=== PATIENT | male | born 1960 | race African-American/Black ===

== ENCOUNTER → 2016-05-02 | Outpatient (CLI) | payer MEDICAID ==
[~2016-05-02] MED LIST: /ADVA50050; /ADVA50050 IN; /AUGM875TA; /AUGM875TA OR; ACET65TA; ADV250INH INH; ALBU17IN INH; ALBU17IN2; ASPI325T PO; AUGM875T27 PO; AUGMENTIN; AVANDIA; BABY81CH OR; CEROTAB PO; CEROVITE OR; CIPR250T3; CIPR500T19; DARV100T; DARV100T OR; DOXY-278 PO; DRIS50002 PO; DYAZ37.5; DYAZ37.5 OR; FURO40TA2; FURO40TA2 PO; FURO80TA2; GLIM4TAB PO; GLIP5TAB2; GLIPPOW; GLUC1000; GLUC1000 OR; GLUC5TAB3; HUMA100I5 SC; INSUHUMDS SC; INSULANT SC; LASI40TA; LISIPOW; LOSA50TA20 PO; LYRI75CA PO; METFORMIN; MICA40TA; MICA40TA OR; MOTRIN; OMEP20CA3 PO; POTA20TA; PREG50CA OR; PREG50CA PO; PRIL40CA OR; QUINAPRIL; RANI150T PO; ROSI4TA; SANTYL; SIMV40TA2 OR; TRIA37.5 PO; TRIAMTERENE-HCTZ; VIBR100C OR; VITA500T OR; VITA500T88 PO; albuterol inhaler INH; albuterol inhaler OR; furosemide OR; glimepiride OR; januvia OR; lantus SC
[2016-05-02 08:31] LABS: ALBUMIN 3.1 GM/DL (3.2-5.2); ALBUMIN/GLOBULIN RATIO 0.82 (1.00-1.93); ALKALINE PHOSPHATASE 100 U/L (45-117); ALT/SGPT 107 U/L (12-78); ANION GAP 8 MEQ/L (8-16); AST/SGOT 60 U/L (15-37); BILIRUBIN,TOTAL 0.4 MG/DL (0.2-1.0); BLOOD UREA NITROGEN 20 MG/DL (7-18); CALCIUM LEVEL 8.6 MG/DL (8.5-10.1); CARBON DIOXIDE LEVEL 29 MEQ/L (21-32); CHLORIDE LEVEL 108 MEQ/L (98-107); CHOLESTEROL LEVEL 110 MG/DL (<200); CREATININE FOR GFR 0.83 MG/DL (0.70-1.30); GLOMERULAR FILTRATION RATE > 60.0 (>56); GLUCOSE, FASTING 137 MG/DL (70-105); POTASSIUM SERUM 3.9 MEQ/L (3.5-5.1); SODIUM LEVEL 145 MEQ/L (136-145); TOTAL PROTEIN 6.9 GM/DL (6.4-8.2); TRIGLYCERIDES LEVEL 59 MG/DL (<150)
[2016-05-02 08:46] LABS: BASO % 0.4 % (0.0-1.0); EOS # 0.1 K/mm3 (0.0-0.50); EOS % 2.2 % (0.0-3.0); LYMPH # 1.9 K/mm3 (1.5-4.5); LYMPH % 28.6 % (24.0-44.0); MEAN CORPUSCULAR HEMOGLOBIN 29.2 pg (27.0-33.0); MEAN CORPUSCULAR HGB CONC 32.7 g/dl (32.0-36.5); MEAN CORPUSCULAR VOLUME 89.2 fl (80.0-96.0); MONO # 0.6 K/mm3 (0.0-0.8); MONO % 9.1 % (0.0-5.0); NEUTROPHILS # 3.8 K/mm3 (1.8-7.7); NEUTROPHILS % 57.9 % (36.0-66.0); RED CELL DISTRIBUTION WIDTH 13.7 % (11.5-14.5); WHITE BLOOD COUNT 6.5 K/mm3 (4.0-10.0)
== END ==
LOC: M LAB 07:16
PROVIDERS: ATTEND Physician Assistant Medical
DX: E11.9 Type 2 diabetes mellitus without complications (principal); E08.40 Diabetes mellitus due to underlying condition with diabetic neuropathy, unspecified

== ENCOUNTER → 2016-06-27 | Outpatient (CLI) | payer MEDICAID ==
[2016-06-27 08:23] LABS: BASO % 0.4 % (0.0-1.0); EOS # 0.2 K/mm3 (0.0-0.50); EOS % 2.2 % (0.0-3.0); LYMPH # 2.2 K/mm3 (1.5-4.5); LYMPH % 25.3 % (24.0-44.0); MEAN CORPUSCULAR HEMOGLOBIN 29.6 pg (27.0-33.0); MEAN CORPUSCULAR HGB CONC 32.9 g/dl (32.0-36.5); MONO # 0.6 K/mm3 (0.0-0.8); MONO % 7.7 % (0.0-5.0); NEUTROPHILS # 5.2 K/mm3 (1.8-7.7); NEUTROPHILS % 62.6 % (36.0-66.0); WHITE BLOOD COUNT 8.2 K/mm3 (4.0-10.0)
[2016-06-27 08:56] LABS: ALBUMIN 3.1 GM/DL (3.2-5.2); ALBUMIN/GLOBULIN RATIO 0.79 (1.00-1.93); ALKALINE PHOSPHATASE 93 U/L (45-117); ALT/SGPT 45 U/L (12-78); ANION GAP 8 MEQ/L (8-16); AST/SGOT 28 U/L (15-37); BILIRUBIN,TOTAL 0.4 MG/DL (0.2-1.0); BLOOD UREA NITROGEN 22 MG/DL (7-18); CALCIUM LEVEL 8.3 MG/DL (8.5-10.1); CARBON DIOXIDE LEVEL 29 MEQ/L (21-32); CHLORIDE LEVEL 105 MEQ/L (98-107); CHOLESTEROL LEVEL 124 MG/DL (<200); GLOMERULAR FILTRATION RATE > 60.0 (>56); GLUCOSE, FASTING 127 MG/DL (70-105); POTASSIUM SERUM 3.9 MEQ/L (3.5-5.1); SODIUM LEVEL 142 MEQ/L (136-145); TRIGLYCERIDES LEVEL 78 MG/DL (<150)
== END ==
LOC: M LAB 07:18
PROVIDERS: ATTEND Physician Assistant Medical
DX: E11.9 Type 2 diabetes mellitus without complications (principal)

== ENCOUNTER → 2016-08-23 | Outpatient (CLI) | payer MEDICAID ==
--- NOTE | 2016-08-23 07:49 | REP ---
Clinical: Shortness of breath. Technique: PA and lateral. Comparison: 01/09/2009. Findings: Mediastinum and cardiac silhouette are normal. Subtle left lower lobe/ retrocardiac atelectasis and/or infiltrate cannot be excluded and should be correlated clinically. No further consolidation, effusion, or pneumothorax. Skeletal structures intact. Impression: Cannot exclude left lower lobe atelectasis/infiltrate. Signed by Yefri Zhao MD 08/23/2016 07:41 A
[2016-08-23 08:00] LABS: BASO % 0.5 % (0.0-1.0); EOS # 0.1 K/mm3 (0.0-0.50); LYMPH # 1.9 K/mm3 (1.5-4.5); LYMPH % 31.1 % (24.0-44.0); MEAN CORPUSCULAR HEMOGLOBIN 29.9 pg (27.0-33.0); MEAN CORPUSCULAR HGB CONC 32.8 g/dl (32.0-36.5); MEAN CORPUSCULAR VOLUME 90.9 fl (80.0-96.0); MONO # 0.6 K/mm3 (0.0-0.8); MONO % 10.4 % (0.0-5.0); NEUTROPHILS # 3.3 K/mm3 (1.8-7.7); NEUTROPHILS % 53.1 % (36.0-66.0); RED CELL DISTRIBUTION WIDTH 13.7 % (11.5-14.5); WHITE BLOOD COUNT 6.1 K/mm3 (4.0-10.0)
[2016-08-23 08:35] LABS: ALBUMIN/GLOBULIN RATIO 0.81 (1.00-1.93); ALKALINE PHOSPHATASE 90 U/L (45-117); ALT/SGPT 93 U/L (12-78); ANION GAP 6 MEQ/L (8-16); AST/SGOT 50 U/L (15-37); BILIRUBIN,TOTAL 0.4 MG/DL (0.2-1.0); BLOOD UREA NITROGEN 22 MG/DL (7-18); CALCIUM LEVEL 8.1 MG/DL (8.5-10.1); CARBON DIOXIDE LEVEL 29 MEQ/L (21-32); CHLORIDE LEVEL 108 MEQ/L (98-107); CHOLESTEROL LEVEL 115 MG/DL (<200); CREATININE FOR GFR 0.92 MG/DL (0.70-1.30); GLOMERULAR FILTRATION RATE > 60.0 (>56); GLUCOSE, FASTING 117 MG/DL (70-105); POTASSIUM SERUM 3.9 MEQ/L (3.5-5.1); SODIUM LEVEL 143 MEQ/L (136-145); TOTAL PROTEIN 6.7 GM/DL (6.4-8.2); TRIGLYCERIDES LEVEL 59 MG/DL (<150)
== END ==
LOC: M LAB 06:53
PROVIDERS: ATTEND Physician Assistant Medical
DX: E11.9 Type 2 diabetes mellitus without complications (principal); J44.9 Chronic obstructive pulmonary disease, unspecified

== ENCOUNTER → 2016-10-19 | Outpatient (CLI) | payer MEDICAID ==
[~2016-10-19] MED LIST changes: -AUGM875T27 PO; +AUGM875T28 PO
--- NOTE | 2016-10-19 10:59 | REP ---
RIGHT WRIST, FOUR VIEWS: HISTORY: Carpal tunnel syndrome. There is no acute fracture or dislocation. The joint spaces are normal in appearance. IMPRESSION: There is no acute fracture or dislocation. LEFT WRIST, FOUR VIEWS: There is no acute fracture or dislocation. There is deformity of the navicular and lunate bones likely secondary to previous trauma. Calcifications are present medial to the lunate. This represents ligamentous or tendon calcification. IMPRESSION: Degenerative change as described above. Signed by Aldair Ann MD 10/19/2016 11:05 A
== END ==
LOC: M RAD 07:47
PROVIDERS: ATTEND Physician Assistant Medical
DX: G56.03 Carpal tunnel syndrome, bilateral upper limbs (principal)

== ENCOUNTER → 2016-11-19 | Outpatient (CLI) | payer MEDICAID ==
--- NOTE | 2016-11-19 08:33 | REP ---
PA and lateral chest: Comparison is 08/23/2016. The lung rios are clear. The cardiac size is normal The magnolia, mediastinum, and bony thorax are unremarkable. Impression: Negative PA and lateral chest. Signed by Hans Caballero MD 11/19/2016 08:25 A
[2016-11-19 09:20] LABS: BASO % 0.5 % (0.0-1.0); EOS # 0.1 K/mm3 (0.0-0.50); EOS % 1.7 % (0.0-3.0); LYMPH # 1.5 K/mm3 (1.5-4.5); LYMPH % 27.5 % (24.0-44.0); MEAN CORPUSCULAR HEMOGLOBIN 29.1 pg (27.0-33.0); MEAN CORPUSCULAR HGB CONC 32.9 g/dl (32.0-36.5); MEAN CORPUSCULAR VOLUME 88.6 fl (80.0-96.0); MONO # 0.5 K/mm3 (0.0-0.8); MONO % 9.3 % (0.0-5.0); NEUTROPHILS # 3.1 K/mm3 (1.8-7.7); NEUTROPHILS % 58.5 % (36.0-66.0); RED CELL DISTRIBUTION WIDTH 13.5 % (11.5-14.5); WHITE BLOOD COUNT 5.3 K/mm3 (4.0-10.0)
[2016-11-19 09:45] LABS: ALBUMIN 2.9 GM/DL (3.2-5.2); ALBUMIN/GLOBULIN RATIO 0.74 (1.00-1.93); ALKALINE PHOSPHATASE 119 U/L (45-117); ALT/SGPT 44 U/L (12-78); ANION GAP 7 MEQ/L (8-16); AST/SGOT 23 U/L (15-37); BILIRUBIN,TOTAL 0.4 MG/DL (0.2-1.0); BLOOD UREA NITROGEN 14 MG/DL (7-18); CALCIUM LEVEL 8.2 MG/DL (8.5-10.1); CARBON DIOXIDE LEVEL 31 MEQ/L (21-32); CHLORIDE LEVEL 104 MEQ/L (98-107); CHOLESTEROL LEVEL 112 MG/DL (<200); CREATININE FOR GFR 0.88 MG/DL (0.70-1.30); GLOMERULAR FILTRATION RATE > 60.0 (>56); GLUCOSE, FASTING 338 MG/DL (70-105); GLUCOSE,RANDOM 338 MG/DL (LESS THAN 200); SODIUM LEVEL 142 MEQ/L (136-145); TOTAL PROTEIN 6.8 GM/DL (6.4-8.2); TRIGLYCERIDES LEVEL 78 MG/DL (<150)
== END ==
LOC: M LAB 07:26
PROVIDERS: ATTEND Physician Assistant Medical
DX: Z72.0 Tobacco use (principal); E08.40 Diabetes mellitus due to underlying condition with diabetic neuropathy, unspecified

== ENCOUNTER → 2017-02-26 | Outpatient (CLI) | payer MEDICAID ==
[2017-02-26 07:55] LABS: BASO % 0.3 % (0.0-1.0); EOS # 0.1 10^3/uL (0.0-0.50); EOS % 1.5 % (0.0-3.0); IMMATURE GRANULOCYTE % 0.3 % (0-0); LYMPH # 1.8 10^3/uL (1.5-4.5); LYMPH % 23.1 % (24.0-44.0); MEAN CORPUSCULAR HEMOGLOBIN 27.7 pg (27.0-33.0); MEAN CORPUSCULAR HGB CONC 31.6 g/dl (32.0-36.5); MEAN CORPUSCULAR VOLUME 87.7 fl (80.0-96.0); MONO # 0.8 10^3/uL (0.0-0.8); MONO % 10.7 % (0.0-5.0); NEUTROPHILS # 4.9 10^3/uL (1.8-7.7); NEUTROPHILS % 64.1 % (36.0-66.0); PLATELET COUNT, AUTOMATED 199 10^3/uL (150-450); RED CELL DISTRIBUTION WIDTH 14.4 % (11.5-14.5); WHITE BLOOD COUNT 7.6 10^3/uL (4.0-10.0)
[2017-02-26 08:29] LABS: ALBUMIN 2.8 GM/DL (3.2-5.2); ALBUMIN/GLOBULIN RATIO 0.68 (1.00-1.93); ALKALINE PHOSPHATASE 128 U/L (45-117); ALT/SGPT 90 U/L (12-78); ANION GAP 5 MEQ/L (8-16); AST/SGOT 50 U/L (7-37); BILIRUBIN,TOTAL 0.3 MG/DL (0.2-1.0); BLOOD UREA NITROGEN 21 MG/DL (7-18); CALCIUM LEVEL 8.7 MG/DL (8.5-10.1); CARBON DIOXIDE LEVEL 33 MEQ/L (21-32); CHLORIDE LEVEL 105 MEQ/L (98-107); CHOLESTEROL LEVEL 171 MG/DL (<200); CREATININE FOR GFR 0.98 MG/DL (0.70-1.30); GLOMERULAR FILTRATION RATE > 60.0 (>56); GLUCOSE, FASTING 261 MG/DL (70-105); POTASSIUM SERUM 4.3 MEQ/L (3.5-5.1); SODIUM LEVEL 143 MEQ/L (136-145); TOTAL PROTEIN 6.9 GM/DL (6.4-8.2); TRIGLYCERIDES LEVEL 80 MG/DL (<150)
== END ==
LOC: M LAB 07:21
PROVIDERS: ATTEND Physician Assistant Medical
DX: E11.9 Type 2 diabetes mellitus without complications (principal)

== ENCOUNTER → 2017-06-04 | Outpatient (REF) | payer MEDICAID ==
[2017-06-04 13:22] LABS: TOTAL 25(OH) VITAMIN D 47.1 NG/ML (30.0-100.0)
[2017-06-04 13:24] LABS: ALBUMIN 2.7 GM/DL (3.2-5.2); ALBUMIN/GLOBULIN RATIO 0.64 (1.00-1.93); ALKALINE PHOSPHATASE 98 U/L (45-117); ALT/SGPT 28 U/L (12-78); ANION GAP 5 MEQ/L (8-16); AST/SGOT 20 U/L (7-37); BILIRUBIN,TOTAL 0.4 MG/DL (0.2-1.0); BLOOD UREA NITROGEN 14 MG/DL (7-18); CALCIUM LEVEL 8.9 MG/DL (8.5-10.1); CARBON DIOXIDE LEVEL 34 MEQ/L (21-32); CHLORIDE LEVEL 102 MEQ/L (98-107); CHOLESTEROL LEVEL 140 MG/DL (<200); CREATININE FOR GFR 0.77 MG/DL (0.70-1.30); GLOMERULAR FILTRATION RATE > 60.0 (>56); GLUCOSE, FASTING 226 MG/DL (70-100); HDL CHOLESTEROL 56 MG/DL (>40); LDL CHOLESTEROL 70.2 MG/DL (<100); NON-HDL-C 84 MG/DL; POTASSIUM SERUM 4.3 MEQ/L (3.5-5.1); SODIUM LEVEL 141 MEQ/L (136-145); TOTAL PROTEIN 6.9 GM/DL (6.4-8.2); TRIGLYCERIDES LEVEL 69 MG/DL (<150)
[2017-06-04 13:49] LABS: ESTIMATED AVERAGE GLUCOSE 212 MG/DL (60-110)
== END ==
LOC: M LAB REF 12:26
DX: E11.9 Type 2 diabetes mellitus without complications (principal)

== ENCOUNTER → 2017-07-26 | Outpatient (REF) | payer MEDICAID ==
[2017-07-26 13:11] LABS: AMPHETAMINES LEVEL URINE NEGATIVE (NEGATIVE); BARBITURATES URINE NEGATIVE (NEGATIVE); BENZODIAZEPINES URINE NEGATIVE (NEGATIVE); CANNABINOIDS URINE POSITIVE (NEGATIVE); COCAINE METABOLITE URINE NEGATIVE (NEGATIVE); METHADONE URINE NEGATIVE (NEGATIVE); OPIATES URINE NEGATIVE (NEGATIVE); PHENCYCLIDINE URINE NEGATIVE (NEGATIVE)
== END ==
LOC: M LAB REF 12:16
DX: G89.4 Chronic pain syndrome (principal)

== ENCOUNTER → 2017-10-11 | Outpatient (CLI) | payer MEDICAID | LOC: M PAIN 09:00 | DX: M54.5 Low back pain (principal); G89.29 Other chronic pain; M25.561 Pain in right knee; M25.562 Pain in left knee; E11.9 Type 2 diabetes mellitus without complications; I12.9 Hypertensive chronic kidney disease with stage 1 through stage 4 chronic kidney disease, or unspecified chronic kidney disease; N18.2 Chronic kidney disease, stage 2 (mild); K21.9 Gastro-esophageal reflux disease without esophagitis; M17.0 Bilateral primary osteoarthritis of knee; J45.909 Unspecified asthma, uncomplicated; G47.30 Sleep apnea, unspecified; F17.210 Nicotine dependence, cigarettes, uncomplicated; E66.01 Morbid (severe) obesity due to excess calories; Z68.44 Body mass index [BMI] 60.0-69.9, adult; Z79.82 Long term (current) use of aspirin; Z79.4 Long term (current) use of insulin; Z79.899 Other long term (current) drug therapy; Z88.2 Allergy status to sulfonamides; Z88.6 Allergy status to analgesic agent; Z87.820 Personal history of traumatic brain injury; Z86.59 Personal history of other mental and behavioral disorders | CPT/HCPCS: G0463 ==

== ENCOUNTER → 2017-11-25 | Outpatient (REF) | payer MEDICAID ==
[2017-11-25 19:44] LABS: ALBUMIN 2.5 GM/DL (3.2-5.2); ALBUMIN/GLOBULIN RATIO 0.54 (1.00-1.93); ALKALINE PHOSPHATASE 100 U/L (45-117); ALT/SGPT 80 U/L (12-78); ANION GAP 5 MEQ/L (8-16); AST/SGOT 68 U/L (7-37); BILIRUBIN,TOTAL 0.4 MG/DL (0.2-1.0); BLOOD UREA NITROGEN 18 MG/DL (7-18); CALCIUM LEVEL 8.2 MG/DL (8.5-10.1); CARBON DIOXIDE LEVEL 34 MEQ/L (21-32); CHLORIDE LEVEL 104 MEQ/L (98-107); CHOLESTEROL LEVEL 191 MG/DL (<200); CHOLESTEROL RISK RATIO 3.237 (<5); CREATININE FOR GFR 0.73 MG/DL (0.70-1.30); ESTIMATED AVERAGE GLUCOSE 192 MG/DL (60-110); GLOMERULAR FILTRATION RATE > 60.0 (>56); GLUCOSE, FASTING 74 MG/DL (70-100); HDL CHOLESTEROL 59 MG/DL (>40); HEMOGLOBIN A1c 8.3 %; LDL CHOLESTEROL 118.2 MG/DL (<100); NON-HDL-C 132 MG/DL; POTASSIUM SERUM 4.1 MEQ/L (3.5-5.1); SODIUM LEVEL 143 MEQ/L (136-145); TOTAL PROTEIN 7.1 GM/DL (6.4-8.2); TRIGLYCERIDES LEVEL 69 MG/DL (<150)
== END ==
LOC: M LAB REF 18:23
DX: I10 Essential (primary) hypertension (principal); E11.9 Type 2 diabetes mellitus without complications; E78.00 Pure hypercholesterolemia, unspecified
CPT/HCPCS: 80053

== ENCOUNTER → 2017-12-10 | Outpatient (CLI) | payer MEDICAID ==
[2017-12-10 10:58] LABS: HEPATITIS B SURFACE ANTIGEN NEGATIVE (NEGATIVE)
[2017-12-10 11:25] LABS: HIV 1&2 SCREEN CENTAUR NEGATIVE (NEGATIVE)
== END ==
LOC: M RAD 06:45
DX: R94.5 Abnormal results of liver function studies (principal)
CPT/HCPCS: 76705

== ENCOUNTER 2018-03-03 10:36 | Emergency (ER) | payer OTHER, MEDICAID ==
[2018-03-03 11:17] LABS: BASO % 0.4 % (0.0-1.0); EOS # 0.1 10^3/uL (0.0-0.50); EOS % 2.2 % (0.0-3.0); HEMATOCRIT 47.9 % (42.0-52.0); HEMOGLOBIN 15.6 g/dl (13.5-17.5); LYMPH # 1.6 10^3/uL (1.5-4.5); LYMPH % 29.9 % (24.0-44.0); MEAN CORPUSCULAR HEMOGLOBIN 28.3 pg (27.0-33.0); MEAN CORPUSCULAR HGB CONC 32.6 g/dl (32.0-36.5); MEAN CORPUSCULAR VOLUME 86.8 fl (80.0-96.0); MONO # 0.7 10^3/uL (0.0-0.8); MONO % 13.4 % (0.0-5.0); NEUTROPHILS % 54.1 % (36.0-66.0); PLATELET COUNT, AUTOMATED 203 10^3/uL (150-450); RED BLOOD COUNT 5.52 10^6/uL (4.30-6.10); RED CELL DISTRIBUTION WIDTH 13.7 % (11.5-14.5); WHITE BLOOD COUNT 5.5 10^3/uL (4.0-10.0)
[2018-03-03 11:27] LABS: INR 0.95; PROTHROMBIN TIME 12.8 SECONDS (12.1-14.4)
[2018-03-03 11:28] LABS: PARTIAL THROMBOPLASTIN TIME 29.7 SECONDS (25.4-37.6)
[2018-03-03 11:38] LABS: ERYTHROCYTE SEDIMENTATION RATE 44 mm/hr (0-20)
[2018-03-03 12:02] LABS: LACTIC ACID SEPSIS PROTOCOL 1.9 MMOL/L (0.4-2.0)
[2018-03-03 12:26] LABS: ALBUMIN 2.6 GM/DL (3.2-5.2); ALBUMIN/GLOBULIN RATIO 0.63 (1.00-1.93); ALKALINE PHOSPHATASE 85 U/L (45-117); ALT/SGPT 66 U/L (12-78); ANION GAP 6 MEQ/L (8-16); AST/SGOT 47 U/L (7-37); BILIRUBIN,DIRECT 0.2 MG/DL (0.0-0.2); BILIRUBIN,TOTAL 0.5 MG/DL (0.2-1.0); BLOOD UREA NITROGEN 17 MG/DL (7-18); C REACTIVE PROTEIN QUANTITATIV 3.04 MG/DL (0.00-0.30); CALCIUM LEVEL 8.5 MG/DL (8.5-10.1); CARBON DIOXIDE LEVEL 31 MEQ/L (21-32); CHLORIDE LEVEL 103 MEQ/L (98-107); CREATININE FOR GFR 0.75 MG/DL (0.70-1.30); GLOMERULAR FILTRATION RATE > 60.0 (>56); GLUCOSE, FASTING 161 MG/DL (70-100); POTASSIUM SERUM 3.9 MEQ/L (3.5-5.1); SODIUM LEVEL 140 MEQ/L (136-145); TOTAL PROTEIN 6.7 GM/DL (6.4-8.2)
== END 2018-03-03 13:49 | disposition home or self-care (01) ==
LOC: M ED 10:36
DX: L03.115 Cellulitis of right lower limb (principal); L03.116 Cellulitis of left lower limb; E11.9 Type 2 diabetes mellitus without complications; I10 Essential (primary) hypertension; Z79.899 Other long term (current) drug therapy; Z79.82 Long term (current) use of aspirin; Z79.4 Long term (current) use of insulin; Z88.2 Allergy status to sulfonamides; Z88.8 Allergy status to other drugs, medicaments and biological substances; F17.210 Nicotine dependence, cigarettes, uncomplicated
CPT/HCPCS: 80076

== ENCOUNTER 2018-03-17 08:23 | Outpatient (RCR) | payer OTHER ==
[~2018-03-17 08:23] MED LIST changes: +CLEO300C2 PO; -DOXY-278 PO; +DOXY-350 PO; -DRIS50002 PO; +DRIS50003 PO; +LOSA50TA88 PO; +NEUR300C PO
== END 2018-04-07 ==
LOC: M PT 08:23
PROVIDERS: ATTEND Surgery
DX: I89.0 Lymphedema, not elsewhere classified (principal)

== ENCOUNTER → 2018-04-24 | Outpatient (REF) | payer OTHER ==
[2018-04-24 12:43] LABS: BASO % 0.3 % (0.0-1.0); EOS # 0.1 10^3/uL (0.0-0.50); EOS % 1.4 % (0.0-3.0); HEMATOCRIT 50.9 % (42.0-52.0); HEMOGLOBIN 16.5 g/dl (13.5-17.5); LYMPH % 26.5 % (24.0-44.0); MEAN CORPUSCULAR HEMOGLOBIN 27.9 pg (27.0-33.0); MEAN CORPUSCULAR HGB CONC 32.4 g/dl (32.0-36.5); MONO # 0.9 10^3/uL (0.0-0.8); MONO % 11.8 % (0.0-5.0); NEUTROPHILS # 4.4 10^3/uL (1.8-7.7); NEUTROPHILS % 59.9 % (36.0-66.0); PLATELET COUNT, AUTOMATED 293 10^3/uL (150-450); RED BLOOD COUNT 5.92 10^6/uL (4.30-6.10); WHITE BLOOD COUNT 7.4 10^3/uL (4.0-10.0)
[2018-04-24 12:51] LABS: ALBUMIN 2.5 GM/DL (3.2-5.2); ALT/SGPT 55 U/L (12-78); BILIRUBIN,TOTAL 0.5 MG/DL (0.2-1.0); BLOOD UREA NITROGEN 15 MG/DL (7-18); CALCIUM LEVEL 8.6 MG/DL (8.5-10.1); CARBON DIOXIDE LEVEL 30 MEQ/L (21-32); CHLORIDE LEVEL 101 MEQ/L (98-107); CHOLESTEROL LEVEL 211 MG/DL (<200); CHOLESTEROL RISK RATIO 4.137 (<5); CREATININE FOR GFR 0.77 MG/DL (0.70-1.30); GLOMERULAR FILTRATION RATE > 60.0 (>56); GLUCOSE, FASTING 93 MG/DL (70-100); HDL CHOLESTEROL 51 MG/DL (>40); LDL CHOLESTEROL 140 MG/DL (<100); NON-HDL-C 160 MG/DL; POTASSIUM SERUM 3.8 MEQ/L (3.5-5.1); SODIUM LEVEL 141 MEQ/L (136-145); THYROID STIMULATING HORMONE 0.948 uIU/ML (0.358-3.740); TOTAL 25(OH) VITAMIN D 60.6 NG/ML (30.0-100.0); TOTAL PROTEIN 7.1 GM/DL (6.4-8.2); TRIGLYCERIDES LEVEL 98 MG/DL (<150)
[2018-04-24 13:29] LABS: HEMOGLOBIN A1c 6.6 %
== END ==
LOC: M LAB REF 11:42
PROVIDERS: ATTEND Nurse Practitioner Family
DX: Z13.9 Encounter for screening, unspecified (principal); I10 Essential (primary) hypertension

== ENCOUNTER 2018-07-08 06:53 | Day surgery (SDC) | payer OTHER ==
[~2018-07-08] VITALS: Ht 165.1 cm; Wt 151.2 kg
[~2018-07-08 06:53] MED LIST changes: -/ADVA50050; -/ADVA50050 IN; +ADME100I2 SC; +ADVA1AER2; +ADVA1AER2 IN; +AMLO10TA5 PO; +ASPI-1 PO; -ASPI325T PO; +CYCL5TAB PO; +DULO1CAP2 PO; +GABA-845 PO; +METF500T13 PO; +TOUJ1.2I SC; +VENTAER INH
[2018-07-08] MEDS ORDERED: NS 1,000 ML IV ONE (08:00)
[2018-07-08] MEDS ORDERED: D5W/0.45% SODIUM CHLORIDE 1,000 ML IV SCH (08:45)
[2018-07-08] MEDS ORDERED: PROPOFOL 200 MG/20 ML VIAL As Ordered ONE ×4 (09:01→09:41)
[2018-07-08] MEDS ORDERED: LIDOCAINE 2% INJ 100 MG/5 ML SDV (FOR ANES.) As Ordered ONE (09:01)
--- NOTE | 2018-07-08 09:49 | ROOR ---
Patient Name: Clinton Jackson Procedure Date: 07/08/2018 8:53 AM Date of : 1960 Age: 58 Room: [facility] Gender: Male Note Status: Finalized Procedure: Colonoscopy Indications: Screening for colorectal malignant neoplasm Providers: Haider CARPENTER MD Referring MD: Sandie JULES NP Requesting Provider: Medicines: Monitored Anesthesia Care Complications: No immediate complications. Procedure: Pre-Anesthesia Assessment: - The heart rate, respiratory rate, oxygen saturations, blood pressure, adequacy of pulmonary ventilation, and response to care were monitored throughout the procedure. The Colonoscope was introduced through the anus and advanced to the cecum, identified by appendiceal orifice and ileocecal valve. The colonoscopy was performed with difficulty due to inadequate bowel prep. Successful completion of the procedure was aided by lavage. The patient tolerated the procedure well. The quality of the bowel preparation was inadequate. Findings: The perianal and digital rectal examinations were normal. Five semi-sessile polyps were found in the sigmoid colon, hepatic flexure and ascending colon. The polyps were 5 to 10 mm in size. These polyps were removed with a cold snare. Resection and retrieval were complete. To prevent bleeding after the polypectomy, four hemostatic clips were successfully placed. There was no bleeding at the end of the procedure. Multiple medium-mouthed diverticula were found in the sigmoid colon. Impression: - Preparation of the colon was inadequate. - Five 5 to 10 mm polyps in the sigmoid colon, at the hepatic flexure and in the ascending colon, removed with a cold snare. Resected and retrieved. Clips were placed. - Mild diverticulosis in the sigmoid colon. Recommendation: - Repeat colonoscopy in 1 year because the bowel preparation was poor. - My office will put you on a recall schedule. You will be notified at the appropriate time for follow up. - Your MOM/Trilyte prep was not completely effective. You will need additional colon prep for your next colonoscopy. Haider Carpenter MD Haider CARPENTER MD 07/08/2018 9:48:31 AM Electronically signed by Haider CARPENTER MD Number of Addenda: 0 Note Initiated On: 07/08/2018 8:53 AM Estimated Blood Loss: Estimated blood loss: none.
[2018-07-08 10:13] VITALS: BP 188/106
== END 2018-07-08 10:16 | disposition home or self-care (01) ==
LOC: M OPP 06:53
PROVIDERS: ATTEND Internal Medicine Gastroenterology
DX: D12.5 Benign neoplasm of sigmoid colon (principal); D12.3 Benign neoplasm of transverse colon; D12.2 Benign neoplasm of ascending colon; K57.30 Diverticulosis of large intestine without perforation or abscess without bleeding; Z12.11 Encounter for screening for malignant neoplasm of colon

== ENCOUNTER → 2018-08-04 | Outpatient (CLI) | payer OTHER, MEDICAID | LOC: M PAIN 12:30 | PROVIDERS: ATTEND Anesthesiology | DX: M54.5 Low back pain (principal); Z53.29 Procedure and treatment not carried out because of patient's decision for other reasons ==

== ENCOUNTER → 2018-08-18 | Outpatient (REF) | payer OTHER, MEDICAID ==
[2018-08-18 13:50] LABS: BASO % 0.3 % (0.0-1.0); EOS # 0.1 10^3/uL (0.0-0.50); EOS % 1.4 % (0.0-3.0); HEMATOCRIT 53.3 % (42.0-52.0); HEMOGLOBIN 16.8 g/dl (13.5-17.5); LYMPH # 2.7 10^3/uL (1.5-4.5); LYMPH % 28.8 % (24.0-44.0); MEAN CORPUSCULAR HEMOGLOBIN 28.1 pg (27.0-33.0); MEAN CORPUSCULAR HGB CONC 31.5 g/dl (32.0-36.5); MEAN CORPUSCULAR VOLUME 89.3 fl (80.0-96.0); MONO % 10.5 % (0.0-5.0); NEUTROPHILS # 5.4 10^3/uL (1.8-7.7); NEUTROPHILS % 58.8 % (36.0-66.0); PLATELET COUNT, AUTOMATED 251 10^3/uL (150-450); RED BLOOD COUNT 5.97 10^6/uL (4.30-6.10); WHITE BLOOD COUNT 9.3 10^3/uL (4.0-10.0)
[2018-08-18 14:09] LABS: HEMOGLOBIN A1c 6.5 %
[2018-08-18 14:23] LABS: ALBUMIN 2.6 GM/DL (3.2-5.2); ALT/SGPT 35 U/L (12-78); BILIRUBIN,TOTAL 0.3 MG/DL (0.2-1.0); BLOOD UREA NITROGEN 16 MG/DL (7-18); CALCIUM LEVEL 8.9 MG/DL (8.5-10.1); CARBON DIOXIDE LEVEL 35 MEQ/L (21-32); CHLORIDE LEVEL 101 MEQ/L (98-107); CHOLESTEROL LEVEL 241 MG/DL (<200); CHOLESTEROL RISK RATIO 3.887 (<5); CREATININE FOR GFR 0.84 MG/DL (0.70-1.30); GLOMERULAR FILTRATION RATE > 60.0 (>56); GLUCOSE, FASTING 105 MG/DL (70-100); HDL CHOLESTEROL 62 MG/DL (>40); LDL CHOLESTEROL 156 MG/DL (<100); NON-HDL-C 179 MG/DL; POTASSIUM SERUM 3.7 MEQ/L (3.5-5.1); SODIUM LEVEL 141 MEQ/L (136-145); TOTAL PROTEIN 7.5 GM/DL (6.4-8.2); TRIGLYCERIDES LEVEL 116 MG/DL (<150)
== END ==
LOC: M LAB REF 13:18
PROVIDERS: ATTEND Nurse Practitioner Family
DX: E78.00 Pure hypercholesterolemia, unspecified (principal); E11.9 Type 2 diabetes mellitus without complications; I10 Essential (primary) hypertension

== ENCOUNTER → 2018-11-28 | Outpatient (CLI) | payer OTHER, MEDICAID ==
[~2018-11-28] MED LIST changes: +ARNU1INH PO; +ATOR1TAB21 PO; +ATOR40TA75 PO; +COZA50TA PO; +CYMB1CAP5 PO; -DULO1CAP2 PO; +DULO1CAP5 PO; +FLUT22IN INH; -GLIM4TAB PO; +GLIM4TAB5 PO; +GLUC500T PO; +METO1TAB33 PO; +METO1TAB7 PO; +OMEP1CAP73 PO; -OMEP20CA3 PO; +OXYCO5TA PO; +PANT40TA3 PO; +PEG1POW PO; +PERCOCET PO; +SENN-52 PO; +TRIA37.53 PO; +TRUL10IN SC
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
== END ==
LOC: M PAIN 14:15
PROVIDERS: ATTEND Anesthesiology
DX: M54.5 Low back pain (principal); G89.29 Other chronic pain; M79.18 Myalgia, other site; M25.561 Pain in right knee; M25.562 Pain in left knee; E11.9 Type 2 diabetes mellitus without complications; I10 Essential (primary) hypertension; K21.9 Gastro-esophageal reflux disease without esophagitis; J44.9 Chronic obstructive pulmonary disease, unspecified; E78.5 Hyperlipidemia, unspecified; G47.30 Sleep apnea, unspecified; Z86.19 Personal history of other infectious and parasitic diseases; F17.210 Nicotine dependence, cigarettes, uncomplicated; Z88.2 Allergy status to sulfonamides; Z88.6 Allergy status to analgesic agent; E66.01 Morbid (severe) obesity due to excess calories; Z68.44 Body mass index [BMI] 60.0-69.9, adult; Z79.82 Long term (current) use of aspirin; Z79.4 Long term (current) use of insulin; Z79.899 Other long term (current) drug therapy

== ENCOUNTER → 2018-12-11 | Outpatient (CLI) | payer OTHER ==
[~2018-12-11] MED LIST changes: -ARNU1INH PO; -ATOR1TAB21 PO; -ATOR40TA75 PO; -COZA50TA PO; -CYMB1CAP5 PO; -FLUT22IN INH; +GLIM4TAB PO; -GLIM4TAB5 PO; -GLUC500T PO; -METO1TAB33 PO; -METO1TAB7 PO; -OMEP1CAP73 PO; +OMEP20CA4 PO; -OXYCO5TA PO; -PANT40TA3 PO; -PEG1POW PO; -PERCOCET PO; -SENN-52 PO; -TRIA37.53 PO; -TRUL10IN SC
--- NOTE | 2018-12-11 09:03 | REP ---
Clinical: Bilateral knee pain. Technique: AP and lateral views of the right and left knee. Findings: Symmetric osteopenia and moderate bilateral tricompartmental osteoarthritic degenerative changes are appreciated including subchondral sclerosis, joint space narrowing, and osteophytosis. No acute fracture dislocation. No effusion. Impression: Bilateral knees demonstrate symmetric osteopenia and moderate tricompartmental osteoarthritic degenerative changes. Electronically Signed by Yefri Zhao MD 12/11/2018 08:54 A
--- NOTE | 2018-12-11 09:11 | REP ---
Partial lumbar spine series: Three views. History: Severe back pain. Comparison study: March 31, 2010. Findings: There are six lumbar-type vertebral bodies with sacralization of L6 and a L6 S1 disc space. At L4-5 (previous report designated this level as L3-4), there is advanced degenerative disc disease with progressive sclerosis and a large anterior osteophyte formation. There is a L for bilateral spondylolysis and a grade 1 6 mm L4-5 spondylolisthesis. The degree of spondylolisthesis is unchanged but the degenerative disc disease has progressed. A vacuum phenomenon is seen in the L4-5 disc. Other disc spaces are preserved. Alignment is otherwise normal. Impression: Progressive degenerative disc disease at what is felt to be best described as the L4-5 disc level. There is bilateral L4 spondylolysis. There is a 6 mm grade 1 L4-5 spondylolisthesis. Vacuum phenomenon. Large anterior osteophytes an extensive endplate sclerosis are seen. There is mild loss of anterior vertebral body height at L5. There are six lumbar-type vertebrae. Electronically Signed by Robert Pena MD 12/11/2018 09:03 A
== END ==
LOC: M RAD 07:57
PROVIDERS: ATTEND Anesthesiology
DX: M54.5 Low back pain (principal); M25.561 Pain in right knee; M25.562 Pain in left knee

== ENCOUNTER → 2018-12-16 | Outpatient (REF) | payer OTHER ==
[2018-12-16 14:10] LABS: BASO % 0.4 % (0.0-1.0); EOS # 0.1 10^3/uL (0.0-0.5); EOS % 1.2 % (0.0-3.0); HEMATOCRIT 54.9 % (42.0-52.0); HEMOGLOBIN 17.2 g/dl (13.5-17.5); LYMPH # 1.8 10^3/uL (1.5-5.0); LYMPH % 24.5 % (24.0-44.0); MEAN CORPUSCULAR HEMOGLOBIN 28.1 pg (27.0-33.0); MEAN CORPUSCULAR HGB CONC 31.3 g/dl (32.0-36.5); MEAN CORPUSCULAR VOLUME 89.7 fl (80.0-96.0); MONO # 0.9 10^3/uL (0.0-0.8); MONO % 12.3 % (0.0-5.0); NEUTROPHILS # 4.5 10^3/uL (1.5-8.5); NEUTROPHILS % 61.3 % (36.0-66.0); PLATELET COUNT, AUTOMATED 235 10^3/uL (150-450); RED BLOOD COUNT 6.12 10^6/uL (4.30-6.10); WHITE BLOOD COUNT 7.3 10^3/uL (4.0-10.0)
[2018-12-16 14:17] LABS: ALBUMIN 2.4 GM/DL (3.2-5.2); ALT/SGPT 30 U/L (12-78); BILIRUBIN,TOTAL 0.3 MG/DL (0.2-1.0); BLOOD UREA NITROGEN 18 MG/DL (7-18); CALCIUM LEVEL 8.5 MG/DL (8.5-10.1); CARBON DIOXIDE LEVEL 34 MEQ/L (21-32); CHLORIDE LEVEL 105 MEQ/L (98-107); CHOLESTEROL LEVEL 251 MG/DL (<200); CHOLESTEROL RISK RATIO 4.482 (<5); CREATININE FOR GFR 0.95 MG/DL (0.70-1.30); GLOMERULAR FILTRATION RATE > 60.0 (>56); GLUCOSE, FASTING 281 MG/DL (70-100); HDL CHOLESTEROL 56 MG/DL (>40); LDL CHOLESTEROL 172 MG/DL (<100); NON-HDL-C 195 MG/DL; POTASSIUM SERUM 4.3 MEQ/L (3.5-5.1); SODIUM LEVEL 144 MEQ/L (136-145); TOTAL PROTEIN 6.4 GM/DL (6.4-8.2); TRIGLYCERIDES LEVEL 115 MG/DL (<150)
[2018-12-16 14:35] LABS: HEMOGLOBIN A1c 8.3 %
== END ==
LOC: M LAB REF 13:58
PROVIDERS: ATTEND Nurse Practitioner Family
DX: E78.00 Pure hypercholesterolemia, unspecified (principal); E11.9 Type 2 diabetes mellitus without complications; I10 Essential (primary) hypertension

== ENCOUNTER 2019-01-25 09:01 | Inpatient (IN) | payer OTHER ==
[~2019-01-25] VITALS: Ht 165.1 cm; Wt 159.1 kg
[~2019-01-25 09:01] MED LIST changes: -GLIM4TAB PO; +GLIM4TAB3 PO
[2019-01-25] MEDS ORDERED: MORPHINE 4 MG/ML 1ML VIAL/SYRINGE (J2270) IV ONE (09:45)
[2019-01-25 10:24] LABS: BASO % 0.3 % (0.0-1.0); EOS # 0.1 10^3/uL (0.0-0.5); EOS % 0.8 % (0.0-3.0); HEMATOCRIT 51.5 % (42.0-52.0); HEMOGLOBIN 16.6 g/dl (13.5-17.5); LYMPH # 1.5 10^3/uL (1.5-5.0); LYMPH % 13.6 % (24.0-44.0); MEAN CORPUSCULAR HEMOGLOBIN 28.1 pg (27.0-33.0); MEAN CORPUSCULAR HGB CONC 32.2 g/dl (32.0-36.5); MEAN CORPUSCULAR VOLUME 87.1 fl (80.0-96.0); MONO % 9.4 % (0.0-5.0); NEUTROPHILS # 8.3 10^3/uL (1.5-8.5); NEUTROPHILS % 75.6 % (36.0-66.0); PLATELET COUNT, AUTOMATED 193 10^3/uL (150-450); RED BLOOD COUNT 5.91 10^6/uL (4.30-6.10)
[2019-01-25 10:54] LABS: BLOOD UREA NITROGEN 23 MG/DL (7-18); CALCIUM LEVEL 8.5 MG/DL (8.5-10.1); CARBON DIOXIDE LEVEL 34 MEQ/L (21-32); CHLORIDE LEVEL 100 MEQ/L (98-107); CREATININE FOR GFR 0.96 MG/DL (0.70-1.30); GLOMERULAR FILTRATION RATE > 60.0 (>56); GLUCOSE, FASTING 35 MG/DL (70-100); POTASSIUM SERUM 3.3 MEQ/L (3.5-5.1); SODIUM LEVEL 140 MEQ/L (136-145)
[2019-01-25] MEDS ORDERED: DEXTROSE 50% 50 ML SYRINGE IV STA (10:56)
[2019-01-25] MEDS ORDERED: DEXTROSE 50% 50 ML SYRINGE As Ordered ONE (10:57)
[2019-01-25] MEDS ORDERED: POTASSIUM CHLORIDE 10 MEQ SR TABLET PO ONE (11:00)
[2019-01-25] MEDS ORDERED: amLODIPine 10 MG TAB PO ONE (11:15)
[2019-01-25] MEDS ORDERED: DYAZIDE 37.5/25 CAP (TRIAM/HCTZ) PO ONE (11:15)
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
[2019-01-25] MEDS ORDERED: GLUCOSE 4 GM CHEW TABLET PO PRN (13:30)
[2019-01-25] MEDS ORDERED: DEXTROSE 50% 50 ML SYRINGE IV PRN (13:30)
[2019-01-25] MEDS ORDERED: GLUCAGON FOR INJ 1 MG VIAL (J1610) SC PRN (13:30)
[2019-01-25] MEDS ORDERED: ARNU1INH PO (13:35)
[2019-01-25] MEDS ORDERED: TRUL10IN SC (13:35)
[2019-01-25] MEDS ORDERED: ATOR40TA75 PO (13:35)
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
[2019-01-25] MEDS ORDERED: NICOTINE 21MG/24HR 1 EA TRANSDERMAL TD ONE (15:00)
[2019-01-25 15:55] VITALS: BP 139/101
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
[2019-01-25] MEDS: MORPHINE 4 MG/ML 1ML VIAL/SYRINGE (J2270) IV PRN ×2 (17:22→21:36)
[2019-01-25] MEDS: FUROSEMIDE 40 MG TAB PO SCH (17:23)
[2019-01-25] MEDS: metFORMIN (GLUCOPHAGE) 500 MG TAB PO SCH (17:23)
[2019-01-25] MEDS: GABAPENTIN 400 MG CAP PO SCH ×2 (17:23→21:37)
[2019-01-25] MEDS: HumaLOG INSULIN (NovoLOG) PER UNIT SC SCH ×2 (17:26→21:00)
[2019-01-25] MEDS: LOSARTAN 50 MG TAB PO SCH (17:26)
[2019-01-25] MEDS: METOPROLOL SUCC (TopROL XL) 50MG **XL** TAB PO SCH (17:26)
--- NOTE | 2019-01-25 19:06 | ECGEPIP ---
[facility] - ED Test Date: 2019-01-25 Pat Name: ARLYN RAGLAND Department: Room: - Gender: Male Education Professor: MACHELLE : 1960 Requested By: TRINIDAD Streeter Order Number: [id number] Reading MD: Oli Servin Measurements Intervals Dobson Rate: 92 P: 60 MO: 160 QRS: -14 QRSD: 97 T: 44 QT: 355 QTc: 440 Interpretive Statements SINUS RHYTHM INDETERMINATE AXIS PATTERN CONSISTENT WITH PULMONARY DISEASE INFERIOR MYOCARDIAL INFARCTION, PROBABLY OLD NO PRIORS FOR COMPARISON Electronically Signed on 01-25-2019 19:06:10 EDT by Oli Servin
[2019-01-25] MEDS: CYCLOBENZAPRINE 5MG TABLET PO SCH (21:36)
[2019-01-25] MEDS: ENOXAPARIN 40 MG/0.4 ML SYRINGE (J1650) SC SCH (21:37)
[2019-01-25] MEDS: DOCUSATE SODIUM 100 MG CAP PO SCH (21:37)
[2019-01-25 22:00] VITALS: BP 151/76
[2019-01-26] MEDS: MORPHINE 4 MG/ML 1ML VIAL/SYRINGE (J2270) IV PRN ×2 (04:06→10:51)
[2019-01-26 06:00] VITALS: BP 126/85
[2019-01-26 06:29] LABS: HEMATOCRIT 51.7 % (42.0-52.0); HEMOGLOBIN 16.2 g/dl (13.5-17.5); MEAN CORPUSCULAR HEMOGLOBIN 27.7 pg (27.0-33.0); MEAN CORPUSCULAR HGB CONC 31.3 g/dl (32.0-36.5); MEAN CORPUSCULAR VOLUME 88.5 fl (80.0-96.0); PLATELET COUNT, AUTOMATED 174 10^3/uL (150-450); RED BLOOD COUNT 5.84 10^6/uL (4.30-6.10); WHITE BLOOD COUNT 10.8 10^3/uL (4.0-10.0)
[2019-01-26 06:49] LABS: BLOOD UREA NITROGEN 21 MG/DL (7-18); CALCIUM LEVEL 9.1 MG/DL (8.5-10.1); CARBON DIOXIDE LEVEL 35 MEQ/L (21-32); CHLORIDE LEVEL 97 MEQ/L (98-107); CREATININE FOR GFR 1.02 MG/DL (0.70-1.30); GLOMERULAR FILTRATION RATE > 60.0 (>56); GLUCOSE, FASTING 81 MG/DL (70-100); MAGNESIUM LEVEL 1.8 MG/DL (1.8-2.4); POTASSIUM SERUM 3.4 MEQ/L (3.5-5.1); SODIUM LEVEL 138 MEQ/L (136-145)
[2019-01-26] MEDS: HumaLOG INSULIN (NovoLOG) PER UNIT SC SCH ×4 (07:30→20:17)
[2019-01-26] MEDS ORDERED: POTASSIUM CHLORIDE 10 MEQ SR TABLET PO ONE (07:30)
[2019-01-26] MEDS: FLUTICASONE HFA 110 MCG 12 GM INHALER (FLOVENT) INH SCH (07:34)
[2019-01-26 07:38] LABS: HEMOGLOBIN A1c 7.9 %
[2019-01-26] MEDS: ASPIRIN 325 MG TAB PO SCH (08:27)
[2019-01-26] MEDS: ATORVASTATIN 20 MG TAB PO SCH (08:27)
[2019-01-26] MEDS: metFORMIN (GLUCOPHAGE) 500 MG TAB PO SCH ×2 (08:28→17:59)
[2019-01-26] MEDS: GABAPENTIN 400 MG CAP PO SCH ×3 (08:28→20:17)
[2019-01-26] MEDS: DULoxetine 30 MG CAP (CYMBALTA) PO SCH (08:28)
[2019-01-26] MEDS: DOCUSATE SODIUM 100 MG CAP PO SCH ×2 (08:29→20:16)
[2019-01-26] MEDS: CYCLOBENZAPRINE 5MG TABLET PO SCH ×2 (08:29→20:17)
[2019-01-26] MEDS: METOPROLOL SUCC (TopROL XL) 50MG **XL** TAB PO SCH (08:29)
[2019-01-26] MEDS: FUROSEMIDE 40 MG TAB PO SCH (08:29)
[2019-01-26] MEDS: amLODIPine 10 MG TAB PO SCH (08:29)
[2019-01-26] MEDS: LOSARTAN 50 MG TAB PO SCH (08:30)
[2019-01-26] MEDS: DYAZIDE 37.5/25 CAP (TRIAM/HCTZ) PO SCH (09:00)
[2019-01-26] MEDS: ACETAMINOPHEN TAB 650MG DOSE (2X325MG) PO PRN ×2 (10:50)
--- NOTE | 2019-01-26 13:29 | IPNPDOC ---
Text Note Date of Service The patient was seen on 01/26/19. NOTE Subjective: Patient was seen and examined at the bedside. Patient reports that he still experiencing excruciating pain of his right knee on ambulation. He denies chest pain, shortness of breath or palpitations. Denies nausea, vomiting, abdominal pain or diarrhea. Objective: Vitals (See below) General: Lying in bed, no acute distress, comfortable, AAOx3 HEENT: NC, AT CVS: RRR, +S1S2 Lungs: Fair air entry b/l, -w/r/r Abdomen: Soft, ND, NT Extremities: - Edema, - Calf tenderness, R knee with immobilizer device present Assessment and plan: R knee tibial plateau fracture - likely 2/2 mechanical fall - Orthopedic service was contacted and recommended knee immobilizer; currently in place - Patient has been working with physical therapy, occupational therapy; anticipate placement to subacute rehabilitation center - At baseline patient uses wheelchair and minimally uses walker - c/w pain control with Tylenol; will DC Morphine; Will start Percocet HTN - BP appears well controlled - c/w Losartan, Metoprolol, Amlodipine, Triamterene / HCTZ, and Furosemide NIDDM2 - c/w ISS and Metformin MICHELLE - not compliant with CPAP Morbid obesity - BMI of 58.4 - Complicating medical care Tobacco dependency - Advised smoking cessation - c/w CKD2 - Cr appears to be at baseline Neuropathy - c/w Gabapentin Mood disorder - c/w Duloxetine DVT prophylaxis - c/w Lovenox VS,Fishbone, I+O VS, Fishbone, I+O Laboratory Tests 01/26/19 06:13 Vital Signs Date Time Temp Pulse Resp B/P (MAP) Pulse Ox O2 Delivery O2 Flow Rate FiO2 01/26/19 11:01 18 93 01/26/19 10:51 89 Room Air 01/26/19 06:00 98.3 126/85 (99) 2.0 I&O- Last 24 Hours up to 6 AM 01/26/19 06:00 Intake Total 960 ml Balance 960 ml MILTON CALLEJAS MD Jan 26, 2019 13:29
[2019-01-26 14:00] VITALS: BP 119/84
[2019-01-26] MEDS ORDERED: PERCOCET 5MG/325MG TAB PO PRN (14:00)
[2019-01-26] MEDS: PERCOCET 5MG/325MG TAB PO PRN (16:40)
[2019-01-26 20:15] VITALS: BP 111/43
[2019-01-26] MEDS: ENOXAPARIN 40 MG/0.4 ML SYRINGE (J1650) SC SCH (20:16)
[2019-01-27 05:54] VITALS: BP 117/81
[2019-01-27] MEDS: HumaLOG INSULIN (NovoLOG) PER UNIT SC SCH ×3 (07:30→17:22)
[2019-01-27] MEDS: CYCLOBENZAPRINE 5MG TABLET PO SCH ×2 (08:02→22:17)
[2019-01-27] MEDS: DOCUSATE SODIUM 100 MG CAP PO SCH (08:03)
[2019-01-27] MEDS: ATORVASTATIN 20 MG TAB PO SCH (08:03)
[2019-01-27] MEDS: DYAZIDE 37.5/25 CAP (TRIAM/HCTZ) PO SCH (08:03)
[2019-01-27] MEDS: ASPIRIN 325 MG TAB PO SCH (08:03)
[2019-01-27] MEDS: DULoxetine 30 MG CAP (CYMBALTA) PO SCH (08:03)
[2019-01-27] MEDS: metFORMIN (GLUCOPHAGE) 500 MG TAB PO SCH ×2 (08:03→17:23)
[2019-01-27] MEDS: FUROSEMIDE 40 MG TAB PO SCH (08:09)
[2019-01-27] MEDS: GABAPENTIN 400 MG CAP PO SCH ×3 (08:09→22:17)
[2019-01-27] MEDS: LOSARTAN 50 MG TAB PO SCH (08:12)
[2019-01-27] MEDS: METOPROLOL SUCC (TopROL XL) 50MG **XL** TAB PO SCH (08:13)
[2019-01-27] MEDS: amLODIPine 10 MG TAB PO SCH (08:13)
[2019-01-27] MEDS: FLUTICASONE HFA 110 MCG 12 GM INHALER (FLOVENT) INH SCH (08:45)
[2019-01-27 09:00] VITALS: BP 115/80
[2019-01-27] MEDS ORDERED: FLUBLOK(EGG FREE)(QUAD)INFLUENZA VACC 0.5ML SYRINGE (90682)18YRS&OLDER IM ONE (09:00)
[2019-01-27] MEDS: PERCOCET 5MG/325MG TAB PO PRN (11:21)
[2019-01-27] MEDS: MIRALAX *UNIT DOSE* 17GM PACKET PO SCH ×2 (12:15→22:17)
--- NOTE | 2019-01-27 13:11 | IPNPDOC ---
Text Note Date of Service The patient was seen on 01/27/19. NOTE Subjective: Patient was seen and examined at the bedside. Patient reports that he still experiencing excruciating pain of his right knee on ambulation. He denies chest pain, shortness of breath or palpitations. Denies nausea, vomiting, abdominal pain or diarrhea. He complains of constipation. Objective: Vitals (See below) General: Lying in bed, no acute distress, comfortable, AAOx3, morbidly obese HEENT: NC, AT, moist mucus membranes anicteric eyes CVS: RRR, +S1S2, no rub, murmur or gallop. Lungs: Fair air entry b/l, -w/r/r Abdomen: Soft, ND, NT, obese. Extremities: - Edema, - Calf tenderness, R knee with immobilizer device present Assessment and plan: R knee tibial plateau fracture - likely 2/2 mechanical fall - Orthopedic service was contacted and recommended knee immobilizer; currently in place - Patient has been working with physical therapy, occupational therapy; anticipate placement to subacute rehabilitation center - At baseline patient uses wheelchair and minimally uses walker - c/w pain control with Tylenol;and Percocet HTN - BP appears well controlled - c/w Losartan, Metoprolol, Amlodipine, Triamterene / HCTZ, and Furosemide NIDDM2 with hypoglycemia on presentation. - FS well controlled. - c/w ISS and Metformin MICHELLE - not compliant with CPAP -oxygen supplementation at night Morbid obesity - BMI of 58.4 - Complicating medical care Tobacco dependency - Advised smoking cessation - c/w CKD2 - Cr appears to be at baseline Neuropathy - c/w Gabapentin Mood disorder - c/w Duloxetine DVT prophylaxis - c/w Lovenox VS,Fishbone, I+O VS, Fishbone, I+O Vital Signs Date Time Temp Pulse Resp B/P (MAP) Pulse Ox O2 Delivery O2 Flow Rate FiO2 01/27/19 11:51 19 91 Room Air 01/27/19 09:00 90 115/80 (92) 01/27/19 07:01 2.0 01/27/19 05:54 97.8 I&O- Last 24 Hours up to 6 AM 01/27/19 06:00 Intake Total 1920 ml Balance 1920 ml TYSON MILNER MD Jan 27, 2019 13:11
[2019-01-27 14:34] VITALS: BP 113/85
[2019-01-27 22:00] VITALS: BP 127/80
[2019-01-27] MEDS: ENOXAPARIN 40 MG/0.4 ML SYRINGE (J1650) SC SCH (22:17)
[2019-01-27] MEDS: SENOKOT S TAB PO SCH (22:17)
[2019-01-28 06:00] VITALS: BP 161/84
[2019-01-28 06:28] LABS: BASO % 0.4 % (0.0-1.0); EOS # 0.2 10^3/uL (0.0-0.5); EOS % 2.7 % (0.0-3.0); HEMATOCRIT 49.2 % (42.0-52.0); HEMOGLOBIN 15.5 g/dl (13.5-17.5); LYMPH # 1.6 10^3/uL (1.5-5.0); LYMPH % 19.4 % (24.0-44.0); MEAN CORPUSCULAR HEMOGLOBIN 27.7 pg (27.0-33.0); MEAN CORPUSCULAR HGB CONC 31.5 g/dl (32.0-36.5); MONO # 1.2 10^3/uL (0.0-0.8); MONO % 15.2 % (0.0-5.0); NEUTROPHILS # 5.1 10^3/uL (1.5-8.5); NEUTROPHILS % 61.9 % (36.0-66.0); PLATELET COUNT, AUTOMATED 214 10^3/uL (150-450); RED BLOOD COUNT 5.59 10^6/uL (4.30-6.10); WHITE BLOOD COUNT 8.2 10^3/uL (4.0-10.0)
[2019-01-28 06:43] LABS: BLOOD UREA NITROGEN 26 MG/DL (7-18); CALCIUM LEVEL 8.5 MG/DL (8.5-10.1); CARBON DIOXIDE LEVEL 29 MEQ/L (21-32); CHLORIDE LEVEL 105 MEQ/L (98-107); GLOMERULAR FILTRATION RATE > 60.0 (>56); GLUCOSE, FASTING 98 MG/DL (70-100); SODIUM LEVEL 139 MEQ/L (136-145)
[2019-01-28] MEDS: HumaLOG INSULIN (NovoLOG) PER UNIT SC SCH ×2 (07:30→11:38)
--- NOTE | 2019-01-28 07:43 | IPNPDOC ---
Text Note Date of Service The patient was seen on 01/28/19. NOTE Subjective: Patient was seen and examined at the bedside. Patient reports that he still experiencing excruciating pain of his right knee on ambulation. He denies chest pain, shortness of breath or palpitations. Denies nausea, vomiting, abdominal pain or diarrhea. He complains of constipation. Objective: Vitals (See below) General: Lying in bed, no acute distress, comfortable, AAOx3, morbidly obese HEENT: NC, AT, moist mucus membranes anicteric eyes CVS: RRR, +S1S2, no rub, murmur or gallop. Lungs: Fair air entry b/l, -w/r/r Abdomen: Soft, ND, NT, obese. Extremities: - Edema, - Calf tenderness, R knee with immobilizer device present Assessment and plan: R knee Lateral tibial plateau fracture -2/2 mechanical fall due to hypoglycemia. - Orthopedic service was contacted and recommended knee immobilizer; currently in place however it has been sliding down. tried different sizes but not getting proper fit. - will consult orthopedics Dr Aviles for further recommendations. As per PT may benefit from custom brace. - Patient has been working with physical therapy, occupational therapy; anticipate placement to subacute rehabilitation center - At baseline patient uses wheelchair and minimally uses walker - c/w pain control with Tylenol;and Percocet HTN - BP appears well controlled - c/w Losartan, Metoprolol, Amlodipine, Triamterene / HCTZ, and Furosemide NIDDM2 with hypoglycemia on presentation. - FS well controlled. - c/w ISS and Metformin MICHELLE - not compliant with CPAP -oxygen supplementation at night Morbid obesity - BMI of 58.4 - Complicating medical care Tobacco dependency - Advised smoking cessation - c/w CKD2 - Cr appears to be at baseline Neuropathy - c/w Gabapentin Mood disorder - c/w Duloxetine DVT prophylaxis - c/w Lovenox Disposition: Acute vs subacute rehab VS,Hazel, I+O VS, Hazel, I+O Laboratory Tests 01/28/19 06:12 Vital Signs Date Time Temp Pulse Resp B/P (MAP) Pulse Ox O2 Delivery O2 Flow Rate FiO2 01/28/19 06:00 97.9 88 19 161/84 (109) 91 01/27/19 14:46 Nasal Cannula 2.0 I&O- Last 24 Hours up to 6 AM 01/28/19 06:00 Intake Total 750 ml Output Total 0 ml Balance 750 ml TYSON MILNER MD Jan 28, 2019 07:43
[2019-01-28] MEDS ORDERED: FLEET ENEMA PR PRN (07:45)
[2019-01-28] MEDS: FLUTICASONE HFA 110 MCG 12 GM INHALER (FLOVENT) INH SCH (07:48)
[2019-01-28] MEDS: GABAPENTIN 400 MG CAP PO SCH (08:02)
[2019-01-28] MEDS: ASPIRIN 325 MG TAB PO SCH (08:02)
[2019-01-28] MEDS: CYCLOBENZAPRINE 5MG TABLET PO SCH (08:02)
[2019-01-28] MEDS: ATORVASTATIN 20 MG TAB PO SCH (08:02)
[2019-01-28] MEDS: FUROSEMIDE 40 MG TAB PO SCH (08:02)
[2019-01-28] MEDS: metFORMIN (GLUCOPHAGE) 500 MG TAB PO SCH (08:02)
[2019-01-28 08:03] VITALS: BP 161/84
[2019-01-28] MEDS: LOSARTAN 50 MG TAB PO SCH (08:03)
[2019-01-28] MEDS: amLODIPine 10 MG TAB PO SCH (08:03)
[2019-01-28] MEDS: METOPROLOL SUCC (TopROL XL) 50MG **XL** TAB PO SCH (08:03)
[2019-01-28] MEDS: DYAZIDE 37.5/25 CAP (TRIAM/HCTZ) PO SCH (08:04)
[2019-01-28] MEDS: DULoxetine 30 MG CAP (CYMBALTA) PO SCH (08:07)
[2019-01-28] MEDS: SENOKOT S TAB PO SCH (08:12)
[2019-01-28] MEDS: MIRALAX *UNIT DOSE* 17GM PACKET PO SCH (08:12)
[2019-01-28] MEDS ORDERED: PERCOCET PO (11:07)
[2019-01-28] MEDS ORDERED: PEG1POW PO (11:07)
[2019-01-28] MEDS ORDERED: METO1TAB7 PO (11:07)
[2019-01-28] MEDS ORDERED: COZA50TA PO (11:07)
[2019-01-28] MEDS ORDERED: SENN-52 PO (11:07)
--- NOTE | 2019-01-28 11:51 | CR ---
DATE OF CONSULTATION: 01/28/2019 REQUESTING PROVIDER: Dr. Harper CHIEF COMPLAINT: Right tibial plateau fracture. HISTORY: This is a 58-year-old gentleman with a history of arthritis and morbid obesity with a BMI of 58.4. He says he has had a longstanding history with his right knee, rarely walks, but does occasionally use a walker and usually uses a motorized wheelchair to get around. He had a fall injuring his right knee on the 25 of January. He was noted to have a tibial plateau fracture. He has been transferring and getting up with a walker, apparently touchdown weightbearing. The orthopedic service apparently was called when he was admitted for recommendations. MEDICAL HISTORY: Notable for: Diabetes. Obesity. Hypertension. Dyslipidemia. Tobacco use. Chronic obstructive pulmonary disease (COPD). Venous ulcers. Lymphedema with venous insufficiency. Chronic renal disease. Reflux. Arthritis. Obstructive sleep apnea (MICHELLE). FAMILY HISTORY: Notable for COPD, diabetes, heart disease, hypertension, hyperlipidemia. SOCIAL HISTORY: Current smoker. Has given up drinking. Denies any current drug use. Currently is on SSI. MEDICATIONS ON ADMISSION: Include amlodipine, aspirin, atorvastatin, cyclobenzaprine, Trulicity, duloxetine, Drisdol, Lasix, gabapentin, insulin, metformin, triamterene hydrochlorothiazide. ALLERGIES: Include: 1. SULFA. 2. NONSTEROIDAL ANTI-INFLAMMATORY DRUGS (NSAIDS). 3. ACETAMINOPHEN. PHYSICAL EXAMINATION: This is a morbidly obese gentleman in no acute distress. HEENT: Extraocular muscles intact. He has nonlabored breathing. His extremities are notable for some tenderness around his right lateral knee. He is wearing a knee immobilizer that is essentially below his knee and this was removed for the exam. He has no obvious open wounds around the knee. He does have some chronic venous stasis changes of his right lower extremity and has a mild effusion of his knee. Range of motion was somewhat irritable. Radiographs are reviewed and a CT scan of his right knee and they demonstrate a nondisplaced lateral tibial plateau fracture, at most a millimeter or two, depression or displacement. IMPRESSION: Right lower extremity lateral tibial plateau fracture, nondisplaced. This patient I think should be treated non operatively with non-weightbearing in a [place] brace with hinges that may fit him better than a knee immobilizer. We can allow 0 to 45 degrees of range of motion. I would have the skin checked every 6 hours or so to make sure he is not having any breakdown. He is not a good surgical candidate due to multiple reasons and would strongly try to avoid any surgery in this gentleman and I think that strict non-weightbearing should be enforced at most touchdown weightbearing, but that can be difficult to comply with some times. Reasons for trying to avoid surgery include his morbid obesity, his diabetes, his tobacco use and his kidney disease, all of which would make him at high risk of complications. Would continue with deep vein thrombosis (DVT) prophylaxis. It appears the patient is on Lovenox currently. Would recommend followup in 7-10 days in the office for repeat x-ray. If the patient remains in the hospital at that point, a repeat x-ray of the knee should be obtained to make sure it has not displaced.
--- NOTE | 2019-01-29 14:07 | DS.PDOC ---
Discharge Summary General Date of Admission Jan 25, 2019 at 13:33 Date of Discharge 01/28/19 Discharge Summary PROCEDURES PERFORMED DURING STAY: [None]. DISCHARGE DIAGNOSES: Right lateral tibial plateau fracture non displaced. SECONDARY DIAGNOSIS: Hypertension, dyslipidemia, tts-swcjoir-gzikzuqur diabetes mellitus, active tobacco dependency, non-oxygen dependent COPD, venous ulcers, lymphedema and lower extremity venous insufficiency, chronic kidney disease stage II, gastroesophageal reflux disease, osteoarthritis, obstructive sleep apnea for which he is noncompliant with CPAP mask, morbid obesity with a body mass index of 58.4, Gait instability and falls, weak knees. COMPLICATIONS/CHIEF COMPLAINT: Hypoglycemia,Tibial Plateau Fracture. HISTORY OF PRESENT ILLNESS: See history and physical HOSPITAL COURSE: 58-year-old male with a history of IDDM, COPD,osteoarthritis, morbid obesity with a body mass index of 58.4 with his knees in very poor shape and he rarely walks; he generally makes use of a wheelchair and has done so for the past 9 years. On occasion he does make use of a walker. He had an episode of hypoglycemia at home when he fell on his knees he was helped up to the couch however the next day he could not get out of the couch to was brought to the ED. Upon evaluation in the emergency room he is found to have a right lateral tibial plateau fracture. Of note his sugars have been running low at home also. R knee Lateral tibial plateau fracture -2/2 mechanical fall due to hypoglycemia. - See by Dr Aviles recommended [place] knee brace with hinge to allow for 0-45 degree motion with no weight bearing. - Patient has been working with physical therapy, occupational therapy as per ARU - At baseline patient uses wheelchair and minimally uses walker - c/w pain control with Tylenol;and Percocet HTN - BP appears well controlled - c/w Losartan, Metoprolol, Amlodipine, Triamterene / HCTZ, and Furosemide NIDDM2 with hypoglycemia on presentation. - FS well controlled without long acting insulin - c/w ISS and Metformin and trulicity. MICHELLE - not compliant with CPAP -oxygen supplementation at night Morbid obesity - BMI of 58.4 - Complicating medical care Tobacco dependency - Advised smoking cessation - c/w CKD2 - Cr appears to be at baseline Neuropathy - c/w Gabapentin Mood disorder - c/w Duloxetine DISCHARGE MEDICATIONS: Please see below. ALLERGIES: Please see below. PHYSICAL EXAMINATION ON DISCHARGE: VITAL SIGNS: Please see below. General: Lying in bed, no acute distress, comfortable, AAOx3, morbidly obese HEENT: NC, AT, moist mucus membranes anicteric eyes CVS: RRR, +S1S2, no rub, murmur or gallop. Neck supple, No thyromegaly Lungs: Fair air entry b/l, -w/r/r Abdomen: Soft, ND, NT, obese. Extremities: no Edema, no Calf tenderness, R knee with immobilizer device present but falling below the knee. Skin: Bilateral chronic venous stasis changes LABORATORY DATA: Please see below. ACTIVITY: [As tolerated]. DIET: Carb consistent DISPOSITION: 62 D/T Rehab Facility. DISCHARGE INSTRUCTIONS: Follow up with PMD 2 weeks after discharge Follow up with Orthopedics after discharge. DISCHARGE CONDITION: [Stable]. TIME SPENT ON DISCHARGE: 35 minutes. Vital Signs/I&Os Vital Signs Date Time Temp Pulse Resp B/P (MAP) Pulse Ox O2 Delivery O2 Flow Rate FiO2 01/28/19 08:03 88 161/84 01/28/19 06:00 97.9 19 91 01/27/19 14:46 Nasal Cannula 2.0 I&O- Last 24 Hours up to 6 AM 01/29/19 06:00 Intake Total 960 ml Output Total 850 ml Balance 110 ml Laboratory Data CBC/BMP Item Value Date Time White Blood Count 8.2 10^3/uL 01/28/19611 Red Blood Count 5.59 10^6/uL 01/28/19611 Hemoglobin 15.5 g/dl 01/28/19611 Hematocrit 49.2 % 01/28/19611 Mean Corpuscular Volume 88.0 fl 01/28/19611 Mean Corpuscular Hemoglobin 27.7 pg 01/28/19611 Mean Corpuscular Hemoglobin Concent 31.5 g/dl L 01/28/19611 Red Cell Distribution Width 14.0 % 01/28/19611 Platelet Count 214 10^3/uL 01/28/19611 Immature Granulocyte % (Auto) 0.4 % 01/28/19611 Neutrophils (%) (Auto) 61.9 % 01/28/19611 Lymphocytes (%) (Auto) 19.4 % L 01/28/19611 Monocytes (%) (Auto) 15.2 % H 01/28/19611 Eosinophils (%) (Auto) 2.7 % 01/28/19611 Basophils (%) (Auto) 0.4 % 01/28/19611 Neutrophils # (Auto) 5.1 10^3/uL 01/28/19611 Lymphocytes # (Auto) 1.6 10^3/uL 01/28/19611 Monocytes # (Auto) 1.2 10^3/uL H 01/28/19611 Eosinophils # (Auto) 0.2 10^3/uL 01/28/19611 Nucleated Red Blood Cells % (auto) 0.0 % 01/28/19611 Basophils # (Auto) 0.0 10^3/uL 01/28/19611 Sodium Level 139 MEQ/L 01/28/19611 Potassium Level 4.0 MEQ/L 01/28/19611 Chloride Level 105 MEQ/L 01/28/19611 Carbon Dioxide Level 29 MEQ/L 01/28/19611 Anion Gap 5 MEQ/L L 01/28/19611 Blood Urea Nitrogen 26 MG/DL H 01/28/19611 Creatinine 0.90 MG/DL 01/28/19611 Glomerular Filtration Rate > 60.0 01/28/19611 Fasting Glucose 98 MG/DL 01/28/1912 Calcium Level 8.5 MG/DL 01/28/19611 Hemoglobin A1c 7.9 % 01/26/19612 Discharge Medications Scheduled Amlodipine Besylate (Amlodipine Besylate) 10 Mg Tab, 10 MG PO DAILY, (Reported) Aspirin (Aspirin) 325 Mg Tab, 325 MG PO DAILY, (Reported) Atorvastatin Calcium (Atorvastatin Calcium) 40 Mg Tablet, 40 MG PO DAILY, (Reported) Cyclobenzaprine HCl (Cyclobenzaprine HCl) 5 Mg Tab, 5 MG PO BID, (Reported) Dulaglutide (Trulicity) 0.75 Mg/0.5 Ml Pen.injctr, 0.75 MG SC QWEEK, (Reported) SATURDAYS Duloxetine Hcl (Duloxetine HCl) 30 Mg Cap, 30 MG PO DAILY, (Reported) Ergocalciferol (Vitamin D2) (Drisdol) 50,000 Unit Cap, 50,000 UNIT PO QWEEK, (Reported) SATURDAYS Fluticasone Furoate (Arnuity Ellipta) 100 Mcg Blst.w.dev, 1 PUFF PO DAILY, (Reported) Furosemide (Furosemide) 40 Mg Tab, 40 MG PO DAILY, (Reported) Gabapentin (Gabapentin) 400 Mg Cap, 400 MG PO TID, (Reported) Insulin Lispro (Admelog Solostar) 100 Unit/Ml Inj, 5 UNITS SC AC, (Reported) Losartan Potassium (Cozaar) 50 Mg Tablet, 50 MG PO DAILY Metformin HCl (Metformin HCl) 500 Mg Tab, 500 MG PO BID, (Reported) Metoprolol Succinate (Metoprolol Succinate) 50 Mg Tab.er.24h, 50 MG PO DAILY Polyethylene Glycol 3350 (Polyethylene Glycol 3350) 17 Gm Powd.pack, 1 PKT PO BID Sennosides/Docusate Sodium (Senna Plus Tablet) 1 Each Tablet, 2 TAB PO BID Triamterene/Hydrochlorothiazid (Triamterene-Hctz 37.5-25 mg Tb) 1 Tab Tab, 1 TAB PO DAILY, (Reported) Scheduled PRN Albuterol Sulfate (Ventolin Hfa) 108 Mcg/Act Aer, 2 PUFF INH Q4H PRN for wheezing, (Reported) Oxycodone/Acetaminophen (Oxycodone-Acetaminophen 5-325) 1 Each Tablet, 1-2 TAB PO Q6HP PRN for MILD/MODERATE PAIN (PS 1-7) Allergies Coded Allergies: Sulfa (Sulfonamide Antibiotics) (Verified Allergy, Mild, RASH, 07/02/18) NSAIDS (Non-Steroidal Anti-Inflamma (Verified Adverse Reaction, Unknown, KIDNEY DISFUNCTION, 07/02/18) acetaminophen (Verified Adverse Reaction, Unknown, AVOIDS KIDNEY DYSFUNCTION, 07/02/18) TYSON MILNER MD Jan 29, 2019 14:06
== END 2019-01-28 13:45 | DRG 342 ==
LOC: EDBD 09:01 → M ED 09:01 → M ED INP 13:33 → M MS5PR 15:20
PROVIDERS: ADMIT Internal Medicine; ATTEND Internal Medicine Nephrology
DX: S82.144A Nondisplaced bicondylar fracture of right tibia, initial encounter for closed fracture (principal); E11.40 Type 2 diabetes mellitus with diabetic neuropathy, unspecified; E11.649 Type 2 diabetes mellitus with hypoglycemia without coma; Z68.43 Body mass index [BMI] 50.0-59.9, adult; E66.01 Morbid (severe) obesity due to excess calories; N18.2 Chronic kidney disease, stage 2 (mild); J44.9 Chronic obstructive pulmonary disease, unspecified; I12.9 Hypertensive chronic kidney disease with stage 1 through stage 4 chronic kidney disease, or unspecified chronic kidney disease; F17.200 Nicotine dependence, unspecified, uncomplicated; E78.5 Hyperlipidemia, unspecified; K21.9 Gastro-esophageal reflux disease without esophagitis; G47.33 Obstructive sleep apnea (adult) (pediatric); M19.90 Unspecified osteoarthritis, unspecified site; Z91.19 Patient's noncompliance with other medical treatment and regimen; Z79.82 Long term (current) use of aspirin; Z79.899 Other long term (current) drug therapy; Z79.4 Long term (current) use of insulin; Z88.2 Allergy status to sulfonamides; Z88.8 Allergy status to other drugs, medicaments and biological substances; I87.2 Venous insufficiency (chronic) (peripheral); Z88.6 Allergy status to analgesic agent; W18.30XA Fall on same level, unspecified, initial encounter; Y92.009 Unspecified place in unspecified non-institutional (private) residence as the place of occurrence of the external cause

== ENCOUNTER 2019-01-28 11:30 | Inpatient (IN) | payer OTHER ==
[~2019-01-28] VITALS: Ht 165.1 cm; Wt 162.2 kg
[~2019-01-28 11:30] MED LIST changes: +ARNU1INH PO; +ATOR40TA75 PO; +COZA50TA PO; +METO1TAB7 PO; +PEG1POW PO; +PERCOCET PO; +SENN-52 PO; +TRUL10IN SC
[2019-01-28 14:00] VITALS: BP 135/84
[2019-01-28] MEDS ORDERED: BISACODYL 10 MG SUPP PR PRN (15:30)
[2019-01-28] MEDS ORDERED: DEXTROSE 50% 50 ML SYRINGE IV PRN (15:30)
[2019-01-28] MEDS ORDERED: GLUCAGON FOR INJ 1 MG VIAL (J1610) SC PRN (15:30)
[2019-01-28] MEDS ORDERED: GLUCOSE 4 GM CHEW TABLET PO PRN (15:30)
[2019-01-28] MEDS: oxyCODONE 5MG TAB PO PRN ×2 (16:46→21:45)
[2019-01-28] MEDS: GABAPENTIN 400 MG CAP PO SCH ×2 (16:46→20:25)
[2019-01-28] MEDS: metFORMIN (GLUCOPHAGE) 500 MG TAB PO SCH (17:28)
[2019-01-28] MEDS: HumaLOG INSULIN (NovoLOG) PER UNIT SC SCH ×2 (17:29→20:14)
[2019-01-28] MEDS: FLUTICASONE HFA 220 MCG 12 GM INHALER (FLOVENT) INH SCH (17:57)
[2019-01-28 20:00] VITALS: BP 171/86
[2019-01-28] MEDS: ENOXAPARIN 40 MG/0.4 ML SYRINGE (J1650) SC SCH (20:25)
[2019-01-28] MEDS: DOCUSATE SODIUM 100 MG CAP PO SCH (20:26)
[2019-01-28] MEDS ORDERED: SENNA 8.6 MG TAB (SENOKOT) PO SCH (21:00)
[2019-01-28] MEDS: CYCLOBENZAPRINE 5MG TABLET PO PRN (21:45)
[2019-01-29] MEDS: oxyCODONE 5MG TAB PO PRN ×3 (02:35→20:08)
[2019-01-29 05:50] VITALS: BP 159/90
[2019-01-29 07:25] LABS: BASO % 0.4 % (0.0-1.0); EOS # 0.2 10^3/uL (0.0-0.5); EOS % 2.2 % (0.0-3.0); HEMATOCRIT 52.1 % (42.0-52.0); HEMOGLOBIN 16.3 g/dl (13.5-17.5); LYMPH # 1.6 10^3/uL (1.5-5.0); LYMPH % 21.8 % (24.0-44.0); MEAN CORPUSCULAR HEMOGLOBIN 27.6 pg (27.0-33.0); MEAN CORPUSCULAR HGB CONC 31.3 g/dl (32.0-36.5); MEAN CORPUSCULAR VOLUME 88.3 fl (80.0-96.0); MONO # 1.1 10^3/uL (0.0-0.8); MONO % 14.9 % (0.0-5.0); NEUTROPHILS # 4.4 10^3/uL (1.5-8.5); NEUTROPHILS % 60.4 % (36.0-66.0); PLATELET COUNT, AUTOMATED 232 10^3/uL (150-450); WHITE BLOOD COUNT 7.2 10^3/uL (4.0-10.0)
[2019-01-29] MEDS: HumaLOG INSULIN (NovoLOG) PER UNIT SC SCH ×4 (07:30→20:09)
[2019-01-29] MEDS: FLUTICASONE HFA 220 MCG 12 GM INHALER (FLOVENT) INH SCH ×2 (07:51→17:29)
[2019-01-29 07:59] LABS: ALT/SGPT 51 U/L (12-78); BILIRUBIN,TOTAL 0.8 MG/DL (0.2-1.0); BLOOD UREA NITROGEN 22 MG/DL (7-18); CARBON DIOXIDE LEVEL 34 MEQ/L (21-32); CHLORIDE LEVEL 99 MEQ/L (98-107); CREATININE FOR GFR 0.94 MG/DL (0.70-1.30); GLOMERULAR FILTRATION RATE > 60.0 (>56); GLUCOSE, FASTING 130 MG/DL (70-100); POTASSIUM SERUM 3.9 MEQ/L (3.5-5.1); SODIUM LEVEL 137 MEQ/L (136-145); TOTAL PROTEIN 7.4 GM/DL (6.4-8.2)
[2019-01-29] MEDS: CYCLOBENZAPRINE 5MG TABLET PO PRN ×2 (08:14→20:07)
[2019-01-29] MEDS: MIRALAX *UNIT DOSE* 17GM PACKET PO SCH ×2 (09:00→20:10)
[2019-01-29] MEDS: SENOKOT S TAB PO SCH ×2 (09:00→20:09)
[2019-01-29] MEDS: POLYSPORIN TOPICAL OINTMENT 15GM TOP SCH ×2 (09:00→21:00)
[2019-01-29] MEDS: metFORMIN (GLUCOPHAGE) 500 MG TAB PO SCH ×2 (09:16→17:08)
[2019-01-29] MEDS: ASPIRIN 325 MG TAB PO SCH (09:16)
[2019-01-29] MEDS: DOCUSATE SODIUM 100 MG CAP PO SCH ×2 (09:17→20:10)
[2019-01-29] MEDS: FUROSEMIDE 40 MG TAB PO SCH (09:17)
[2019-01-29] MEDS: amLODIPine 10 MG TAB PO SCH (09:17)
[2019-01-29] MEDS: LOSARTAN 50 MG TAB PO SCH (09:17)
[2019-01-29] MEDS: ATORVASTATIN 20 MG TAB PO SCH (09:17)
[2019-01-29] MEDS: GABAPENTIN 400 MG CAP PO SCH ×3 (09:17→20:07)
[2019-01-29] MEDS: DYAZIDE 37.5/25 CAP (TRIAM/HCTZ) PO SCH (09:18)
[2019-01-29] MEDS: DULoxetine 30 MG CAP (CYMBALTA) PO SCH (09:18)
[2019-01-29] MEDS: METOPROLOL SUCC (TopROL XL) 50MG **XL** TAB PO SCH (09:18)
[2019-01-29] MEDS: PANTOPRAZOLE 40MG TAB (PROTONIX) PO SCH (09:18)
[2019-01-29] MEDS ORDERED: MAALOX 30 ML SUSP *UDC PO PRN (12:30)
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
[2019-01-29] MEDS: BISACODYL 5 MG TAB PO SCH (13:00)
[2019-01-29 14:00] VITALS: BP 109/75
--- NOTE | 2019-01-29 15:22 | HPEPDOC ---
[employer] Mechanic Note DATE OF ADMISSION: 01-28-19 SOURCE OF ADMISSION INFORMATION: [facility] records, patient CHIEF COMPLAINT: tibial plateau fracture HISTORY OF PRESENT ILLNESS: 58M pmh morbid obesity, HTN, HLD, DM, tobacco use, COPD, Lymphedema with venous ulcers, CKD2, GERD, MICHELLE non-compliant with CPAP who presented to [facility] ED on 01-25-19 complaining of right leg pain with ambulation after falling at home. Xrays showed, Sagittally oriented lateral tibial plateau fracture with 1 mm of depression and diastases. Osteoporosis. Ct scan also confirmed this fracture. He was evaluated by orthopedics who recommended knee extension brace and NWB for at least a week with follow-up Xrays to be ordered on or around 02-04-19. He was evaluated by therapy and found to be significantly below his prior level of function and deemed medically appropriate for discharge to ARU on 01-28-19. REVIEW OF SYSTEMS: The following is a completed review of systems and has been reviewed. Review of systems otherwise unremarkable. PAIN: Patient self reports bilateral knee pain, right worse than left EYES: No recent vision changes EARS, NOSE, & THROAT: No throat pain, or dysphagia, or rhinorrhea CARDIOVASCULAR: Denies chest pain or palpitations PULMONARY: Denies shortness of breath GASTROINTESTINAL: +constipation GENITOURINARY: denies dysuria MUSCULOSKELETAL: right tibial plateau fracture NEUROLOGICAL:no tremor or seizure activity HEMATOLOGICAL: denies easy bruising SKIN: no rash PSYCHIATRIC: Unremarkable All other review of systems found to be negative. PAST MEDICAL HISTORY: as per HPI ALLERGIES: Please see below. MEDICATIONS: Please see below. FAMILY HISTORY: Cardiac and COPD SOCIAL HISTORY: +previous cocaine and marijuana us, recovering alcoholic DIET: low salt, consistent carb PHYSICAL EXAMINATION: VITAL SIGNS: Please see below. GENERAL: Pleasant and cooperative. No acute distress. morbidly obese HEENT: Extraocular movements intact. Clear conjunctiva CARDIOVASCULAR: Regular rate and rhythm. No murmurs, rubs, or gallops LUNGS: Clear to auscultation bilaterally. No wheezes. No rhonchi ABDOMEN: Soft, nontender, nondistended. Positive bowel sounds. Normal active bowel sounds NEUROLOGICAL: Alert and oriented times three. Cranial nerves II through XII grossly intact. Sensation grossly intact in all 4 extremities EXTREMITIES: 5\5 strength bilateral upper extremities. 5-\5 strength right lower extremity. 5/5 strength in left lower extremity. SKIN: intact LABORATORY DATA: Please see below. IMAGING:Imaging documentation personally reviewed by record FUNCTIONAL STATUS: Premorbid: Modified Independent with all activities of daily life as well as mob ility household distances with scooter and RW. On Admission: Min-Mod assistance for bathing, upper body dressing, bed chair and wheelchair transfers, toilet transfers, ambulation. GOALS: Modified Independent with all activities of daily life as well as mobility household distances with scooter and RW, medical optimization, fall recovery. ASSESSMENT:58-year-old M with past medical history of morbid obesity, HTN who presents status post fall with right tibial plateau fracture PLAN: 1. Rehab- PT/OT- strengthen/stretch/maintain ROM, advance gait, optimize ADL management with NWB to RLE 2. Neuro: stable 3. Ortho: s/p right tibial plataeu fracture- awaiting new brace from entry level paralegal- ortho consulted, c/u NWB 4. Cardiac: pmh HTN, HLD c/u home meds-medicine consulted to assist in management 5. Resp: encourage incentive spirometry, MICHELLE non-compliant with CPAP 6. Endo: DM c/u metformin and insulin ISS monitor and adjust prn 7. : monitor PVrs 8. Pain: c/u gabapentin, cymbalta, and oxycodone prn, avoid NSAIDs and Tylenol 9. Renal: CKD- monitor and avoid nephrotoxic agents 9. Dispo: tbd POST ADMISSION PHYSICIAN EVALUATION: Medical and functional status: Description of medical status, medical assessment: As above. Rehabilitation diagnosis and current and prior cold morbid medical conditions as above. Risk of complications and plans to mitigate them as above. Description of functional status current status is as above. Prior status as above. Status compared to preadmission: There are no clinically significant differences between the patient's current status and the information described on the preadmission screening document. Treatment plan anticipated: Treatment plan is as described above. Required disciplines including physical therapy, occupational therapy, others as noted above Intensity of services: 3 hours a day, 6 days a week. Special considerations: There are no specific special or safety considerations that would likely preclude immediate implementation of an intensive rehabilitation program or subsequently influence the plan of care. ATTESTATION: Considering all the information above, it is my best judgment that this patient requires intensive rehabilitation therapy as described above and an inpatient hospital environment due to the complexity of nursing, medical, and rehabilitation needs required by the patient. Furthermore, this patient can reasonably be expected to participate in an benefit from an inpatient rehabilitation stay with an interdisciplinary team approach to the delivery of rehabilitation care under the direction and supervision of rehabilitation physician. PROGNOSIS: Excellent ESTIMATED LENGTH OF STAY:14-16 days. PROJECTED DISCHARGE DESTINATION: Home with family support and any durable medical equipment required to increase functional safety and mobility. TIME SPENT COUNSELING AND COORDINATING INITIAL CARE: Greater than 70 minutes. Vital Signs Vital Sign - Last 24 Hours 01/28/19 01/28/19 01/28/19 01/28/19 16:46 17:16 20:00 21:45 Temp 99.3 Pulse 89 Resp 18 18 18 18 B/P (MAP) 171/86 (114) Pulse Ox 91 O2 Delivery Room Air Room Air Room Air 01/28/19 01/29/19 01/29/19 01/29/19 22:28 02:35 03:14 05:50 Temp 98.3 Pulse 81 Resp 18 18 18 18 B/P (MAP) 159/90 (113) Pulse Ox 93 O2 Delivery Room Air 01/29/19 01/29/19 01/29/19 01/29/19 08:15 08:45 09:17 09:17 Pulse 81 Resp 20 20 B/P (MAP) 159/90 159/90 O2 Delivery Room Air Room Air 01/29/19 09:18 Pulse 81 B/P (MAP) 159/90 Laboratory Data CBC/BMP Laboratory Tests 01/29/19 07:10 Labs 24H Laboratory Tests 2 01/28/19 16:50: Bedside Glucose (Misc Panel) 138H 01/28/19 19:54: Bedside Glucose (Misc Panel) 151H 01/29/19 05:56: Bedside Glucose (Misc Panel) 99 01/29/19 07:10: Immature Granulocyte % (Auto) 0.3, Neutrophils (%) (Auto) 60.4, Lymphocytes (%) (Auto) 21.8L, Monocytes (%) (Auto) 14.9H, Eosinophils (%) (Auto) 2.2, Basophils (%) (Auto) 0.4, Neutrophils # (Auto) 4.4, Lymphocytes # (Auto) 1.6, Monocytes # (Auto) 1.1H, Eosinophils # (Auto) 0.2, Basophils # (Auto) 0.0, Nucleated Red Blood Cells % (auto) 0.0, Anion Gap 4L, Glomerular Filtration Rate > 60.0, Calcium Level 9.0, Total Bilirubin 0.8, Aspartate Amino Transf (AST/SGOT) 53H, Alanine Aminotransferase (ALT/SGPT) 51, Alkaline Phosphatase 85, Total Protein 7.4, Albumin 2.0L, Albumin/Globulin Ratio 0.37L 01/29/19 11:44: Bedside Glucose (Misc Panel) 101 FSBS Laboratory Tests Test 01/28/19 16:50 01/28/19 19:54 01/29/19 05:56 01/29/19 11:44 Range/Units Bedside Glucose (Misc Panel) 138 151 99 101 70-105 MG/DL Home Medications Scheduled Amlodipine Besylate (Amlodipine Besylate) 10 Mg Tab, 10 MG PO DAILY, (Reported) Aspirin (Aspirin) 325 Mg Tab, 325 MG PO DAILY, (Reported) Atorvastatin Calcium (Atorvastatin Calcium) 40 Mg Tablet, 40 MG PO DAILY, (Reported) Cyclobenzaprine HCl (Cyclobenzaprine HCl) 5 Mg Tab, 5 MG PO BID, (Reported) Dulaglutide (Trulicity) 0.75 Mg/0.5 Ml Pen.injctr, 0.75 MG SC QWEEK, (Reported) SATURDAYS Duloxetine Hcl (Duloxetine HCl) 30 Mg Cap, 30 MG PO DAILY, (Reported) Ergocalciferol (Vitamin D2) (Drisdol) 50,000 Unit Cap, 50,000 UNIT PO QWEEK, (Re ported) SATURDAYS Fluticasone Furoate (Arnuity Ellipta) 100 Mcg Blst.w.dev, 1 PUFF PO DAILY, (Reported) Furosemide (Furosemide) 40 Mg Tab, 40 MG PO DAILY, (Reported) Gabapentin (Gabapentin) 400 Mg Cap, 400 MG PO TID, (Reported) Insulin Lispro (Admelog Solostar) 100 Unit/Ml Inj, 5 UNITS SC AC, (Reported) Losartan Potassium (Cozaar) 50 Mg Tablet, 50 MG PO DAILY Metformin HCl (Metformin HCl) 500 Mg Tab, 500 MG PO BID, (Reported) Metoprolol Succinate (Metoprolol Succinate) 50 Mg Tab.er.24h, 50 MG PO DAILY Polyethylene Glycol 3350 (Polyethylene Glycol 3350) 17 Gm Powd.pack, 1 PKT PO BID Sennosides/Docusate Sodium (Senna Plus Tablet) 1 Each Tablet, 2 TAB PO BID Triamterene/Hydrochlorothiazid (Triamterene-Hctz 37.5-25 mg Tb) 1 Tab Tab, 1 TAB PO DAILY, (Reported) Scheduled PRN Albuterol Sulfate (Ventolin Hfa) 108 Mcg/Act Aer, 2 PUFF INH Q4H PRN for wheezing, (Reported) Oxycodone/Acetaminophen (Oxycodone-Acetaminophen 5-325) 1 Each Tablet, 1-2 TAB PO Q6HP PRN for MILD/MODERATE PAIN (PS 1-7) Allergies Coded Allergies: Sulfa (Sulfonamide Antibiotics) (Verified Allergy, Mild, RASH, 07/02/18) NSAIDS (Non-Steroidal Anti-Inflamma (Verified Adverse Reaction, Unknown, KIDNEY DISFUNCTION, 07/02/18) acetaminophen (Verified Adverse Reaction, Unknown, AVOIDS KIDNEY DYSFUNCTION, 07/02/18) A-FIB/CHADSVASC A-FIB History Current/History of A-Fib/PAF?: No GUILHERME GOMEZ MD Jan 29, 2019 15:22
[2019-01-29 19:45] VITALS: BP 159/81
[2019-01-29] MEDS: ENOXAPARIN 40 MG/0.4 ML SYRINGE (J1650) SC SCH (20:09)
[2019-01-30] MEDS: CYCLOBENZAPRINE 5MG TABLET PO PRN (03:56)
[2019-01-30] MEDS: oxyCODONE 5MG TAB PO PRN ×3 (03:57→20:40)
[2019-01-30 06:55] VITALS: BP 128/70
[2019-01-30 07:08] LABS: BASO % 0.2 % (0.0-1.0); EOS # 0.2 10^3/uL (0.0-0.5); HEMATOCRIT 50.3 % (42.0-52.0); HEMOGLOBIN 15.9 g/dl (13.5-17.5); LYMPH % 24.3 % (24.0-44.0); MEAN CORPUSCULAR HEMOGLOBIN 28.1 pg (27.0-33.0); MEAN CORPUSCULAR HGB CONC 31.6 g/dl (32.0-36.5); MONO % 11.5 % (0.0-5.0); NEUTROPHILS # 5.1 10^3/uL (1.5-8.5); NEUTROPHILS % 61.6 % (36.0-66.0); PLATELET COUNT, AUTOMATED 237 10^3/uL (150-450); RED BLOOD COUNT 5.65 10^6/uL (4.30-6.10); WHITE BLOOD COUNT 8.3 10^3/uL (4.0-10.0)
[2019-01-30 07:34] LABS: BLOOD UREA NITROGEN 23 MG/DL (7-18); CALCIUM LEVEL 8.7 MG/DL (8.5-10.1); CARBON DIOXIDE LEVEL 35 MEQ/L (21-32); CHLORIDE LEVEL 101 MEQ/L (98-107); CREATININE FOR GFR 1.07 MG/DL (0.70-1.30); GLOMERULAR FILTRATION RATE > 60.0 (>56); GLUCOSE, FASTING 118 MG/DL (70-100); POTASSIUM SERUM 4.1 MEQ/L (3.5-5.1); SODIUM LEVEL 140 MEQ/L (136-145)
[2019-01-30] MEDS: FLUTICASONE HFA 220 MCG 12 GM INHALER (FLOVENT) INH SCH ×2 (07:46→20:47)
[2019-01-30] MEDS: ATORVASTATIN 20 MG TAB PO SCH (08:15)
[2019-01-30] MEDS: metFORMIN (GLUCOPHAGE) 500 MG TAB PO SCH ×2 (08:15→17:58)
[2019-01-30] MEDS: PANTOPRAZOLE 40MG TAB (PROTONIX) PO SCH (08:15)
[2019-01-30] MEDS: POLYSPORIN TOPICAL OINTMENT 15GM TOP SCH ×2 (08:16→20:43)
[2019-01-30] MEDS: HumaLOG INSULIN (NovoLOG) PER UNIT SC SCH ×4 (08:16→20:41)
[2019-01-30] MEDS: ASPIRIN 325 MG TAB PO SCH (08:17)
[2019-01-30] MEDS: GABAPENTIN 400 MG CAP PO SCH ×3 (08:17→20:40)
[2019-01-30] MEDS: amLODIPine 10 MG TAB PO SCH (08:17)
[2019-01-30] MEDS: DULoxetine 30 MG CAP (CYMBALTA) PO SCH (08:17)
[2019-01-30] MEDS: METOPROLOL SUCC (TopROL XL) 50MG **XL** TAB PO SCH (08:18)
[2019-01-30] MEDS: DYAZIDE 37.5/25 CAP (TRIAM/HCTZ) PO SCH (08:18)
[2019-01-30] MEDS: FUROSEMIDE 40 MG TAB PO SCH (08:18)
[2019-01-30] MEDS: LOSARTAN 50 MG TAB PO SCH (08:19)
[2019-01-30] MEDS: DOCUSATE SODIUM 100 MG CAP PO SCH ×2 (08:20→20:41)
[2019-01-30] MEDS: SENOKOT S TAB PO SCH ×2 (08:20→20:41)
[2019-01-30] MEDS: BISACODYL 5 MG TAB PO SCH (08:20)
[2019-01-30] MEDS: LIDOCAINE 5% (LIDODERM) PATCH TD SCH (08:20)
[2019-01-30] MEDS: MIRALAX *UNIT DOSE* 17GM PACKET PO SCH ×2 (08:20→20:41)
[2019-01-30 14:00] VITALS: BP 159/75
--- NOTE | 2019-01-30 18:01 | IPNPDOC ---
PM&R Progress Note DATE OF SERVICE: Jan 29, 2019 [employer] Progress Note Subjective: Patient reporting therapy went well today, but he is having some left knee pain. REVIEW OF SYSTEMS: The following is a completed review of systems and has been reviewed. Review of systems otherwise unremarkable. PAIN: Patient self reports bilateral knee pain, right worse than left EYES: No recent vision changes EARS, NOSE, & THROAT: No throat pain, or dysphagia, or rhinorrhea CARDIOVASCULAR: Denies chest pain or palpitations PULMONARY: Denies shortness of breath GASTROINTESTINAL: +constipation GENITOURINARY: denies dysuria MUSCULOSKELETAL: right tibial plateau fracture NEUROLOGICAL:no tremor or seizure activity HEMATOLOGICAL: denies easy bruising SKIN: no rash PSYCHIATRIC: Unremarkable All other review of systems found to be negative. PHYSICAL EXAMINATION: VITAL SIGNS: Please see below. GENERAL: Pleasant and cooperative. No acute distress. morbidly obese HEENT: Extraocular movements intact. Clear conjunctiva CARDIOVASCULAR: Regular rate and rhythm. No murmurs, rubs, or gallops LUNGS: Clear to auscultation bilaterally. No wheezes. No rhonchi ABDOMEN: Soft, nontender, nondistended. Positive bowel sounds. Normal active bowel sounds NEUROLOGICAL: Alert and oriented times three. Cranial nerves II through XII grossly intact. Sensation grossly intact in all 4 extremities EXTREMITIES: 5\5 strength bilateral upper extremities. 5-\5 strength right lower extremity. 5/5 strength in left lower extremity. SKIN: intact ASSESSMENT:58-year-old M with past medical history of morbid obesity, HTN who presents status post fall with right tibial plateau fracture PLAN: 1. Rehab- PT/OT- strengthen/stretch/maintain ROM, advance gait, optimize ADL management with NWB to RLE 2. Neuro: stable 3. Ortho: s/p right tibial plateau fracture- wear knee extension brace when OOB- ortho consulted, c/u NWB 4. Cardiac: pmh HTN, HLD c/u home meds-medicine consulted to assist in management 5. Resp: encourage incentive spirometry, MICHELLE non-compliant with CPAP 6. Endo: DM c/u metformin and insulin ISS monitor and adjust prn 7. : monitor PVrs 8. Pain: c/u gabapentin, cymbalta, and oxycodone prn, avoid NSAIDs and Tylenol -will add lidodern patch to left knee 9. Renal: CKD- monitor and avoid nephrotoxic agents 10. GI: optimize bowel meds 9. Dispo: tbd Allergies Coded Allergies: Sulfa (Sulfonamide Antibiotics) (Verified Allergy, Mild, RASH, 07/02/18) NSAIDS (Non-Steroidal Anti-Inflamma (Verified Adverse Reaction, Unknown, KIDNEY DISFUNCTION, 07/02/18) acetaminophen (Verified Adverse Reaction, Unknown, AVOIDS KIDNEY DYSFUNCTION, 07/02/18) Vital Signs Vital Signs Date Time Temp Pulse Resp B/P (MAP) Pulse Ox O2 Delivery O2 Flow Rate FiO2 01/30/19 14:00 97.4 87 85 159/75 (103) 94 Room Air Laboratory Data CBC/BMP Laboratory Tests 01/30/19 06:56 Labs 24H Laboratory Tests 2 01/29/19 19:46: Bedside Glucose (Misc Panel) 177H 01/30/19 06:50: Bedside Glucose (Misc Panel) 116H 01/30/19 06:56: Immature Granulocyte % (Auto) 0.4, Neutrophils (%) (Auto) 61.6, Lymphocytes (%) (Auto) 24.3, Monocytes (%) (Auto) 11.5H, Eosinophils (%) (Auto) 2.0, Basophils (%) (Auto) 0.2, Neutrophils # (Auto) 5.1, Lymphocytes # (Auto) 2.0, Monocytes # (Auto) 1.0H, Eosinophils # (Auto) 0.2, Basophils # (Auto) 0.0, Nucleated Red Blood Cells % (auto) 0.0, Anion Gap 4L, Glomerular Filtration Rate > 60.0, Calcium Level 8.7 01/30/19 11:34: Bedside Glucose (Misc Panel) 149H 01/30/19 16:57: Bedside Glucose (Misc Panel) 163H Current Medications Current Medications Current Medications Medications (Trade) Dose Ordered Sig/Josi Route PRN Reason Start Time Stop Time Status Last Admin Dose Admin Al Hydrox/Mg Hydrox/Simethicone (Mylanta) 30 ml Q4HP PRN PO INDIGESTION 01/29/19 12:30 Amlodipine Besylate (Norvasc) 10 mg DAILY PO 01/29/19 09:00 01/30/19 08:17 Aspirin (Aspirin) 325 mg DAILY PO 01/29/19 09:00 01/30/19 08:17 Atorvastatin Calcium (Lipitor) 40 mg DAILY PO 01/29/19 09:00 01/30/19 08:15 Bacitracin/ Polymyxin B Sulfate (Polysporin Top Oint) 1 dose BID TOP 01/29/19 09:00 01/29/19 21:00 Bisacodyl (Dulcolax Suppository) 10 mg DAILYPRN PRN [place] CONSTIPATION 01/28/19 15:30 Bisacodyl (Dulcolax Tab) 10 mg DAILY PO 01/29/19 13:00 Cyclobenzaprine HCl (Flexeril) 5 mg Q6HP PRN PO SPASMS 01/28/19 15:30 01/30/19 03:56 Dextrose (Dextrose 50%) 25 ml ASDIRECTED PRN IV SEE LABEL COMMENTS 01/28/19 15:30 Docusate Sodium (Colace) 100 mg BID PO 01/28/19 21:00 01/29/19 09:17 Duloxetine HCl (Cymbalta) 30 mg DAILY PO 01/29/19 09:00 01/30/19 08:17 Enoxaparin Sodium (Lovenox) 40 mg QHS SC 01/28/19 21:00 01/29/19 20:09 Fluticasone Propionate (Flovent Hfa 220mcg) 2 puff BID INH 01/28/19 21:00 01/30/19 07:46 Furosemide (Lasix) 40 mg DAILY PO 01/29/19 09:00 01/30/19 08:18 Gabapentin (Neurontin) 400 mg TID PO 01/28/19 16:00 01/30/19 16:11 Glucagon (Glucagon) 1 mg ASDIRECTED PRN SC SEE LABEL COMMENTS 01/28/19 15:30 Glucose (Glucose) 16 GM ASDIRECTED PRN PO SEE LABEL COMMENTS 01/28/19 15:30 Home Med (Med Rec Complete!) ASDIRECTED XX 01/28/19 15:30 01/28/19 15:30 DC Insulin Human Lispro (HumaLOG INSULIN) SEE PROTOCOL TABLE AC SC 01/28/19 17:30 01/30/19 13:07 Insulin Human Lispro (HumaLOG INSULIN) SEE PROTOCOL TABLE QHS SC 01/28/19 21:00 Lidocaine (Lidoderm Patch) 1 patch DAILY TD 01/30/19 09:00 01/30/19 08:20 Losartan Potassium (Cozaar) 50 mg DAILY PO 01/29/19 09:00 01/30/19 08:19 Metformin HCl (Glucophage) 500 mg BID@18 PO 01/28/19 18:00 01/30/19 08:15 Metoprolol Succinate (TopROL XL) 50 mg DAILY PO 01/29/19 09:00 01/30/19 08:18 Non-Formulary Medication ( See Comment Field Below ) REMOVE LIDODERM PATCH DAILY@21 XX 01/30/19 21:00 Oxycodone HCl (Roxicodone, Oxyir) 5 mg Q4HP PRN PO PAIN 01/28/19 15:30 01/30/19 08:08 Pantoprazole Sodium (Protonix) 40 mg DAILY PO 01/29/19 09:00 01/30/19 08:15 Polyethylene Glycol (Miralax) 1 pkt BID PO 01/29/19 09:00 Senna (Senokot) 1 tab QHS PO 01/28/19 21:00 01/29/19 12:21 DC Senna/Docusate Sodium (Senokot S) 1 tab BID PO 01/29/19 09:00 Triamterene/HCTZ (Dyazide 37.5-25 Mg) 1 ea DAILY PO 01/29/19 09:00 01/30/19 08:18 GUILHERME GOMEZ MD Jan 30, 2019 18:01
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
[2019-01-30 19:30] VITALS: BP 131/80
[2019-01-30] MEDS: ENOXAPARIN 40 MG/0.4 ML SYRINGE (J1650) SC SCH (20:40)
[2019-01-30] MEDS: **NOTE PATIENT COMMENT** MISC XX SCH (20:41)
[2019-01-31] MEDS: oxyCODONE 5MG TAB PO PRN ×3 (05:05→21:18)
[2019-01-31 05:30] VITALS: BP 139/79
[2019-01-31 07:20] LABS: HEMATOCRIT 49.4 % (42.0-52.0); HEMOGLOBIN 15.6 g/dl (13.5-17.5); MEAN CORPUSCULAR HEMOGLOBIN 27.6 pg (27.0-33.0); MEAN CORPUSCULAR HGB CONC 31.6 g/dl (32.0-36.5); MEAN CORPUSCULAR VOLUME 87.3 fl (80.0-96.0); PLATELET COUNT, AUTOMATED 254 10^3/uL (150-450); RED BLOOD COUNT 5.66 10^6/uL (4.30-6.10); WHITE BLOOD COUNT 7.2 10^3/uL (4.0-10.0)
[2019-01-31] MEDS: FLUTICASONE HFA 220 MCG 12 GM INHALER (FLOVENT) INH SCH ×2 (07:40→19:04)
[2019-01-31] MEDS: amLODIPine 10 MG TAB PO SCH (08:22)
[2019-01-31] MEDS: PANTOPRAZOLE 40MG TAB (PROTONIX) PO SCH (08:22)
[2019-01-31] MEDS: ASPIRIN 325 MG TAB PO SCH (08:22)
[2019-01-31] MEDS: FUROSEMIDE 40 MG TAB PO SCH (08:22)
[2019-01-31] MEDS: DULoxetine 30 MG CAP (CYMBALTA) PO SCH (08:22)
[2019-01-31] MEDS: METOPROLOL SUCC (TopROL XL) 50MG **XL** TAB PO SCH (08:23)
[2019-01-31] MEDS: DYAZIDE 37.5/25 CAP (TRIAM/HCTZ) PO SCH (08:23)
[2019-01-31] MEDS: metFORMIN (GLUCOPHAGE) 500 MG TAB PO SCH ×2 (08:23→17:43)
[2019-01-31] MEDS: LOSARTAN 50 MG TAB PO SCH (08:23)
[2019-01-31] MEDS: GABAPENTIN 400 MG CAP PO SCH ×3 (08:23→21:18)
[2019-01-31] MEDS: ATORVASTATIN 20 MG TAB PO SCH (08:23)
[2019-01-31] MEDS: BISACODYL 5 MG TAB PO SCH (08:24)
[2019-01-31] MEDS: MIRALAX *UNIT DOSE* 17GM PACKET PO SCH ×2 (08:24→21:00)
[2019-01-31] MEDS: HumaLOG INSULIN (NovoLOG) PER UNIT SC SCH ×4 (08:24→21:00)
[2019-01-31] MEDS: DOCUSATE SODIUM 100 MG CAP PO SCH ×2 (08:24→21:00)
[2019-01-31] MEDS: POLYSPORIN TOPICAL OINTMENT 15GM TOP SCH ×2 (08:25→21:18)
[2019-01-31] MEDS: LIDOCAINE 5% (LIDODERM) PATCH TD SCH (08:25)
[2019-01-31] MEDS: SENOKOT S TAB PO SCH ×2 (08:25→21:00)
[2019-01-31 14:00] VITALS: BP 130/91
--- NOTE | 2019-01-31 15:42 | IPNPDOC ---
Subjective Date Seen The patient was seen on 01/31/19. Subjective Chief Complaint/HPI No new medical complaints. Unhappy as he is not allowed levi or sausages at breakfast. Says he is working a lot with PT. Normal he does nt walk as much as he has been walking here. No feve or chills, no chest pain ro sob. The knee brace seems to be fitting well. Objective Physical Examination General Exam: Positive: Alert, Cooperative, Mild Distress Eye Exam: Positive: PERRLA, Conjunctiva & lids normal ENT Exam: Positive: Atraumatic, Mucous membr. moist/pink, Pharynx Normal, Tongue Midline Neck Exam: Positive: Supple, +2 carotid pulse wo bruit Chest Exam: Positive: Clear to auscultation, Normal air movement Heart Exam: Positive: Rate Normal, Regular Rhythm, Normal S1, Normal S2 Abdomen Exam: Positive: Normal bowel sounds, Soft, Tenderness (LLQ) Extremity Exam: Positive: Edema, Tenderness, Swelling (bilateral lower legs (tib/fib)) Skin Exam: Positive: Breakdown (bilateral lower legs with scabbing ) Neuro Exam: Positive: Normal Speech, Strength at 5/5 X4 ext (except right lower extremity), Cranial Nerves 3-12 NL Psych Exam: Positive: Mood NL Assessment /Plan Assessment 58-year-old male with a history of IDDM, COPD,osteoarthritis, morbid obesity with a body mass index of 58.4 with his knees in very poor shape and he rarely w alks; he generally makes use of a wheelchair and has done so for the past 9 years. On occasion he does make use of a walker. He had an episode of hypoglycemia at home when he fell on his knees he was helped up to the couch however the next day he could not get out of the couch to was brought to the ED. Upon evaluation in the emergency room he is found to have a right lateral tibial plateau fracture. Of note his sugars have been running low at home also. Ortho recommended non surgical management. He was initially advised knee mobilizer by ortho however this was not fitting properly so ortho then advised a knee brace. R knee Lateral tibial plateau fracture -2/2 mechanical fall due to hypoglycemia. Seen by Dr Aviles recommended [place] knee brace with hinge to allow for 0-45 degree motion with no weight bearing. Will continue to follow acute rehabilitation management plan Continue PT/OT Pain management per acute rehabilitation physician: Gabapentin, Cymbalta, oxycodone as needed.Lidocaine patch 5% daily, Flexeril as needed Orthopedic surgery to follow, weight bearing, left lower leg and non weight bearing to the right lower leg with fracture. Daily weight, monitor vital signs, I&O's Patient on fall precautions HTN BP appears well controlled c/w Losartan, Metoprolol, Amlodipine, Triamterene / HCTZ, and Furosemide NIDDM2 with recent hypoglycemia FS well controlled without long acting insulin c/w ISS and Metformin MICHELLE not compliant with CPAP oxygen supplementation at night incentive spirometry Morbid obesity BMI of 58.4 complicating medical care Tobacco dependency Advised smoking cessation CKD Cr appears to be at baseline Avid using NSAIDS. Adjust dose for GFR for all new meds Neuropathy c/w Gabapentin Mood disorder c/w Duloxetine Constipation MiraLAX 17 g daily, bisacodyl EC 10 mg by mouth twice a day; Senokot S1 by mouth twice a day: Mom 10 mL 4 times a day as needed Increase water GERDchronic Protonix DR 40 mg by mouth twice a day Hyperlipidemiachronic Continue atorvastatin 40 mg by mouth at bedtime Plan/VTE VTE Prophylaxis Ordered?: Yes VTE Exclusion Pharmacological: N/A:VTE Prophy Ordered Plan Diet: Continue Current Activity: Continue Current Therapy: PT, OT Anticipated Discharge: Home (to be determined by acute rehabilitation unit) VS, I&O, 24H, [place] Vital Signs/I&O Vital Signs Date Time Temp Pulse Resp B/P (MAP) Pulse Ox O2 Delivery O2 Flow Rate FiO2 01/31/19 08:23 86 139/79 01/31/19 05:39 18 01/31/19 05:30 98.2 95 Room Air I&O- Last 24 Hours up to 6 AM 01/31/19 06:00 Intake Total 1800 ml Output Total 1050 ml Balance 750 ml Laboratory Data 24H LABS Laboratory Tests 2 01/30/19 11:34: Bedside Glucose (Misc Panel) 149H 01/30/19 16:57: Bedside Glucose (Misc Panel) 163H 01/30/19 20:07: Bedside Glucose (Misc Panel) 85 01/31/19 06:14: Bedside Glucose (Misc Panel) 125H 01/31/19 06:57: Nucleated Red Blood Cells % (auto) 0.0 CBC/BMP Laboratory Tests 01/31/19 06:57 TYSON MILNER MD Jan 31, 2019 10:42
[2019-01-31 19:25] VITALS: BP 132/85
[2019-01-31] MEDS: ENOXAPARIN 40 MG/0.4 ML SYRINGE (J1650) SC SCH (21:18)
[2019-01-31] MEDS: **NOTE PATIENT COMMENT** MISC XX SCH (21:19)
[2019-02-01] MEDS: oxyCODONE 5MG TAB PO PRN ×2 (05:06→09:18)
[2019-02-01 06:00] VITALS: BP 135/70
[2019-02-01] MEDS: FLUTICASONE HFA 220 MCG 12 GM INHALER (FLOVENT) INH SCH ×2 (07:59→20:10)
[2019-02-01] MEDS: amLODIPine 10 MG TAB PO SCH (08:52)
[2019-02-01] MEDS: ASPIRIN 325 MG TAB PO SCH (08:52)
[2019-02-01] MEDS: DYAZIDE 37.5/25 CAP (TRIAM/HCTZ) PO SCH (08:52)
[2019-02-01] MEDS: FUROSEMIDE 40 MG TAB PO SCH (08:52)
[2019-02-01] MEDS: GABAPENTIN 400 MG CAP PO SCH ×3 (08:52→19:54)
[2019-02-01] MEDS: ATORVASTATIN 20 MG TAB PO SCH (08:53)
[2019-02-01] MEDS: METOPROLOL SUCC (TopROL XL) 50MG **XL** TAB PO SCH (08:53)
[2019-02-01] MEDS: LOSARTAN 50 MG TAB PO SCH (08:53)
[2019-02-01] MEDS: DULoxetine 30 MG CAP (CYMBALTA) PO SCH (08:53)
[2019-02-01] MEDS: PANTOPRAZOLE 40MG TAB (PROTONIX) PO SCH (08:53)
[2019-02-01] MEDS: metFORMIN (GLUCOPHAGE) 500 MG TAB PO SCH ×2 (08:53→17:06)
[2019-02-01] MEDS: LIDOCAINE 5% (LIDODERM) PATCH TD SCH (08:54)
[2019-02-01] MEDS: HumaLOG INSULIN (NovoLOG) PER UNIT SC SCH ×4 (08:55→19:57)
[2019-02-01] MEDS: BISACODYL 5 MG TAB PO SCH (09:00)
[2019-02-01] MEDS: SENOKOT S TAB PO SCH ×2 (09:00→19:57)
[2019-02-01] MEDS: DOCUSATE SODIUM 100 MG CAP PO SCH ×2 (09:00→19:58)
[2019-02-01] MEDS: MIRALAX *UNIT DOSE* 17GM PACKET PO SCH ×2 (09:00→19:58)
[2019-02-01] MEDS: POLYSPORIN TOPICAL OINTMENT 15GM TOP SCH ×2 (12:30→19:56)
[2019-02-01 14:00] VITALS: BP 147/88
[2019-02-01] MEDS: ENOXAPARIN 40 MG/0.4 ML SYRINGE (J1650) SC SCH (19:55)
[2019-02-01] MEDS: **NOTE PATIENT COMMENT** MISC XX SCH (19:57)
[2019-02-01 22:00] VITALS: BP 128/71
[2019-02-02 05:53] VITALS: BP 134/89
[2019-02-02] MEDS: oxyCODONE 5MG TAB PO PRN ×4 (06:15→21:26)
[2019-02-02 07:15] LABS: BLOOD UREA NITROGEN 21 MG/DL (7-18); CALCIUM LEVEL 9.4 MG/DL (8.5-10.1); CARBON DIOXIDE LEVEL 32 MEQ/L (21-32); CHLORIDE LEVEL 100 MEQ/L (98-107); CREATININE FOR GFR 1.04 MG/DL (0.70-1.30); GLOMERULAR FILTRATION RATE > 60.0 (>56); GLUCOSE, FASTING 146 MG/DL (70-100); SODIUM LEVEL 138 MEQ/L (136-145)
[2019-02-02] MEDS: LIDOCAINE 5% (LIDODERM) PATCH TD SCH (07:39)
[2019-02-02] MEDS: metFORMIN (GLUCOPHAGE) 500 MG TAB PO SCH ×2 (07:39→16:45)
[2019-02-02] MEDS: GABAPENTIN 400 MG CAP PO SCH ×3 (07:40→21:25)
[2019-02-02] MEDS: amLODIPine 10 MG TAB PO SCH (07:40)
[2019-02-02] MEDS: DULoxetine 30 MG CAP (CYMBALTA) PO SCH (07:40)
[2019-02-02] MEDS: ASPIRIN 325 MG TAB PO SCH (07:40)
[2019-02-02] MEDS: ATORVASTATIN 20 MG TAB PO SCH (07:40)
[2019-02-02] MEDS: LOSARTAN 50 MG TAB PO SCH (07:41)
[2019-02-02] MEDS: FUROSEMIDE 40 MG TAB PO SCH (07:41)
[2019-02-02] MEDS: PANTOPRAZOLE 40MG TAB (PROTONIX) PO SCH (07:41)
[2019-02-02] MEDS: METOPROLOL SUCC (TopROL XL) 50MG **XL** TAB PO SCH (07:41)
[2019-02-02] MEDS: DYAZIDE 37.5/25 CAP (TRIAM/HCTZ) PO SCH (07:41)
[2019-02-02] MEDS: BISACODYL 5 MG TAB PO SCH (07:42)
[2019-02-02] MEDS: DOCUSATE SODIUM 100 MG CAP PO SCH ×2 (07:42→21:00)
[2019-02-02] MEDS: MIRALAX *UNIT DOSE* 17GM PACKET PO SCH ×2 (07:42→21:00)
[2019-02-02] MEDS: SENOKOT S TAB PO SCH ×2 (07:42→21:00)
[2019-02-02] MEDS: HumaLOG INSULIN (NovoLOG) PER UNIT SC SCH ×4 (07:42→21:00)
[2019-02-02] MEDS: POLYSPORIN TOPICAL OINTMENT 15GM TOP SCH ×2 (07:43→21:27)
[2019-02-02] MEDS: FLUTICASONE HFA 220 MCG 12 GM INHALER (FLOVENT) INH SCH ×2 (07:44→19:50)
[2019-02-02 14:00] VITALS: BP 135/88
--- NOTE | 2019-02-02 14:51 | REP ---
Two views right knee: 02/02/2019. Indication: Tibial plateau fracture. Comparison: 01/25/2019. Findings: The right lateral tibial plateau fracture is redemonstrated without new fracture. There is no evidence of subluxation or dislocation. No significant joint effusion is detected. Impression: Healing right lateral tibial plateau fracture. No new fractures. Electronically Signed by Mark Starkey DO 02/02/2019 02:42 P
[2019-02-02 19:55] VITALS: BP 133/75
[2019-02-02] MEDS: ENOXAPARIN 40 MG/0.4 ML SYRINGE (J1650) SC SCH (21:26)
[2019-02-02] MEDS: **NOTE PATIENT COMMENT** MISC XX SCH (21:27)
[2019-02-03] MEDS: oxyCODONE 5MG TAB PO PRN ×3 (04:35→20:20)
[2019-02-03] MEDS: CYCLOBENZAPRINE 5MG TABLET PO PRN ×2 (04:35→21:49)
[2019-02-03 05:11] VITALS: BP 110/62
[2019-02-03 06:51] LABS: HEMATOCRIT 49.5 % (42.0-52.0); HEMOGLOBIN 15.8 g/dl (13.5-17.5); MEAN CORPUSCULAR HEMOGLOBIN 28.3 pg (27.0-33.0); MEAN CORPUSCULAR HGB CONC 31.9 g/dl (32.0-36.5); MEAN CORPUSCULAR VOLUME 88.6 fl (80.0-96.0); PLATELET COUNT, AUTOMATED 283 10^3/uL (150-450); RED BLOOD COUNT 5.59 10^6/uL (4.30-6.10); WHITE BLOOD COUNT 8.7 10^3/uL (4.0-10.0)
[2019-02-03] MEDS: FLUTICASONE HFA 220 MCG 12 GM INHALER (FLOVENT) INH SCH ×2 (07:36→20:11)
[2019-02-03] MEDS: HumaLOG INSULIN (NovoLOG) PER UNIT SC SCH ×4 (07:39→20:11)
[2019-02-03] MEDS: LOSARTAN 50 MG TAB PO SCH (07:40)
[2019-02-03] MEDS: GABAPENTIN 400 MG CAP PO SCH ×3 (07:40→20:20)
[2019-02-03] MEDS: metFORMIN (GLUCOPHAGE) 500 MG TAB PO SCH ×2 (07:40→17:12)
[2019-02-03] MEDS: DULoxetine 30 MG CAP (CYMBALTA) PO SCH (07:41)
[2019-02-03] MEDS: METOPROLOL SUCC (TopROL XL) 50MG **XL** TAB PO SCH (07:42)
[2019-02-03] MEDS: DYAZIDE 37.5/25 CAP (TRIAM/HCTZ) PO SCH (07:42)
[2019-02-03] MEDS: PANTOPRAZOLE 40MG TAB (PROTONIX) PO SCH (07:42)
[2019-02-03] MEDS: amLODIPine 10 MG TAB PO SCH (07:42)
[2019-02-03] MEDS: ASPIRIN 325 MG TAB PO SCH (07:42)
[2019-02-03] MEDS: LIDOCAINE 5% (LIDODERM) PATCH TD SCH ×2 (07:43→12:31)
[2019-02-03] MEDS: DOCUSATE SODIUM 100 MG CAP PO SCH ×2 (07:43→20:20)
[2019-02-03] MEDS: FUROSEMIDE 40 MG TAB PO SCH (07:43)
[2019-02-03] MEDS: ATORVASTATIN 20 MG TAB PO SCH (07:43)
[2019-02-03] MEDS: BISACODYL 5 MG TAB PO SCH (07:44)
[2019-02-03] MEDS: SENOKOT S TAB PO SCH ×2 (07:44→20:21)
[2019-02-03] MEDS: MIRALAX *UNIT DOSE* 17GM PACKET PO SCH ×2 (07:44→20:21)
[2019-02-03] MEDS: POLYSPORIN TOPICAL OINTMENT 15GM TOP SCH ×2 (07:45→20:22)
[2019-02-03 14:00] VITALS: BP 128/83
[2019-02-03] MEDS: ENOXAPARIN 40 MG/0.4 ML SYRINGE (J1650) SC SCH (20:20)
[2019-02-03] MEDS: **NOTE PATIENT COMMENT** MISC XX SCH (20:21)
[2019-02-03 22:00] VITALS: BP 134/90
[2019-02-04] MEDS: oxyCODONE 5MG TAB PO PRN ×3 (00:44→20:30)
[2019-02-04] MEDS: FLUTICASONE HFA 220 MCG 12 GM INHALER (FLOVENT) INH SCH ×2 (07:23→19:32)
[2019-02-04 07:45] VITALS: BP 128/88
[2019-02-04] MEDS: DOCUSATE SODIUM 100 MG CAP PO SCH ×2 (07:52→20:30)
[2019-02-04] MEDS: ATORVASTATIN 20 MG TAB PO SCH (07:52)
[2019-02-04] MEDS: HumaLOG INSULIN (NovoLOG) PER UNIT SC SCH ×4 (07:52→20:31)
[2019-02-04] MEDS: metFORMIN (GLUCOPHAGE) 500 MG TAB PO SCH ×2 (07:52→17:00)
[2019-02-04] MEDS: DYAZIDE 37.5/25 CAP (TRIAM/HCTZ) PO SCH (07:52)
[2019-02-04] MEDS: ASPIRIN 325 MG TAB PO SCH (07:53)
[2019-02-04] MEDS: PANTOPRAZOLE 40MG TAB (PROTONIX) PO SCH (07:53)
[2019-02-04] MEDS: BISACODYL 5 MG TAB PO SCH (07:53)
[2019-02-04] MEDS: amLODIPine 10 MG TAB PO SCH (07:53)
[2019-02-04] MEDS: SENOKOT S TAB PO SCH ×2 (07:53→20:31)
[2019-02-04] MEDS: LOSARTAN 50 MG TAB PO SCH (07:53)
[2019-02-04] MEDS: METOPROLOL SUCC (TopROL XL) 50MG **XL** TAB PO SCH (07:54)
[2019-02-04] MEDS: DULoxetine 30 MG CAP (CYMBALTA) PO SCH (07:54)
[2019-02-04] MEDS: FUROSEMIDE 40 MG TAB PO SCH (07:54)
[2019-02-04] MEDS: GABAPENTIN 400 MG CAP PO SCH ×3 (07:54→20:30)
[2019-02-04] MEDS: MIRALAX *UNIT DOSE* 17GM PACKET PO SCH ×2 (07:54→20:31)
[2019-02-04] MEDS: LIDOCAINE 5% (LIDODERM) PATCH TD SCH (07:55)
[2019-02-04] MEDS: POLYSPORIN TOPICAL OINTMENT 15GM TOP SCH ×2 (07:55→20:29)
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
--- NOTE | 2019-02-04 10:39 | IPNPDOC ---
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 He denies having left sided chest pain. REVIEW OF SYSTEMS: The following is a completed review of systems and has been reviewed. Review of systems otherwise unremarkable. PAIN: Patient self reports bilateral knee pain, right worse than left EYES: No recent vision changes EARS, NOSE, & THROAT: No throat pain, or dysphagia, or rhinorrhea CARDIOVASCULAR: Denies chest pain or palpitations PULMONARY: Denies shortness of breath GASTROINTESTINAL: +constipation (resolved) GENITOURINARY: denies dysuria MUSCULOSKELETAL: right tibial plateau fracture NEUROLOGICAL:no tremor or seizure activity HEMATOLOGICAL: denies easy bruising SKIN: no rash PSYCHIATRIC: Unremarkable All other review of systems found to be negative. PHYSICAL EXAMINATION: VITAL SIGNS: Please see below. GENERAL: Pleasant and cooperative. No acute distress. morbidly obese HEENT: Extraocular movements intact. Clear conjunctiva CARDIOVASCULAR: Regular rate and rhythm. No murmurs, rubs, or gallops LUNGS: Clear to auscultation bilaterally. No wheezes. No rhonchi ABDOMEN: Soft, nontender, nondistended. Positive bowel sounds. Normal active bowel sounds NEUROLOGICAL: Alert and oriented times three. Cranial nerves II through XII grossly intact. Sensation grossly intact in all 4 extremities EXTREMITIES: 5\5 strength bilateral upper extremities. 5-\5 strength right lower extremity. 5/5 strength in left lower extremity. (+) TTP bilat patellar tendons/medial/lateral joint lines right mid-clavicular chest well with mild TTP palpation under nipple line SKIN: dime-size left forward abrasion ASSESSMENT:58-year-old M with past medical history of morbid obesity, HTN who presents status post fall with right tibial plateau fracture PLAN: 1. Rehab- PT/OT- strengthen/stretch/maintain ROM, advance gait, optimize ADL management with NWB to RLE 2. Neuro: stable 3. Ortho: s/p right tibial plateau fracture- wear knee extension brace when OOB- ortho consulted, c/u NWB -repeat Xray shows healing fracture, will discuss possibility of advancing weight bearing with ortho 4. Cardiac: pmh HTN, HLD c/u home meds-medicine consulted to assist in management 5. Resp: encourage incentive spirometry, MICHELLE non-compliant with CPAP 6. Endo: DM c/u metformin and insulin ISS monitor and adjust prn 7. : monitor PVrs 8. Pain: c/u gabapentin, cymbalta, and oxycodone prn, avoid NSAIDs and Tylenol -c/u lidoderm patch to left knee, will add to right rib cage for likely muscular pain 9. Renal: CKD- monitor and avoid nephrotoxic agents 10. GI: optimize bowel meds 11. Skin: right forearm abrasion, c/u bacitracin and cover 9. Dispo: 02-10-19 to home Allergies Coded Allergies: Sulfa (Sulfonamide Antibiotics) (Verified Allergy, Mild, RASH, 07/02/18) NSAIDS (Non-Steroidal Anti-Inflamma (Verified Adverse Reaction, Unknown, KIDNEY DISFUNCTION, 07/02/18) acetaminophen (Verified Adverse Reaction, Unknown, AVOIDS KIDNEY DYSFUNCTION, 07/02/18) Vital Signs Vital Signs Date Time Temp Pulse Resp B/P (MAP) Pulse Ox O2 Delivery O2 Flow Rate FiO2 02/04/19 07:45 98.4 84 20 128/88 (101) 93 Room Air Laboratory Data Labs 24H Laboratory Tests 2 02/03/19 11:53: Bedside Glucose (Misc Panel) 173H 02/03/19 16:40: Bedside Glucose (Misc Panel) 178H 02/03/19 19:40: Bedside Glucose (Misc Panel) 105 02/04/19 06:30: Bedside Glucose (Misc Panel) 140H Current Medications Current Medications Current Medications Medications (Trade) Dose Ordered Sig/Josi Route PRN Reason Start Time Stop Time Status Last Admin Dose Admin Al Hydrox/Mg Hydrox/Simethicone (Mylanta) 30 ml Q4HP PRN PO INDIGESTION 01/29/19 12:30 01/31/19 20:24 Amlodipine Besylate (Norvasc) 10 mg DAILY PO 01/29/19 09:00 02/04/19 07:53 Aspirin (Aspirin) 325 mg DAILY PO 01/29/19 09:00 02/04/19 07:53 Atorvastatin Calcium (Lipitor) 40 mg DAILY PO 01/29/19 09:00 02/04/19 07:52 Bacitracin/ Polymyxin B Sulfate (Polysporin Top Oint) 1 dose BID TOP 01/29/19 09:00 02/04/19 07:55 Bisacodyl (Dulcolax Suppository) 10 mg DAILYPRN PRN IN CONSTIPATION 01/28/19 15:30 Bisacodyl (Dulcolax Tab) 10 mg DAILY PO 01/29/19 13:00 02/04/19 07:53 Cyclobenzaprine HCl (Flexeril) 5 mg Q6HP PRN PO SPASMS 01/28/19 15:30 02/03/19 21:49 Dextrose (Dextrose 50%) 25 ml ASDIRECTED PRN IV SEE LABEL COMMENTS 01/28/19 15:30 Docusate Sodium (Colace) 100 mg BID PO 01/28/19 21:00 02/04/19 07:52 Duloxetine HCl (Cymbalta) 30 mg DAILY PO 01/29/19 09:00 02/04/19 07:54 Enoxaparin Sodium (Lovenox) 40 mg QHS SC 01/28/19 21:00 02/03/19 20:20 Fluticasone Propionate (Flovent Hfa 220mcg) 2 puff BID INH 01/28/19 21:00 02/04/19 07:23 Furosemide (Lasix) 40 mg DAILY PO 01/29/19 09:00 02/04/19 07:54 Gabapentin (Neurontin) 400 mg TID PO 01/28/19 16:00 02/04/19 07:54 Glucagon (Glucagon) 1 mg ASDIRECTED PRN SC SEE LABEL COMMENTS 01/28/19 15:30 Glucose (Glucose) 16 GM ASDIRECTED PRN PO SEE LABEL COMMENTS 01/28/19 15:30 Home Med (Med Rec Complete!) ASDIRECTED XX 01/28/19 15:30 01/28/19 15:30 DC Insulin Human Lispro (HumaLOG INSULIN) SEE PROTOCOL TABLE AC SC 01/28/19 17:30 02/04/19 07:52 Insulin Human Lispro (HumaLOG INSULIN) SEE PROTOCOL TABLE QHS SC 01/28/19 21:00 Lidocaine (Lidoderm Patch) 1 patch DAILY TD 01/30/19 09:00 02/03/19 11:35 DC 02/03/19 07:43 Lidocaine (Lidoderm Patch) 2 patch DAILY TD 02/03/19 09:00 02/04/19 07:55 Losartan Potassium (Cozaar) 50 mg DAILY PO 01/29/19 09:00 02/04/19 07:53 Metformin HCl (Glucophage) 500 mg BID@08,18 PO 01/28/19 18:00 02/04/19 07:52 Metoprolol Succinate (TopROL XL) 50 mg DAILY PO 01/29/19 09:00 02/04/19 07:54 Non-Formulary Medication ( See Comment Field Below ) REMOVE LIDODERM PATCH DAILY@21 XX 01/30/19 21:00 02/03/19 11:37 DC 02/02/19 21:27 Non-Formulary Medication ( See Comment Field Below ) REMOVE LIDODERM PATCH DAILY@21 XX 02/03/19 21:00 02/03/19 20:21 Oxycodone HCl (Roxicodone, Oxyir) 5 mg Q4HP PRN PO PAIN 01/28/19 15:30 02/04/19 00:44 Pantoprazole Sodium (Protonix) 40 mg DAILY PO 01/29/19 09:00 02/04/19 07:53 Polyethylene Glycol (Miralax) 1 pkt BID PO 01/29/19 09:00 Senna (Senokot) 1 tab QHS PO 01/28/19 21:00 01/29/19 12:21 DC Senna/Docusate Sodium (Senokot S) 1 tab BID PO 01/29/19 09:00 02/04/19 07:53 Triamterene/HCTZ (Dyazide 37.5-25 Mg) 1 ea DAILY PO 01/29/19 09:00 02/04/19 07:52 GUILHERME GOMEZ MD Feb 04, 2019 10:39
[2019-02-04 14:00] VITALS: BP 132/89
[2019-02-04] MEDS: CYCLOBENZAPRINE 5MG TABLET PO PRN (15:01)
[2019-02-04] MEDS: **NOTE PATIENT COMMENT** MISC XX SCH (20:29)
[2019-02-04] MEDS: ANALGESIC BALM CRM 120 GM TOP SCH (20:29)
[2019-02-04] MEDS: ENOXAPARIN 40 MG/0.4 ML SYRINGE (J1650) SC SCH (20:30)
[2019-02-04 22:00] VITALS: BP 119/56
[2019-02-05 06:00] VITALS: BP 124/67
[2019-02-05] MEDS: FLUTICASONE HFA 220 MCG 12 GM INHALER (FLOVENT) INH SCH ×2 (07:13→20:19)
[2019-02-05] MEDS: ASPIRIN 325 MG TAB PO SCH (07:59)
[2019-02-05] MEDS: metFORMIN (GLUCOPHAGE) 500 MG TAB PO SCH ×2 (07:59→17:41)
[2019-02-05] MEDS: DYAZIDE 37.5/25 CAP (TRIAM/HCTZ) PO SCH (07:59)
[2019-02-05] MEDS: ATORVASTATIN 20 MG TAB PO SCH (07:59)
[2019-02-05] MEDS: DULoxetine 30 MG CAP (CYMBALTA) PO SCH (07:59)
[2019-02-05 08:00] VITALS: BP 124/67
[2019-02-05] MEDS: PANTOPRAZOLE 40MG TAB (PROTONIX) PO SCH (08:00)
[2019-02-05] MEDS: amLODIPine 10 MG TAB PO SCH (08:00)
[2019-02-05] MEDS: METOPROLOL SUCC (TopROL XL) 50MG **XL** TAB PO SCH (08:00)
[2019-02-05] MEDS: LOSARTAN 50 MG TAB PO SCH (08:00)
[2019-02-05] MEDS: GABAPENTIN 400 MG CAP PO SCH ×3 (08:00→21:10)
[2019-02-05] MEDS: FUROSEMIDE 40 MG TAB PO SCH (08:00)
[2019-02-05] MEDS: HumaLOG INSULIN (NovoLOG) PER UNIT SC SCH ×4 (08:01→21:00)
[2019-02-05] MEDS: DOCUSATE SODIUM 100 MG CAP PO SCH ×2 (09:00→21:00)
[2019-02-05] MEDS: BISACODYL 5 MG TAB PO SCH (09:00)
[2019-02-05] MEDS: MIRALAX *UNIT DOSE* 17GM PACKET PO SCH ×2 (09:00→21:00)
[2019-02-05] MEDS: ANALGESIC BALM CRM 120 GM TOP SCH ×3 (09:00→21:11)
[2019-02-05] MEDS: SENOKOT S TAB PO SCH ×2 (09:00→21:00)
[2019-02-05] MEDS: oxyCODONE 5MG TAB PO PRN ×2 (10:59→21:10)
[2019-02-05] MEDS: LIDOCAINE 5% (LIDODERM) PATCH TD SCH (11:03)
[2019-02-05] MEDS: POLYSPORIN TOPICAL OINTMENT 15GM TOP SCH ×2 (12:28→21:11)
[2019-02-05 14:00] VITALS: BP 131/92
[2019-02-05] MEDS: CYCLOBENZAPRINE 5MG TABLET PO PRN (17:48)
[2019-02-05 20:00] VITALS: BP 140/85
[2019-02-05] MEDS: **NOTE PATIENT COMMENT** MISC XX SCH (21:00)
[2019-02-05] MEDS: ENOXAPARIN 40 MG/0.4 ML SYRINGE (J1650) SC SCH (21:10)
[2019-02-06] MEDS: CYCLOBENZAPRINE 5MG TABLET PO PRN (00:09)
[2019-02-06] MEDS: oxyCODONE 5MG TAB PO PRN ×3 (02:33→20:40)
[2019-02-06 06:02] VITALS: BP 123/84
[2019-02-06] MEDS: FLUTICASONE HFA 220 MCG 12 GM INHALER (FLOVENT) INH SCH ×2 (07:19→19:05)
[2019-02-06 07:32] LABS: HEMATOCRIT 48.6 % (42.0-52.0); HEMOGLOBIN 15.2 g/dl (13.5-17.5); MEAN CORPUSCULAR HEMOGLOBIN 27.7 pg (27.0-33.0); MEAN CORPUSCULAR HGB CONC 31.3 g/dl (32.0-36.5); MEAN CORPUSCULAR VOLUME 88.7 fl (80.0-96.0); PLATELET COUNT, AUTOMATED 289 10^3/uL (150-450); RED BLOOD COUNT 5.48 10^6/uL (4.30-6.10); WHITE BLOOD COUNT 6.7 10^3/uL (4.0-10.0)
[2019-02-06] MEDS: metFORMIN (GLUCOPHAGE) 500 MG TAB PO SCH ×2 (08:00→17:11)
[2019-02-06] MEDS: BISACODYL 5 MG TAB PO SCH (09:00)
[2019-02-06] MEDS: DOCUSATE SODIUM 100 MG CAP PO SCH ×2 (09:00→20:40)
[2019-02-06] MEDS: POLYSPORIN TOPICAL OINTMENT 15GM TOP SCH ×2 (09:00→20:49)
[2019-02-06] MEDS: SENOKOT S TAB PO SCH ×2 (09:00→20:41)
[2019-02-06] MEDS: MIRALAX *UNIT DOSE* 17GM PACKET PO SCH ×2 (09:00→20:40)
[2019-02-06] MEDS: DYAZIDE 37.5/25 CAP (TRIAM/HCTZ) PO SCH (09:06)
[2019-02-06] MEDS: GABAPENTIN 400 MG CAP PO SCH ×3 (09:06→20:36)
[2019-02-06] MEDS: LIDOCAINE 5% (LIDODERM) PATCH TD SCH (09:06)
[2019-02-06] MEDS: FUROSEMIDE 40 MG TAB PO SCH (09:06)
[2019-02-06] MEDS: PANTOPRAZOLE 40MG TAB (PROTONIX) PO SCH (09:06)
[2019-02-06] MEDS: ASPIRIN 325 MG TAB PO SCH (09:06)
[2019-02-06] MEDS: amLODIPine 10 MG TAB PO SCH (09:07)
[2019-02-06] MEDS: METOPROLOL SUCC (TopROL XL) 50MG **XL** TAB PO SCH (09:07)
[2019-02-06] MEDS: LOSARTAN 50 MG TAB PO SCH (09:07)
[2019-02-06] MEDS: DULoxetine 30 MG CAP (CYMBALTA) PO SCH (09:07)
[2019-02-06] MEDS: ATORVASTATIN 20 MG TAB PO SCH (09:07)
[2019-02-06] MEDS: HumaLOG INSULIN (NovoLOG) PER UNIT SC SCH ×4 (09:08→20:41)
[2019-02-06] MEDS: ANALGESIC BALM CRM 120 GM TOP SCH ×3 (09:09→20:49)
[2019-02-06 14:00] VITALS: BP 131/93
[2019-02-06 19:30] VITALS: BP 122/58
[2019-02-06] MEDS: ENOXAPARIN 40 MG/0.4 ML SYRINGE (J1650) SC SCH (20:37)
[2019-02-06] MEDS: **NOTE PATIENT COMMENT** MISC XX SCH (20:49)
[2019-02-07 05:00] VITALS: BP 160/75
[2019-02-07] MEDS: oxyCODONE 5MG TAB PO PRN ×3 (07:00→19:35)
[2019-02-07] MEDS: FLUTICASONE HFA 220 MCG 12 GM INHALER (FLOVENT) INH SCH ×2 (07:14→20:07)
[2019-02-07] MEDS: HumaLOG INSULIN (NovoLOG) PER UNIT SC SCH ×4 (07:28→21:00)
[2019-02-07] MEDS: LIDOCAINE 5% (LIDODERM) PATCH TD SCH (07:29)
[2019-02-07] MEDS: DYAZIDE 37.5/25 CAP (TRIAM/HCTZ) PO SCH (07:29)
[2019-02-07] MEDS: FUROSEMIDE 40 MG TAB PO SCH (07:29)
[2019-02-07] MEDS: PANTOPRAZOLE 40MG TAB (PROTONIX) PO SCH (07:30)
[2019-02-07] MEDS: ATORVASTATIN 20 MG TAB PO SCH (07:30)
[2019-02-07] MEDS: ASPIRIN 325 MG TAB PO SCH (07:30)
[2019-02-07] MEDS: DULoxetine 30 MG CAP (CYMBALTA) PO SCH (07:30)
[2019-02-07] MEDS: LOSARTAN 50 MG TAB PO SCH (07:30)
[2019-02-07] MEDS: GABAPENTIN 400 MG CAP PO SCH ×3 (07:31→20:59)
[2019-02-07] MEDS: METOPROLOL SUCC (TopROL XL) 50MG **XL** TAB PO SCH (07:31)
[2019-02-07] MEDS: metFORMIN (GLUCOPHAGE) 500 MG TAB PO SCH ×2 (07:31→17:06)
[2019-02-07] MEDS: MIRALAX *UNIT DOSE* 17GM PACKET PO SCH ×2 (07:35→21:00)
[2019-02-07] MEDS: DOCUSATE SODIUM 100 MG CAP PO SCH ×2 (07:35→21:00)
[2019-02-07] MEDS: BISACODYL 5 MG TAB PO SCH (07:35)
[2019-02-07] MEDS: ANALGESIC BALM CRM 120 GM TOP SCH ×3 (07:36→21:00)
[2019-02-07] MEDS: SENOKOT S TAB PO SCH ×2 (07:36→21:00)
[2019-02-07] MEDS: amLODIPine 10 MG TAB PO SCH (07:36)
[2019-02-07] MEDS: POLYSPORIN TOPICAL OINTMENT 15GM TOP SCH ×2 (07:37→21:00)
--- NOTE | 2019-02-07 13:03 | IPNPDOC ---
Subjective Date Seen The patient was seen on 02/07/19. Subjective Chief Complaint/HPI Patient is comfortable offers no new complaints. As per patient, he is doesn't feel that he is ready to leave on Saturday or Saturday. He will ask with Dr. Carrillo and whether he can stay a little longer General: Denies: ROS Unobtainable, Chills, Night Sweats, Fatigue, Malaise, Normal Appetite, Other Symptoms Constitutional: Denies: Chills, Fever, Malaise, Night Sweats, Weakness, Fatigue, Weight Loss, Lethargy, Other Eyes: Denies: Pain, Vision change, Conjunctivae inflammation, Eyelid inflammation, Redness, Other ENT: Denies: Head Aches, Ear Pain, Dysphagia, Sinus Congestion, Post Nasal Drip, Sore Throat, Epistaxis, Other Symptoms Pulmonary: Denies: Dyspnea, Cough, Pleuritic Chest Pain, Other Symptoms Cardiovascular: Denies: Chest Pain, Palpitations, Orthopnea, Paroxysmal Noc. Dyspnea, Edema, Lt Headedness, Other Symptoms Gastrointestinal: Denies: Nausea, Vomiting, Abdominal Pain, Diarrhea, Constipation, Melena, Hematochezia, Other Symptoms Musculoskeletal: Denies: Neck Pain, Back Pain, Shoulder Pain, Arm Pain, Hand Pain, Leg Pain, Foot Pain, Joint Pain, Muscle Pain, Spasms, Other Symptoms Neurological: Denies: Weakness, Numbness, Incoordination, Change in speech, Confusion, Seizures, Other Symptoms Objective Physical Examination Neck Exam: Positive: Supple, +2 carotid pulse wo bruit Chest Exam: Positive: Clear to auscultation, Normal air movement Heart Exam: Positive: Rate Normal, Regular Rhythm, Normal S1, Normal S2 Abdomen Exam: Positive: Normal bowel sounds, Soft, Tenderness (LLQ) Extremity Exam: Positive: Edema, Tenderness, Swelling (bilateral lower legs (tib/fib)) Skin Exam: Positive: Breakdown (bilateral lower legs with scabbing ) Neuro Exam: Positive: Normal Speech, Strength at 5/5 X4 ext (except right lower extremity), Cranial Nerves 3-12 NL Psych Exam: Positive: Mood NL Assessment /Plan Problems (1) Tibial plateau fracture Status: Acute Response to Treatment: Progressing Discussed With: Nurse, Patient Problem Specific Plan: Monitor Clinically Problem Text: 58-year-old male with a history of IDDM, COPD,osteoarthritis, morbid obesity with a body mass index of 58.4 with his knees in very poor shape and he rarely walks; he generally makes use of a wheelchair and has done so for the past 9 years. On occasion he does make use of a walker. He had an episode of hypoglycemia at home when he fell on his knees he was helped up to the couch however the next day he could not get out of the couch to was brought to the ED. Upon evaluation in the emergency room he is found to have a right lateral tibial plateau fracture. Of note his sugars have been running low at home also. Ortho recommended non surgical management. He was initially advised knee mobilizer by ortho however this was not fitting properly so ortho then advised a knee brace. R knee Lateral tibial plateau fracture -2/2 mechanical fall due to hypoglycemia. Seen by Dr Aviles recommended [place] knee brace with hinge to allow for 0-45 degree motion with no weight bearing. Will continue to follow acute rehabilitation management plan Continue PT/OT Pain management per acute rehabilitation physician: Gabapentin, Cymbalta, oxycodone as needed.Lidocaine patch 5% daily, Flexeril as needed Orthopedic surgery to follow, weight bearing, left lower leg and non weight bearing to the right lower leg with fracture. Daily weight, monitor vital signs, I&O's Patient on fall precautions (2) GERD (gastroesophageal reflux disease) Status: Chronic Problem Text: Stable. Continue home meds (3) HTN (hypertension) Status: Chronic Problem Text: Under control. Continue home meds (4) Morbid (severe) obesity due to excess calories Status: Chronic Plan/VTE VTE Prophylaxis Ordered?: Yes VTE Exclusion Pharmacological: N/A:VTE Prophy Ordered Plan Diet: Continue Current Activity: Continue Current Therapy: PT, OT Anticipated Discharge: Home (to be determined by acute rehabilitation unit) VS, I&O, 24H, [place] Vital Signs/I&O Vital Signs Date Time Temp Pulse Resp B/P (MAP) Pulse Ox O2 Delivery O2 Flow Rate FiO2 02/07/19 11:57 18 Room Air 02/07/19 07:36 92 160/75 02/07/19 05:00 98.4 92 I&O- Last 24 Hours up to 6 AM 02/07/19 06:00 Intake Total 2095 ml Output Total 1590 ml Balance 505 ml Laboratory Data 24H LABS Laboratory Tests 2 02/06/19 16:14: Bedside Glucose (Misc Panel) 159H 02/06/19 19:29: Bedside Glucose (Misc Panel) 159H 02/07/19 05:52: Bedside Glucose (Misc Panel) 141H 02/07/19 11:28: Bedside Glucose (Misc Panel) 163H ROB SOTO MD Feb 07, 2019 13:03
[2019-02-07 14:06] VITALS: BP 117/71
[2019-02-07] MEDS: ENOXAPARIN 40 MG/0.4 ML SYRINGE (J1650) SC SCH (20:59)
[2019-02-07] MEDS: **NOTE PATIENT COMMENT** MISC XX SCH (21:01)
[2019-02-07 21:06] VITALS: BP 139/79
[2019-02-08] MEDS: oxyCODONE 5MG TAB PO PRN ×3 (01:20→20:45)
[2019-02-08 06:00] VITALS: BP 167/83
[2019-02-08] MEDS: FLUTICASONE HFA 220 MCG 12 GM INHALER (FLOVENT) INH SCH ×2 (07:00→19:52)
[2019-02-08] MEDS: HumaLOG INSULIN (NovoLOG) PER UNIT SC SCH ×4 (07:37→20:46)
[2019-02-08] MEDS: METOPROLOL SUCC (TopROL XL) 50MG **XL** TAB PO SCH (07:38)
[2019-02-08] MEDS: ATORVASTATIN 20 MG TAB PO SCH (07:38)
[2019-02-08] MEDS: DYAZIDE 37.5/25 CAP (TRIAM/HCTZ) PO SCH (07:38)
[2019-02-08] MEDS: FUROSEMIDE 40 MG TAB PO SCH (07:38)
[2019-02-08] MEDS: BISACODYL 5 MG TAB PO SCH (07:39)
[2019-02-08] MEDS: LOSARTAN 50 MG TAB PO SCH (07:39)
[2019-02-08] MEDS: metFORMIN (GLUCOPHAGE) 500 MG TAB PO SCH ×2 (07:39→17:10)
[2019-02-08] MEDS: DULoxetine 30 MG CAP (CYMBALTA) PO SCH (07:39)
[2019-02-08] MEDS: ASPIRIN 325 MG TAB PO SCH (07:39)
[2019-02-08] MEDS: PANTOPRAZOLE 40MG TAB (PROTONIX) PO SCH (07:39)
[2019-02-08] MEDS: MIRALAX *UNIT DOSE* 17GM PACKET PO SCH ×2 (07:40→20:46)
[2019-02-08] MEDS: amLODIPine 10 MG TAB PO SCH (07:40)
[2019-02-08] MEDS: GABAPENTIN 400 MG CAP PO SCH ×3 (07:40→20:45)
[2019-02-08] MEDS: DOCUSATE SODIUM 100 MG CAP PO SCH ×2 (07:40→20:46)
[2019-02-08] MEDS: SENOKOT S TAB PO SCH ×2 (07:41→20:46)
[2019-02-08] MEDS: LIDOCAINE 5% (LIDODERM) PATCH TD SCH (07:41)
[2019-02-08] MEDS: POLYSPORIN TOPICAL OINTMENT 15GM TOP SCH ×2 (07:49→20:47)
[2019-02-08] MEDS: ANALGESIC BALM CRM 120 GM TOP SCH ×3 (07:49→20:46)
[2019-02-08 14:00] VITALS: BP 154/85
[2019-02-08 20:00] VITALS: BP 117/68
[2019-02-08] MEDS: ENOXAPARIN 40 MG/0.4 ML SYRINGE (J1650) SC SCH (20:45)
[2019-02-08] MEDS: **NOTE PATIENT COMMENT** MISC XX SCH (20:47)
[2019-02-08] MEDS: CYCLOBENZAPRINE 5MG TABLET PO PRN (23:15)
[2019-02-09 06:20] VITALS: BP 148/73
[2019-02-09 06:45] LABS: HEMATOCRIT 50.7 % (42.0-52.0); HEMOGLOBIN 15.5 g/dl (13.5-17.5); MEAN CORPUSCULAR HEMOGLOBIN 27.4 pg (27.0-33.0); MEAN CORPUSCULAR HGB CONC 30.6 g/dl (32.0-36.5); MEAN CORPUSCULAR VOLUME 89.7 fl (80.0-96.0); PLATELET COUNT, AUTOMATED 326 10^3/uL (150-450); RED BLOOD COUNT 5.65 10^6/uL (4.30-6.10); WHITE BLOOD COUNT 7.8 10^3/uL (4.0-10.0)
[2019-02-09] MEDS: FLUTICASONE HFA 220 MCG 12 GM INHALER (FLOVENT) INH SCH ×2 (07:32→20:04)
[2019-02-09] MEDS: amLODIPine 10 MG TAB PO SCH (07:54)
[2019-02-09] MEDS: ATORVASTATIN 20 MG TAB PO SCH (07:54)
[2019-02-09] MEDS: ASPIRIN 325 MG TAB PO SCH (07:55)
[2019-02-09] MEDS: GABAPENTIN 400 MG CAP PO SCH ×3 (07:55→20:11)
[2019-02-09] MEDS: DYAZIDE 37.5/25 CAP (TRIAM/HCTZ) PO SCH (07:55)
[2019-02-09] MEDS: FUROSEMIDE 40 MG TAB PO SCH (07:55)
[2019-02-09] MEDS: METOPROLOL SUCC (TopROL XL) 50MG **XL** TAB PO SCH (07:55)
[2019-02-09] MEDS: LOSARTAN 50 MG TAB PO SCH (07:55)
[2019-02-09] MEDS: HumaLOG INSULIN (NovoLOG) PER UNIT SC SCH ×4 (07:56→20:11)
[2019-02-09] MEDS: metFORMIN (GLUCOPHAGE) 500 MG TAB PO SCH ×2 (07:56→17:30)
[2019-02-09] MEDS: DULoxetine 30 MG CAP (CYMBALTA) PO SCH (07:56)
[2019-02-09] MEDS: PANTOPRAZOLE 40MG TAB (PROTONIX) PO SCH (07:56)
[2019-02-09] MEDS: LIDOCAINE 5% (LIDODERM) PATCH TD SCH (07:57)
[2019-02-09] MEDS: DOCUSATE SODIUM 100 MG CAP PO SCH ×2 (08:43→20:12)
[2019-02-09] MEDS: BISACODYL 5 MG TAB PO SCH (08:43)
[2019-02-09] MEDS: MIRALAX *UNIT DOSE* 17GM PACKET PO SCH ×2 (08:44→20:12)
[2019-02-09] MEDS: SENOKOT S TAB PO SCH ×2 (08:44→20:12)
[2019-02-09] MEDS: POLYSPORIN TOPICAL OINTMENT 15GM TOP SCH ×2 (09:00→20:12)
[2019-02-09] MEDS: ANALGESIC BALM CRM 120 GM TOP SCH ×3 (09:00→20:12)
[2019-02-09 14:00] VITALS: BP 130/88
--- NOTE | 2019-02-09 14:46 | IPNPDOC ---
PM&R Progress Note DATE OF SERVICE: Feb 04, 2019 [employer] Progress Note Subjective: Patient reporting the lidoderm patch is not helping his rib cage pain and would like to try a muscle rub instead. REVIEW OF SYSTEMS: The following is a completed review of systems and has been reviewed. Review of systems otherwise unremarkable. PAIN: Patient self reports bilateral knee pain, right worse than left EYES: No recent vision changes EARS, NOSE, & THROAT: No throat pain, or dysphagia, or rhinorrhea CARDIOVASCULAR: Denies chest pain or palpitations PULMONARY: Denies shortness of breath GASTROINTESTINAL: +constipation (resolved) GENITOURINARY: denies dysuria MUSCULOSKELETAL: right tibial plateau fracture NEUROLOGICAL:no tremor or seizure activity HEMATOLOGICAL: denies easy bruising SKIN: no rash PSYCHIATRIC: Unremarkable All other review of systems found to be negative. PHYSICAL EXAMINATION: VITAL SIGNS: Please see below. GENERAL: Pleasant and cooperative. No acute distress. morbidly obese HEENT: Extraocular movements intact. Clear conjunctiva CARDIOVASCULAR: Regular rate and rhythm. No murmurs, rubs, or gallops LUNGS: Clear to auscultation bilaterally. No wheezes. No rhonchi ABDOMEN: Soft, nontender, nondistended. Positive bowel sounds. Normal active bowel sounds NEUROLOGICAL: Alert and oriented times three. Cranial nerves II through XII grossly intact. Sensation grossly intact in all 4 extremities EXTREMITIES: 5\5 strength bilateral upper extremities. 5-\5 strength right lower extremity. 5/5 strength in left lower extremity. (+) TTP bilat patellar tendons/medial/lateral joint lines right mid-clavicular chest well with mild TTP palpation under nipple line SKIN: dime-size left forward abrasion ASSESSMENT:58-year-old M with past medical history of morbid obesity, HTN who presents status post fall with right tibial plateau fracture PLAN: 1. Rehab- PT/OT- strengthen/stretch/maintain ROM, advance gait, optimize ADL management with NWB to RLE 2. Neuro: stable 3. Ortho: s/p right tibial plateau fracture- wear knee extension brace when OOB- ortho consulted, c/u NWB -repeat Xray shows healing fracture, per ortho c/u NWB for 6 weeks total 4. Cardiac: pmh HTN, HLD c/u home meds-medicine consulted to assist in management 5. Resp: encourage incentive spirometry, MICHELLE non-compliant with CPAP 6. Endo: DM c/u metformin and insulin ISS monitor and adjust prn 7. : monitor PVrs 8. Pain: c/u gabapentin, cymbalta, and oxycodone prn, avoid NSAIDs and Tylenol -c/u lidoderm patch to left knee, will change lidoderm patch to menthol salicylate to right rib cage 9. Renal: CKD- monitor and avoid nephrotoxic agents 10. GI: optimize bowel meds 11. Skin: right forearm abrasion, c/u bacitracin and cover 9. Dispo: 02-10-19 to home Allergies Coded Allergies: Sulfa (Sulfonamide Antibiotics) (Verified Allergy, Mild, RASH, 07/02/18) NSAIDS (Non-Steroidal Anti-Inflamma (Verified Adverse Reaction, Unknown, KIDNEY DISFUNCTION, 07/02/18) acetaminophen (Verified Adverse Reaction, Unknown, AVOIDS KIDNEY DYSFUNCTION, 07/02/18) Vital Signs Vital Signs Date Time Temp Pulse Resp B/P (MAP) Pulse Ox O2 Delivery O2 Flow Rate FiO2 02/09/19 07:55 88 148/73 02/09/19 06:20 97.0 20 94 Room Air Laboratory Data CBC/BMP Laboratory Tests 02/09/19 06:30 Labs 24H Laboratory Tests 2 02/08/19 16:37: Bedside Glucose (Misc Panel) 185H 02/08/19 19:52: Bedside Glucose (Misc Panel) 195H 02/09/19 06:13: Bedside Glucose (Misc Panel) 215H 02/09/19 06:30: Nucleated Red Blood Cells % (auto) 0.0 02/09/19 10:58: Bedside Glucose (Misc Panel) 161H Current Medications Current Medications Current Medications Medications (Trade) Dose Ordered Sig/Josi Route PRN Reason Start Time Stop Time Status Last Admin Dose Admin Al Hydrox/Mg Hydrox/Simethicone (Mylanta) 30 ml Q4HP PRN PO INDIGESTION 01/29/19 12:30 01/31/19 20:24 Amlodipine Besylate (Norvasc) 10 mg DAILY PO 01/29/19 09:00 02/09/19 07:54 Aspirin (Aspirin) 325 mg DAILY PO 01/29/19 09:00 02/09/19 07:55 Atorvastatin Calcium (Lipitor) 40 mg DAILY PO 01/29/19 09:00 02/09/19 07:54 Bacitracin/ Polymyxin B Sulfate (Polysporin Top Oint) 1 dose BID TOP 01/29/19 09:00 02/08/19 20:47 Bisacodyl (Dulcolax Suppository) 10 mg DAILYPRN PRN [place] CONSTIPATION 01/28/19 15:30 Bisacodyl (Dulcolax Tab) 10 mg DAILY PO 01/29/19 13:00 02/08/19 07:39 Cyclobenzaprine HCl (Flexeril) 5 mg Q6HP PRN PO SPASMS 01/28/19 15:30 02/08/19 23:15 Dextrose (Dextrose 50%) 25 ml ASDIRECTED PRN IV SEE LABEL COMMENTS 01/28/19 15:30 Docusate Sodium (Colace) 100 mg BID PO 01/28/19 21:00 02/08/19 07:40 Duloxetine HCl (Cymbalta) 30 mg DAILY PO 01/29/19 09:00 02/09/19 07:56 Enoxaparin Sodium (Lovenox) 40 mg QHS SC 01/28/19 21:00 02/08/19 20:45 Fluticasone Propionate (Flovent Hfa 220mcg) 2 puff BID INH 01/28/19 21:00 02/09/19 07:32 Furosemide (Lasix) 40 mg DAILY PO 01/29/19 09:00 02/09/19 07:55 Gabapentin (Neurontin) 400 mg TID PO 01/28/19 16:00 02/09/19 07:55 Glucagon (Glucagon) 1 mg ASDIRECTED PRN SC SEE LABEL COMMENTS 01/28/19 15:30 Glucose (Glucose) 16 GM ASDIRECTED PRN PO SEE LABEL COMMENTS 01/28/19 15:30 Home Med (Med Rec Complete!) ASDIRECTED XX 01/28/19 15:30 01/28/19 15:30 DC Insulin Human Lispro (HumaLOG INSULIN) SEE PROTOCOL TABLE AC SC 01/28/19 17:30 02/09/19 12:06 Insulin Human Lispro (HumaLOG INSULIN) SEE PROTOCOL TABLE QHS SC 01/28/19 21:00 Lidocaine (Lidoderm Patch) 1 patch DAILY TD 01/30/19 09:00 02/03/19 11:35 DC 02/03/19 07:43 Lidocaine (Lidoderm Patch) 2 patch DAILY TD 02/03/19 09:00 02/09/19 07:57 Losartan Potassium (Cozaar) 50 mg DAILY PO 01/29/19 09:00 02/09/19 07:55 Menthol/Methyl Salicylate (Bengay Cream) apply to right upper ... TID TOP 02/04/19 21:00 02/08/19 20:46 Metformin HCl (Glucophage) 500 mg BID@ PO 01/28/19 18:00 02/09/19 09:31 DC 02/09/19 07:56 Metformin HCl (Glucophage) 1,000 mg BID@18 PO 02/09/19 18:00 Metoprolol Succinate (TopROL XL) 50 mg DAILY PO 01/29/19 09:00 02/09/19 07:55 Non-Formulary Medication ( See Comment Field Below ) REMOVE LIDODERM PATCH DAILY@21 XX 01/30/19 21:00 02/03/19 11:37 DC 02/02/19 21:27 Non-Formulary Medication ( See Comment Field Below ) REMOVE LIDODERM PATCH DAILY@21 XX 02/03/19 21:00 02/08/19 20:47 Oxycodone HCl (Roxicodone, Oxyir) 5 mg Q4HP PRN PO PAIN 01/28/19 15:30 02/08/19 20:45 Pantoprazole Sodium (Protonix) 40 mg DAILY PO 01/29/19 09:00 02/09/19 07:56 Polyethylene Glycol (Miralax) 1 pkt BID PO 01/29/19 09:00 02/08/19 07:40 Senna (Senokot) 1 tab QHS PO 01/28/19 21:00 01/29/19 12:21 DC Senna/Docusate Sodium (Senokot S) 1 tab BID PO 01/29/19 09:00 02/08/19 07:41 Triamterene/HCTZ (Dyazide 37.5-25 Mg) 1 ea DAILY PO 01/29/19 09:00 02/09/19 07:55 GUILHERME GOMEZ MD Feb 09, 2019 14:46
--- NOTE | 2019-02-09 14:48 | IPNPDOC ---
PM&R Progress Note DATE OF SERVICE: Feb 09, 2019 [employer] Progress Note Subjective: Patient reporting he does not feel safe going home tomorrow and wants to stay longer. He agreed to a home eval. REVIEW OF SYSTEMS: The following is a completed review of systems and has been reviewed. Review of systems otherwise unremarkable. PAIN: Patient self reports bilateral knee pain, right worse than left EYES: No recent vision changes EARS, NOSE, & THROAT: No throat pain, or dysphagia, or rhinorrhea CARDIOVASCULAR: Denies chest pain or palpitations PULMONARY: Denies shortness of breath GASTROINTESTINAL: +constipation (resolved) GENITOURINARY: denies dysuria MUSCULOSKELETAL: right tibial plateau fracture NEUROLOGICAL:no tremor or seizure activity HEMATOLOGICAL: denies easy bruising SKIN: no rash PSYCHIATRIC: Unremarkable All other review of systems found to be negative. PHYSICAL EXAMINATION: VITAL SIGNS: Please see below. GENERAL: Pleasant and cooperative. No acute distress. morbidly obese HEENT: Extraocular movements intact. Clear conjunctiva CARDIOVASCULAR: Regular rate and rhythm. No murmurs, rubs, or gallops LUNGS: Clear to auscultation bilaterally. No wheezes. No rhonchi ABDOMEN: Soft, nontender, nondistended. Positive bowel sounds. Normal active bowel sounds NEUROLOGICAL: Alert and oriented times three. Cranial nerves II through XII grossly intact. Sensation grossly intact in all 4 extremities EXTREMITIES: 5\5 strength bilateral upper extremities. 5-\5 strength right lower extremity. 5/5 strength in left lower extremity. (+) TTP bilat patellar tendons/medial/lateral joint lines right mid-clavicular chest well with mild TTP palpation under nipple line SKIN: dime-size left forward abrasion ASSESSMENT:58-year-old M with past medical history of morbid obesity, HTN who presents status post fall with right tibial plateau fracture PLAN: 1. Rehab- PT/OT- strengthen/stretch/maintain ROM, advance gait, optimize ADL management with NWB to RLE 2. Neuro: stable 3. Ortho: s/p right tibial plateau fracture- wear knee extension brace when OOB- ortho consulted, c/u NWB -repeat Xray shows healing fracture, per ortho c/u NWB for 6 weeks total 4. Cardiac: pmh HTN, HLD c/u home meds-medicine consulted to assist in ma nagement 5. Resp: encourage incentive spirometry, MICHELLE non-compliant with CPAP 6. Endo: DM c/u metformin and insulin ISS monitor and adjust prn 7. : monitor PVrs 8. Pain: c/u gabapentin, cymbalta, and oxycodone prn, avoid NSAIDs and Tylenol -c/u lidoderm patch to left knee, c/u menthol salicylate to right rib cage 9. Renal: CKD- monitor and avoid nephrotoxic agents 10. GI: optimize bowel meds 11. Skin: right forearm abrasion, c/u bacitracin and cover 9. Dispo: 02-10-19 to home-patient not Mod-I yet and having difficulty donning his brace- home eval set up for later in the week Allergies Coded Allergies: Sulfa (Sulfonamide Antibiotics) (Verified Allergy, Mild, RASH, 07/02/18) NSAIDS (Non-Steroidal Anti-Inflamma (Verified Adverse Reaction, Unknown, KIDNEY DISFUNCTION, 07/02/18) acetaminophen (Verified Adverse Reaction, Unknown, AVOIDS KIDNEY DYSFUNCTION, 07/02/18) Vital Signs Vital Signs Date Time Temp Pulse Resp B/P (MAP) Pulse Ox O2 Delivery O2 Flow Rate FiO2 02/09/19 07:55 88 148/73 02/09/19 06:20 97.0 20 94 Room Air Laboratory Data CBC/BMP Laboratory Tests 02/09/19 06:30 Labs 24H Laboratory Tests 2 02/08/19 16:37: Bedside Glucose (Misc Panel) 185H 02/08/19 19:52: Bedside Glucose (Misc Panel) 195H 02/09/19 06:13: Bedside Glucose (Misc Panel) 215H 02/09/19 06:30: Nucleated Red Blood Cells % (auto) 0.0 02/09/19 10:58: Bedside Glucose (Misc Panel) 161H Current Medications Current Medications Current Medications Medications (Trade) Dose Ordered Sig/Josi Route PRN Reason Start Time Stop Time Status Last Admin Dose Admin Al Hydrox/Mg Hydrox/Simethicone (Mylanta) 30 ml Q4HP PRN PO INDIGESTION 01/29/19 12:30 01/31/19 20:24 Amlodipine Besylate (Norvasc) 10 mg DAILY PO 01/29/19 09:00 02/09/19 07:54 Aspirin (Aspirin) 325 mg DAILY PO 01/29/19 09:00 02/09/19 07:55 Atorvastatin Calcium (Lipitor) 40 mg DAILY PO 01/29/19 09:00 02/09/19 07:54 Bacitracin/ Polymyxin B Sulfate (Polysporin Top Oint) 1 dose BID TOP 01/29/19 09:00 02/08/19 20:47 Bisacodyl (Dulcolax Suppository) 10 mg DAILYPRN PRN [place] CONSTIPATION 01/28/19 15:30 Bisacodyl (Dulcolax Tab) 10 mg DAILY PO 01/29/19 13:00 02/08/19 07:39 Cyclobenzaprine HCl (Flexeril) 5 mg Q6HP PRN PO SPASMS 01/28/19 15:30 02/08/19 23:15 Dextrose (Dextrose 50%) 25 ml ASDIRECTED PRN IV SEE LABEL COMMENTS 01/28/19 15:30 Docusate Sodium (Colace) 100 mg BID PO 01/28/19 21:00 02/08/19 07:40 Duloxetine HCl (Cymbalta) 30 mg DAILY PO 01/29/19 09:00 02/09/19 07:56 Enoxaparin Sodium (Lovenox) 40 mg QHS SC 01/28/19 21:00 02/08/19 20:45 Fluticasone Propionate (Flovent Hfa 220mcg) 2 puff BID INH 01/28/19 21:00 02/09/19 07:32 Furosemide (Lasix) 40 mg DAILY PO 01/29/19 09:00 02/09/19 07:55 Gabapentin (Neurontin) 400 mg TID PO 01/28/19 16:00 02/09/19 07:55 Glucagon (Glucagon) 1 mg ASDIRECTED PRN SC SEE LABEL COMMENTS 01/28/19 15:30 Glucose (Glucose) 16 GM ASDIRECTED PRN PO SEE LABEL COMMENTS 01/28/19 15:30 Home Med (Med Rec Complete!) ASDIRECTED XX 01/28/19 15:30 01/28/19 15:30 DC Insulin Human Lispro (HumaLOG INSULIN) SEE PROTOCOL TABLE AC SC 01/28/19 17:30 02/09/19 12:06 Insulin Human Lispro (HumaLOG INSULIN) SEE PROTOCOL TABLE QHS SC 01/28/19 21:00 Lidocaine (Lidoderm Patch) 1 patch DAILY TD 01/30/19 09:00 02/03/19 11:35 DC 02/03/19 07:43 Lidocaine (Lidoderm Patch) 2 patch DAILY TD 02/03/19 09:00 02/09/19 07:57 Losartan Potassium (Cozaar) 50 mg DAILY PO 01/29/19 09:00 02/09/19 07:55 Menthol/Methyl Salicylate (Bengay Cream) apply to right upper ... TID TOP 02/04/19 21:00 02/08/19 20:46 Metformin HCl (Glucophage) 500 mg BID@ PO 01/28/19 18:00 02/09/19 09:31 DC 02/09/19 07:56 Metformin HCl (Glucophage) 1,000 mg BID@ PO 02/09/19 18:00 Metoprolol Succinate (TopROL XL) 50 mg DAILY PO 01/29/19 09:00 02/09/19 07:55 Non-Formulary Medication ( See Comment Field Below ) REMOVE LIDODERM PATCH DAILY@21 XX 01/30/19 21:00 02/03/19 11:37 DC 02/02/19 21:27 Non-Formulary Medication ( See Comment Field Below ) REMOVE LIDODERM PATCH DAILY@21 XX 02/03/19 21:00 02/08/19 20:47 Oxycodone HCl (Roxicodone, Oxyir) 5 mg Q4HP PRN PO PAIN 01/28/19 15:30 02/08/19 20:45 Pantoprazole Sodium (Protonix) 40 mg DAILY PO 01/29/19 09:00 02/09/19 07:56 Polyethylene Glycol (Miralax) 1 pkt BID PO 01/29/19 09:00 02/08/19 07:40 Senna (Senokot) 1 tab QHS PO 01/28/19 21:00 01/29/19 12:21 DC Senna/Docusate Sodium (Senokot S) 1 tab BID PO 01/29/19 09:00 02/08/19 07:41 Triamterene/HCTZ (Dyazide 37.5-25 Mg) 1 ea DAILY PO 01/29/19 09:00 02/09/19 07:55 GUILHERME GOMEZ MD Feb 09, 2019 14:48
[2019-02-09] MEDS: oxyCODONE 5MG TAB PO PRN ×2 (14:57→20:11)
[2019-02-09 20:00] VITALS: BP 166/96
[2019-02-09] MEDS: ENOXAPARIN 40 MG/0.4 ML SYRINGE (J1650) SC SCH (20:11)
[2019-02-09] MEDS: **NOTE PATIENT COMMENT** MISC XX SCH (20:12)
[2019-02-10 06:00] VITALS: BP 126/91
[2019-02-10] MEDS: oxyCODONE 5MG TAB PO PRN ×2 (06:21→21:47)
[2019-02-10] MEDS: LOSARTAN 50 MG TAB PO SCH (07:47)
[2019-02-10] MEDS: ASPIRIN 325 MG TAB PO SCH (07:47)
[2019-02-10] MEDS: PANTOPRAZOLE 40MG TAB (PROTONIX) PO SCH (07:47)
[2019-02-10] MEDS: FUROSEMIDE 40 MG TAB PO SCH (07:48)
[2019-02-10] MEDS: amLODIPine 10 MG TAB PO SCH (07:48)
[2019-02-10] MEDS: ATORVASTATIN 20 MG TAB PO SCH (07:48)
[2019-02-10] MEDS: GABAPENTIN 400 MG CAP PO SCH ×3 (07:48→21:47)
[2019-02-10] MEDS: DYAZIDE 37.5/25 CAP (TRIAM/HCTZ) PO SCH (07:48)
[2019-02-10] MEDS: metFORMIN (GLUCOPHAGE) 500 MG TAB PO SCH ×2 (07:48→17:27)
[2019-02-10] MEDS: HumaLOG INSULIN (NovoLOG) PER UNIT SC SCH ×4 (07:49→21:00)
[2019-02-10] MEDS: DULoxetine 30 MG CAP (CYMBALTA) PO SCH (07:49)
[2019-02-10] MEDS: METOPROLOL SUCC (TopROL XL) 50MG **XL** TAB PO SCH (07:49)
[2019-02-10] MEDS: LIDOCAINE 5% (LIDODERM) PATCH TD SCH (07:50)
[2019-02-10] MEDS: DOCUSATE SODIUM 100 MG CAP PO SCH ×2 (07:55→21:00)
[2019-02-10] MEDS: MIRALAX *UNIT DOSE* 17GM PACKET PO SCH ×2 (07:59→21:00)
[2019-02-10] MEDS: BISACODYL 5 MG TAB PO SCH (07:59)
[2019-02-10] MEDS: ANALGESIC BALM CRM 120 GM TOP SCH ×3 (08:00→21:00)
[2019-02-10] MEDS: SENOKOT S TAB PO SCH ×2 (08:00→21:00)
[2019-02-10] MEDS: POLYSPORIN TOPICAL OINTMENT 15GM TOP SCH ×2 (08:01→21:00)
[2019-02-10] MEDS: FLUTICASONE HFA 220 MCG 12 GM INHALER (FLOVENT) INH SCH ×2 (08:04→20:09)
[2019-02-10 14:00] VITALS: BP 160/90
[2019-02-10 21:00] VITALS: BP 168/85
[2019-02-10] MEDS: ENOXAPARIN 40 MG/0.4 ML SYRINGE (J1650) SC SCH (21:47)
[2019-02-10] MEDS: **NOTE PATIENT COMMENT** MISC XX SCH (21:48)
[2019-02-11 06:00] VITALS: BP 136/95
[2019-02-11] MEDS: METOPROLOL SUCC (TopROL XL) 50MG **XL** TAB PO SCH (07:58)
[2019-02-11] MEDS: GABAPENTIN 400 MG CAP PO SCH ×3 (07:58→20:42)
[2019-02-11] MEDS: HumaLOG INSULIN (NovoLOG) PER UNIT SC SCH ×4 (07:58→20:59)
[2019-02-11] MEDS: FUROSEMIDE 40 MG TAB PO SCH (07:59)
[2019-02-11] MEDS: DULoxetine 30 MG CAP (CYMBALTA) PO SCH (07:59)
[2019-02-11] MEDS: LOSARTAN 50 MG TAB PO SCH (07:59)
[2019-02-11] MEDS: PANTOPRAZOLE 40MG TAB (PROTONIX) PO SCH (07:59)
[2019-02-11] MEDS: ASPIRIN 325 MG TAB PO SCH (07:59)
[2019-02-11] MEDS: metFORMIN (GLUCOPHAGE) 500 MG TAB PO SCH ×2 (08:00→16:53)
[2019-02-11] MEDS: ATORVASTATIN 20 MG TAB PO SCH (08:00)
[2019-02-11] MEDS: LIDOCAINE 5% (LIDODERM) PATCH TD SCH (08:00)
[2019-02-11] MEDS: amLODIPine 10 MG TAB PO SCH (08:00)
[2019-02-11] MEDS: DOCUSATE SODIUM 100 MG CAP PO SCH ×2 (08:05→21:00)
[2019-02-11] MEDS: BISACODYL 5 MG TAB PO SCH (08:05)
[2019-02-11] MEDS: SENOKOT S TAB PO SCH ×2 (08:05→21:00)
[2019-02-11] MEDS: MIRALAX *UNIT DOSE* 17GM PACKET PO SCH ×2 (08:05→21:00)
[2019-02-11] MEDS: ANALGESIC BALM CRM 120 GM TOP SCH ×3 (08:06→22:44)
[2019-02-11] MEDS: POLYSPORIN TOPICAL OINTMENT 15GM TOP SCH ×2 (08:06→22:44)
[2019-02-11] MEDS: FLUTICASONE HFA 220 MCG 12 GM INHALER (FLOVENT) INH SCH ×2 (09:00→20:07)
[2019-02-11] MEDS: DYAZIDE 37.5/25 CAP (TRIAM/HCTZ) PO SCH (09:02)
[2019-02-11] MEDS: oxyCODONE 5MG TAB PO PRN ×2 (12:44→20:42)
[2019-02-11 14:00] VITALS: BP 131/72
--- NOTE | 2019-02-11 15:28 | IPNPDOC ---
PM&R Progress Note DATE OF SERVICE: Feb 10, 2019 Layer [employer] Progress Note Subjective: Patient agrees to do a home eval on Saturday and reports he thinks he is getting stronger in therapy. REVIEW OF SYSTEMS: The following is a completed review of systems and has been reviewed. Review of systems otherwise unremarkable. PAIN: Patient self reports bilateral knee pain, right worse than left EYES: No recent vision changes EARS, NOSE, & THROAT: No throat pain, or dysphagia, or rhinorrhea CARDIOVASCULAR: Denies chest pain or palpitations PULMONARY: Denies shortness of breath GASTROINTESTINAL: +constipation (resolved) GENITOURINARY: denies dysuria MUSCULOSKELETAL: right tibial plateau fracture NEUROLOGICAL:no tremor or seizure activity HEMATOLOGICAL: denies easy bruising SKIN: no rash PSYCHIATRIC: Unremarkable All other review of systems found to be negative. PHYSICAL EXAMINATION: VITAL SIGNS: Please see below. GENERAL: Pleasant and cooperative. No acute distress. morbidly obese HEENT: Extraocular movements intact. Clear conjunctiva CARDIOVASCULAR: Regular rate and rhythm. No murmurs, rubs, or gallops LUNGS: Clear to auscultation bilaterally. No wheezes. No rhonchi ABDOMEN: Soft, nontender, nondistended. Positive bowel sounds. Normal active bowel sounds NEUROLOGICAL: Alert and oriented times three. Cranial nerves II through XII jese sly intact. Sensation grossly intact in all 4 extremities EXTREMITIES: 5\5 strength bilateral upper extremities. 5-\5 strength right lower extremity. 5/5 strength in left lower extremity. (+) TTP bilat patellar tendons/medial/lateral joint lines right mid-clavicular chest well with mild TTP palpation under nipple line SKIN: dime-size left forward abrasion ASSESSMENT:58-year-old M with past medical history of morbid obesity, HTN who presents status post fall with right tibial plateau fracture PLAN: 1. Rehab- PT/OT- strengthen/stretch/maintain ROM, advance gait, optimize ADL management with NWB to RLE 2. Neuro: stable 3. Ortho: s/p right tibial plateau fracture- wear knee extension brace when OOB- ortho consulted, c/u NWB -repeat Xray shows healing fracture, per ortho c/u NWB for 6 weeks total 4. Cardiac: pmh HTN, HLD c/u home meds-medicine consulted to assist in management 5. Resp: encourage incentive spirometry, MICHELLE non-compliant with CPAP 6. Endo: DM c/u metformin and insulin ISS monitor and adjust prn 7. : monitor PVrs 8. Pain: c/u gabapentin, cymbalta, and oxycodone prn, avoid NSAIDs and Tylenol -c/u lidoderm patch to left knee, c/u menthol salicylate to right rib cage- improving 9. Renal: CKD- monitor and avoid nephrotoxic agents 10. GI: optimize bowel meds 11. Skin: right forearm abrasion, c/u bacitracin and cover 9. Dispo: 02-17-19 to home-patient not Mod-I yet and having difficulty donning his brace- home eval set up for Saturday Allergies Coded Allergies: Sulfa (Sulfonamide Antibiotics) (Verified Allergy, Mild, RASH, 07/02/18) NSAIDS (Non-Steroidal Anti-Inflamma (Verified Adverse Reaction, Unknown, KIDNEY DISFUNCTION, 07/02/18) acetaminophen (Verified Adverse Reaction, Unknown, AVOIDS KIDNEY DYSFUN CTION, 07/02/18) Vital Signs Vital Signs Date Time Temp Pulse Resp B/P (MAP) Pulse Ox O2 Delivery O2 Flow Rate FiO2 02/11/19 14:00 98.0 86 18 131/72 (91) 98 Room Air Laboratory Data Labs 24H Laboratory Tests 2 02/10/19 16:38: Bedside Glucose (Misc Panel) 201H 02/10/19 21:42: Bedside Glucose (Misc Panel) 183H 02/11/19 06:39: Bedside Glucose (Misc Panel) 189H 02/11/19 12:02: Bedside Glucose (Misc Panel) 179H Current Medications Current Medications Current Medications Medications (Trade) Dose Ordered Sig/Josi Route PRN Reason Start Time Stop Time Status Last Admin Dose Admin Al Hydrox/Mg Hydrox/Simethicone (Mylanta) 30 ml Q4HP PRN PO INDIGESTION 01/29/19 12:30 01/31/19 20:24 Amlodipine Besylate (Norvasc) 10 mg DAILY PO 01/29/19 09:00 02/11/19 08:00 Aspirin (Aspirin) 325 mg DAILY PO 01/29/19 09:00 02/11/19 07:59 Atorvastatin Calcium (Lipitor) 40 mg DAILY PO 01/29/19 09:00 02/11/19 08:00 Bacitracin/ Polymyxin B Sulfate (Polysporin Top Oint) 1 dose BID TOP 01/29/19 09:00 02/09/19 20:12 Bisacodyl (Dulcolax Suppository) 10 mg DAILYPRN PRN [place] CONSTIPATION 01/28/19 15:30 Bisacodyl (Dulcolax Tab) 10 mg DAILY PO 01/29/19 13:00 02/08/19 07:39 Cyclobenzaprine HCl (Flexeril) 5 mg Q6HP PRN PO SPASMS 01/28/19 15:30 02/08/19 23:15 Dextrose (Dextrose 50%) 25 ml ASDIRECTED PRN IV SEE LABEL COMMENTS 01/28/19 15:30 Docusate Sodium (Colace) 100 mg BID PO 01/28/19 21:00 02/08/19 07:40 Duloxetine HCl (Cymbalta) 30 mg DAILY PO 01/29/19 09:00 02/11/19 07:59 Enoxaparin Sodium (Lovenox) 40 mg QHS SC 01/28/19 21:00 02/10/19 21:47 Fluticasone Propionate (Flovent Hfa 220mcg) 2 puff BID INH 01/28/19 21:00 02/10/19 20:09 Furosemide (Lasix) 40 mg DAILY PO 01/29/19 09:00 02/11/19 07:59 Gabapentin (Neurontin) 400 mg TID PO 01/28/19 16:00 02/11/19 07:58 Glucagon (Glucagon) 1 mg ASDIRECTED PRN SC SEE LABEL COMMENTS 01/28/19 15:30 Glucose (Glucose) 16 GM ASDIRECTED PRN PO SEE LABEL COMMENTS 01/28/19 15:30 Home Med (Med Rec Complete!) ASDIRECTED XX 01/28/19 15:30 01/28/19 15:30 DC Insulin Human Lispro (HumaLOG INSULIN) SEE PROTOCOL TABLE AC SC 01/28/19 17:30 02/11/19 12:42 Insulin Human Lispro (HumaLOG INSULIN) SEE PROTOCOL TABLE QHS SC 01/28/19 21:00 Lidocaine (Lidoderm Patch) 1 patch DAILY TD 01/30/19 09:00 02/03/19 11:35 DC 02/03/19 07:43 Lidocaine (Lidoderm Patch) 2 patch DAILY TD 02/03/19 09:00 02/11/19 08:00 Losartan Potassium (Cozaar) 50 mg DAILY PO 01/29/19 09:00 02/11/19 07:59 Menthol/Methyl Salicylate (Bengay Cream) apply to right upper ... TID TOP 02/04/19 21:00 02/08/19 20:46 Metformin HCl (Glucophage) 500 mg BID@ PO 01/28/19 18:00 02/09/19 09:31 DC 02/09/19 07:56 Metformin HCl (Glucophage) 1,000 mg BID@ PO 02/09/19 18:00 02/11/19 08:00 Metoprolol Succinate (TopROL XL) 50 mg DAILY PO 01/29/19 09:00 02/11/19 07:58 Non-Formulary Medication ( See Comment Field Below ) REMOVE LIDODERM PATCH DAILY@21 XX 01/30/19 21:00 02/03/19 11:37 DC 02/02/19 21:27 Non-Formulary Medication ( See Comment Field Below ) REMOVE LIDODERM PATCH DAILY@21 XX 02/03/19 21:00 02/10/19 21:48 Oxycodone HCl (Roxicodone, Oxyir) 5 mg Q4HP PRN PO PAIN 01/28/19 15:30 02/11/19 12:44 Pantoprazole Sodium (Protonix) 40 mg DAILY PO 01/29/19 09:00 02/11/19 07:59 Polyethylene Glycol (Miralax) 1 pkt BID PO 01/29/19 09:00 02/08/19 07:40 Senna (Senokot) 1 tab QHS PO 01/28/19 21:00 01/29/19 12:21 DC Senna/Docusate Sodium (Senokot S) 1 tab BID PO 01/29/19 09:00 02/08/19 07:41 Triamterene/HCTZ (Dyazide 37.5-25 Mg) 1 ea DAILY PO 01/29/19 09:00 02/11/19 09:02 GUILHERME GOMEZ MD Feb 11, 2019 15:28
--- NOTE | 2019-02-11 15:30 | IPNPDOC ---
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 REVIEW OF SYSTEMS: The following is a completed review of systems and has been reviewed. Review of systems otherwise unremarkable. PAIN: Patient self reports bilateral knee pain, right worse than left EYES: No recent vision changes EARS, NOSE, & THROAT: No throat pain, or dysphagia, or rhinorrhea CARDIOVASCULAR: Denies chest pain or palpitations PULMONARY: Denies shortness of breath GASTROINTESTINAL: +constipation (resolved) GENITOURINARY: denies dysuria MUSCULOSKELETAL: right tibial plateau fracture NEUROLOGICAL:no tremor or seizure activity HEMATOLOGICAL: denies easy bruising SKIN: no rash PSYCHIATRIC: Unremarkable All other review of systems found to be negative. PHYSICAL EXAMINATION: VITAL SIGNS: Please see below. GENERAL: Pleasant and cooperative. No acute distress. morbidly obese HEENT: Extraocular movements intact. Clear conjunctiva CARDIOVASCULAR: Regular rate and rhythm. No murmurs, rubs, or gallops LUNGS: Clear to auscultation bilaterally. No wheezes. No rhonchi ABDOMEN: Soft, nontender, nondistended. Positive bowel sounds. Normal active bowel sounds NEUROLOGICAL: Alert and oriented times three. Cranial nerves II through XII grossly intact. Sensation grossly intact in all 4 extremities EXTREMITIES: 5\5 strength bilateral upper extremities. 5-\5 strength right lower extremity. 5/5 strength in left lower extremity. (+) TTP bilat patellar tendons/medial/lateral joint lines right mid-clavicular chest well with mild TTP palpation under nipple line (improving) -LLE edema>RLE SKIN: dime-size left forward abrasion ASSESSMENT:58-year-old M with past medical history of morbid obesity, HTN who presents status post fall with right tibial plateau fracture PLAN: 1. Rehab- PT/OT- strengthen/stretch/maintain ROM, advance gait, optimize ADL management with NWB to RLE, patient approaching Mod-I from wheelchair level 2. Neuro: stable 3. Ortho: s/p right tibial plateau fracture- wear knee extension brace when OOB- ortho consulted, c/u NWB -repeat Xray shows healing fracture, per ortho c/u NWB for 6 weeks total 4. Cardiac: pmh HTN, HLD c/u home meds-medicine consulted to assist in management 5. Resp: encourage incentive spirometry, MICHELLE non-compliant with CPAP 6. Endo: DM c/u metformin and insulin ISS monitor and adjust prn 7. : monitor PVrs 8. Pain: c/u gabapentin, cymbalta, and oxycodone prn, avoid NSAIDs and Tylenol -c/u lidoderm patch to left knee, c/u menthol salicylate to right rib cage- improving 9. Renal: CKD- monitor and avoid nephrotoxic agents 10. GI: optimize bowel meds 11. Skin: right forearm abrasion, c/u bacitracin and cover 12. Extremities- will acewrap LE and elevate for edema 9. Dispo: 02-17-19 to home-patient not Mod-I yet and having difficulty donning his brace- home eval set up for Saturday Allergies Coded Allergies: Sulfa (Sulfonamide Antibiotics) (Verified Allergy, Mild, RASH, 07/02/18) NSAIDS (Non-Steroidal Anti-Inflamma (Verified Adverse Reaction, Unknown, KIDNEY DISFUNCTION, 07/02/18) acetaminophen (Verified Adverse Reaction, Unknown, AVOIDS KIDNEY DYSFUNCTION, 07/02/18) Vital Signs Vital Signs Date Time Temp Pulse Resp B/P (MAP) Pulse Ox O2 Delivery O2 Flow Rate FiO2 02/11/19 14:00 98.0 86 18 131/72 (91) 98 Room Air Laboratory Data Labs 24H Laboratory Tests 2 02/10/19 16:38: Bedside Glucose (Misc Panel) 201H 02/10/19 21:42: Bedside Glucose (Misc Panel) 183H 02/11/19 06:39: Bedside Glucose (Misc Panel) 189H 02/11/19 12:02: Bedside Glucose (Misc Panel) 179H Current Medications Current Medications Current Medications Medications (Trade) Dose Ordered Sig/Josi Route PRN Reason Start Time Stop Time Status Last Admin Dose Admin Al Hydrox/Mg Hydrox/Simethicone (Mylanta) 30 ml Q4HP PRN PO INDIGESTION 01/29/19 12:30 01/31/19 20:24 Amlodipine Besylate (Norvasc) 10 mg DAILY PO 01/29/19 09:00 02/11/19 08:00 Aspirin (Aspirin) 325 mg DAILY PO 01/29/19 09:00 02/11/19 07:59 Atorvastatin Calcium (Lipitor) 40 mg DAILY PO 01/29/19 09:00 02/11/19 08:00 Bacitracin/ Polymyxin B Sulfate (Polysporin Top Oint) 1 dose BID TOP 01/29/19 09:00 02/09/19 20:12 Bisacodyl (Dulcolax Suppository) 10 mg DAILYPRN PRN [place] CONSTIPATION 01/28/19 15:30 Bisacodyl (Dulcolax Tab) 10 mg DAILY PO 01/29/19 13:00 02/08/19 07:39 Cyclobenzaprine HCl (Flexeril) 5 mg Q6HP PRN PO SPASMS 01/28/19 15:30 02/08/19 23:15 Dextrose (Dextrose 50%) 25 ml ASDIRECTED PRN IV SEE LABEL COMMENTS 01/28/19 15:30 Docusate Sodium (Colace) 100 mg BID PO 01/28/19 21:00 02/08/19 07:40 Duloxetine HCl (Cymbalta) 30 mg DAILY PO 01/29/19 09:00 02/11/19 07:59 Enoxaparin Sodium (Lovenox) 40 mg QHS SC 01/28/19 21:00 02/10/19 21:47 Fluticasone Propionate (Flovent Hfa 220mcg) 2 puff BID INH 01/28/19 21:00 02/10/19 20:09 Furosemide (Lasix) 40 mg DAILY PO 01/29/19 09:00 02/11/19 07:59 Gabapentin (Neurontin) 400 mg TID PO 01/28/19 16:00 02/11/19 07:58 Glucagon (Glucagon) 1 mg ASDIRECTED PRN SC SEE LABEL COMMENTS 01/28/19 15:30 Glucose (Glucose) 16 GM ASDIRECTED PRN PO SEE LABEL COMMENTS 01/28/19 15:30 Home Med (Med Rec Complete!) ASDIRECTED XX 01/28/19 15:30 01/28/19 15:30 DC Insulin Human Lispro (HumaLOG INSULIN) SEE PROTOCOL TABLE AC SC 01/28/19 17:30 02/11/19 12:42 Insulin Human Lispro (HumaLOG INSULIN) SEE PROTOCOL TABLE QHS SC 01/28/19 21:00 Lidocaine (Lidoderm Patch) 1 patch DAILY TD 01/30/19 09:00 10/29/19 11:35 DC 02/03/19 07:43 Lidocaine (Lidoderm Patch) 2 patch DAILY TD 02/03/19 09:00 02/11/19 08:00 Losartan Potassium (Cozaar) 50 mg DAILY PO 01/29/19 09:00 02/11/19 07:59 Menthol/Methyl Salicylate (Bengay Cream) apply to right upper ... TID TOP 02/04/19 21:00 02/08/19 20:46 Metformin HCl (Glucophage) 500 mg BID@ PO 01/28/19 18:00 02/09/19 09:31 DC 02/09/19 07:56 Metformin HCl (Glucophage) 1,000 mg BID@ PO 02/09/19 18:00 02/11/19 08:00 Metoprolol Succinate (TopROL XL) 50 mg DAILY PO 01/29/19 09:00 02/11/19 07:58 Non-Formulary Medication ( See Comment Field Below ) REMOVE LIDODERM PATCH DAILY@21 XX 01/30/19 21:00 02/03/19 11:37 DC 02/02/19 21:27 Non-Formulary Medication ( See Comment Field Below ) REMOVE LIDODERM PATCH DAILY@21 XX 02/03/19 21:00 02/10/19 21:48 Oxycodone HCl (Roxicodone, Oxyir) 5 mg Q4HP PRN PO PAIN 01/28/19 15:30 02/11/19 12:44 Pantoprazole Sodium (Protonix) 40 mg DAILY PO 01/29/19 09:00 02/11/19 07:59 Polyethylene Glycol (Miralax) 1 pkt BID PO 01/29/19 09:00 02/08/19 07:40 Senna (Senokot) 1 tab QHS PO 01/28/19 21:00 01/29/19 12:21 DC Senna/Docusate Sodium (Senokot S) 1 tab BID PO 01/29/19 09:00 02/08/19 07:41 Triamterene/HCTZ (Dyazide 37.5-25 Mg) 1 ea DAILY PO 01/29/19 09:00 02/11/19 09:02 GUILHERME GOMEZ MD Feb 11, 2019 15:30
[2019-02-11 20:00] VITALS: BP 126/85
[2019-02-11] MEDS: CYCLOBENZAPRINE 5MG TABLET PO PRN (20:42)
[2019-02-11] MEDS: ENOXAPARIN 40 MG/0.4 ML SYRINGE (J1650) SC SCH (20:43)
[2019-02-11] MEDS: **NOTE PATIENT COMMENT** MISC XX SCH (21:01)
[2019-02-12 05:05] VITALS: BP 165/81
[2019-02-12] MEDS: ATORVASTATIN 20 MG TAB PO SCH (07:48)
[2019-02-12] MEDS: GABAPENTIN 400 MG CAP PO SCH ×3 (07:48→20:06)
[2019-02-12] MEDS: PANTOPRAZOLE 40MG TAB (PROTONIX) PO SCH (07:48)
[2019-02-12] MEDS: LOSARTAN 50 MG TAB PO SCH (07:48)
[2019-02-12] MEDS: HumaLOG INSULIN (NovoLOG) PER UNIT SC SCH ×4 (07:48→20:07)
[2019-02-12] MEDS: DYAZIDE 37.5/25 CAP (TRIAM/HCTZ) PO SCH (07:49)
[2019-02-12] MEDS: DULoxetine 30 MG CAP (CYMBALTA) PO SCH (07:49)
[2019-02-12] MEDS: ASPIRIN 325 MG TAB PO SCH (07:49)
[2019-02-12] MEDS: amLODIPine 10 MG TAB PO SCH (07:49)
[2019-02-12] MEDS: BISACODYL 5 MG TAB PO SCH (07:50)
[2019-02-12] MEDS: METOPROLOL SUCC (TopROL XL) 50MG **XL** TAB PO SCH (07:50)
[2019-02-12] MEDS: DOCUSATE SODIUM 100 MG CAP PO SCH ×2 (07:50→20:06)
[2019-02-12] MEDS: metFORMIN (GLUCOPHAGE) 500 MG TAB PO SCH ×2 (07:50→17:20)
[2019-02-12] MEDS: FUROSEMIDE 40 MG TAB PO SCH (07:50)
[2019-02-12] MEDS: MIRALAX *UNIT DOSE* 17GM PACKET PO SCH ×2 (07:51→20:07)
[2019-02-12] MEDS: LIDOCAINE 5% (LIDODERM) PATCH TD SCH (07:51)
[2019-02-12] MEDS: SENOKOT S TAB PO SCH ×2 (07:51→20:07)
[2019-02-12] MEDS: POLYSPORIN TOPICAL OINTMENT 15GM TOP SCH ×2 (07:56→20:08)
[2019-02-12] MEDS: ANALGESIC BALM CRM 120 GM TOP SCH ×3 (07:57→20:08)
[2019-02-12] MEDS: FLUTICASONE HFA 220 MCG 12 GM INHALER (FLOVENT) INH SCH ×2 (08:25→20:10)
[2019-02-12] MEDS: CYCLOBENZAPRINE 5MG TABLET PO PRN (11:45)
--- NOTE | 2019-02-12 12:22 | IPNPDOC ---
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 REVIEW OF SYSTEMS: The following is a completed review of systems and has been reviewed. Review of systems otherwise unremarkable. PAIN: Patient self reports bilateral knee pain, right worse than left EYES: No recent vision changes EARS, NOSE, & THROAT: No throat pain, or dysphagia, or rhinorrhea CARDIOVASCULAR: Denies chest pain or palpitations PULMONARY: Denies shortness of breath GASTROINTESTINAL: +constipation (resolved) GENITOURINARY: denies dysuria MUSCULOSKELETAL: right tibial plateau fracture NEUROLOGICAL:no tremor or seizure activity HEMATOLOGICAL: denies easy bruising SKIN: no rash PSYCHIATRIC: Unremarkable All other review of systems found to be negative. PHYSICAL EXAMINATION: VITAL SIGNS: Please see below. GENERAL: Pleasant and cooperative. No acute distress. morbidly obese HEENT: Extraocular movements intact. Clear conjunctiva CARDIOVASCULAR: Regular rate and rhythm. No murmurs, rubs, or gallops LUNGS: Clear to auscultation bilaterally. No wheezes. No rhonchi ABDOMEN: Soft, nontender, nondistended. Positive bowel sounds. Normal active bowel sounds NEUROLOGICAL: Alert and oriented times three. Cranial nerves II through XII g rossly intact. Sensation grossly intact in all 4 extremities EXTREMITIES: 5\5 strength bilateral upper extremities. 5-\5 strength right lower extremity. 5/5 strength in left lower extremity. (+) TTP bilat patellar tendons/medial/lateral joint lines right mid-clavicular chest well with mild TTP palpation under nipple line (improving) -LLE edema>RLE SKIN: dime-size left forward abrasion ASSESSMENT:58-year-old M with past medical history of morbid obesity, HTN who presents status post fall with right tibial plateau fracture PLAN: 1. Rehab- PT/OT- strengthen/stretch/maintain ROM, advance gait, optimize ADL management with NWB to RLE, patient approaching Mod-I from wheelchair level 2. Neuro: stable 3. Ortho: s/p right tibial plateau fracture- wear knee extension brace when OOB- ortho consulted, c/u NWB -repeat Xray shows healing fracture, per ortho c/u NWB for 6 weeks total 4. Cardiac: pmh HTN, HLD c/u home meds, increased Metoprolol to 100mg daily today as BPs still high and patient requesting regular diet -medicine consulted to assist in management 5. Resp: encourage incentive spirometry, MICHELLE non-compliant with CPAP 6. Endo: DM c/u metformin and insulin ISS monitor and adjust prn 7. : monitor PVrs 8. Pain: c/u gabapentin, cymbalta, and oxycodone prn, avoid NSAIDs and Tylenol -c/u lidoderm patch to left knee, c/u menthol salicylate to right rib cage- improving 9. Renal: CKD- monitor and avoid nephrotoxic agents 10. GI: optimize bowel meds 11. Skin: right forearm abrasion, c/u bacitracin and cover 12. Extremities- will acewrap LE and elevate for edema -dopplers ordered today to r/o DVT, c/u lovenox 9. Dispo: 02-17-19 to home-patient not Mod-I yet and having difficulty donning his brace- home eval set up for Saturday, will assist with setting up Day-hab at [facility] upon discharge Allergies Coded Allergies: Sulfa (Sulfonamide Antibiotics) (Verified Allergy, Mild, RASH, 07/02/18) NSAIDS (Non-Steroidal Anti-Inflamma (Verified Adverse Reaction, Unknown, KIDNEY DISFUNCTION, 07/02/18) acetaminophen (Verified Adverse Reaction, Unknown, AVOIDS KIDNEY DYSFUNCTION, 07/02/18) Vital Signs Vital Signs Date Time Temp Pulse Resp B/P (MAP) Pulse Ox O2 Delivery O2 Flow Rate FiO2 02/12/19 07:49 96 165/81 02/12/19 05:05 97.8 18 92 Room Air Laboratory Data Labs 24H Laboratory Tests 2 02/11/19 16:35: Bedside Glucose (Misc Panel) 143H 02/11/19 19:42: Bedside Glucose (Misc Panel) 154H 02/12/19 05:04: Bedside Glucose (Misc Panel) 200H 02/12/19 12:06: Bedside Glucose (Misc Panel) 148H Current Medications Current Medications Current Medications Medications (Trade) Dose Ordered Sig/Josi Route PRN Reason Start Time Stop Time Status Last Admin Dose Admin Al Hydrox/Mg Hydrox/Simethicone (Mylanta) 30 ml Q4HP PRN PO INDIGESTION 01/29/19 12:30 01/31/19 20:24 Amlodipine Besylate (Norvasc) 10 mg DAILY PO 01/29/19 09:00 02/12/19 07:49 Aspirin (Aspirin) 325 mg DAILY PO 01/29/19 09:00 02/12/19 07:49 Atorvastatin Calcium (Lipitor) 40 mg DAILY PO 01/29/19 09:00 02/12/19 07:48 Bacitracin/ Polymyxin B Sulfate (Polysporin Top Oint) 1 dose BID TOP 01/29/19 09:00 02/12/19 07:56 Bisacodyl (Dulcolax Suppository) 10 mg DAILYPRN PRN [place] CONSTIPATION 01/28/19 15:30 Bisacodyl (Dulcolax Tab) 10 mg DAILY PO 01/29/19 13:00 02/08/19 07:39 Cyclobenzaprine HCl (Flexeril) 5 mg Q6HP PRN PO SPASMS 01/28/19 15:30 02/12/19 11:45 Dextrose (Dextrose 50%) 25 ml ASDIRECTED PRN IV SEE LABEL COMMENTS 01/28/19 15:30 Docusate Sodium (Colace) 100 mg BID PO 01/28/19 21:00 02/08/19 07:40 Duloxetine HCl (Cymbalta) 30 mg DAILY PO 01/29/19 09:00 02/12/19 07:49 Enoxaparin Sodium (Lovenox) 40 mg QHS SC 01/28/19 21:00 02/11/19 20:43 Fluticasone Propionate (Flovent Hfa 220mcg) 2 puff BID INH 01/28/19 21:00 02/12/19 08:25 Furosemide (Lasix) 40 mg DAILY PO 01/29/19 09:00 02/12/19 07:50 Gabapentin (Neurontin) 400 mg TID PO 01/28/19 16:00 02/12/19 07:48 Glucagon (Glucagon) 1 mg ASDIRECTED PRN SC SEE LABEL COMMENTS 01/28/19 15:30 Glucose (Glucose) 16 GM ASDIRECTED PRN PO SEE LABEL COMMENTS 01/28/19 15:30 Home Med (Med Rec Complete!) ASDIRECTED XX 01/28/19 15:30 01/28/19 15:30 DC Insulin Human Lispro (HumaLOG INSULIN) SEE PROTOCOL TABLE AC SC 01/28/19 17:30 02/12/19 07:48 Insulin Human Lispro (HumaLOG INSULIN) SEE PROTOCOL TABLE QHS SC 01/28/19 21:00 Lidocaine (Lidoderm Patch) 1 patch DAILY TD 01/30/19 09:00 02/03/19 11:35 DC 02/03/19 07:43 Lidocaine (Lidoderm Patch) 2 patch DAILY TD 02/03/19 09:00 02/12/19 07:51 Losartan Potassium (Cozaar) 50 mg DAILY PO 01/29/19 09:00 02/12/19 07:48 Menthol/Methyl Salicylate (Bengay Cream) apply to right upper ... TID TOP 02/04/19 21:00 02/12/19 07:57 Metformin HCl (Glucophage) 500 mg BID@ PO 01/28/19 18:00 02/09/19 09:31 DC 02/09/19 07:56 Metformin HCl (Glucophage) 1,000 mg BID@ PO 02/09/19 18:00 02/12/19 07:50 Metoprolol Succinate (TopROL XL) 50 mg DAILY PO 01/29/19 09:00 02/12/19 07:50 Non-Formulary Medication ( See Comment Field Below ) REMOVE LIDODERM PATCH DAILY@ XX 01/30/19 21:00 02/03/19 11:37 DC 02/02/19 21:27 Non-Formulary Medication ( See Comment Field Below ) REMOVE LIDODERM PATCH DAILY@21 XX 02/03/19 21:00 02/11/19 21:01 Oxycodone HCl (Roxicodone, Oxyir) 5 mg Q4HP PRN PO PAIN 01/28/19 15:30 02/11/19 20:42 Pantoprazole Sodium (Protonix) 40 mg DAILY PO 01/29/19 09:00 02/12/19 07:48 Polyethylene Glycol (Miralax) 1 pkt BID PO 01/29/19 09:00 02/08/19 07:40 Senna (Senokot) 1 tab QHS PO 01/28/19 21:00 01/29/19 12:21 DC Senna/Docusate Sodium (Senokot S) 1 tab BID PO 01/29/19 09:00 02/08/19 07:41 Triamterene/HCTZ (Dyazide 37.5-25 Mg) 1 ea DAILY PO 01/29/19 09:00 02/12/19 07:49 GUILHERME GOMEZ MD Feb 12, 2019 12:22
[2019-02-12 14:00] VITALS: BP 130/79
[2019-02-12 19:52] VITALS: BP 137/93
[2019-02-12] MEDS: ENOXAPARIN 40 MG/0.4 ML SYRINGE (J1650) SC SCH (20:06)
[2019-02-12] MEDS: **NOTE PATIENT COMMENT** MISC XX SCH (20:08)
--- NOTE | 2019-02-12 20:37 | REP ---
Clinical: Limited mobility/immobility . Technique: Chaparro scale and color Doppler evaluation using linear high frequency transducer. Findings: Ultrasound examination of the right and left lower extremity deep venous structures from the common femoral vein to the popliteal vein demonstrates normal compressibility flow and wave patterns in response to respiration and augmentation. There is no evidence for deep venous thrombosis. Complex Dotson's cyst in the right popliteal fossa measuring 2.5 x 1.0 x 0.6 cm. Impression: No evidence for deep venous thrombosis bilaterally. Complex Dotson's cyst in the right popliteal fossa. Electronically Signed by Yefri Zhao MD 02/12/2019 08:28 P
[2019-02-13 06:00] VITALS: BP 137/92
[2019-02-13] MEDS: HumaLOG INSULIN (NovoLOG) PER UNIT SC SCH ×4 (07:49→21:00)
[2019-02-13] MEDS: metFORMIN (GLUCOPHAGE) 500 MG TAB PO SCH ×2 (07:49→17:34)
[2019-02-13] MEDS: MIRALAX *UNIT DOSE* 17GM PACKET PO SCH ×2 (08:15→21:00)
[2019-02-13] MEDS: PANTOPRAZOLE 40MG TAB (PROTONIX) PO SCH (08:16)
[2019-02-13] MEDS: ASPIRIN 325 MG TAB PO SCH (08:16)
[2019-02-13] MEDS: DULoxetine 30 MG CAP (CYMBALTA) PO SCH (08:16)
[2019-02-13] MEDS: ATORVASTATIN 20 MG TAB PO SCH (08:16)
[2019-02-13] MEDS: amLODIPine 10 MG TAB PO SCH (08:17)
[2019-02-13] MEDS: METOPROLOL SUCC (TopROL XL) 100MG *XL* TAB PO SCH (08:17)
[2019-02-13] MEDS: GABAPENTIN 400 MG CAP PO SCH ×3 (08:17→21:10)
[2019-02-13] MEDS: FUROSEMIDE 40 MG TAB PO SCH (08:18)
[2019-02-13] MEDS: DOCUSATE SODIUM 100 MG CAP PO SCH ×2 (08:18→21:10)
[2019-02-13] MEDS: LOSARTAN 50 MG TAB PO SCH (08:18)
[2019-02-13] MEDS: SENOKOT S TAB PO SCH ×2 (08:18→21:00)
[2019-02-13] MEDS: BISACODYL 5 MG TAB PO SCH (08:18)
[2019-02-13] MEDS: DYAZIDE 37.5/25 CAP (TRIAM/HCTZ) PO SCH (08:18)
[2019-02-13] MEDS: ANALGESIC BALM CRM 120 GM TOP SCH ×3 (08:19→21:11)
[2019-02-13] MEDS: LIDOCAINE 5% (LIDODERM) PATCH TD SCH (08:19)
[2019-02-13] MEDS: POLYSPORIN TOPICAL OINTMENT 15GM TOP SCH ×2 (08:19→21:11)
[2019-02-13] MEDS: FLUTICASONE HFA 220 MCG 12 GM INHALER (FLOVENT) INH SCH ×2 (08:43→21:19)
[2019-02-13] MEDS: oxyCODONE 5MG TAB PO PRN ×2 (10:47→17:57)
--- NOTE | 2019-02-13 12:16 | IPNPDOC ---
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 He says he feels better when he is propped up on pillows. REVIEW OF SYSTEMS: The following is a completed review of systems and has been reviewed. Review of systems otherwise unremarkable. PAIN: Patient self reports bilateral knee pain, right worse than left EYES: No recent vision changes EARS, NOSE, & THROAT: No throat pain, or dysphagia, or rhinorrhea CARDIOVASCULAR: Denies chest pain or palpitations, +orthopnea PULMONARY: Denies shortness of breath, GASTROINTESTINAL: +constipation (resolved) GENITOURINARY: denies dysuria MUSCULOSKELETAL: right tibial plateau fracture NEUROLOGICAL:no tremor or seizure activity HEMATOLOGICAL: denies easy bruising SKIN: no rash PSYCHIATRIC: Unremarkable All other review of systems found to be negative. PHYSICAL EXAMINATION: VITAL SIGNS: Please see below. GENERAL: Pleasant and cooperative. No acute distress. morbidly obese HEENT: Extraocular movements intact. Clear conjunctiva CARDIOVASCULAR: Regular rate and rhythm. No murmurs, rubs, or gallops LUNGS: Clear to auscultation bilaterally. No wheezes. No rhonchi ABDOMEN: Soft, nontender, nondistended. Positive bowel sounds. Normal active bowel sounds NEUROLOGICAL: Alert and oriented times three. Cranial nerves II through XII grossly intact. Sensation grossly intact in all 4 extremities EXTREMITIES: 5\\5 strength bilateral upper extremities. 5-\\5 strength right lower extremity. 5/5 strength in left lower extremity. (+) TTP bilat patellar tendons/medial/lateral joint lines right mid-clavicular chest well with mild TTP palpation under nipple line (improving) -LLE edema>RLE SKIN: dime-size left forward abrasion ASSESSMENT:58-year-old M with past medical history of morbid obesity, HTN who presents status post fall with right tibial plateau fracture PLAN: 1. Rehab- PT/OT- strengthen/stretch/maintain ROM, advance gait, optimize ADL management with NWB to RLE, patient approaching Mod-I from wheelchair level 2. Neuro: stable 3. Ortho: s/p right tibial plateau fracture- wear knee extension brace when OOB- ortho consulted, c/u NWB -repeat Xray shows healing fracture, per ortho c/u NWB for 6 weeks total 4. Cardiac: pmh HTN, HLD c/u home meds, increased Metoprolol to 100mg daily BPs still high and patient requesting regular diet -medicine consulted to assist in management -c/u Lasix -ECHO from 2008 showing, "Mildly dilated left atrium with tissue Doppler evidence to suggest an impaired left ventricular diastolic relaxation -will need hospital bed for his orthopnea in setting of diastolic CHF -repeat ECHO ordered, will refer to cardiology on discharge 5. Resp: encourage incentive spirometry, MICHELLE non-compliant with CPAP 6. Endo: DM c/u metformin and insulin ISS monitor and adjust prn 7. : monitor PVrs 8. Pain: c/u gabapentin, cymbalta, and oxycodone prn, avoid NSAIDs and Tylenol -c/u lidoderm patch to left knee, c/u menthol salicylate to right rib cage- improving 9. Renal: CKD- monitor and avoid nephrotoxic agents 10. GI: optimize bowel meds 11. Skin: right forearm abrasion, c/u bacitracin and cover 12. Extremities- will acewrap LE and elevate for edema -dopplers negative for DVT, c/u lovenox 9. Dispo: 02-17-19 to home-patient not Mod-I yet and having difficulty donning his brace- home eval set up for today , will assist with setting up Day-hab at [facility] upon discharge Medical Equipment: Hospital Bed Patient has a history of diastolic CHF with orthopnea and a BMI of 60. he is NWB to his RLE due to a tibial plateau fracture and is unable to prop himself up in bed. Having a hospital bed will allow him to elevate the head of the bed to relieve his cardiac impairment, improve his overall mobility, and quality of life. Allergies Coded Allergies: Sulfa (Sulfonamide Antibiotics) (Verified Allergy, Mild, RASH, 07/02/18) NSAIDS (Non-Steroidal Anti-Inflamma (Verified Adverse Reaction, Unknown, KIDNEY DISFUNCTION, 07/02/18) acetaminophen (Verified Adverse Reaction, Unknown, AVOIDS KIDNEY DYSFUNCTION, 07/02/18) Vital Signs Vital Signs Date Time Temp Pulse Resp B/P (MAP) Pulse Ox O2 Delivery O2 Flow Rate FiO2 02/13/19 11:17 17 02/13/19 10:47 Room Air 02/13/19 08:17 92 164/92 02/13/19 06:00 97.9 94 Laboratory Data Labs 24H Laboratory Tests 2 02/12/19 12:06: Bedside Glucose (Misc Panel) 148H 02/12/19 16:28: Bedside Glucose (Misc Panel) 175H 02/12/19 19:42: Bedside Glucose (Misc Panel) 153H 02/13/19 06:15: Bedside Glucose (Misc Panel) 168H 02/13/19 11:21: Bedside Glucose (Misc Panel) 142H Current Medications Current Medications Current Medications Medications (Trade) Dose Ordered Sig/Josi Route PRN Reason Start Time Stop Time Status Last Admin Dose Admin Al Hydrox/Mg Hydrox/Simethicone (Mylanta) 30 ml Q4HP PRN PO INDIGESTION 01/29/19 12:30 01/31/19 20:24 Amlodipine Besylate (Norvasc) 10 mg DAILY PO 01/29/19 09:00 02/13/19 08:17 Aspirin (Aspirin) 325 mg DAILY PO 01/29/19 09:00 02/13/19 08:16 Atorvastatin Calcium (Lipitor) 40 mg DAILY PO 01/29/19 09:00 02/13/19 08:16 Bacitracin/ Polymyxin B Sulfate (Polysporin Top Oint) 1 dose BID TOP 01/29/19 09:00 02/12/19 20:08 Bisacodyl (Dulcolax Suppository) 10 mg DAILYPRN PRN [place] CONSTIPATION 01/28/19 15:30 Bisacodyl (Dulcolax Tab) 10 mg DAILY PO 01/29/19 13:00 02/08/19 07:39 Cyclobenzaprine HCl (Flexeril) 5 mg Q6HP PRN PO SPASMS 01/28/19 15:30 02/12/19 11:45 Dextrose (Dextrose 50%) 25 ml ASDIRECTED PRN IV SEE LABEL COMMENTS 01/28/19 15:30 Docusate Sodium (Colace) 100 mg BID PO 01/28/19 21:00 02/08/19 07:40 Duloxetine HCl (Cymbalta) 30 mg DAILY PO 01/29/19 09:00 02/13/19 08:16 Enoxaparin Sodium (Lovenox) 40 mg QHS SC 01/28/19 21:00 02/12/19 20:06 Fluticasone Propionate (Flovent Hfa 220mcg) 2 puff BID INH 01/28/19 21:00 02/13/19 08:43 Furosemide (Lasix) 40 mg DAILY PO 01/29/19 09:00 02/13/19 08:18 Gabapentin (Neurontin) 400 mg TID PO 01/28/19 16:00 02/13/19 08:17 Glucagon (Glucagon) 1 mg ASDIRECTED PRN SC SEE LABEL COMMENTS 01/28/19 15:30 Glucose (Glucose) 16 GM ASDIRECTED PRN PO SEE LABEL COMMENTS 01/28/19 15:30 Home Med (Med Rec Complete!) ASDIRECTED XX 01/28/19 15:30 01/28/19 15:30 DC Insulin Human Lispro (HumaLOG INSULIN) SEE PROTOCOL TABLE AC SC 01/28/19 17:30 02/13/19 11:34 Insulin Human Lispro (HumaLOG INSULIN) SEE PROTOCOL TABLE QHS SC 01/28/19 21:00 Lidocaine (Lidoderm Patch) 1 patch DAILY TD 01/30/19 09:00 02/03/19 11:35 DC 02/03/19 07:43 Lidocaine (Lidoderm Patch) 2 patch DAILY TD 02/03/19 09:00 02/13/19 08:19 Losartan Potassium (Cozaar) 50 mg DAILY PO 01/29/19 09:00 02/13/19 08:18 Menthol/Methyl Salicylate (Bengay Cream) apply to right upper ... TID TOP 02/04/19 21:00 02/13/19 08:19 Metformin HCl (Glucophage) 500 mg BID@,18 PO 01/28/19 18:00 02/09/19 09:31 DC 02/09/19 07:56 Metformin HCl (Glucophage) 1,000 mg BID@08,18 PO 02/09/19 18:00 02/13/19 07:49 Metoprolol Succinate (TopROL XL) 50 mg DAILY PO 01/29/19 09:00 02/12/19 12:19 DC 02/12/19 07:50 Metoprolol Succinate (TopROL XL) 100 mg DAILY PO 02/13/19 09:00 02/13/19 08:17 Non-Formulary Medication ( See Comment Field Below ) REMOVE LIDODERM PATCH DAILY@21 XX 01/30/19 21:00 02/03/19 11:37 DC 02/02/19 21:27 Non-Formulary Medication ( See Comment Field Below ) REMOVE LIDODERM PATCH DAILY@ XX 02/03/19 21:00 02/12/19 20:08 Oxycodone HCl (Roxicodone, Oxyir) 5 mg Q4HP PRN PO PAIN 01/28/19 15:30 02/13/19 10:47 Pantoprazole Sodium (Protonix) 40 mg DAILY PO 01/29/19 09:00 02/13/19 08:16 Polyethylene Glycol (Miralax) 1 pkt BID PO 01/29/19 09:00 02/13/19 08:15 Senna (Senokot) 1 tab QHS PO 01/28/19 21:00 01/29/19 12:21 DC Senna/Docusate Sodium (Senokot S) 1 tab BID PO 01/29/19 09:00 02/08/19 07:41 Triamterene/HCTZ (Dyazide 37.5-25 Mg) 1 ea DAILY PO 01/29/19 09:00 02/13/19 08:18 GUILHERME GOMEZ MD Feb 13, 2019 12:16
[2019-02-13 14:00] VITALS: BP 149/85
[2019-02-13 20:10] VITALS: BP 135/83
[2019-02-13] MEDS: ENOXAPARIN 40 MG/0.4 ML SYRINGE (J1650) SC SCH (21:11)
[2019-02-13] MEDS: **NOTE PATIENT COMMENT** MISC XX SCH (21:12)
[2019-02-14 05:50] VITALS: BP 142/79
[2019-02-14] MEDS: HumaLOG INSULIN (NovoLOG) PER UNIT SC SCH ×4 (07:32→20:26)
[2019-02-14] MEDS: metFORMIN (GLUCOPHAGE) 500 MG TAB PO SCH ×2 (07:32→16:58)
[2019-02-14] MEDS: FLUTICASONE HFA 220 MCG 12 GM INHALER (FLOVENT) INH SCH ×2 (08:03→20:28)
[2019-02-14] MEDS: amLODIPine 10 MG TAB PO SCH (08:20)
[2019-02-14] MEDS: FUROSEMIDE 40 MG TAB PO SCH (08:20)
[2019-02-14] MEDS: PANTOPRAZOLE 40MG TAB (PROTONIX) PO SCH (08:20)
[2019-02-14] MEDS: GABAPENTIN 400 MG CAP PO SCH ×3 (08:20→20:24)
[2019-02-14] MEDS: DULoxetine 30 MG CAP (CYMBALTA) PO SCH (08:20)
[2019-02-14] MEDS: METOPROLOL SUCC (TopROL XL) 100MG *XL* TAB PO SCH (08:20)
[2019-02-14] MEDS: DYAZIDE 37.5/25 CAP (TRIAM/HCTZ) PO SCH (08:20)
[2019-02-14] MEDS: ASPIRIN 325 MG TAB PO SCH (08:20)
[2019-02-14] MEDS: ATORVASTATIN 20 MG TAB PO SCH (08:20)
[2019-02-14] MEDS: MIRALAX *UNIT DOSE* 17GM PACKET PO SCH ×2 (08:21→20:26)
[2019-02-14] MEDS: LOSARTAN 50 MG TAB PO SCH (08:21)
[2019-02-14] MEDS: DOCUSATE SODIUM 100 MG CAP PO SCH ×2 (08:21→20:26)
[2019-02-14] MEDS: SENOKOT S TAB PO SCH ×2 (08:21→20:26)
[2019-02-14] MEDS: BISACODYL 5 MG TAB PO SCH (08:21)
[2019-02-14] MEDS: ANALGESIC BALM CRM 120 GM TOP SCH ×3 (08:36→20:27)
[2019-02-14] MEDS: POLYSPORIN TOPICAL OINTMENT 15GM TOP SCH ×2 (08:37→20:27)
[2019-02-14] MEDS: LIDOCAINE 5% (LIDODERM) PATCH TD SCH (08:37)
--- NOTE | 2019-02-14 10:16 | IPNPDOC ---
Subjective Date Seen The patient was seen on 02/14/19. Subjective Chief Complaint/HPI No new complaints. Physical therapy in progress General: Denies: ROS Unobtainable, Chills, Night Sweats, Fatigue, Malaise, Normal Appetite, Other Symptoms Constitutional: Denies: Chills, Fever, Malaise, Night Sweats, Weakness, Fatigue, Weight Loss, Lethargy, Other Cardiovascular: Denies: Chest Pain, Palpitations, Orthopnea, Paroxysmal Noc. Dyspnea, Edema, Lt Headedness, Other Symptoms Gastrointestinal: Denies: Nausea, Vomiting, Abdominal Pain, Diarrhea, Constipation, Melena, Hematochezia, Other Symptoms Musculoskeletal: Denies: Neck Pain, Back Pain, Shoulder Pain, Arm Pain, Hand Pain, Leg Pain, Foot Pain, Joint Pain, Muscle Pain, Spasms, Other Symptoms Neurological: Denies: Weakness, Numbness, Incoordination, Change in speech, Confusion, Seizures, Other Symptoms Objective Physical Examination Neck Exam: Positive: Supple, +2 carotid pulse wo bruit Chest Exam: Positive: Clear to auscultation, Normal air movement Heart Exam: Positive: Rate Normal, Regular Rhythm, Normal S1, Normal S2 Abdomen Exam: Positive: Normal bowel sounds, Soft, Tenderness (LLQ) Extremity Exam: Positive: Edema, Tenderness, Swelling (bilateral lower legs (tib/fib)) Skin Exam: Positive: Breakdown (bilateral lower legs with scabbing ) Neuro Exam: Positive: Normal Speech, Strength at 5/5 X4 ext (except right lower extremity), Cranial Nerves 3-12 NL Psych Exam: Positive: Mood NL Assessment /Plan Problems (1) Tibial plateau fracture Status: Acute Response to Treatment: Progressing Discussed With: Nurse, Patient Problem Specific Plan: Monitor Clinically Problem Text: 58-year-old male with a history of IDDM, COPD,osteoarthritis, morbid obesity with a body mass index of 58.4 with his knees in very poor shape and he rarely walks; he generally makes use of a wheelchair and has done so for the past 9 years. On occasion he does make use of a walker. He had an episode of hypoglycemia at home when he fell on his knees he was helped up to the couch however the next day he could not get out of the couch to was brought to the ED. Upon evaluation in the emergency room he is found to have a right lateral tibial plateau fracture. Of note his sugars have been running low at home also. Ortho recommended non surgical management. He was initially advised knee mobilizer by ortho however this was not fitting properly so ortho then advised a knee brace. R knee Lateral tibial plateau fracture -2/2 mechanical fall due to hypoglycemia. Seen by Dr Aviles recommended Sheryl knee brace with hinge to allow for 0-45 degree motion with no weight bearing. Will continue to follow acute rehabilitation management plan Physical therapy, occupational therapy and fall precautions are in affect Pain management per acute rehabilitation physician: Gabapentin, Cymbalta, oxycodone as needed.Lidocaine patch 5% daily, Flexeril as needed Orthopedic surgery to follow, weight bearing, left lower leg and non weight bearing to the right lower leg with fracture. (2) GERD (gastroesophageal reflux disease) Status: Chronic Problem Text: Stable. Continue home meds (3) HTN (hypertension) Status: Chronic Problem Text: Under control. Continue home meds (4) Morbid (severe) obesity due to excess calories Status: Chronic Plan/VTE VTE Prophylaxis Ordered?: Yes VTE Exclusion Pharmacological: N/A:VTE Prophy Ordered Plan Diet: Continue Current Activity: Continue Current Therapy: PT, OT Anticipated Discharge: Home (to be determined by acute rehabilitation unit) VS, I&O, 24H, [place] Vital Signs/I&O Vital Signs Date Time Temp Pulse Resp B/P (MAP) Pulse Ox O2 Delivery O2 Flow Rate FiO2 02/14/19 08:20 84 134/95 02/14/19 05:50 98.8 18 95 Room Air I&O- Last 24 Hours up to 6 AM 02/14/19 06:00 Intake Total 2040 ml Output Total 900 ml Balance 1140 ml Laboratory Data 24H LABS Laboratory Tests 2 02/13/19 11:21: Bedside Glucose (Misc Panel) 142H 02/13/19 16:38: Bedside Glucose (Misc Panel) 160H 02/13/19 20:08: Bedside Glucose (Misc Panel) 160H 02/14/19 05:55: Bedside Glucose (Misc Panel) 155H ROB SOTO MD Feb 14, 2019 10:16
[2019-02-14 14:00] VITALS: BP 131/75
[2019-02-14] MEDS: oxyCODONE 5MG TAB PO PRN (18:33)
[2019-02-14 19:50] VITALS: BP 132/85
[2019-02-14] MEDS: ENOXAPARIN 40 MG/0.4 ML SYRINGE (J1650) SC SCH (20:24)
[2019-02-14] MEDS: **NOTE PATIENT COMMENT** MISC XX SCH (20:27)
[2019-02-15 05:45] VITALS: BP 138/84
[2019-02-15] MEDS: HumaLOG INSULIN (NovoLOG) PER UNIT SC SCH ×4 (07:20→20:01)
[2019-02-15] MEDS: metFORMIN (GLUCOPHAGE) 500 MG TAB PO SCH ×2 (07:21→17:19)
[2019-02-15] MEDS: LIDOCAINE 5% (LIDODERM) PATCH TD SCH (07:42)
[2019-02-15] MEDS: METOPROLOL SUCC (TopROL XL) 100MG *XL* TAB PO SCH (07:43)
[2019-02-15] MEDS: DULoxetine 30 MG CAP (CYMBALTA) PO SCH (07:43)
[2019-02-15] MEDS: GABAPENTIN 400 MG CAP PO SCH ×3 (07:43→19:39)
[2019-02-15] MEDS: DOCUSATE SODIUM 100 MG CAP PO SCH ×2 (07:43→19:45)
[2019-02-15] MEDS: ASPIRIN 325 MG TAB PO SCH (07:43)
[2019-02-15] MEDS: FUROSEMIDE 40 MG TAB PO SCH (07:44)
[2019-02-15] MEDS: DYAZIDE 37.5/25 CAP (TRIAM/HCTZ) PO SCH (07:44)
[2019-02-15] MEDS: ATORVASTATIN 20 MG TAB PO SCH (07:44)
[2019-02-15] MEDS: amLODIPine 10 MG TAB PO SCH (07:44)
[2019-02-15] MEDS: LOSARTAN 50 MG TAB PO SCH (07:44)
[2019-02-15] MEDS: PANTOPRAZOLE 40MG TAB (PROTONIX) PO SCH (07:45)
[2019-02-15] MEDS: BISACODYL 5 MG TAB PO SCH (07:45)
[2019-02-15] MEDS: ANALGESIC BALM CRM 120 GM TOP SCH ×3 (07:45→19:45)
[2019-02-15] MEDS: POLYSPORIN TOPICAL OINTMENT 15GM TOP SCH ×2 (07:45→19:45)
[2019-02-15] MEDS: SENOKOT S TAB PO SCH ×2 (07:45→19:45)
[2019-02-15] MEDS: MIRALAX *UNIT DOSE* 17GM PACKET PO SCH ×2 (07:46→19:45)
[2019-02-15] MEDS: FLUTICASONE HFA 220 MCG 12 GM INHALER (FLOVENT) INH SCH ×2 (08:02→19:58)
[2019-02-15] MEDS: oxyCODONE 5MG TAB PO PRN ×2 (10:32→19:43)
[2019-02-15 14:00] VITALS: BP 133/62
[2019-02-15] MEDS: ENOXAPARIN 40 MG/0.4 ML SYRINGE (J1650) SC SCH (19:40)
[2019-02-15] MEDS: CYCLOBENZAPRINE 5MG TABLET PO PRN (19:42)
[2019-02-15] MEDS: **NOTE PATIENT COMMENT** MISC XX SCH (19:45)
[2019-02-15 20:00] VITALS: BP 127/70
[2019-02-16 05:30] VITALS: BP 148/76
[2019-02-16] MEDS: FLUTICASONE HFA 220 MCG 12 GM INHALER (FLOVENT) INH SCH ×2 (07:53→19:39)
[2019-02-16] MEDS: MIRALAX *UNIT DOSE* 17GM PACKET PO SCH ×2 (08:15→21:00)
[2019-02-16] MEDS: ANALGESIC BALM CRM 120 GM TOP SCH ×3 (08:55→21:41)
[2019-02-16] MEDS: BISACODYL 5 MG TAB PO SCH (08:55)
[2019-02-16] MEDS: POLYSPORIN TOPICAL OINTMENT 15GM TOP SCH ×2 (08:55→21:42)
[2019-02-16] MEDS: SENOKOT S TAB PO SCH ×2 (08:55→21:00)
[2019-02-16] MEDS: DOCUSATE SODIUM 100 MG CAP PO SCH ×2 (08:56→21:00)
[2019-02-16] MEDS: GABAPENTIN 400 MG CAP PO SCH ×3 (09:05→21:41)
[2019-02-16] MEDS: ATORVASTATIN 20 MG TAB PO SCH (09:05)
[2019-02-16] MEDS: ASPIRIN 325 MG TAB PO SCH (09:05)
[2019-02-16] MEDS: metFORMIN (GLUCOPHAGE) 500 MG TAB PO SCH ×2 (09:06→16:57)
[2019-02-16] MEDS: FUROSEMIDE 40 MG TAB PO SCH (09:06)
[2019-02-16] MEDS: PANTOPRAZOLE 40MG TAB (PROTONIX) PO SCH (09:06)
[2019-02-16] MEDS: amLODIPine 10 MG TAB PO SCH (09:06)
[2019-02-16] MEDS: DYAZIDE 37.5/25 CAP (TRIAM/HCTZ) PO SCH (09:06)
[2019-02-16] MEDS: LOSARTAN 50 MG TAB PO SCH (09:06)
[2019-02-16] MEDS: DULoxetine 30 MG CAP (CYMBALTA) PO SCH (09:06)
[2019-02-16] MEDS: LIDOCAINE 5% (LIDODERM) PATCH TD SCH (09:07)
[2019-02-16] MEDS: METOPROLOL SUCC (TopROL XL) 100MG *XL* TAB PO SCH (09:07)
[2019-02-16] MEDS: HumaLOG INSULIN (NovoLOG) PER UNIT SC SCH ×4 (09:08→21:00)
[2019-02-16 12:51] LABS: BASO % 0.4 % (0.0-1.0); EOS # 0.2 10^3/uL (0.0-0.5); EOS % 1.8 % (0.0-3.0); HEMOGLOBIN 15.7 g/dl (13.5-17.5); LYMPH # 2.4 10^3/uL (1.5-5.0); LYMPH % 27.8 % (24.0-44.0); MEAN CORPUSCULAR HEMOGLOBIN 27.8 pg (27.0-33.0); MEAN CORPUSCULAR HGB CONC 31.4 g/dl (32.0-36.5); MEAN CORPUSCULAR VOLUME 88.7 fl (80.0-96.0); MONO # 1.1 10^3/uL (0.0-0.8); MONO % 12.3 % (0.0-5.0); NEUTROPHILS # 4.9 10^3/uL (1.5-8.5); NEUTROPHILS % 57.3 % (36.0-66.0); PLATELET COUNT, AUTOMATED 272 10^3/uL (150-450); RED BLOOD COUNT 5.64 10^6/uL (4.30-6.10); WHITE BLOOD COUNT 8.5 10^3/uL (4.0-10.0)
[2019-02-16 13:23] LABS: BLOOD UREA NITROGEN 26 MG/DL (7-18); CALCIUM LEVEL 9.1 MG/DL (8.5-10.1); CARBON DIOXIDE LEVEL 34 MEQ/L (21-32); CHLORIDE LEVEL 100 MEQ/L (98-107); CREATININE FOR GFR 1.05 MG/DL (0.70-1.30); GLOMERULAR FILTRATION RATE > 60.0 (>56); GLUCOSE, FASTING 165 MG/DL (70-100); POTASSIUM SERUM 4.5 MEQ/L (3.5-5.1); SODIUM LEVEL 138 MEQ/L (136-145)
[2019-02-16 15:03] VITALS: BP 131/66
[2019-02-16] MEDS: oxyCODONE 5MG TAB PO PRN (19:27)
[2019-02-16 20:00] VITALS: BP 155/95
[2019-02-16] MEDS: ENOXAPARIN 40 MG/0.4 ML SYRINGE (J1650) SC SCH (21:41)
[2019-02-16] MEDS: **NOTE PATIENT COMMENT** MISC XX SCH (21:42)
[2019-02-17 06:00] VITALS: BP_SYST 124; BP_SYST 130; BP_DIAS 60; BP_DIAS 80
[2019-02-17] MEDS: FLUTICASONE HFA 220 MCG 12 GM INHALER (FLOVENT) INH SCH ×2 (07:26→19:54)
[2019-02-17] MEDS: DULoxetine 30 MG CAP (CYMBALTA) PO SCH (08:20)
[2019-02-17] MEDS: GABAPENTIN 400 MG CAP PO SCH ×3 (08:20→20:42)
[2019-02-17] MEDS: ASPIRIN 325 MG TAB PO SCH (08:20)
[2019-02-17] MEDS: DYAZIDE 37.5/25 CAP (TRIAM/HCTZ) PO SCH (08:20)
[2019-02-17] MEDS: amLODIPine 10 MG TAB PO SCH (08:20)
[2019-02-17] MEDS: PANTOPRAZOLE 40MG TAB (PROTONIX) PO SCH (08:20)
[2019-02-17] MEDS: ATORVASTATIN 20 MG TAB PO SCH (08:20)
[2019-02-17] MEDS: LOSARTAN 50 MG TAB PO SCH (08:21)
[2019-02-17] MEDS: METOPROLOL SUCC (TopROL XL) 100MG *XL* TAB PO SCH (08:21)
[2019-02-17] MEDS: metFORMIN (GLUCOPHAGE) 500 MG TAB PO SCH ×2 (08:21→17:13)
[2019-02-17] MEDS: FUROSEMIDE 40 MG TAB PO SCH (08:21)
[2019-02-17] MEDS: HumaLOG INSULIN (NovoLOG) PER UNIT SC SCH ×4 (08:22→20:42)
[2019-02-17] MEDS: LIDOCAINE 5% (LIDODERM) PATCH TD SCH ×2 (08:23→11:02)
[2019-02-17] MEDS: ANALGESIC BALM CRM 120 GM TOP SCH ×4 (08:24→20:43)
[2019-02-17] MEDS: POLYSPORIN TOPICAL OINTMENT 15GM TOP SCH ×3 (08:25→20:43)
[2019-02-17] MEDS: BISACODYL 5 MG TAB PO SCH (09:00)
[2019-02-17] MEDS: DOCUSATE SODIUM 100 MG CAP PO SCH (09:00)
[2019-02-17] MEDS: SENOKOT S TAB PO SCH (09:00)
[2019-02-17] MEDS: MIRALAX *UNIT DOSE* 17GM PACKET PO SCH (09:00)
--- NOTE | 2019-02-17 10:33 | IPNPDOC ---
PM&R Progress Note DATE OF SERVICE: Feb 16, 2019 [employer] Progress Note Subjective: Patient reporting he is ready to go home once his hospital bed has arrived. REVIEW OF SYSTEMS: The following is a completed review of systems and has been reviewed. Review of systems otherwise unremarkable. PAIN: Patient self reports bilateral knee pain, right worse than left EYES: No recent vision changes EARS, NOSE, & THROAT: No throat pain, or dysphagia, or rhinorrhea CARDIOVASCULAR: Denies chest pain or palpitations, +orthopnea PULMONARY: Denies shortness of breath, GASTROINTESTINAL: +constipation (resolved) GENITOURINARY: denies dysuria MUSCULOSKELETAL: right tibial plateau fracture NEUROLOGICAL:no tremor or seizure activity HEMATOLOGICAL: denies easy bruising SKIN: no rash PSYCHIATRIC: Unremarkable All other review of systems found to be negative. PHYSICAL EXAMINATION: VITAL SIGNS: Please see below. GENERAL: Pleasant and cooperative. No acute distress. morbidly obese HEENT: Extraocular movements intact. Clear conjunctiva CARDIOVASCULAR: Regular rate and rhythm. No murmurs, rubs, or gallops LUNGS: Clear to auscultation bilaterally. No wheezes. No rhonchi ABDOMEN: Soft, nontender, nondistended. Positive bowel sounds. Normal active bowel sounds NEUROLOGICAL: Alert and oriented times three. Cranial nerves II through XII grossly intact. Sensation grossly intact in all 4 extremities EXTREMITIES: 5\\5 strength bilateral upper extremities. 5-\\5 strength right lower extremity. 5/5 strength in left lower extremity. (+) TTP bilat patellar tendons/medial/lateral joint lines right mid-clavicular chest well with mild TTP palpation under nipple line (improving) -LLE edema>RLE SKIN: dime-size left forward abrasion ASSESSMENT:58-year-old M with past medical history of morbid obesity, HTN who presents status post fall with right tibial plateau fracture PLAN: 1. Rehab- PT/OT- strengthen/stretch/maintain ROM, advance gait, optimize ADL management with NWB to RLE, patient approaching Mod-I from wheelchair level 2. Neuro: stable 3. Ortho: s/p right tibial plateau fracture- wear knee extension brace when OOB- ortho consulted, c/u NWB -repeat Xray shows healing fracture, per ortho c/u NWB for 6 weeks total 4. Cardiac: pmh HTN, HLD c/u home meds, increased Metoprolol to 100mg daily BPs still high and patient requesting regular diet -medicine consulted to assist in management -c/u Lasix -ECHO from 2008 showing, "Mildly dilated left atrium with tissue Doppler evidence to suggest an impaired left ventricular diastolic relaxation -will need hospital bed for his orthopnea in setting of diastolic CHF -repeat ECHO ordered, will refer to cardiology on discharge 5. Resp: encourage incentive spirometry, MICHELLE non-compliant with CPAP 6. Endo: DM c/u metformin and insulin ISS monitor and adjust prn 7. : monitor PVrs 8. Pain: c/u gabapentin, cymbalta, and oxycodone prn, avoid NSAIDs and Tylenol -c/u lidoderm patch to left knee, c/u menthol salicylate to right rib cage- improving 9. Renal: CKD- monitor and avoid nephrotoxic agents 10. GI: optimize bowel meds 11. Skin: right forearm abrasion, c/u bacitracin and cover 12. Extremities- will acewrap LE and elevate for edema -dopplers negative for DVT, c/u lovenox 9. Dispo: 02-17-19 to home-patient not Mod-I yet and having difficulty donning his brace- home eval set up for today , will assist with setting up Day-hab at [facility] upon discharge Allergies Coded Allergies: Sulfa (Sulfonamide Antibiotics) (Verified Allergy, Mild, RASH, 07/02/18) NSAIDS (Non-Steroidal Anti-Inflamma (Verified Adverse Reaction, Unknown, KIDNEY DISFUNCTION, 07/02/18) acetaminophen (Verified Adverse Reaction, Unknown, AVOIDS KIDNEY DYSFUNCTION, 07/02/18) Vital Signs Vital Signs Date Time Temp Pulse Resp B/P (MAP) Pulse Ox O2 Delivery O2 Flow Rate FiO2 02/17/19 08:20 72 124/80 02/17/19 06:00 97.7 18 93 Room Air Laboratory Data CBC/BMP Laboratory Tests 02/16/19 12:39 Labs 24H Laboratory Tests 2 02/16/19 11:43: Bedside Glucose (Misc Panel) 174H 02/16/19 12:39: Immature Granulocyte % (Auto) 0.4, Neutrophils (%) (Auto) 57.3, Lymphocytes (%) (Auto) 27.8, Monocytes (%) (Auto) 12.3H, Eosinophils (%) (Auto) 1.8, Basophils (%) (Auto) 0.4, Neutrophils # (Auto) 4.9, Lymphocytes # (Auto) 2.4, Monocytes # (Auto) 1.1H, Eosinophils # (Auto) 0.2, Basophils # (Auto) 0.0, Nucleated Red Blood Cells % (auto) 0.0, Anion Gap 4L, Glomerular Filtration Rate > 60.0, Calcium Level 9.1 02/16/19 16:28: Bedside Glucose (Misc Panel) 126H 02/16/19 20:06: Bedside Glucose (Misc Panel) 182H 02/17/19 05:28: Bedside Glucose (Misc Panel) 157H Current Medications Current Medications Current Medications Medications (Trade) Dose Ordered Sig/Josi Route PRN Reason Start Time Stop Time Status Last Admin Dose Admin Al Hydrox/Mg Hydrox/Simethicone (Mylanta) 30 ml Q4HP PRN PO INDIGESTION 01/29/19 12:30 01/31/19 20:24 Amlodipine Besylate (Norvasc) 10 mg DAILY PO 01/29/19 09:00 02/17/19 08:20 Aspirin (Aspirin) 325 mg DAILY PO 01/29/19 09:00 02/17/19 08:20 Atorvastatin Calcium (Lipitor) 40 mg DAILY PO 01/29/19 09:00 02/17/19 08:20 Bacitracin/ Polymyxin B Sulfate (Polysporin Top Oint) 1 dose BID TOP 01/29/19 09:00 02/17/19 08:25 Bisacodyl (Dulcolax Suppository) 10 mg DAILYPRN PRN [place] CONSTIPATION 01/28/19 15:30 Bisacodyl (Dulcolax Tab) 10 mg DAILY PO 01/29/19 13:00 02/08/19 07:39 Cyclobenzaprine HCl (Flexeril) 5 mg Q6HP PRN PO SPASMS 01/28/19 15:30 02/15/19 19:42 Dextrose (Dextrose 50%) 25 ml ASDIRECTED PRN IV SEE LABEL COMMENTS 01/28/19 15:30 Docusate Sodium (Colace) 100 mg BID PO 01/28/19 21:00 02/13/19 21:10 Duloxetine HCl (Cymbalta) 30 mg DAILY PO 01/29/19 09:00 02/17/19 08:20 Enoxaparin Sodium (Lovenox) 40 mg QHS SC 01/28/19 21:00 02/16/19 09:31 DC 02/15/19 19:40 Enoxaparin Sodium (Lovenox) 40 mg QHS SC 02/16/19 21:00 02/16/19 21:41 Fluticasone Propionate (Flovent Hfa 220mcg) 2 puff BID INH 01/28/19 21:00 02/17/19 07:26 Furosemide (Lasix) 40 mg DAILY PO 01/29/19 09:00 02/17/19 08:21 Gabapentin (Neurontin) 400 mg TID PO 01/28/19 16:00 02/17/19 08:20 Glucagon (Glucagon) 1 mg ASDIRECTED PRN SC SEE LABEL COMMENTS 01/28/19 15:30 Glucose (Glucose) 16 GM ASDIRECTED PRN PO SEE LABEL COMMENTS 01/28/19 15:30 Home Med (Med Rec Complete!) ASDIRECTED XX 01/28/19 15:30 01/28/19 15:30 DC Insulin Human Lispro (HumaLOG INSULIN) SEE PROTOCOL TABLE AC SC 01/28/19 17:30 02/17/19 08:22 Insulin Human Lispro (HumaLOG INSULIN) SEE PROTOCOL TABLE QHS SC 01/28/19 21:00 Lidocaine (Lidoderm Patch) 1 patch DAILY TD 01/30/19 09:00 02/03/19 11:35 DC 02/03/19 07:43 Lidocaine (Lidoderm Patch) 2 patch DAILY TD 02/03/19 09:00 02/16/19 09:07 Losartan Potassium (Cozaar) 50 mg DAILY PO 01/29/19 09:00 02/17/19 08:21 Menthol/Methyl Salicylate (Bengay Cream) apply to right upper ... TID TOP 02/04/19 21:00 02/17/19 08:24 Metformin HCl (Glucophage) 500 mg BID@,18 PO 01/28/19 18:00 02/09/19 09:31 DC 02/09/19 07:56 Metformin HCl (Glucophage) 1,000 mg BID@08,18 PO 02/09/19 18:00 02/17/19 08:21 Metoprolol Succinate (TopROL XL) 50 mg DAILY PO 01/29/19 09:00 02/12/19 12:19 DC 02/12/19 07:50 Metoprolol Succinate (TopROL XL) 100 mg DAILY PO 02/13/19 09:00 02/17/19 08:21 Miscellaneous (Unresolved Clarification Entry) SEE LABEL COMMENTS DAILY XX 02/15/19 09:00 02/16/19 06:43 DC Miscellaneous (Unresolved Clarification Entry) SEE LABEL COMMENTS DAILY XX 02/16/19 09:00 02/16/19 11:43 DC Non-Formulary Medication ( See Comment Field Below ) REMOVE LIDODERM PATCH DAILY@21 XX 01/30/19 21:00 02/03/19 11:37 DC 02/02/19 21:27 Non-Formulary Medication ( See Comment Field Below ) REMOVE LIDODERM PATCH DAILY@21 XX 02/03/19 21:00 02/16/19 21:42 Oxycodone HCl (Roxicodone, Oxyir) 5 mg Q4HP PRN PO PAIN 01/28/19 15:30 02/16/19 09:31 DC 02/15/19 19:43 Oxycodone HCl (Roxicodone, Oxyir) 5 mg Q4HP PRN PO PAIN 02/16/19 11:45 02/16/19 19:27 Pantoprazole Sodium (Protonix) 40 mg DAILY PO 01/29/19 09:00 02/17/19 08:20 Polyethylene Glycol (Miralax) 1 pkt BID PO 01/29/19 09:00 02/13/19 08:15 Senna (Senokot) 1 tab QHS PO 01/28/19 21:00 01/29/19 12:21 DC Senna/Docusate Sodium (Senokot S) 1 tab BID PO 01/29/19 09:00 02/08/19 07:41 Triamterene/HCTZ (Dyazide 37.5-25 Mg) 1 ea DAILY PO 01/29/19 09:00 02/17/19 08:20 GUILHERME GOMEZ MD Feb 17, 2019 10:33
--- NOTE | 2019-02-17 10:33 | IPNPDOC ---
PM&R Progress Note DATE OF SERVICE: Feb 17, 2019 [employer] Progress Note Subjective: Patient reporting he is feels fine today and looking forward to going home. REVIEW OF SYSTEMS: The following is a completed review of systems and has been reviewed. Review of systems otherwise unremarkable. PAIN: Patient self reports bilateral knee pain, right worse than left EYES: No recent vision changes EARS, NOSE, & THROAT: No throat pain, or dysphagia, or rhinorrhea CARDIOVASCULAR: Denies chest pain or palpitations, +orthopnea PULMONARY: Denies shortness of breath, GASTROINTESTINAL: +constipation (resolved) GENITOURINARY: denies dysuria MUSCULOSKELETAL: right tibial plateau fracture NEUROLOGICAL:no tremor or seizure activity HEMATOLOGICAL: denies easy bruising SKIN: no rash PSYCHIATRIC: Unremarkable All other review of systems found to be negative. PHYSICAL EXAMINATION: VITAL SIGNS: Please see below. GENERAL: Pleasant and cooperative. No acute distress. morbidly obese HEENT: Extraocular movements intact. Clear conjunctiva CARDIOVASCULAR: Regular rate and rhythm. No murmurs, rubs, or gallops LUNGS: Clear to auscultation bilaterally. No wheezes. No rhonchi ABDOMEN: Soft, nontender, nondistended. Positive bowel sounds. Normal active bowel sounds NEUROLOGICAL: Alert and oriented times three. Cranial nerves II through XII grossly intact. Sensation grossly intact in all 4 extremities EXTREMITIES: 5\\5 strength bilateral upper extremities. 5-\\5 strength right lower extremity. 5/5 strength in left lower extremity. (+) TTP bilat patellar tendons/medial/lateral joint lines right mid-clavicular chest well with mild TTP palpation under nipple line (improving) -LLE edema>RLE SKIN: dime-size left forward abrasion ASSESSMENT:58-year-old M with past medical history of morbid obesity, HTN who presents status post fall with right tibial plateau fracture PLAN: 1. Rehab- PT/OT- strengthen/stretch/maintain ROM, advance gait, optimize ADL management with NWB to RLE, patient approaching Mod-I from wheelchair level 2. Neuro: stable 3. Ortho: s/p right tibial plateau fracture- wear knee extension brace when OOB- ortho consulted, c/u NWB -repeat Xray shows healing fracture, per ortho c/u NWB for 6 weeks total 4. Cardiac: pmh HTN, HLD c/u home meds, increased Metoprolol to 100mg daily BPs still high and patient requesting regular diet -medicine consulted to assist in management -c/u Lasix -ECHO from 2008 showing, "Mildly dilated left atrium with tissue Doppler evidence to suggest an impaired left ventricular diastolic relaxation -will need hospital bed for his orthopnea in setting of diastolic CHF -repeat ECHO ordered, will refer to cardiology on discharge 5. Resp: encourage incentive spirometry, MICHELLE non-compliant with CPAP 6. Endo: DM c/u metformin and insulin ISS monitor and adjust prn 7. : monitor PVrs 8. Pain: c/u gabapentin, cymbalta, and oxycodone prn, avoid NSAIDs and Tylenol -c/u lidoderm patch to left knee, c/u menthol salicylate to right rib cage- improving 9. Renal: CKD- monitor and avoid nephrotoxic agents 10. GI: optimize bowel meds 11. Skin: right forearm abrasion, c/u bacitracin and cover 12. Extremities- will acewrap LE and elevate for edema -dopplers negative for DVT, c/u lovenox 9. Dispo: pending approval of his equipment -patient is currently receiving pillow support, but also needs the head of the bed elevated to greater than 30 degrees related to his CHF -He is morbidly obese and needs frequent changes in body position to avoid getting bed sores since he is non-weight bearing to his RLE Allergies Coded Allergies: Sulfa (Sulfonamide Antibiotics) (Verified Allergy, Mild, RASH, 07/02/18) NSAIDS (Non-Steroidal Anti-Inflamma (Verified Adverse Reaction, Unknown, KIDNEY DISFUNCTION, 07/02/18) acetaminophen (Verified Adverse Reaction, Unknown, AVOIDS KIDNEY DYSFUNCTION, 07/02/18) Vital Signs Vital Signs Date Time Temp Pulse Resp B/P (MAP) Pulse Ox O2 Delivery O2 Flow Rate FiO2 02/17/19 08:20 72 124/80 02/17/19 06:00 97.7 18 93 Room Air Laboratory Data CBC/BMP Laboratory Tests 02/16/19 12:39 Labs 24H Laboratory Tests 2 02/16/19 11:43: Bedside Glucose (Misc Panel) 174H 02/16/19 12:39: Immature Granulocyte % (Auto) 0.4, Neutrophils (%) (Auto) 57.3, Lymphocytes (%) (Auto) 27.8, Monocytes (%) (Auto) 12.3H, Eosinophils (%) (Auto) 1.8, Basophils (%) (Auto) 0.4, Neutrophils # (Auto) 4.9, Lymphocytes # (Auto) 2.4, Monocytes # (Auto) 1.1H, Eosinophils # (Auto) 0.2, Basophils # (Auto) 0.0, Nucleated Red Blood Cells % (auto) 0.0, Anion Gap 4L, Glomerular Filtration Rate > 60.0, Calcium Level 9.1 02/16/19 16:28: Bedside Glucose (Misc Panel) 126H 02/16/19 20:06: Bedside Glucose (Misc Panel) 182H 02/17/19 05:28: Bedside Glucose (Misc Panel) 157H Current Medications Current Medications Current Medications Medications (Trade) Dose Ordered Sig/Josi Route PRN Reason Start Time Stop Time Status Last Admin Dose Admin Al Hydrox/Mg Hydrox/Simethicone (Mylanta) 30 ml Q4HP PRN PO INDIGESTION 01/29/19 12:30 01/31/19 20:24 Amlodipine Besylate (Norvasc) 10 mg DAILY PO 01/29/19 09:00 02/17/19 08:20 Aspirin (Aspirin) 325 mg DAILY PO 01/29/19 09:00 02/17/19 08:20 Atorvastatin Calcium (Lipitor) 40 mg DAILY PO 01/29/19 09:00 02/17/19 08:20 Bacitracin/ Polymyxin B Sulfate (Polysporin Top Oint) 1 dose BID TOP 01/29/19 09:00 02/17/19 08:25 Bisacodyl (Dulcolax Suppository) 10 mg DAILYPRN PRN [place] CONSTIPATION 01/28/19 15:30 Bisacodyl (Dulcolax Tab) 10 mg DAILY PO 01/29/19 13:00 02/08/19 07:39 Cyclobenzaprine HCl (Flexeril) 5 mg Q6HP PRN PO SPASMS 01/28/19 15:30 02/15/19 19:42 Dextrose (Dextrose 50%) 25 ml ASDIRECTED PRN IV SEE LABEL COMMENTS 01/28/19 15:30 Docusate Sodium (Colace) 100 mg BID PO 01/28/19 21:00 02/13/19 21:10 Duloxetine HCl (Cymbalta) 30 mg DAILY PO 01/29/19 09:00 02/17/19 08:20 Enoxaparin Sodium (Lovenox) 40 mg QHS SC 01/28/19 21:00 02/16/19 09:31 DC 02/15/19 19:40 Enoxaparin Sodium (Lovenox) 40 mg QHS SC 02/16/19 21:00 02/16/19 21:41 Fluticasone Propionate (Flovent Hfa 220mcg) 2 puff BID INH 01/28/19 21:00 02/17/19 07:26 Furosemide (Lasix) 40 mg DAILY PO 01/29/19 09:00 02/17/19 08:21 Gabapentin (Neurontin) 400 mg TID PO 01/28/19 16:00 02/17/19 08:20 Glucagon (Glucagon) 1 mg ASDIRECTED PRN SC SEE LABEL COMMENTS 01/28/19 15:30 Glucose (Glucose) 16 GM ASDIRECTED PRN PO SEE LABEL COMMENTS 01/28/19 15:30 Home Med (Med Rec Complete!) ASDIRECTED XX 01/28/19 15:30 01/28/19 15:30 DC Insulin Human Lispro (HumaLOG INSULIN) SEE PROTOCOL TABLE AC SC 01/28/19 17:30 02/17/19 08:22 Insulin Human Lispro (HumaLOG INSULIN) SEE PROTOCOL TABLE QHS SC 01/28/19 21:00 Lidocaine (Lidoderm Patch) 1 patch DAILY TD 01/30/19 09:00 02/03/19 11:35 DC 02/03/19 07:43 Lidocaine (Lidoderm Patch) 2 patch DAILY TD 02/03/19 09:00 02/16/19 09:07 Losartan Potassium (Cozaar) 50 mg DAILY PO 01/29/19 09:00 02/17/19 08:21 Menthol/Methyl Salicylate (Bengay Cream) apply to right upper ... TID TOP 02/04/19 21:00 02/17/19 08:24 Metformin HCl (Glucophage) 500 mg BID@,18 PO 01/28/19 18:00 02/09/19 09:31 DC 02/09/19 07:56 Metformin HCl (Glucophage) 1,000 mg BID@,18 PO 02/09/19 18:00 02/17/19 08:21 Metoprolol Succinate (TopROL XL) 50 mg DAILY PO 01/29/19 09:00 02/12/19 12:19 DC 02/12/19 07:50 Metoprolol Succinate (TopROL XL) 100 mg DAILY PO 02/13/19 09:00 02/17/19 08:21 Miscellaneous (Unresolved Clarification Entry) SEE LABEL COMMENTS DAILY XX 02/15/19 09:00 02/16/19 06:43 DC Miscellaneous (Unresolved Clarification Entry) SEE LABEL COMMENTS DAILY XX 02/16/19 09:00 02/16/19 11:43 DC Non-Formulary Medication ( See Comment Field Below ) REMOVE LIDODERM PATCH DAILY@21 XX 01/30/19 21:00 02/03/19 11:37 DC 02/02/19 21:27 Non-Formulary Medication ( See Comment Field Below ) REMOVE LIDODERM PATCH DAILY@21 XX 02/03/19 21:00 02/16/19 21:42 Oxycodone HCl (Roxicodone, Oxyir) 5 mg Q4HP PRN PO PAIN 01/28/19 15:30 02/16/19 09:31 DC 02/15/19 19:43 Oxycodone HCl (Roxicodone, Oxyir) 5 mg Q4HP PRN PO PAIN 02/16/19 11:45 02/16/19 19:27 Pantoprazole Sodium (Protonix) 40 mg DAILY PO 01/29/19 09:00 02/17/19 08:20 Polyethylene Glycol (Miralax) 1 pkt BID PO 01/29/19 09:00 02/13/19 08:15 Senna (Senokot) 1 tab QHS PO 01/28/19 21:00 01/29/19 12:21 DC Senna/Docusate Sodium (Senokot S) 1 tab BID PO 01/29/19 09:00 02/08/19 07:41 Triamterene/HCTZ (Dyazide 37.5-25 Mg) 1 ea DAILY PO 01/29/19 09:00 02/17/19 08:20 GUILHERME GOMEZ MD Feb 17, 2019 10:33
[2019-02-17 14:45] VITALS: BP 117/65
[2019-02-17] MEDS: oxyCODONE 5MG TAB PO PRN (18:04)
[2019-02-17] MEDS: ENOXAPARIN 40 MG/0.4 ML SYRINGE (J1650) SC SCH (20:42)
[2019-02-17] MEDS: **NOTE PATIENT COMMENT** MISC XX SCH (20:43)
[2019-02-18 06:00] VITALS: BP 133/80
[2019-02-18] MEDS: FLUTICASONE HFA 220 MCG 12 GM INHALER (FLOVENT) INH SCH ×2 (07:19→21:10)
[2019-02-18] MEDS: ASPIRIN 325 MG TAB PO SCH (08:07)
[2019-02-18] MEDS: GABAPENTIN 400 MG CAP PO SCH ×3 (08:07→20:41)
[2019-02-18] MEDS: DULoxetine 30 MG CAP (CYMBALTA) PO SCH (08:07)
[2019-02-18] MEDS: DYAZIDE 37.5/25 CAP (TRIAM/HCTZ) PO SCH (08:07)
[2019-02-18] MEDS: metFORMIN (GLUCOPHAGE) 500 MG TAB PO SCH ×2 (08:07→17:16)
[2019-02-18] MEDS: HumaLOG INSULIN (NovoLOG) PER UNIT SC SCH ×4 (08:07→20:42)
[2019-02-18] MEDS: METOPROLOL SUCC (TopROL XL) 100MG *XL* TAB PO SCH (08:07)
[2019-02-18] MEDS: FUROSEMIDE 40 MG TAB PO SCH (08:08)
[2019-02-18] MEDS: ATORVASTATIN 20 MG TAB PO SCH (08:08)
[2019-02-18] MEDS: LOSARTAN 50 MG TAB PO SCH (08:08)
[2019-02-18] MEDS: PANTOPRAZOLE 40MG TAB (PROTONIX) PO SCH (08:08)
[2019-02-18] MEDS: amLODIPine 10 MG TAB PO SCH (08:08)
[2019-02-18] MEDS: LIDOCAINE 5% (LIDODERM) PATCH TD SCH (08:09)
[2019-02-18] MEDS: BISACODYL 5 MG TAB PO SCH (09:00)
[2019-02-18] MEDS: ANALGESIC BALM CRM 120 GM TOP SCH ×3 (09:00→20:42)
[2019-02-18] MEDS: POLYSPORIN TOPICAL OINTMENT 15GM TOP SCH ×2 (09:00→20:42)
--- NOTE | 2019-02-18 10:00 | IPNPDOC ---
PM&R Progress Note DATE OF SERVICE: Feb 18, 2019 Account Development Specialist Progress Note Subjective: Patient stating he feels well and has no complaints. REVIEW OF SYSTEMS: The following is a completed review of systems and has been reviewed. Review of systems otherwise unremarkable. PAIN: Patient self reports bilateral knee pain, right worse than left EYES: No recent vision changes EARS, NOSE, & THROAT: No throat pain, or dysphagia, or rhinorrhea CARDIOVASCULAR: Denies chest pain or palpitations, +orthopnea PULMONARY: Denies shortness of breath, GASTROINTESTINAL: +constipation (resolved) GENITOURINARY: denies dysuria MUSCULOSKELETAL: right tibial plateau fracture NEUROLOGICAL:no tremor or seizure activity HEMATOLOGICAL: denies easy bruising SKIN: no rash PSYCHIATRIC: Unremarkable All other review of systems found to be negative. PHYSICAL EXAMINATION: VITAL SIGNS: Please see below. GENERAL: Pleasant and cooperative. No acute distress. morbidly obese HEENT: Extraocular movements intact. Clear conjunctiva CARDIOVASCULAR: Regular rate and rhythm. No murmurs, rubs, or gallops LUNGS: Clear to auscultation bilaterally. No wheezes. No rhonchi ABDOMEN: Soft, nontender, nondistended. Positive bowel sounds. Normal active bowel sounds NEUROLOGICAL: Alert and oriented times three. Cranial nerves II through XII grossly intact. Sensation grossly intact in all 4 extremities EXTREMITIES: 5\\5 strength bilateral upper extremities. 5-\\5 strength right lower extremity. 5/5 strength in left lower extremity. (+) TTP bilat patellar tendons/medial/lateral joint lines right mid-clavicular chest well with mild TTP palpation under nipple line (improving) -LLE edema>RLE SKIN: dime-size left forward abrasion ASSESSMENT:58-year-old M with past medical history of morbid obesity, HTN who presents status post fall with right tibial plateau fracture PLAN: 1. Rehab- PT/OT- strengthen/stretch/maintain ROM, advance gait, optimize ADL management with NWB to RLE, patient approaching Mod-I from wheelchair level 2. Neuro: stable 3. Ortho: s/p right tibial plateau fracture- wear knee extension brace when OOB- ortho consulted, c/u NWB -repeat Xray shows healing fracture, per ortho c/u NWB for 6 weeks total 4. Cardiac: pmh HTN, HLD c/u home meds, increased Metoprolol to 100mg daily BPs still high and patient requesting regular diet -medicine consulted to assist in management -c/u Lasix -ECHO from 2008 showing, "Mildly dilated left atrium with tissue Doppler evidence to suggest an impaired left ventricular diastolic relaxation -will need hospital bed for his orthopnea in setting of diastolic CHF -repeat ECHO ordered, will refer to cardiology on discharge 5. Resp: encourage incentive spirometry, MICHELLE non-compliant with CPAP 6. Endo: DM c/u metformin and insulin ISS monitor and adjust prn 7. : monitor PVrs 8. Pain: c/u gabapentin, cymbalta, and oxycodone prn, avoid NSAIDs and Tylenol -c/u lidoderm patch to left knee, c/u menthol salicylate to right rib cage- improving 9. Renal: CKD- monitor and avoid nephrotoxic agents 10. GI: optimize bowel meds 11. Skin: right forearm abrasion, c/u bacitracin and cover 12. Extremities- will acewrap LE and elevate for edema -dopplers negative for DVT, c/u lovenox 9. Dispo: pending approval of his equipment -patient is currently receiving pillow support, but also needs the head of the bed elevated to greater than 30 degrees related to his CHF -He is morbidly obese and needs frequent changes in body position to avoid getting bed sores since he is non-weight bearing to his RLE Allergies Coded Allergies: Sulfa (Sulfonamide Antibiotics) (Verified Allergy, Mild, RASH, 07/02/18) NSAIDS (Non-Steroidal Anti-Inflamma (Verified Adverse Reaction, Unknown, KIDNEY DISFUNCTION, 07/02/18) acetaminophen (Verified Adverse Reaction, Unknown, AVOIDS KIDNEY DYSFUNCTION, 07/02/18) Vital Signs Vital Signs Date Time Temp Pulse Resp B/P (MAP) Pulse Ox O2 Delivery O2 Flow Rate FiO2 02/18/19 08:08 133/80 02/18/19 08:08 82 02/18/19 06:00 97.5 18 92 Room Air Laboratory Data Labs 24H Laboratory Tests 2 02/17/19 11:38: Bedside Glucose (Misc Panel) 137H 02/17/19 17:09: Bedside Glucose (Misc Panel) 197H 02/17/19 19:49: Bedside Glucose (Misc Panel) 144H 02/18/19 05:49: Bedside Glucose (Misc Panel) 212H Current Medications Current Medications Current Medications Medications (Trade) Dose Ordered Sig/Josi Route PRN Reason Start Time Stop Time Status Last Admin Dose Admin Al Hydrox/Mg Hydrox/Simethicone (Mylanta) 30 ml Q4HP PRN PO INDIGESTION 01/29/19 12:30 01/31/19 20:24 Amlodipine Besylate (Norvasc) 10 mg DAILY PO 01/29/19 09:00 02/18/19 08:08 Aspirin (Aspirin) 325 mg DAILY PO 01/29/19 09:00 02/18/19 08:07 Atorvastatin Calcium (Lipitor) 40 mg DAILY PO 01/29/19 09:00 02/18/19 08:08 Bacitracin/ Polymyxin B Sulfate (Polysporin Top Oint) 1 dose BID TOP 01/29/19 09:00 02/16/19 21:42 Bisacodyl (Dulcolax Suppository) 10 mg DAILYPRN PRN [place] CONSTIPATION 01/28/19 15:30 Bisacodyl (Dulcolax Tab) 10 mg DAILY PO 01/29/19 13:00 02/08/19 07:39 Cyclobenzaprine HCl (Flexeril) 5 mg Q6HP PRN PO SPASMS 01/28/19 15:30 02/15/19 19:42 Dextrose (Dextrose 50%) 25 ml ASDIRECTED PRN IV SEE LABEL COMMENTS 01/28/19 15:30 Docusate Sodium (Colace) 100 mg BID PO 01/28/19 21:00 02/17/19 12:42 DC 02/13/19 21:10 Duloxetine HCl (Cymbalta) 30 mg DAILY PO 01/29/19 09:00 02/18/19 08:07 Enoxaparin Sodium (Lovenox) 40 mg QHS SC 01/28/19 21:00 02/16/19 09:31 DC 02/15/19 19:40 Enoxaparin Sodium (Lovenox) 40 mg QHS SC 02/16/19 21:00 02/17/19 20:42 Fluticasone Propionate (Flovent Hfa 220mcg) 2 puff BID INH 01/28/19 21:00 02/18/19 07:19 Furosemide (Lasix) 40 mg DAILY PO 01/29/19 09:00 02/18/19 08:08 Gabapentin (Neurontin) 400 mg TID PO 01/28/19 16:00 02/18/19 08:07 Glucagon (Glucagon) 1 mg ASDIRECTED PRN SC SEE LABEL COMMENTS 01/28/19 15:30 Glucose (Glucose) 16 GM ASDIRECTED PRN PO SEE LABEL COMMENTS 01/28/19 15:30 Home Med (Med Rec Complete!) ASDIRECTED XX 01/28/19 15:30 01/28/19 15:30 DC Insulin Human Lispro (HumaLOG INSULIN) SEE PROTOCOL TABLE AC SC 01/28/19 17:30 02/18/19 08:07 Insulin Human Lispro (HumaLOG INSULIN) SEE PROTOCOL TABLE QHS SC 01/28/19 21:00 Lidocaine (Lidoderm Patch) 1 patch DAILY TD 01/30/19 09:00 02/03/19 11:35 DC 02/03/19 07:43 Lidocaine (Lidoderm Patch) 2 patch DAILY TD 02/03/19 09:00 02/18/19 08:09 Losartan Potassium (Cozaar) 50 mg DAILY PO 01/29/19 09:00 02/18/19 08:08 Menthol/Methyl Salicylate (Bengay Cream) apply to right upper ... TID TOP 02/04/19 21:00 02/17/19 20:43 Metformin HCl (Glucophage) 500 mg BID@,18 PO 01/28/19 18:00 02/09/19 09:31 DC 02/09/19 07:56 Metformin HCl (Glucophage) 1,000 mg BID@,18 PO 02/09/19 18:00 02/18/19 08:07 Metoprolol Succinate (TopROL XL) 50 mg DAILY PO 01/29/19 09:00 02/12/19 12:19 DC 02/12/19 07:50 Metoprolol Succinate (TopROL XL) 100 mg DAILY PO 02/13/19 09:00 02/18/19 08:07 Miscellaneous (Unresolved Clarification Entry) SEE LABEL COMMENTS DAILY XX 02/15/19 09:00 02/16/19 06:43 DC Miscellaneous (Unresolved Clarification Entry) SEE LABEL COMMENTS DAILY XX 02/16/19 09:00 02/16/19 11:43 DC Non-Formulary Medication ( See Comment Field Below ) REMOVE LIDODERM PATCH DAILY@21 XX 01/30/19 21:00 02/03/19 11:37 DC 02/02/19 21:27 Non-Formulary Medication ( See Comment Field Below ) REMOVE LIDODERM PATCH DAILY@21 XX 02/03/19 21:00 02/17/19 20:43 Oxycodone HCl (Roxicodone, Oxyir) 5 mg Q4HP PRN PO PAIN 01/28/19 15:30 02/16/19 09:31 DC 02/15/19 19:43 Oxycodone HCl (Roxicodone, Oxyir) 5 mg Q4HP PRN PO PAIN 02/16/19 11:45 02/17/19 18:04 Pantoprazole Sodium (Protonix) 40 mg DAILY PO 01/29/19 09:00 02/18/19 08:08 Polyethylene Glycol (Miralax) 1 pkt BID PO 01/29/19 09:00 02/17/19 12:42 DC 02/13/19 08:15 Senna (Senokot) 1 tab QHS PO 01/28/19 21:00 01/29/19 12:21 DC Senna/Docusate Sodium (Senokot S) 1 tab BID PO 01/29/19 09:00 02/17/19 12:42 DC 02/08/19 07:41 Triamterene/HCTZ (Dyazide 37.5-25 Mg) 1 ea DAILY PO 01/29/19 09:00 02/18/19 08:07 GUILHERME GOMEZ MD Feb 18, 2019 10:00
[2019-02-18 14:00] VITALS: BP 131/67
[2019-02-18] MEDS: oxyCODONE 5MG TAB PO PRN ×2 (15:12→20:41)
[2019-02-18 19:45] VITALS: BP 129/82
[2019-02-18] MEDS: ENOXAPARIN 40 MG/0.4 ML SYRINGE (J1650) SC SCH (20:41)
[2019-02-18] MEDS: **NOTE PATIENT COMMENT** MISC XX SCH (20:42)
[2019-02-19 05:30] VITALS: BP 124/90
[2019-02-19] MEDS: FLUTICASONE HFA 220 MCG 12 GM INHALER (FLOVENT) INH SCH (07:31)
[2019-02-19] MEDS: LIDOCAINE 5% (LIDODERM) PATCH TD SCH (08:47)
[2019-02-19] MEDS: HumaLOG INSULIN (NovoLOG) PER UNIT SC SCH ×4 (08:48→20:02)
[2019-02-19] MEDS: ASPIRIN 325 MG TAB PO SCH (08:49)
[2019-02-19] MEDS: BISACODYL 5 MG TAB PO SCH (08:49)
[2019-02-19] MEDS: amLODIPine 10 MG TAB PO SCH (08:49)
[2019-02-19] MEDS: DULoxetine 30 MG CAP (CYMBALTA) PO SCH (08:50)
[2019-02-19] MEDS: GABAPENTIN 400 MG CAP PO SCH ×3 (08:50→20:01)
[2019-02-19] MEDS: PANTOPRAZOLE 40MG TAB (PROTONIX) PO SCH (08:50)
[2019-02-19] MEDS: metFORMIN (GLUCOPHAGE) 500 MG TAB PO SCH ×2 (08:50→17:19)
[2019-02-19] MEDS: FUROSEMIDE 40 MG TAB PO SCH (08:50)
[2019-02-19] MEDS: ATORVASTATIN 20 MG TAB PO SCH (08:51)
[2019-02-19] MEDS: LOSARTAN 50 MG TAB PO SCH (08:51)
[2019-02-19] MEDS: METOPROLOL SUCC (TopROL XL) 100MG *XL* TAB PO SCH (08:51)
[2019-02-19] MEDS: POLYSPORIN TOPICAL OINTMENT 15GM TOP SCH ×2 (08:52→20:04)
[2019-02-19] MEDS: DYAZIDE 37.5/25 CAP (TRIAM/HCTZ) PO SCH (08:52)
[2019-02-19] MEDS: ANALGESIC BALM CRM 120 GM TOP SCH ×3 (08:53→20:04)
[2019-02-19] MEDS: CYCLOBENZAPRINE 5MG TABLET PO PRN ×2 (11:10→20:01)
[2019-02-19 14:00] VITALS: BP 137/86
--- NOTE | 2019-02-19 15:49 | IPN ---
DATE OF SERVICE: 02/19/2019 HISTORY OF PRESENT ILLNESS: He is a patient on the acute rehabilitation unit having sustained a tibial plateau fracture. He is doing very well. He had no complaints today. He was sitting up and eating. He continues with physical therapy (PT). Orthopedics recommended nonsurgical management. He is utilizing a knee brace. He continues with a Walker knee brace with hinge to allow for 0 to 45 degree motion with no weightbearing. Pain management per acute rehabilitation physician. He continues on gabapentin, Cymbalta, oxycodone, Lidocaine patch, Flexeril as needed. He has a history of gastroesophageal reflux disease (GERD), which he states is clinically stable. Hypertension. Vital signs are stable. He continues on metoprolol and Norvasc. Iuk-ssrxcsq-zguohzjev diabetes. He continues on metformin. Deep vein thrombosis (DVT) prophylaxis. On Lovenox. LABORATORY STUDIES: Laboratory studies have been stable. PHYSICAL EXAMINATION: Blood pressure 137/86, pulse 76, respirations 18, temperature 97, oxygen saturation 97% on room air. The patient is alert and oriented times three. HEENT: Pupils are equal and reactive to light. Extraocular muscles intact. Sclerae clear. Conjunctivae normal. No facial asymmetry. Pharynx, gums and tongue pink and moist. Tongue is midline. NECK: Supple without lymphadenopathy, thyromegaly or goiter. CHEST: Clear to auscultation without wheeze or retraction. HEART: Regular. ABDOMEN: Benign. Bowel sounds positive. GENITOURINARY/RECTAL: Not done. EXTREMITIES: No cyanosis, clubbing or edema. Peripheral pulses equal and palpable bilaterally. SKIN: Warm and dry. IMPRESSION/PLAN: 1. Tibial plateau fracture. Continue physical therapy (PT) and occupational therapy (OT). Continue utilizing brace. 2. Gastroesophageal reflux disease (GERD), stable. Continue omeprazole. 3. Hypertension, stable. Continue current medications. 4. Obesity. Portion and weight control. Discussed with patient eating slowly and smaller portions. 5. Deep vein thrombosis (DVT) prophylaxis. 6. Wbp-fcvyfkz-xfnyubfef diabetes. Continues on metformin. No acute medical issues.
[2019-02-19 20:00] VITALS: BP 136/96
[2019-02-19] MEDS: oxyCODONE 5MG TAB PO PRN (20:01)
[2019-02-19] MEDS: **NOTE PATIENT COMMENT** MISC XX SCH (20:02)
[2019-02-19] MEDS: ENOXAPARIN 40 MG/0.4 ML SYRINGE (J1650) SC SCH (20:02)
[2019-02-20 06:00] VITALS: BP 163/99
[2019-02-20] MEDS: FLUTICASONE HFA 220 MCG 12 GM INHALER (FLOVENT) INH SCH ×3 (07:56→20:05)
[2019-02-20] MEDS: oxyCODONE 5MG TAB PO PRN ×2 (08:50→15:25)
[2019-02-20] MEDS: HumaLOG INSULIN (NovoLOG) PER UNIT SC SCH ×4 (08:51→20:20)
[2019-02-20] MEDS: LIDOCAINE 5% (LIDODERM) PATCH TD SCH (08:51)
[2019-02-20] MEDS: ASPIRIN 325 MG TAB PO SCH (08:52)
[2019-02-20] MEDS: metFORMIN (GLUCOPHAGE) 500 MG TAB PO SCH ×2 (08:52→17:16)
[2019-02-20] MEDS: DULoxetine 30 MG CAP (CYMBALTA) PO SCH (08:52)
[2019-02-20] MEDS: DYAZIDE 37.5/25 CAP (TRIAM/HCTZ) PO SCH (08:52)
[2019-02-20] MEDS: LOSARTAN 50 MG TAB PO SCH (08:52)
[2019-02-20] MEDS: BISACODYL 5 MG TAB PO SCH (08:52)
[2019-02-20] MEDS: amLODIPine 10 MG TAB PO SCH (08:53)
[2019-02-20] MEDS: GABAPENTIN 400 MG CAP PO SCH ×3 (08:53→20:20)
[2019-02-20] MEDS: METOPROLOL SUCC (TopROL XL) 100MG *XL* TAB PO SCH (08:53)
[2019-02-20] MEDS: PANTOPRAZOLE 40MG TAB (PROTONIX) PO SCH (08:53)
[2019-02-20] MEDS: FUROSEMIDE 40 MG TAB PO SCH (08:54)
[2019-02-20] MEDS: ATORVASTATIN 20 MG TAB PO SCH (08:54)
[2019-02-20] MEDS: ANALGESIC BALM CRM 120 GM TOP SCH ×3 (08:55→20:21)
[2019-02-20] MEDS: POLYSPORIN TOPICAL OINTMENT 15GM TOP SCH ×2 (08:55→20:21)
--- NOTE | 2019-02-20 13:24 | IPNPDOC ---
PM&R Progress Note DATE OF SERVICE: Feb 19, 2019 Panel Raiser Operator Progress Note Subjective: Patient able to do transfers with the floor mat taped to the floor and feels safe doing this. REVIEW OF SYSTEMS: The following is a completed review of systems and has been reviewed. Review of systems otherwise unremarkable. PAIN: Patient self reports bilateral knee pain, right worse than left EYES: No recent vision changes EARS, NOSE, & THROAT: No throat pain, or dysphagia, or rhinorrhea CARDIOVASCULAR: Denies chest pain or palpitations, +orthopnea PULMONARY: Denies shortness of breath, GASTROINTESTINAL: +constipation (resolved) GENITOURINARY: denies dysuria MUSCULOSKELETAL: right tibial plateau fracture NEUROLOGICAL:no tremor or seizure activity HEMATOLOGICAL: denies easy bruising SKIN: no rash PSYCHIATRIC: Unremarkable All other review of systems found to be negative. PHYSICAL EXAMINATION: VITAL SIGNS: Please see below. GENERAL: Pleasant and cooperative. No acute distress. morbidly obese HEENT: Extraocular movements intact. Clear conjunctiva CARDIOVASCULAR: Regular rate and rhythm. No murmurs, rubs, or gallops LUNGS: Clear to auscultation bilaterally. No wheezes. No rhonchi ABDOMEN: Soft, nontender, nondistended. Positive bowel sounds. Normal active bowel sounds NEUROLOGICAL: Alert and oriented times three. Cranial nerves II through XII grossly intact. Sensation grossly intact in all 4 extremities EXTREMITIES: 5\\5 strength bilateral upper extremities. 5-\\5 strength right lower extremity. 5/5 strength in left lower extremity. (+) TTP bilat patellar tendons/medial/lateral joint lines right mid-clavicular chest well with mild TTP palpation under nipple line (improving) -LLE edema>RLE SKIN: dime-size left forward abrasion ASSESSMENT:58-year-old M with past medical history of morbid obesity, HTN who presents status post fall with right tibial plateau fracture PLAN: 1. Rehab- PT/OT- strengthen/stretch/maintain ROM, advance gait, optimize ADL management with NWB to RLE, patient approaching Mod-I from wheelchair level 2. Neuro: stable 3. Ortho: s/p right tibial plateau fracture- wear knee extension brace when OOB- ortho consulted, c/u NWB -repeat Xray shows healing fracture, per ortho c/u NWB for 6 weeks total 4. Cardiac: pmh HTN, HLD c/u home meds, increased Metoprolol to 100mg daily BPs still high and patient requesting regular diet -medicine consulted to assist in management -c/u Lasix -ECHO from 2008 showing, "Mildly dilated left atrium with tissue Doppler evidence to suggest an impaired left ventricular diastolic relaxation -will need hospital bed for his orthopnea in setting of diastolic CHF -repeat ECHO ordered, will refer to cardiology on discharge 5. Resp: encourage incentive spirometry, MICHELLE non-compliant with CPAP 6. Endo: DM c/u metformin and insulin ISS monitor and adjust prn 7. : monitor PVrs 8. Pain: c/u gabapentin, cymbalta, and oxycodone prn, avoid NSAIDs and Tylenol -c/u lidoderm patch to left knee, c/u menthol salicylate to right rib cage- improving 9. Renal: CKD- monitor and avoid nephrotoxic agents 10. GI: optimize bowel meds 11. Skin: right forearm abrasion, c/u bacitracin and cover 12. Extremities- will acewrap LE and elevate for edema -dopplers negative for DVT, c/u lovenox 9. Dispo: pending approval of his equipment Allergies Coded Allergies: Sulfa (Sulfonamide Antibiotics) (Verified Allergy, Mild, RASH, 07/02/18) NSAIDS (Non-Steroidal Anti-Inflamma (Verified Adverse Reaction, Unknown, KIDNEY DISFUNCTION, 07/02/18) acetaminophen (Verified Adverse Reaction, Unknown, AVOIDS KIDNEY DYSFUNCTION, 07/02/18) Vital Signs Vital Signs Date Time Temp Pulse Resp B/P (MAP) Pulse Ox O2 Delivery O2 Flow Rate FiO2 02/20/19 09:20 18 02/20/19 06:00 97.1 80 163/99 (120) 99 Room Air Laboratory Data Labs 24H Laboratory Tests 2 02/19/19 16:24: Bedside Glucose (Misc Panel) 141H 02/19/19 19:34: Bedside Glucose (Misc Panel) 176H 02/20/19 06:47: Bedside Glucose (Misc Panel) 161H 02/20/19 11:41: Bedside Glucose (Misc Panel) 133H Current Medications Current Medications Current Medications Medications (Trade) Dose Ordered Sig/Josi Route PRN Reason Start Time Stop Time Status Last Admin Dose Admin Al Hydrox/Mg Hydrox/Simethicone (Mylanta) 30 ml Q4HP PRN PO INDIGESTION 01/29/19 12:30 01/31/19 20:24 Amlodipine Besylate (Norvasc) 10 mg DAILY PO 01/29/19 09:00 02/20/19 08:53 Aspirin (Aspirin) 325 mg DAILY PO 01/29/19 09:00 02/20/19 08:52 Atorvastatin Calcium (Lipitor) 40 mg DAILY PO 01/29/19 09:00 02/20/19 08:54 Bacitracin/ Polymyxin B Sulfate (Polysporin Top Oint) 1 dose BID TOP 01/29/19 09:00 02/20/19 08:55 Bisacodyl (Dulcolax Suppository) 10 mg DAILYPRN PRN [place] CONSTIPATION 01/28/19 15:30 Bisacodyl (Dulcolax Tab) 10 mg DAILY PO 01/29/19 13:00 02/20/19 08:52 Cyclobenzaprine HCl (Flexeril) 5 mg Q6HP PRN PO SPASMS 01/28/19 15:30 02/19/19 20:01 Dextrose (Dextrose 50%) 25 ml ASDIRECTED PRN IV SEE LABEL COMMENTS 01/28/19 15:30 Docusate Sodium (Colace) 100 mg BID PO 01/28/19 21:00 02/17/19 12:42 DC 02/13/19 21:10 Duloxetine HCl (Cymbalta) 30 mg DAILY PO 01/29/19 09:00 02/20/19 08:52 Enoxaparin Sodium (Lovenox) 40 mg QHS SC 01/28/19 21:00 02/16/19 09:31 DC 02/15/19 19:40 Enoxaparin Sodium (Lovenox) 40 mg QHS SC 02/16/19 21:00 02/19/19 20:02 Fluticasone Propionate (Flovent Hfa 220mcg) 2 puff BID INH 01/28/19 21:00 02/20/19 09:00 Furosemide (Lasix) 40 mg DAILY PO 01/29/19 09:00 02/20/19 08:54 Gabapentin (Neurontin) 400 mg TID PO 01/28/19 16:00 02/20/19 08:53 Glucagon (Glucagon) 1 mg ASDIRECTED PRN SC SEE LABEL COMMENTS 01/28/19 15:30 Glucose (Glucose) 16 GM ASDIRECTED PRN PO SEE LABEL COMMENTS 01/28/19 15:30 Home Med (Med Rec Complete!) ASDIRECTED XX 01/28/19 15:30 01/28/19 15:30 DC Insulin Human Lispro (HumaLOG INSULIN) SEE PROTOCOL TABLE AC SC 01/28/19 17:30 02/20/19 11:48 Insulin Human Lispro (HumaLOG INSULIN) SEE PROTOCOL TABLE QHS SC 01/28/19 21:00 Lidocaine (Lidoderm Patch) 1 patch DAILY TD 01/30/19 09:00 02/03/19 11:35 DC 02/03/19 07:43 Lidocaine (Lidoderm Patch) 2 patch DAILY TD 02/03/19 09:00 02/20/19 08:51 Losartan Potassium (Cozaar) 50 mg DAILY PO 01/29/19 09:00 02/20/19 08:52 Menthol/Methyl Salicylate (Bengay Cream) apply to right upper ... TID TOP 02/04/19 21:00 02/20/19 08:55 Metformin HCl (Glucophage) 500 mg BID@,18 PO 01/28/19 18:00 02/09/19 09:31 DC 02/09/19 07:56 Metformin HCl (Glucophage) 1,000 mg BID@,18 PO 02/09/19 18:00 02/20/19 08:52 Metoprolol Succinate (TopROL XL) 50 mg DAILY PO 01/29/19 09:00 02/12/19 12:19 DC 02/12/19 07:50 Metoprolol Succinate (TopROL XL) 100 mg DAILY PO 02/13/19 09:00 02/20/19 08:53 Miscellaneous (Unresolved Clarification Entry) SEE LABEL COMMENTS DAILY XX 02/15/19 09:00 02/16/19 06:43 DC Miscellaneous (Unresolved Clarification Entry) SEE LABEL COMMENTS DAILY XX 02/16/19 09:00 02/16/19 11:43 DC Non-Formulary Medication ( See Comment Field Below ) REMOVE LIDODERM PATCH DAILY@21 XX 01/30/19 21:00 02/03/19 11:37 DC 02/02/19 21:27 Non-Formulary Medication ( See Comment Field Below ) REMOVE LIDODERM PATCH DAILY@21 XX 02/03/19 21:00 02/19/19 20:02 Oxycodone HCl (Roxicodone, Oxyir) 5 mg Q4HP PRN PO PAIN 01/28/19 15:30 02/16/19 09:31 DC 02/15/19 19:43 Oxycodone HCl (Roxicodone, Oxyir) 5 mg Q4HP PRN PO PAIN 02/16/19 11:45 02/20/19 08:50 Pantoprazole Sodium (Protonix) 40 mg DAILY PO 01/29/19 09:00 02/20/19 08:53 Polyethylene Glycol (Miralax) 1 pkt BID PO 01/29/19 09:00 02/17/19 12:42 DC 02/13/19 08:15 Senna (Senokot) 1 tab QHS PO 01/28/19 21:00 01/29/19 12:21 DC Senna/Docusate Sodium (Senokot S) 1 tab BID PO 01/29/19 09:00 02/17/19 12:42 DC 02/08/19 07:41 Triamterene/HCTZ (Dyazide 37.5-25 Mg) 1 ea DAILY PO 01/29/19 09:00 02/20/19 08:52 GUILHERME GOMEZ MD Feb 20, 2019 13:24
[2019-02-20 14:00] VITALS: BP 157/96
[2019-02-20 20:00] VITALS: BP 127/76
[2019-02-20] MEDS: ENOXAPARIN 40 MG/0.4 ML SYRINGE (J1650) SC SCH (20:20)
[2019-02-20] MEDS: **NOTE PATIENT COMMENT** MISC XX SCH (20:21)
[2019-02-21 06:00] VITALS: BP 165/84
[2019-02-21] MEDS: FLUTICASONE HFA 220 MCG 12 GM INHALER (FLOVENT) INH SCH ×2 (07:30→21:04)
[2019-02-21] MEDS: BISACODYL 5 MG TAB PO SCH (09:00)
[2019-02-21] MEDS: POLYSPORIN TOPICAL OINTMENT 15GM TOP SCH ×2 (09:00→20:51)
[2019-02-21] MEDS: ANALGESIC BALM CRM 120 GM TOP SCH ×3 (09:00→20:50)
--- NOTE | 2019-02-21 09:02 | IPNPDOC ---
Subjective Date Seen The patient was seen on 02/21/19. Subjective Chief Complaint/HPI Patient is comfortable, sitting in wheelchair, planned discharge this Saturday General: Denies: ROS Unobtainable, Chills, Night Sweats, Fatigue, Malaise, Normal Appetite, Other Symptoms Constitutional: Denies: Chills, Fever, Malaise, Night Sweats, Weakness, Fatigue, Weight Loss, Lethargy, Other Pulmonary: Denies: Dyspnea, Cough, Pleuritic Chest Pain, Other Symptoms Cardiovascular: Denies: Chest Pain, Palpitations, Orthopnea, Paroxysmal Noc. Dyspnea, Edema, Lt Headedness, Other Symptoms Gastrointestinal: Denies: Nausea, Vomiting, Abdominal Pain, Diarrhea, Constipation, Melena, Hematochezia, Other Symptoms Musculoskeletal: Denies: Neck Pain, Back Pain, Shoulder Pain, Arm Pain, Hand Pain, Leg Pain, Foot Pain, Joint Pain, Muscle Pain, Spasms, Other Symptoms Neurological: Denies: Weakness, Numbness, Incoordination, Change in speech, Con fusion, Seizures, Other Symptoms Objective Physical Examination Neck Exam: Positive: Supple, +2 carotid pulse wo bruit Chest Exam: Positive: Clear to auscultation, Normal air movement Heart Exam: Positive: Rate Normal, Regular Rhythm, Normal S1, Normal S2 Abdomen Exam: Positive: Normal bowel sounds, Soft, Tenderness (LLQ) Extremity Exam: Positive: Edema, Tenderness, Swelling (bilateral lower legs (tib/fib)) Skin Exam: Positive: Breakdown (bilateral lower legs with scabbing ) Neuro Exam: Positive: Normal Speech, Strength at 5/5 X4 ext (except right lower extremity), Cranial Nerves 3-12 NL Psych Exam: Positive: Mood NL Assessment /Plan Problems (1) Tibial plateau fracture Status: Acute Response to Treatment: Progressing Discussed With: Nurse, Patient Problem Specific Plan: Monitor Clinically Problem Text: 58-year-old male with a history of IDDM, COPD,osteoarthritis, morbid obesity with a body mass index of 58.4 with his knees in very poor shape and he rarely walks; he generally makes use of a wheelchair and has done so for the past 9 years. On occasion he does make use of a walker. He had an episode of hypoglycemia at home when he fell on his knees he was helped up to the couch however the next day he could not get out of the couch to was brought to the ED. Upon evaluation in the emergency room he is found to have a right lateral tibial plateau fracture. Of note his sugars have been running low at home also. Ortho recommended non surgical management. He was initially advised knee mobilizer by ortho however this was not fitting properly so ortho then advised a knee brace. R knee Lateral tibial plateau fracture -2/2 mechanical fall due to hypoglycemia. Seen by Dr Aviles recommended [place] knee brace with hinge to allow for 0-45 degree motion with no weight bearing. Will continue to follow acute rehabilitation management plan Physical therapy, occupational therapy and fall precautions are in affect Pain management per acute rehabilitation physician: Gabapentin, Cymbalta, oxycodone as needed.Lidocaine patch 5% daily, Flexeril as needed Orthopedic surgery to follow, weight bearing, left lower leg and non weight bearing to the right lower leg with fracture. Patient is scheduled to be discharged on 02/23/2019 Continue present care (2) GERD (gastroesophageal reflux disease) Status: Chronic Problem Text: Stable. Continue home meds (3) HTN (hypertension) Status: Chronic Problem Text: Under control. Continue home meds (4) Morbid (severe) obesity due to excess calories Status: Chronic Plan/VTE VTE Prophylaxis Ordered?: Yes VTE Exclusion Pharmacological: N/A:VTE Prophy Ordered Plan Diet: Continue Current Activity: Continue Current Therapy: PT, OT Anticipated Discharge: Home (to be determined by acute rehabilitation unit) VS, I&O, 24H, [place] Vital Signs/I&O Vital Signs Date Time Temp Pulse Resp B/P (MAP) Pulse Ox O2 Delivery O2 Flow Rate FiO2 02/21/19 06:00 98.2 75 18 165/84 (111) 98 Room Air I&O- Last 24 Hours up to 6 AM 02/21/19 06:00 Intake Total 2660 ml Output Total 2050 ml Balance 610 ml Laboratory Data 24H LABS Laboratory Tests 2 02/20/19 11:41: Bedside Glucose (Misc Panel) 133H 02/20/19 16:43: Bedside Glucose (Misc Panel) 146H 02/20/19 19:57: Bedside Glucose (Misc Panel) 197H 02/21/19 06:11: Bedside Glucose (Misc Panel) 142H ROB SOTO MD Feb 21, 2019 09:02
[2019-02-21] MEDS: ATORVASTATIN 20 MG TAB PO SCH (09:17)
[2019-02-21] MEDS: LOSARTAN 50 MG TAB PO SCH (09:17)
[2019-02-21] MEDS: HumaLOG INSULIN (NovoLOG) PER UNIT SC SCH ×4 (09:17→20:49)
[2019-02-21] MEDS: metFORMIN (GLUCOPHAGE) 500 MG TAB PO SCH ×2 (09:18→17:21)
[2019-02-21] MEDS: GABAPENTIN 400 MG CAP PO SCH ×3 (09:18→20:48)
[2019-02-21] MEDS: ASPIRIN 325 MG TAB PO SCH (09:18)
[2019-02-21] MEDS: amLODIPine 10 MG TAB PO SCH (09:18)
[2019-02-21] MEDS: FUROSEMIDE 40 MG TAB PO SCH (09:18)
[2019-02-21] MEDS: METOPROLOL SUCC (TopROL XL) 100MG *XL* TAB PO SCH (09:18)
[2019-02-21] MEDS: DULoxetine 30 MG CAP (CYMBALTA) PO SCH (09:18)
[2019-02-21] MEDS: DYAZIDE 37.5/25 CAP (TRIAM/HCTZ) PO SCH (09:19)
[2019-02-21] MEDS: LIDOCAINE 5% (LIDODERM) PATCH TD SCH (09:19)
[2019-02-21] MEDS: PANTOPRAZOLE 40MG TAB (PROTONIX) PO SCH (09:19)
[2019-02-21 16:33] VITALS: BP 132/84
[2019-02-21 19:30] VITALS: BP 130/82
[2019-02-21] MEDS: CYCLOBENZAPRINE 5MG TABLET PO PRN (20:48)
[2019-02-21] MEDS: ENOXAPARIN 40 MG/0.4 ML SYRINGE (J1650) SC SCH (20:49)
[2019-02-21] MEDS: **NOTE PATIENT COMMENT** MISC XX SCH (21:00)
[2019-02-22 05:36] VITALS: BP 154/85
[2019-02-22] MEDS: FLUTICASONE HFA 220 MCG 12 GM INHALER (FLOVENT) INH SCH (07:39)
[2019-02-22] MEDS: HumaLOG INSULIN (NovoLOG) PER UNIT SC SCH ×4 (07:45→21:00)
[2019-02-22] MEDS: metFORMIN (GLUCOPHAGE) 500 MG TAB PO SCH ×2 (07:45→17:12)
[2019-02-22] MEDS: LIDOCAINE 5% (LIDODERM) PATCH TD SCH (08:26)
[2019-02-22] MEDS: DULoxetine 30 MG CAP (CYMBALTA) PO SCH (08:27)
[2019-02-22] MEDS: amLODIPine 10 MG TAB PO SCH (08:27)
[2019-02-22] MEDS: DYAZIDE 37.5/25 CAP (TRIAM/HCTZ) PO SCH (08:27)
[2019-02-22] MEDS: ASPIRIN 325 MG TAB PO SCH (08:27)
[2019-02-22] MEDS: ATORVASTATIN 20 MG TAB PO SCH (08:27)
[2019-02-22] MEDS: BISACODYL 5 MG TAB PO SCH (08:28)
[2019-02-22] MEDS: LOSARTAN 50 MG TAB PO SCH (08:28)
[2019-02-22] MEDS: METOPROLOL SUCC (TopROL XL) 100MG *XL* TAB PO SCH (08:28)
[2019-02-22] MEDS: oxyCODONE 5MG TAB PO PRN ×2 (08:28→21:41)
[2019-02-22] MEDS: FUROSEMIDE 40 MG TAB PO SCH (08:29)
[2019-02-22] MEDS: ANALGESIC BALM CRM 120 GM TOP SCH ×3 (08:29→21:00)
[2019-02-22] MEDS: PANTOPRAZOLE 40MG TAB (PROTONIX) PO SCH (08:29)
[2019-02-22] MEDS: GABAPENTIN 400 MG CAP PO SCH ×3 (08:29→21:40)
[2019-02-22] MEDS: POLYSPORIN TOPICAL OINTMENT 15GM TOP SCH ×2 (08:29→21:00)
[2019-02-22 14:00] VITALS: BP 135/60
[2019-02-22] MEDS: CYCLOBENZAPRINE 5MG TABLET PO PRN (15:13)
[2019-02-22 20:00] VITALS: BP 156/90
[2019-02-22] MEDS: ENOXAPARIN 40 MG/0.4 ML SYRINGE (J1650) SC SCH (21:40)
[2019-02-22] MEDS: **NOTE PATIENT COMMENT** MISC XX SCH (21:50)
[2019-02-23 06:00] VITALS: BP 131/62
[2019-02-23] MEDS: FLUTICASONE HFA 220 MCG 12 GM INHALER (FLOVENT) INH SCH (07:10)
[2019-02-23] MEDS ORDERED: AMLO10TA5 PO (08:55)
[2019-02-23] MEDS ORDERED: FLUT22IN INH (08:55)
[2019-02-23] MEDS ORDERED: METO1TAB33 PO (08:55)
[2019-02-23] MEDS ORDERED: FURO40TA2 PO (08:55)
[2019-02-23] MEDS ORDERED: ASPI-1 PO (08:55)
[2019-02-23] MEDS ORDERED: PANT40TA3 PO (08:55)
[2019-02-23] MEDS ORDERED: COZA50TA PO (08:55)
[2019-02-23] MEDS ORDERED: CYMB1CAP5 PO (08:55)
[2019-02-23] MEDS ORDERED: TRIA37.53 PO (08:55)
[2019-02-23] MEDS ORDERED: GABA-845 PO (08:55)
[2019-02-23] MEDS ORDERED: OXYCO5TA PO (08:55)
[2019-02-23] MEDS ORDERED: GLUC500T PO (08:55)
[2019-02-23] MEDS ORDERED: ATOR1TAB21 PO (08:55)
[2019-02-23] MEDS: ANALGESIC BALM CRM 120 GM TOP SCH (09:00)
[2019-02-23] MEDS: POLYSPORIN TOPICAL OINTMENT 15GM TOP SCH (09:00)
[2019-02-23] MEDS: LIDOCAINE 5% (LIDODERM) PATCH TD SCH (09:16)
[2019-02-23] MEDS: PANTOPRAZOLE 40MG TAB (PROTONIX) PO SCH (09:18)
[2019-02-23] MEDS: HumaLOG INSULIN (NovoLOG) PER UNIT SC SCH ×2 (09:18→12:18)
[2019-02-23] MEDS: FUROSEMIDE 40 MG TAB PO SCH (09:18)
[2019-02-23] MEDS: GABAPENTIN 400 MG CAP PO SCH (09:18)
[2019-02-23] MEDS: DULoxetine 30 MG CAP (CYMBALTA) PO SCH (09:18)
[2019-02-23] MEDS: ATORVASTATIN 20 MG TAB PO SCH (09:18)
[2019-02-23] MEDS: ASPIRIN 325 MG TAB PO SCH (09:18)
[2019-02-23 09:19] VITALS: BP 131/62
[2019-02-23] MEDS: amLODIPine 10 MG TAB PO SCH (09:19)
[2019-02-23] MEDS: LOSARTAN 50 MG TAB PO SCH (09:19)
[2019-02-23] MEDS: METOPROLOL SUCC (TopROL XL) 100MG *XL* TAB PO SCH (09:19)
[2019-02-23] MEDS: metFORMIN (GLUCOPHAGE) 500 MG TAB PO SCH (09:19)
[2019-02-23] MEDS: DYAZIDE 37.5/25 CAP (TRIAM/HCTZ) PO SCH (09:19)
[2019-02-23] MEDS: BISACODYL 5 MG TAB PO SCH (09:19)
[2019-02-23] MEDS: oxyCODONE 5MG TAB PO PRN (09:20)
== END 2019-02-23 13:10 | disposition home health service (06) | DRG 862 ==
LOC: M PM&R 14:00
PROVIDERS: ADMIT Physical Medicine & Rehabilitation; ATTEND Physical Medicine & Rehabilitation
DX: S82.144D Nondisplaced bicondylar fracture of right tibia, subsequent encounter for closed fracture with routine healing (principal); E11.40 Type 2 diabetes mellitus with diabetic neuropathy, unspecified; E11.649 Type 2 diabetes mellitus with hypoglycemia without coma; E66.01 Morbid (severe) obesity due to excess calories; J44.9 Chronic obstructive pulmonary disease, unspecified; K21.9 Gastro-esophageal reflux disease without esophagitis; G47.33 Obstructive sleep apnea (adult) (pediatric); F17.200 Nicotine dependence, unspecified, uncomplicated; R26.89 Other abnormalities of gait and mobility; I12.9 Hypertensive chronic kidney disease with stage 1 through stage 4 chronic kidney disease, or unspecified chronic kidney disease; Z91.19 Patient's noncompliance with other medical treatment and regimen; W18.30XD Fall on same level, unspecified, subsequent encounter; Y92.009 Unspecified place in unspecified non-institutional (private) residence as the place of occurrence of the external cause; Z79.899 Other long term (current) drug therapy; Z79.82 Long term (current) use of aspirin; Z79.4 Long term (current) use of insulin; Z88.2 Allergy status to sulfonamides; Z88.6 Allergy status to analgesic agent; K59.00 Constipation, unspecified; N18.2 Chronic kidney disease, stage 2 (mild); E78.5 Hyperlipidemia, unspecified; F39 Unspecified mood [affective] disorder

== ENCOUNTER → 2019-06-01 | Outpatient (REF) | payer OTHER, MEDICAID ==
[~2019-06-01] MED LIST changes: +ATOR1TAB21 PO; +CYMB1CAP5 PO; +FLUT22IN INH; -GLIM4TAB3 PO; +GLIM4TAB5 PO; +GLUC500T PO; +METO1TAB33 PO; +OMEP1CAP73 PO; -OMEP20CA4 PO; +OXYCO5TA PO; +PANT40TA3 PO; +TRIA37.53 PO
[2019-06-01 17:16] LABS: BASO % 0.2 % (0.0-1.0); EOS # 0.1 10^3/uL (0.0-0.5); EOS % 0.7 % (0.0-3.0); HEMATOCRIT 54.6 % (42.0-52.0); HEMOGLOBIN 17.6 g/dl (13.5-17.5); LYMPH # 2.6 10^3/uL (1.5-5.0); LYMPH % 25.9 % (24.0-44.0); MEAN CORPUSCULAR HEMOGLOBIN 28.4 pg (27.0-33.0); MEAN CORPUSCULAR HGB CONC 32.2 g/dl (32.0-36.5); MEAN CORPUSCULAR VOLUME 88.1 fl (80.0-96.0); MONO # 0.8 10^3/uL (0.0-0.8); MONO % 7.6 % (0.0-5.0); NEUTROPHILS # 6.4 10^3/uL (1.5-8.5); NEUTROPHILS % 65.3 % (36.0-66.0); PLATELET COUNT, AUTOMATED 251 10^3/uL (150-450); WHITE BLOOD COUNT 9.8 10^3/uL (4.0-10.0)
[2019-06-01 17:46] LABS: ALBUMIN 2.9 GM/DL (3.2-5.2); ALT/SGPT 26 U/L (12-78); BILIRUBIN,TOTAL 0.3 MG/DL (0.2-1.0); BLOOD UREA NITROGEN 23 MG/DL (7-18); CALCIUM LEVEL 8.9 MG/DL (8.5-10.1); CARBON DIOXIDE LEVEL 34 MEQ/L (21-32); CHLORIDE LEVEL 100 MEQ/L (98-107); CHOLESTEROL LEVEL 163 MG/DL (<200); CHOLESTEROL RISK RATIO 2.629 (<5); CREATININE FOR GFR 1.02 MG/DL (0.70-1.30); GLOMERULAR FILTRATION RATE > 60.0 (>56); GLUCOSE, FASTING 135 MG/DL (70-100); HDL CHOLESTEROL 62 MG/DL (>40); LDL CHOLESTEROL 84 MG/DL (<100); NON-HDL-C 101 MG/DL; POTASSIUM SERUM 4.2 MEQ/L (3.5-5.1); SODIUM LEVEL 140 MEQ/L (136-145); TOTAL PROTEIN 7.6 GM/DL (6.4-8.2); TRIGLYCERIDES LEVEL 84 MG/DL (<150)
[2019-06-01 18:15] LABS: HEMOGLOBIN A1c 8.4 %
== END ==
LOC: M LAB REF 16:34
PROVIDERS: ATTEND Nurse Practitioner Family
DX: E11.9 Type 2 diabetes mellitus without complications (principal); Z74.09 Other reduced mobility; Z13.9 Encounter for screening, unspecified; E66.01 Morbid (severe) obesity due to excess calories; E78.00 Pure hypercholesterolemia, unspecified; I10 Essential (primary) hypertension

== ENCOUNTER → 2019-09-16 | Outpatient (REF) | payer OTHER, MEDICAID ==
[2019-09-16 13:12] LABS: BASO % 0.6 % (0.0-1.0); EOS # 0.2 10^3/uL (0.0-0.5); EOS % 2.3 % (0.0-3.0); HEMATOCRIT 52.4 % (42.0-52.0); HEMOGLOBIN 16.3 g/dl (13.5-17.5); LYMPH # 2.2 10^3/uL (1.5-5.0); LYMPH % 30.7 % (24.0-44.0); MEAN CORPUSCULAR HEMOGLOBIN 27.8 pg (27.0-33.0); MEAN CORPUSCULAR HGB CONC 31.1 g/dl (32.0-36.5); MEAN CORPUSCULAR VOLUME 89.4 fl (80.0-96.0); MONO # 0.8 10^3/uL (0.0-0.8); MONO % 11.8 % (0.0-5.0); NEUTROPHILS # 3.9 10^3/uL (1.5-8.5); NEUTROPHILS % 54.3 % (36.0-66.0); PLATELET COUNT, AUTOMATED 229 10^3/uL (150-450); RED BLOOD COUNT 5.86 10^6/uL (4.30-6.10); WHITE BLOOD COUNT 7.1 10^3/uL (4.0-10.0)
[2019-09-16 13:17] LABS: ALBUMIN 2.5 GM/DL (3.2-5.2); ALT/SGPT 43 U/L (12-78); BILIRUBIN,TOTAL 0.3 MG/DL (0.2-1.0); BLOOD UREA NITROGEN 14 MG/DL (7-18); CALCIUM LEVEL 8.4 MG/DL (8.5-10.1); CARBON DIOXIDE LEVEL 35 MEQ/L (21-32); CHLORIDE LEVEL 103 MEQ/L (98-107); CHOLESTEROL LEVEL 150 MG/DL (<200); CHOLESTEROL RISK RATIO 2.459 (<5); CREATININE FOR GFR 0.84 MG/DL (0.70-1.30); GLOMERULAR FILTRATION RATE > 60.0 (>56); GLUCOSE, FASTING 92 MG/DL (70-100); HDL CHOLESTEROL 61 MG/DL (>40); LDL CHOLESTEROL 75 MG/DL (<100); NON-HDL-C 89 MG/DL; POTASSIUM SERUM 3.7 MEQ/L (3.5-5.1); SODIUM LEVEL 140 MEQ/L (136-145); TRIGLYCERIDES LEVEL 72 MG/DL (<150)
== END ==
LOC: M LAB REF 12:48
PROVIDERS: ATTEND Nurse Practitioner Family
DX: E78.5 Hyperlipidemia, unspecified (principal); E11.40 Type 2 diabetes mellitus with diabetic neuropathy, unspecified; Z72.0 Tobacco use; E66.01 Morbid (severe) obesity due to excess calories

== ENCOUNTER → 2019-12-24 | Outpatient (REF) | payer OTHER, MEDICAID ==
[~2019-12-24] MED LIST changes: -AMLO10TA5 PO; +AMLO1TAB25 PO; +PANT40TA29 PO; -PANT40TA3 PO
[2019-12-24 13:14] LABS: BASO % 0.4 % (0.0-1.0); EOS # 0.1 10^3/uL (0.0-0.5); EOS % 1.8 % (0.0-3.0); HEMATOCRIT 54.6 % (42.0-52.0); HEMOGLOBIN 17.1 g/dl (13.5-17.5); LYMPH % 27.1 % (24.0-44.0); MEAN CORPUSCULAR HEMOGLOBIN 27.6 pg (27.0-33.0); MEAN CORPUSCULAR HGB CONC 31.3 g/dl (32.0-36.5); MEAN CORPUSCULAR VOLUME 88.2 fl (80.0-96.0); MONO # 0.9 10^3/uL (0.0-0.8); MONO % 12.4 % (0.0-5.0); NEUTROPHILS # 4.2 10^3/uL (1.5-8.5); NEUTROPHILS % 58.2 % (36.0-66.0); PLATELET COUNT, AUTOMATED 234 10^3/uL (150-450); RED BLOOD COUNT 6.19 10^6/uL (4.30-6.10); WHITE BLOOD COUNT 7.3 10^3/uL (4.0-10.0)
[2019-12-24 13:48] LABS: ALBUMIN 2.6 GM/DL (3.2-5.2); ALT/SGPT 60 U/L (12-78); BILIRUBIN,TOTAL 0.2 MG/DL (0.2-1.0); BLOOD UREA NITROGEN 24 MG/DL (7-18); CALCIUM LEVEL 8.7 MG/DL (8.5-10.1); CARBON DIOXIDE LEVEL 35 MEQ/L (21-32); CHLORIDE LEVEL 101 MEQ/L (98-107); CHOLESTEROL LEVEL 187 MG/DL (<200); CHOLESTEROL RISK RATIO 2.833 (<5); CREATININE FOR GFR 1.09 MG/DL (0.70-1.30); GLOMERULAR FILTRATION RATE > 60.0 (>56); GLUCOSE, FASTING 120 MG/DL (70-100); HDL CHOLESTEROL 66 MG/DL (>40); LDL CHOLESTEROL 103 MG/DL (<100); NON-HDL-C 121 MG/DL; POTASSIUM SERUM 4.2 MEQ/L (3.5-5.1); SODIUM LEVEL 138 MEQ/L (136-145); TOTAL PROTEIN 7.1 GM/DL (6.4-8.2); TRIGLYCERIDES LEVEL 92 MG/DL (<150)
[2019-12-24 15:25] LABS: HEMOGLOBIN A1c 5.7 %
== END ==
LOC: M LAB REF 12:17
PROVIDERS: ATTEND Nurse Practitioner Family
DX: E78.5 Hyperlipidemia, unspecified (principal); E11.40 Type 2 diabetes mellitus with diabetic neuropathy, unspecified; Z13.9 Encounter for screening, unspecified; M19.90 Unspecified osteoarthritis, unspecified site; E66.01 Morbid (severe) obesity due to excess calories; F17.200 Nicotine dependence, unspecified, uncomplicated; I10 Essential (primary) hypertension; Z74.09 Other reduced mobility

== ENCOUNTER → 2020-01-08 | Outpatient (REF) | payer OTHER, MEDICAID ==
[2020-01-08 13:04] LABS: APPEARANCE, URINE CLEAR (CLEAR); BACTERIA, URINE AUTO NEGATIVE (NEGATIVE); BILIRUBIN, URINE AUTO NEGATIVE (NEGATIVE); BLOOD, URINE BLOOD 1+ (NEGATIVE); COLOR, URINE YELLOW (YELLOW); GLUCOSE, URINE (UA) AUTO 1+ mg/dL (NEGATIVE); KETONE, URINE AUTO NEGATIVE (NEGATIVE); LEUKOCYTE ESTERASE, URINE AUTO NEGATIVE (NEGATIVE); MUCUS, URINE SMALL (NEGATIVE); NITRITE, URINE AUTO NEGATIVE (NEGATIVE); PROTEIN, URINE AUTO 3+ mg/dL (NEGATIVE); RBC, URINE AUTO 10 /HPF (0-3); SPECIFIC GRAVITY URINE AUTO 1.017 (1.002-1.035); SQUAMOUS EPITHELIAL CELL UR AU 0 /HPF (0-6); UROBILINOGEN, URINE AUTO 0.2 mg/dL (0.0-2.0); WBC, URINE AUTO 2 /HPF (0-3)
== END ==
LOC: M LAB REF 11:32
PROVIDERS: ATTEND Nurse Practitioner Family
DX: R35.0 Frequency of micturition (principal)

== ENCOUNTER → 2020-02-18 | Outpatient (CLI) | payer OTHER, MEDICAID ==
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
== END ==
LOC: M PAIN 09:15
PROVIDERS: ATTEND Family Medicine
DX: M79.18 Myalgia, other site (principal); E11.9 Type 2 diabetes mellitus without complications; G47.30 Sleep apnea, unspecified; I10 Essential (primary) hypertension; K21.9 Gastro-esophageal reflux disease without esophagitis; J44.9 Chronic obstructive pulmonary disease, unspecified; F17.210 Nicotine dependence, cigarettes, uncomplicated; Z88.2 Allergy status to sulfonamides; Z88.6 Allergy status to analgesic agent; E66.01 Morbid (severe) obesity due to excess calories; Z68.43 Body mass index [BMI] 50.0-59.9, adult; Z79.4 Long term (current) use of insulin; Z79.82 Long term (current) use of aspirin; Z79.899 Other long term (current) drug therapy

== ENCOUNTER 2020-03-19 14:39 | Emergency (ER) | payer MEDICAID, OTHER ==
[~2020-03-19] VITALS: Ht 165.1 cm; Wt 159.1 kg
[2020-03-19 16:02] LABS: BASO % 0.3 % (0.0-1.0); EOS # 0.1 10^3/uL (0.0-0.5); EOS % 1.4 % (0.0-3.0); HEMATOCRIT 47.7 % (42.0-52.0); HEMOGLOBIN 14.5 g/dl (13.5-17.5); LYMPH # 2.2 10^3/uL (1.5-5.0); LYMPH % 28.4 % (24.0-44.0); MEAN CORPUSCULAR HEMOGLOBIN 26.9 pg (27.0-33.0); MEAN CORPUSCULAR HGB CONC 30.4 g/dl (32.0-36.5); MEAN CORPUSCULAR VOLUME 88.3 fl (80.0-96.0); MONO # 0.9 10^3/uL (0.0-0.8); MONO % 11.8 % (0.0-5.0); NEUTROPHILS # 4.4 10^3/uL (1.5-8.5); NEUTROPHILS % 57.7 % (36.0-66.0); PLATELET COUNT, AUTOMATED 217 10^3/uL (150-450); WHITE BLOOD COUNT 7.6 10^3/uL (4.0-10.0)
[2020-03-19 16:30] LABS: ALT/SGPT 23 U/L (12-78); BILIRUBIN,DIRECT < 0.1 MG/DL (0.0-0.2); BILIRUBIN,TOTAL 0.2 MG/DL (0.2-1.0); BLOOD UREA NITROGEN 24 MG/DL (7-18); CALCIUM LEVEL 8.1 MG/DL (8.5-10.1); CARBON DIOXIDE LEVEL 33 MEQ/L (21-32); CHLORIDE LEVEL 106 MEQ/L (98-107); CREATININE FOR GFR 1.36 MG/DL (0.70-1.30); GLOMERULAR FILTRATION RATE > 60.0 (>56); GLUCOSE, FASTING 85 MG/DL (70-100); NT-PRO BNP 305 PG/ML (<125); POTASSIUM SERUM 3.8 MEQ/L (3.5-5.1); SODIUM LEVEL 144 MEQ/L (136-145)
[2020-03-19 16:31] LABS: C REACTIVE PROTEIN QUANTITATIV 3.27 MG/DL (0.00-0.30)
--- NOTE | 2020-03-19 16:33 | REP ---
INDICATION: pain to anterior montana, ulcerated area COMPARISON: 01/25/2019. TECHNIQUE: AP and lateral views right lower leg obtained. FINDINGS: There is no evidence of acute fracture, dislocation, or intrinsic bone disease.I see no osseous destruction or signs of osteomyelitis. Old healed lateral tibial plateau fracture is noted. There are mild degenerative changes at the knee. Moderate spurring of the lateral femoral condyle. The ankle mortise is anatomic. There are multiple small phleboliths in the anterior soft tissues. No foreign body is seen in the soft tissues. IMPRESSION: No fracture or dislocation. No acute findings. No radiographic signs of osteomyelitis. <Electronically signed by Hans Chaparro > 03/19/20 2389
[2020-03-19] MEDS ORDERED: oxyCODONE 5MG TAB PO ONE (16:45)
[2020-03-19 16:53] LABS: ERYTHROCYTE SEDIMENTATION RATE 41 mm/hr (0-20)
--- NOTE | 2020-03-19 17:02 | REP ---
INDICATION: swollen, tender, ulcer to montana COMPARISON: None. TECHNIQUE: Real time compression and duplex Doppler interrogation of the right lower extremity deep venous system is performed. FINDINGS: The right common femoral, superficial femoral and popliteal veins are fully compressible with transducer pressure and demonstrate normal spontaneous and phasic flow, without evidence of deep venous thrombosis. IMPRESSION: No evidence of deep venous thrombosis of the right lower extremity femoral popliteal venous system. <Electronically signed by Hans Chaparro > 03/19/20 0750
[2020-03-19] MEDS ORDERED: NYST10CR TOP (17:36)
[2020-03-19 18:00] VITALS: BP 136/76
== END 2020-03-19 17:56 | disposition home or self-care (01) ==
LOC: M ED 14:39 → EDBD 14:39 → M ED 17:56
DX: I83.018 Varicose veins of right lower extremity with ulcer other part of lower leg (principal); N18.30 Chronic kidney disease, stage 3 unspecified; B37.2 Candidiasis of skin and nail; R46.0 Very low level of personal hygiene; E66.9 Obesity, unspecified; E11.9 Type 2 diabetes mellitus without complications; I10 Essential (primary) hypertension; E78.5 Hyperlipidemia, unspecified; J44.9 Chronic obstructive pulmonary disease, unspecified; G47.33 Obstructive sleep apnea (adult) (pediatric); F17.200 Nicotine dependence, unspecified, uncomplicated; F12.10 Cannabis abuse, uncomplicated; Z79.82 Long term (current) use of aspirin; Z79.4 Long term (current) use of insulin; Z79.899 Other long term (current) drug therapy; Z88.6 Allergy status to analgesic agent; Z88.2 Allergy status to sulfonamides

== ENCOUNTER 2020-04-19 09:41 | Emergency (ER) | payer MEDICAID, OTHER ==
[~2020-04-19] VITALS: Ht 165.1 cm; Wt 159.1 kg
[~2020-04-19 09:41] MED LIST changes: +NYST10CR TOP
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
--- OUTSIDE RECORDS SUMMARY | 2020-04-19 09:51 | CCD ---
Author Author [facility] Organization [facility] Address Unknown Phone Unavailable Care Team Providers Care Motion Picture Projectionist Name Role Phone Jason Woo Unavailable PROBLEMS Type Condition ICD9-CM Code BER32-CA Code Onset Dates Condition S tatus SNOMED Code Notes Problem Morbid obesity 278.01 Active 247699434 Problem Nondependent tobacco use disorder 305.1 Active 962781779 Problem Diabetes mellitus without me ntion of complication, type II or unspecified type, not stated as uncontrolled 250.00 Ac tive 941745453 Problem Other and unspecified hyperlipidemia 272.4 Act shana 82170590 Problem Type 2 diabetes mellitus wit h foot ulcer, with long-term current use of insulin E11.621 Active 468164767 Problem 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 I87.312 Active 794128036 Problem History of diabetes mellitus, type II Z86.39 Ac tive 845032921 Problem Osteoarthrosis involving mor e than one site, but not specified as generalized, unspecified site 715.80 Active 508823 02 Problem Obesity, unspecified classif ication, unspecified obesity type, unspecified whether serious comorbidity present E66.9 Active 748691492 Problem Pain in left knee M25.562 Active 35315465685327 2 Problem Pain in right knee M25.561 Active 42320944 Problem Other chronic pain G89.29 Active 36067358 Problem Myalgia, other site M79.18 Active 31279039 Problem Low back pain M54.5 Active 124418746 Problem unspecified essential hypertension 401.9 Activ e 78574925 Problem Chronic venous hypertension (idiopathic) with ulcer of left lower extremity I87.312 Active 382952432732908 Problem History of high blood pressure Z86.79 Active 1 83492368 Problem Esophageal reflux 530.81 Active 942492767 Problem Chronic airway obstruction, not elsewhere classified 496 Active 86282863 Problem Lymphedema I89.0 Active 581051799 Problem Chronic venous hypertension (idiopathic) with ulcer of right lower extremity I87.311 Active 595626593 Problem Non-pressure chronic ulcer o f other part of left lower leg with fat layer exposed L97.822 Active 754435096 Problem Non-pressure chronic ulcer o f other part of right lower leg with fat layer exposed L97.812 Active 939711431 ALLERGIES Allergen (clinical drug ingredient) Drug/Non Drug Allergy do cumented on EMR Reaction Allergy Type Onset Date Status ibuprofen Ibuprofen([facility] Code:[address]-66) kidney problems Drug All ergy Active Sulfa (for allergy use only) hives Drug Allergy Active ENCOUNTERS from 1962 to 2020-04-06 Encounter Location Date Provider Diagnosis [facility] [address] [place] [phone] Mar Jason Woo IMMUNIZATIONS Vaccine Route Administration Date Status Influenza (Pharmacy Given) Unknown Feb 11, 2018 Admin istered Influenza (6mo & up) Fluzone IM Intramuscular Jan 01, 2012 Ad ministered SOCIAL HISTORY Tobacco Use: Social History Observation Description Date Details (start date - stop date) Current Smoker Sex Assigned At : Social History Observation Description Sex Assigned At Unknown Mandaeism: Question Answer Notes Mandaeism 03 Anabaptist Alcohol Screening: Question Answer Notes Did you [...] you interested in quitting? Thinking about quitting Clie nt using Nicoderm patch and gum that [...] as directed Orally Not-Taking Vitamin D (Ergocalciferol) 29332 UNIT 1 capsule Orally Active Aspirin 325 [...] Information RESULTS No Results REASON FOR VISIT No Information MEDICAL (GENERAL) HISTORY Type Description Date Medical [...] PLAN OF TREATMENT Next Appt Details Provider Name:Marko Garcia, 2020-04-11 09:30:00 AM, [address] [place] [address], [phone], Provider Name:Jason Woo, 09:15:00 AM, [address] [place] [address], [phone], Provider Name:Chris Glez, 2020-04-25 10:15:00 AM, [address] [place] [address], [phone], Insurance Providers Payer Name Payer Address Payer Phone Insured Name Patient Relati onship to Insured Coverage Start Date Coverage End Date MEDICAID [employer] [address] [facility] [id number] ARLYN RAGLAND self [employer] DEPT [address] [place] [phone] ARLYN RAGLAND self
--- OUTSIDE RECORDS SUMMARY | 2020-04-19 09:51 | CCD ---
Author Author [facility] Organization [facility] Address Unknown Phone Unavailable Care Team Providers Care Machine Assembler Name Role Phone Anna Marie Moe Unavailable PROBLEMS Type Condition ICD9-CM Code ATE39-SU Code Onset Dates Condition S tatus SNOMED Code Notes Problem Morbid obesity 278.01 Active 175024970 Problem Nondependent tobacco use disorder 305.1 Active 004037749 Problem Diabetes mellitus without me ntion of complication, type II or unspecified type, not stated as uncontrolled 250.00 Ac tive 697599233 Problem Other and unspecified hyperlipidemia 272.4 Act shana 43195026 Problem Type 2 diabetes mellitus wit h foot ulcer, with long-term current use of insulin E11.621 Active 159967574 Problem 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 I87.312 Active 009819171 Problem History of diabetes mellitus, type II Z86.39 Ac tive 627228501 Problem Osteoarthrosis involving mor e than one site, but not specified as generalized, unspecified site 715.80 Active 920524 02 Problem Obesity, unspecified classif ication, unspecified obesity type, unspecified whether serious comorbidity present E66.9 Active 531763930 Problem Pain in left knee M25.562 Active 70462974466852 2 Problem Pain in right knee M25.561 Active 61204097 Problem Other chronic pain G89.29 Active 86005798 Problem Myalgia, other site M79.18 Active 34050324 Problem Low back pain M54.5 Active 810357895 Problem unspecified essential hypertension 401.9 Activ e 97077269 Problem Chronic venous hypertension (idiopathic) with ulcer of left lower extremity I87.312 Active 686721713500401 Problem History of high blood pressure Z86.79 Active 1 32656202 Problem Esophageal reflux 530.81 Active 211679671 Problem Chronic airway obstruction, not elsewhere classified 496 Active 53606014 Problem Lymphedema I89.0 Active 846909435 Problem Chronic venous hypertension (idiopathic) with ulcer of right lower extremity I87.311 Active 756824925 Problem Non-pressure chronic ulcer o f other part of left lower leg with fat layer exposed L97.822 Active 651118746 Problem Non-pressure chronic ulcer o f other part of right lower leg with fat layer exposed L97.812 Active 815015416 ALLERGIES Allergen (clinical drug ingredient) Drug/Non Drug Allergy do cumented on EMR Reaction Allergy Type Onset Date Status ibuprofen Ibuprofen([facility] Code:[address]-81) kidney problems Drug All ergy Active Sulfa (for allergy use only) hives Drug Allergy Active ENCOUNTERS from 1962 to 2020-04-06 Encounter Location Date Provider Diagnosis [facility] [address] [place] [address] Mar Anna Marie Moe IMMUNIZATIONS Vaccine Route Administration Date Status Influenza (Pharmacy Given) Unknown Feb 11, 2018 Admin istered Influenza (6mo & up) Fluzone IM Intramuscular Jan 01, 2012 Ad ministered SOCIAL HISTORY Tobacco Use: Social History Observation Description Date Details (start date - stop date) Current Smoker Sex Assigned At : Social History Observation Description Sex Assigned At Unknown Presybeterian: Question Answer Notes Presybeterian 03 Yazdanism Alcohol Screening: Question Answer Notes Did you [...] you interested in quitting? Thinking about quitting Gopalie nt using Nicoderm patch and gum that [...] as directed Orally Not-Taking Vitamin D (Ergocalciferol) 00180 UNIT 1 capsule Orally Active Aspirin 325 [...] Information RESULTS No Results REASON FOR VISIT Transportation MEDICAL (GENERAL) HISTORY Type Description Date Medical [...] Details Provider Name:Marko Garcia, 2020-04-11 09:30:00 AM, [address] [place] [address], [phone], Provider Name:Jason Woo, 09:15:00 AM, [place], [address], Provider Name:Chris Glez, 2020-04-25 10:15:00 AM, [address] [place] [address], [phone], Insurance Providers Payer Name Payer Address Payer Phone Insured Name Patient Relati onship to Insured Coverage Start Date Coverage End Date [employer] DE[employer] [address] [facility] [phone] ARLYN RAGLAND self MEDICAID [facility] Code Fever [address] [facility] [address] ARLYN RAGLAND self
--- OUTSIDE RECORDS SUMMARY | 2020-04-19 09:51 | CCD ---
Author Author [facility] Organization [facility] Address Unknown Phone Unavailable Care Team Providers Care Natural Fabricator Name Role Phone Anna Marie Moe Unavailable PROBLEMS Type Condition ICD9-CM Code RAH72-VW Code Onset Dates Condition S tatus SNOMED Code Notes Problem Morbid obesity 278.01 Active 421883839 Problem Nondependent tobacco use disorder 305.1 Active 374868286 Problem Diabetes mellitus without me ntion of complication, type II or unspecified type, not stated as uncontrolled 250.00 Ac tive 541694632 Problem Other and unspecified hyperlipidemia 272.4 Act shana 71854164 Problem Type 2 diabetes mellitus wit h foot ulcer, with long-term current use of insulin E11.621 Active 898195477 Problem 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 I87.312 Active 600174576 Problem History of diabetes mellitus, type II Z86.39 Ac tive 136687427 Problem Osteoarthrosis involving mor e than one site, but not specified as generalized, unspecified site 715.80 Active 022952 02 Problem Obesity, unspecified classif ication, unspecified obesity type, unspecified whether serious comorbidity present E66.9 Active 996420326 Problem Pain in left knee M25.562 Active 13471804008758 2 Problem Pain in right knee M25.561 Active 51896243 Problem Other chronic pain G89.29 Active 62709204 Problem Myalgia, other site M79.18 Active 55270626 Problem Low back pain M54.5 Active 335804331 Problem unspecified essential hypertension 401.9 Activ e 20624538 Problem Chronic venous hypertension (idiopathic) with ulcer of left lower extremity I87.312 Active 157055097798734 Problem History of high blood pressure Z86.79 Active 1 66204145 Problem Esophageal reflux 530.81 Active 432253742 Problem Chronic airway obstruction, not elsewhere classified 496 Active 24550268 Problem Lymphedema I89.0 Active 346553679 Problem Chronic venous hypertension (idiopathic) with ulcer of right lower extremity I87.311 Active 394133233 Problem Non-pressure chronic ulcer o f other part of left lower leg with fat layer exposed L97.822 Active 920824609 Problem Non-pressure chronic ulcer o f other part of right lower leg with fat layer exposed L97.812 Active 210940073 ALLERGIES Allergen (clinical drug ingredient) Drug/Non Drug Allergy do cumented on EMR Reaction Allergy Type Onset Date Status ibuprofen Ibuprofen([facility] Code:[address]-42) kidney problems Drug All ergy Active Sulfa (for allergy use only) hives Drug Allergy Active ENCOUNTERS from 1962 to 2020-04-07 Encounter Location Date Provider Diagnosis [facility] [address] [place] [address] Mar Anna Marie Moe IMMUNIZATIONS Vaccine Route Administration Date Status Influenza (Pharmacy Given) Unknown Feb 11, 2018 Admin istered Influenza (6mo & up) Fluzone IM Intramuscular Jan 01, 2012 Ad ministered SOCIAL HISTORY Tobacco Use: Social History Observation Description Date Details (start date - stop date) Current Smoker Sex Assigned At : Social History Observation Description Sex Assigned At Unknown Advent: Question Answer Notes Advent 03 Moravian Alcohol Screening: Question Answer Notes Did you have a drink containing alcohol in the past year? No Points 0 Interpretation Negative Tobacco Use: Question Answer Notes Are you a: current smoker 1 PPD x 40 years Patient counseled on the dangers of tobacco use and urged to quit: 02/18/2020 How many cigarettes a day do you smoke? 11- Are you interested in quitting? Thinking about quitting Jackeline nt using Nicoderm patch and gum that is helping sometimes REASON FOR REFERRAL No Information VITAL SIGNS Weight 350 lbs Mar, Weight-kg per pt kg Mar, Height 65 in Mar, BMI 58.24 kg/m2 Mar, Heart Rate 88 /min Mar, Respiratory Rate 19 /min Mar, Temperature 97.0 degrees Fahrenheit Mar, Oximetry 97% Mar, Blood pressure systolic 160 mm Hg Mar, Blood pressure diastolic 91 mm Hg Mar, MEDICATIONS Medication SIG (Take, [...] 50 UNITS DAILY Not-Taking Vitamin D (Ergocalciferol) 92160 UNIT 1 capsule Orally Active Trulicity 0.75 MG/0.5ML as directed Subcutaneous Daily Active Sudanyl Active PROCEDURES No Information RESULTS No Results REASON FOR VISIT LLE WOUND MEDICAL (GENERAL) HISTORY Type Description Date Medical [...] hx drug abuse (crack), with rehab in . No recreational drugs since that time Surgical [...] Treatment Notes Treatm ent Clinical Notes Mar, Other pt here for [place] visit. old dressings removed and legs cleansed. clean dressings applied. provider available for any questions or concerns. SOLE MACHADO RN PLAN OF TREATMENT Next Appt Details Provider Name:Jason Woo, 09:15:00 AM, [address] [place], [address], Insurance Providers Payer Name Payer Address Payer Phone Insured Name Patient Relati onship to Insured Coverage Start Date Coverage End Date MEDICAID [employer] [address] [facility] [id number] A[place] [employer] DEPT [address] [facility] [phone] ARLYN RAGLAND
--- OUTSIDE RECORDS SUMMARY | 2020-04-19 09:52 | CCD | Continuity of Care Document ---
Author Author Clinton Perez MD Organization Unknown Address [address] [place] [address] Phone [phone] Care Team Providers Care Manager Pediatric Name Role Phone Vanessa Conde MD AUTM [phone] Sandie Kang NP AUTM [phone] Problems Active Problems Provider Date Type 2 diabetes mellitus Oskar Perez MD Onset: 020 Essential hypertension Oskar Perez MD Onset: 0 Age-related cataract Oskar Perez MD Onset: 11/18/2019 Presence of intraocular lens Oskar Perez MD Onset: 04/2019 Corneal transplant Oskar Perez MD Onset: 12/08/2019 Social History Type Date Description Comments Sex Unknown ETOH Use Rarely consumes alcohol Tobacco Use Start: Unknown Heavy tobacco smoker (more than 10 cigarettes/day) Recreational Drug Use Current marijuana use Smoking Status Reviewed: 01/20/20 Heavy tobacco smoker (more than 10 cigarettes/day) Allergies, Adverse Reactions, Alerts Active Allergies Reaction Severity Comments Date Motrin 11/18/2019 Sulfa Antibiotics 11/18/2019 Medications Active Medications SIG Qnty Indications Ordering Provide r Date Ocuflox 0.3% Solution 1 drop in the left eye 1 time a day 5units Oskar ePrez MD 12/02/2019 Pred Forte 1% Suspension 1 drop left eye 6 x day 15ml Oskar Perez MD 12/02/2019 Vitamin D3 1.25mg (23617 Ut) Capsules Unknown Triamcinolone Acetonide 0.05% Oint ment Apply To Affected Area S Two Times A Day as Needed Unknown Fluticasone Propionate 50mcg/Act Suspension Sandie Kang NP Albuterol Sulfate HFA 108(90Base) mcg/Act Aerosol Inhale Two Puffs By Mouth Four Times A Day as Needed Unknown Arnuity Ellipta 100mcg/Act Aerosol Sandie Kang NP BD Pen Needle/Krupa/Ultra -Fine/32G X 4mm 32G X 4 mm Misc Use Four Times A Day Unknown Freestyle Lancets Misc Test Four Times A Day Unknown Triamterene/Hydrochlorothiazide 37.5-25mg Capsules Sandie Kang NP Trulicity 0.75mg/0.5 ML Solution Pen-Inject Inject 0.75MG Once Weekly. If Tolerated Call MD To Increase 1.5MG After One Month Unknown Basaglar Kwikpen 100 Unit/ML Solution Pen-Inject Sandie Kang NP Amlodipine Besylate 10mg Tablets Sandie Kang NP Vitamin D (Ergocalciferol) 1.25mg (98117 Ut) Capsules Take 1 Capsule By Mouth Every Week Unknow n Trazodone HCL 50mg Tablets Sandie Kang NP Aspirin Ec 325mg Tablets DR Take One Tablet By Mouth Every Day Unknown FQ Protective Underwear Misc Sandie Kang NP Metformin HCL 500mg Tablets Take One Tablet By Mouth Twice A Day Unknown Furosemide 40mg Tablets Sandie Kang NP Duloxetine HCL 60mg Caps Sandie Guan NP Atorvastatin Calcium 40mg Tablets Sandie Kang NP Gabapentin 400mg Capsules Sandie Kang NP Immunizations Description No Information Available Vital Signs Date Vital Result Comment 01/20/2020 9:10am Intraocular Pressure Right Eye 16 mmHg Tp Intraocular Pressure Left Eye 18 mmHg Tp 09:10 A m 01/04/2020 12:39pm Intraocular Pressure Right Eye 21 mmHg Tp 12:39 PM Recheck IOP Left Eye 15 Tp SGS 12:55 PM Results Description No Information Available Procedures Date Code Description Status 12/07/2019 05109 Extracapsular Cat RE M W/Insert IOL,Manual/Phacoemulsification OS Completed 12/07/2019 23431 Keratoplasty(Corneal Transplant) ,Lamellar;Autograft OS Completed 11/18/2019 11564 Corneal Topography Unil/Bilat Co mpleted 11/18/2019 35605 Exam Comprehensive, New PT Compl eted Medical Devices Description No Information Available Encounters Type Date Location Provider Dx Diagnosis Office Visit 01/04/2020 12:45p Main Office Oskar Perez MD 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 Z96.1 Presence of intraocular lens Office Visit 12/18/2019 10:30a Main Office Oskar Perez MD 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 Office Visit 12/08/2019 1:00p Main Office Oskar Perez MD 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 Z96.1 Presence of intraocular lens Office Visit 12/02/2019 12:45p Main Office Schedule HX/Phys/Calc H18. 603 Keratoconus, unspecified, bilateral H17.89 Other corneal scars and opac ities H25.813 Combined forms of age-relate d cataract, bilateral Z03.818 Encntr for obs for susp exps r to oth biolg agents ruled out Office Visit 11/18/2019 12:45p Main Office Oskar Perez MD H18.6 03 Keratoconus, unspecified, bilateral H17.89 Other corneal scars and opac ities H25.813 Combined forms of age-relate d cataract, bilateral Assessments Date Code Description Provider 01/20/2020 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 Fabrizio Perez MD 01/04/2020 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 Fabrizio Perez MD 01/04/2020 Z96.1 Presence of intraocular lens Devon Perez MD 12/18/2019 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 Fabrizio Perez MD 12/08/2019 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 Fabrizio Perez MD 12/08/2019 Z96.1 Presence of intraocular lens Devon Perez MD 12/07/2019 H25.812 Combined forms of age-related ca taract, left eye Oskar Perez MD 12/07/2019 H18.602 Keratoconus, unspecified, left e ye Oskar Perez MD 12/02/2019 H18.603 Keratoconus, unspecified, bilate ral Oskar Perez MD 12/02/2019 H18.603 Keratoconus, unspecified, bilate ral Schedule HX/Phys/Calc 12/02/2019 H17.89 Other corneal scars and opacitie s Oskar Perez MD 12/02/2019 H17.89 Other corneal scars and opacitie s Schedule HX/Phys/Calc 12/02/2019 H25.813 Combined forms of age-related ca taract, bilateral Oskar Perez MD 12/02/2019 H25.813 Combined forms of age-related ca taract, bilateral Schedule HX/Phys/Calc 12/02/2019 Z03.818 Encounter for observ ation for suspected exposure to other biological agents ruled out Oskar Perez MD 12/02/2019 Z03.818 Encounter for observ ation for suspected exposure to other biological agents ruled out Schedule HX/Phys/Calc 11/18/2019 H18.603 Keratoconus, unspecified, bilate ral Oskar Perez MD 11/18/2019 H18.603 Keratoconus, unspecified, bilate ral Schedule HX/Phys/Calc 11/18/2019 H18.603 Keratoconus, unspecified, bilate ral Oskar Perez MD 11/18/2019 H17.89 Other corneal scars and opacitie s Oskar Perez MD 11/18/2019 H25.813 Combined forms of age-related ca taract, bilateral Oskar Perez MD Plan of Treatment 01/20/2020 - Oskar Perez MD* 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* Comments:* pforte 6 times a day * Follow up:* 2-3 WEEKS CORNEA CHK/NON-DIL Functional Status Description No Information Available Mental Status Description No Information Available Referrals Refer to Reason for Referral Status Appt Date Oskar Perez MD Created [address] [address] [phone] Oskar Perez MD You referred this patient to our practice. Please be advised the patient failed to keep their scheduled appointment. This referral is now closed and this patient is not eligible for future appointments with our office. We hope this is helpful. Please contact us if we can be of further service at . Cataract and PK eval OU Closed 09/29/2019 [address] [facility] [address] [place] [address] [phone]
--- OUTSIDE RECORDS SUMMARY | 2020-04-19 09:52 | CCD ---
Author Organization Unknown Address [address] [place] [address] Phone [phone] Care Team Providers Care Automobile Mechanic Radiator Name Role Phone Sandie Kang Unavailable Unavailable Allergies Code Code System Name Reaction Severity Status Onset 5640 RxNorm Ibuprofen Active Notes: SULFA - Reaction: Rash Medications Name Status Start Date Stop Date Admelog SoloStar U-100 Insulin lispro 100 unit/mL subcutaneous p en Active Not available albuterol sulfate HFA 90 mcg/actuation aerosol inhaler Active Not available Alcohol Prep Pads Active Not available amlodipine 10 mg tablet Active Not avai lable Arnuity Ellipta 100 mcg/actuation powder for inhalation Active Not available aspirin 325 mg tablet Active Not availa ble aspirin 325 mg tablet,delayed release Completed 03/14/2020 atorvastatin 40 mg tablet Active Not av ailable azithromycin 250 mg tablet Completed 03/14 BD Ultra-Fine Krupa Pen Needle 32 gauge x 5/32" Active Not available cyclobenzaprine 5 mg tablet Active Not available doxycycline hyclate 100 mg capsule Take 1 capsule twice a day by oral route. Active Not available duloxetine 30 mg capsule,delayed release Completed 03/14/2020 duloxetine 60 mg capsule,delayed release Completed 03/14/2020 ergocalciferol (vitamin D2) 1,250 mcg (50,000 unit) capsule Acti ve Not available Flovent HFA 220 mcg/actuation aerosol inhaler Active Not available fluticasone propionate 50 mcg/actuation nasal spray,suspension A ctive Not available FreeStyle Lancets 28 gauge Active Not a vailable FreeStyle Lite Meter kit Active Not zoran ilable FreeStyle Lite Strips Active Not availa ble furosemide 40 mg tablet Active Not avai lable gabapentin 400 mg capsule Active Not av ailable losartan 50 mg tablet Active Not availa ble metformin 500 mg tablet Active Not avai lable metoprolol succinate ER 100 mg tablet,ex tended release 24 hr Take 1 tablet every day by oral route as directed. Active Not available mupirocin 2 % topical ointment APPLY A SMALL AMOUNT TO THE AFFECTED AREA BY TOPICAL ROUTE 2 TIMES PER DAY NEEDED Active Not available nicotine (polacrilex) 4 mg gum Completed 1 05/15/2019 nicotine 21 mg/24 hr daily transdermal patch Completed 03/14/2020 ofloxacin 0.3 % eye drops INSTILL ONE DROP INTO LEFT EYE ONCE DAILY Active Not available oxycodone 5 mg tablet Completed 03/14/2020 pantoprazole 40 mg tablet,delayed release Active Not available prednisolone acetate 1 % eye drops,suspension Active Not available Protective Underwear Ex-Large USE DIRECTED FOUR TIMES A DAY NEEDED FOR INCONTINENCE Active Not available Semglee Pen U-100 Insulin 100 unit/mL (3 mL) subcutaneous Active Not available tramadol 50 mg tablet Active Not availa ble trazodone 100 mg tablet Active Not avai lable trazodone 50 mg tablet Completed 0 triamcinolone acetonide 0.05 % topical ointment Completed 03/14/2020 triamcinolone acetonide 0.5 % topical ointment Active Not available triamterene 37.5 mg-hydrochlorothiazide 25 mg capsule Active Not available Trulicity 0.75 mg/0.5 mL subcutaneous pen injector Active Not available Problems Name Status Onset Date Source Obstructive Sleep Apnea Syndrome Active 02/15/2012 History Andre Type IIa Hyperlipoproteinemia Active 2012 History Clinical Finding Active 07/30/2012 History Disorder of Nervous System Due to Type 2 Diabetes Mellitus Activ e 08/11/2012 History Degeneration of Lumbar Intervertebral Disc Active 08/11 History Vitamin D Deficiency Active 09/11/2013 History Severe Obesity Active 09/21/2013 History Arthropathy Active 09/21/2013 History Clinical Finding Active 09/21/2014 History Body Mass Index 30+ - Obesity Active 06/11/2017 Hi story Chronic Pain Syndrome Active 06/11/2017 History Tobacco Use and Exposure - Finding Active 06/11/2017 History Finding Related to Sleep Active 06/11/2017 History Changes in Skin Texture Active 08/26/2017 History Skin Ulcer Due to Type 2 Diabetes Mellitus Active 11/25 History Clinical Finding Active 11/26/2017 History Dyspnea Active 04/09/2018 History Screening Procedure Active 04/24/2018 History Confined to Chair Active 05/28/2018 History Chronic Obstructive Lung Disease Active 11/06/2018 History Hyperlipidemia Active 12/26/2018 History Neuropathy Due to Type 2 Diabetes Mellitus Active 12/26 History Fracture of Patella Active 03/03/2019 History Nicotine Dependence Active 06/01/2019 History Atopic Dermatitis Active 06/01/2019 History Disorder of Upper Respiratory System Active 07/01/2019 History Patient Asked to Attend Active 07/01/2019 History Increased Frequency of Urination Active 11/04/2019 History Pre-surgery Testing Active 12/03/2019 History Cataract Due to Diabetes Mellitus Type 2 Active 020 History Cellulitis of Right Lower Limb Active 03/14/2020 Hypertensive Disorder Active History Finding of Esophagus Active History Family History of Respiratory Disease Active History Procedures Notes: stiches from accident Results Lab Results None recorded. Past Encounters 03/14/2020 Cellulitis of Right Lower Limb; Hypertensive Disorder Sandie Kang SEE WHEELER-: [address] [place] [phone], Ph. Social History Tobacco Smoking Status Heavy Tobacco Smoker (1/2 PPD) Vaccine List Vaccine Type influenza, seasonal, injectable 12/25/2013 influenza, unspecified formulation 03/03/2019 pneumococcal polysaccharide PPV23 12/30/20140.5 mL Plan of Care Patient Instructions Blood pressure elevated today. script s ent to restart Metoprolol. Please continue medications as prescribed. Please try to avoid added sodium in your diet. Please try to avoid processed foods. Please try to limit your caffeine intake. Please try to maintain adequate intake of water daily. Please return to clinic in one week for nurse visit to have BP rechecked. right leg / [place] ulcer Please keep clean and dry. Apply mupirocin ointment to open areas twice daily as needed. script sent for abx .Please report any major medication side effects. Reminders Provider Appointments None recorded. Lab None recorded. Referral None recorded. Procedures None recorded. Surgeries None recorded. Imaging None recorded. Vitals 03/14/2020 02:00PM ESTABLISHED [id number] Height Weight BMI Blood Pressure 65.5 in 359 lbs 9.6 oz 58.9 kg/m2 164/91 mm[Hg ] 12/03/2019 Height Weight Blood Pressure 65.5 in 351 lbs 152/89 mm[Hg] 11/04/2019 Height Weight Blood Pressure 65.5 in 351 lbs 2.08 oz 115/80 mm[Hg] 09/23/2019 Height Weight Blood Pressure 65.5 in 362 lbs 12.8 oz 154/97 mm[Hg] 07/01/2019 Height Weight Blood Pressure 65.5 in 355 lbs 8 oz 136/83 mm[Hg] 06/01/2019 Height Weight Blood Pressure 65.5 in 359 lbs 122/75 mm[Hg] 03/03/2019 Height Blood Pressure 65.5 in 110/62 mm[Hg] 12/26/2018 Height Weight Blood Pressure 65.5 in 354 lbs 6.08 oz 146/89 mm[Hg] 11/25/2018 Height Weight Blood Pressure 65.5 in 373 lbs 137/92 mm[Hg] 08/25/2018 Height Weight Blood Pressure 65.5 in 365 lbs 126/86 mm[Hg] 06/26/2018 Height Weight Blood Pressure 65.5 in 365 lbs 135/83 mm[Hg] 06/02/2018 Height Weight Blood Pressure 65.5 in 365 lbs 3.2 oz 145/98 mm[Hg] 05/01/2018 Blood Pressure 122/98 mm[Hg] 04/24/2018 Height Weight Blood Pressure 65.5 in 369 lbs 159/104 mm[Hg]
--- OUTSIDE RECORDS SUMMARY | 2020-04-19 09:52 | CCD ---
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 I87.312 Active 913421706 Problem Diabetes mellitus without me ntion of complication, type II or unspecified type, not stated as uncontrolled 250.00 Ac tive 594033010 Problem Other chronic pain G89.29 Active 35692802 Problem Type 2 diabetes mellitus wit h foot ulcer, with long-term current use of insulin E11.621 Active 735982839 Problem Pain in right knee M25.561 Active 27071453 Problem Obesity, unspecified classif ication, unspecified obesity type, unspecified whether serious comorbidity present E66.9 Active 296319470 Problem History of diabetes mellitus, type II Z86.39 Ac tive 851967422 Problem Chronic venous hypertension (idiopathic) with ulcer of right lower extremity I87.311 Active 960673069 Problem Pain in left knee M25.562 Active 90698962598448 2 Problem Esophageal reflux 530.81 Active 633792695 Problem Myalgia, other site M79.18 Active 33046415 Problem Low back pain M54.5 Active 103692242 Problem Osteoarthrosis involving mor e than one site, but not specified as generalized, unspecified site 715.80 Active 924511 02 Problem unspecified essential hypertension 401.9 Activ e 15368683 Problem History of high blood pressure Z86.79 Active 1 45919145 Problem Lymphedema I89.0 Active 696790421 Problem Non-pressure chronic ulcer o f other part of left lower leg with fat layer exposed L97.822 Active 347754401 Problem Non-pressure chronic ulcer o f other part of right lower leg with fat layer exposed L97.812 Active 886696875 ALLERGIES Allergen (clinical drug ingredient) Drug/Non Drug Allergy do cumented on EMR Reaction Allergy Type Onset Date Status ibuprofen Ibuprofen([facility] Code:[address]-38) kidney problems Drug All ergy Active Sulfa (for allergy use only) hives Drug Allergy Active ENCOUNTERS from 1962 to 2020-03-15 Encounter Location Date Provider Diagnosis [facility] [address] [place] [address] Mar Jason Woo IMMUNIZATIONS Vaccine Route Administration Date Status Influenza (Pharmacy Given) Unknown Feb 11, 2018 Admin istered Influenza (6mo & up) Fluzone IM Intramuscular Jan 01, 2012 Ad ministered SOCIAL HISTORY Tobacco Use: Social History Observation Description Date Details (start date - stop date) Current Smoker Sex Assigned At : Social History Observation Description Sex Assigned At Unknown Synagogue: Question Answer Notes Synagogue 03 [employer] Alcohol Screening: Question Answer Notes Did you [...] Notes Start Da te End Date Status One Touch Ultra 2 Strips Dx 250.00 as directed as directed tid f or 30 day(s) Dec, Active Omeprazole 40 MG 1 capsule Orally Once a day Active Lyrica 50 MG 3 capsule Orally Three times a day Not-Taking ProAir HFA 108 (90 Base) MCG/ACT 2 puffs as needed Inhalation every 6 hrs Not-Taking Losartan Potassium 50 MG 1 tablet Orally Once a day Active Trulicity 0.75 MG/0.5ML as directed Subcutaneous Daily Active Furosemide 40 MG 1 tablet Orally Once a day Active Cerovite Advanced Formula as directed Orally Not-Taking Vitamin C 500 MG 1 tablet Orally Once a day Not-Taking Triamterene-HCTZ 37.5-25 MG 1 tablet in the morning Orally Once a day Active Toujeo SoloStar 300 UNIT/ML as directed Subcutaneous Not-Taking Vicodin 5-500 MG 1 tab(s) Orally tid MDD#3 for 30 days Not-Taking AmLODIPine Besylate 5 MG 1 tablet Orally Once a day Not-Taking Gabapentin 400 MG 1 capsule Orally TID Active Lipitor 20 MG 1 tablet Orally Once a day Active Glimepiride 4 MG 1 tablet with breakfast or t he first main meal of the day Orally Once a day Not-Taking Protonix 40 MG 1 tablet Orally Once a day Active Basaglar KwikPen 100 UNIT/ML as directed Subcutaneous 50 UNITS DAILY Active Acetaminophen 500 MG 1 capsule as needed Orally every 6 hrs Active Cymbalta 30 MG 1 capsule Orally Once a day Active Advair Diskus 250-50 MCG/DOSE 1 puff Inhalation Twice a day Not-Taking Aspirin 325 MG 1 tablet Orally Once a day Active OneTouch FinePoint Lancets Dx 250.00 as directed as directed tid for 30 day(s) Dec, Active Vitamin D (Ergocalciferol) 66397 UNIT 1 capsule Orally Active Nicoderm CQ 21 MG/24HR 1 patch to skin Transdermal Once a day Not-Taking Januvia 50 MG as directed Orally Not -Taking Alcohol Prep Swabs Dx 250.00 as directed na qid for 30 day(s) Dec, Active Humalog KwikPen 100 UNIT/ML if over 150 give 5 units Subcutaneous tid Active Nicotine 21 MG/24HR 1 patch to skin Transdermal Once a day for 3 0 day(s) Dec, Not-Taking Ventolin HFA 108 (90 Base) MCG/ACT 2 puffs as needed Inhalation jaylyn ry 6 hrs Active Metformin HCl 500 MG 1 tablet with a meal Orally bid Active PROCEDURES No Information RESULTS No Results REASON FOR VISIT [facility]T 04/06/20 MEDICAL (GENERAL) HISTORY Type Description Date Medical [...] OF TREATMENT Next Appt Details Provider Name:Jason Osorioswathi, 01:00:00 PM, [address] [place] [address], [phone], Provider Name:Marko Garcia, 2020-04-11 09:30:00 AM, [address] [place] [address], [phone], Provider Name:Chris Glez, 2020-04-25 10:15:00 AM, [address] [place] [address], [phone], Insurance Providers Payer Name Payer Address Payer Phone Insured Name Patient Relati onship to Insured Coverage Start Date Coverage End Date MEDICAID [employer] [address] [facility] [id number] [phone] ARLYN RAGLAND self [employer] DEPT [address] [facility] [phone] ARLYN RAGLAND self
--- OUTSIDE RECORDS SUMMARY | 2020-04-19 09:52 | CCD | Continuity of Care Document ---
Author Author Clinton Perez MD Organization Unknown Address [address] [place] [address] Phone [phone] Care Team Providers Care Groundskeeper Porter Name Role Phone Vanessa Conde MD AUTM [phone] Sandie Kang NP AUTM [phone] Problems Active Problems Provider Date Type 2 diabetes mellitus Oskar Perez MD Onset: 020 Essential hypertension Oskar Perez MD Onset: 0 Age-related cataract Oskar Perez MD Onset: 11/18/2019 Nuclear senile cataract Oskar Perez MD Onset: 01/20/20 20 Presence of intraocular lens Oskar ePrez MD Onset: 04/2019 Corneal transplant Oskar Perez [...] eye 1 time a day 5units Oskar Perez MD 12/02/2019 Pred Forte 1% Suspension 1 drop left eye 6 x day 15ml Oskar Perez MD 12/02/2019 Vitamin D3 1.25mg (88291 Ut) Capsules Unknown Triamcinolone Acetonide 0.05% Oint [...] Sandie Kang NP Vitamin D (Ergocalciferol) 1.25mg (25336 Ut) Capsules Take 1 Capsule By Mouth Every Week Unknow n Trazodone HCL 50mg Tablets Sandie Kang NP Aspirin Ec 325mg Tablets DR Take One Tablet By Mouth Every Day Unknown FQ Protective Underwear Misc Sandie Kang NP Metformin HCL 500mg Tablets Take One Tablet By Mouth Twice A Day Unknown Furosemide 40mg Tablets Sandie Knag NP Duloxetine HCL 60mg Caps Sandie Guan [...] Available Procedures Date Code Description Status 12/07/2019 36598 Extracapsular Cat RE M W/Insert IOL,Manual/Phacoemulsification OS Completed 12/07/2019 43362 Keratoplasty(Corneal Transplant) ,Lamellar;Autograft OS Completed 11/18/2019 95835 Corneal Topography Unil/Bilat Co mpleted 11/18/2019 44166 Exam Comprehensive, New PT Compl eted Medical Devices Description No Information Available Encounters Type Date Location Provider Dx Diagnosis Office Visit 01/20/2020 9:00a Main Office Oskar Perez MD 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 Z96.1 Presence of intraocular lens H25.11 Age-related nuclear cataract , right eye Office Visit 01/04/2020 12:45p Main Office Oskar [...] 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 Fabrizio Perez MD 01/20/2020 Z96.1 Presence of intraocular lens Devon Perez MD 01/20/2020 H25.11 Age-related nuclear cataract, ri ght eye Oskar Perez MD 01/04/2020 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 [...] bilateral Oskar Perez MD Plan of Treatment Future Appointment(s):* 02/03/2020 9:40 am - Oskar Perez MD at Main Office 01/20/2020 - Oskar Perez MD* 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* Comments:* decrease pforte to 6 times a day cont ocuflox qd * Follow up:* 2-3 WEEKS CORNEA CHK/NON-DIL * Z96.1 Presence of intraocular lens* Comments:* Follow. * H25.11 Age-related nuclear cataract, right eye* Comments:* follow Functional Status Description No Information Available Mental Status Description No Information Available Referrals Refer to Dr Reason for Referral Status Appt Date Oskar Perez MD Created [address] [place] [address] [phone] Oskar Perez MD You referred this patient to our practice. Please be advised the patient failed to keep their scheduled appointment. This referral is now closed and this patient is not eligible for future appointments with our office. We hope this is helpful. Please contact us if we can be of further service at . Cataract and PK eval OU Closed 09/29/[address] [place] [address] [phone]
--- OUTSIDE RECORDS SUMMARY | 2020-04-19 09:52 | CCD ---
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 I87.312 Active 308923754 Problem Diabetes mellitus without me ntion of complication, type II or unspecified type, not stated as uncontrolled 250.00 Ac tive 864564127 Problem Other chronic pain G89.29 Active 18205119 Problem Type 2 diabetes mellitus wit h foot ulcer, with long-term current use of insulin E11.621 Active 556236078 Problem Pain in right knee M25.561 Active 75576724 Problem Obesity, unspecified classif ication, unspecified obesity type, unspecified whether serious comorbidity present E66.9 Active 408549477 Problem History of diabetes mellitus, type II Z86.39 Ac tive 148216829 Problem Chronic venous hypertension (idiopathic) with ulcer of right lower extremity I87.311 Active 460823884 Problem Pain in left knee M25.562 Active 42504476439839 2 Problem Esophageal reflux 530.81 Active 624802145 Problem Myalgia, other site M79.18 Active 04324834 Problem Low back pain M54.5 Active 894885452 Problem Osteoarthrosis involving mor e than one site, but not specified as generalized, unspecified site 715.80 Active 494099 02 Problem unspecified essential hypertension 401.9 Activ e 48005039 Problem History of high blood pressure Z86.79 Active 1 67474758 Problem Lymphedema I89.0 Active 378346089 Problem Non-pressure chronic ulcer o f other part of left lower leg with fat layer exposed L97.822 Active 274446979 Problem Non-pressure chronic ulcer o f other part of right lower leg with fat layer exposed L97.812 Active 858019791 ALLERGIES Allergen (clinical drug ingredient) Drug/Non Drug Allergy do cumented on EMR Reaction Allergy Type Onset Date Status ibuprofen Ibuprofen([facility] Code:[address]-71) kidney problems Drug All ergy Active Sulfa (for allergy use only) hives Drug Allergy Active ENCOUNTERS from 1962 to 2020-02-25 Encounter Location Date Provider Diagnosis [facility] [address] [place] [id number] Feb, Chris Glez IMMUNIZATIONS Vaccine Route Administration Date Status Influenza (Pharmacy Given) Unknown Feb 11, 2018 Admin istered Influenza (6mo & up) Fluzone IM Intramuscular Jan 01, 2012 Ad ministered SOCIAL HISTORY Tobacco Use: Social History Observation Description Date Details (start date - stop date) Current Smoker Sex Assigned At : Social History Observation Description Sex Assigned At Unknown Advent: Question Answer Notes Advent 03 Jainism Alcohol Screening: Question Answer Notes Did you [...] 30 day(s) Dec, Active Vitamin D (Ergocalciferol) 32383 UNIT 1 capsule Orally Active Nicoderm CQ [...] Information RESULTS No Results REASON FOR VISIT Nurse MEDICAL (GENERAL) HISTORY Type Description Date Medical [...] OF TREATMENT Next Appt Details Provider Name:Jason Devonswathi, 09:00:00 AM, [address] [place], [address], Provider Name:Marko Garcia, 2020-04-11 09:30:00 AM, [address] [place] [address], [phone], Provider Name:Chris Glez, 2020-04-25 10:15:00 AM, [address] [place] [address], [phone], Insurance Providers Payer Name Payer Address Payer Phone Insured Name Patient Relati onship to Insured Coverage Start Date Coverage End Date [facility] DEPT [address] [facility] [phone] [place] MEDICAID [facility] [employer] [address] [facility] [id number] [place]
--- OUTSIDE RECORDS SUMMARY | 2020-04-19 09:52 | CCD ---
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 I87.312 Active 376949119 Problem Diabetes mellitus without me ntion of complication, type II or unspecified type, not stated as uncontrolled 250.00 Ac tive 311901557 Problem Other chronic pain G89.29 Active 17980275 Problem Type 2 diabetes mellitus wit h foot ulcer, with long-term current use of insulin E11.621 Active 874908057 Problem Pain in right knee M25.561 Active 68951527 Problem Obesity, unspecified classif ication, unspecified obesity type, unspecified whether serious comorbidity present E66.9 Active 681093132 Problem History of diabetes mellitus, type II Z86.39 Ac tive 561599513 Problem Chronic venous hypertension (idiopathic) with ulcer of right lower extremity I87.311 Active 607520080 Problem Pain in left knee M25.562 Active 83973384753277 2 Problem Esophageal reflux 530.81 Active 254596142 Problem Myalgia, other site M79.18 Active 33972568 Problem Low back pain M54.5 Active 881650130 Problem Osteoarthrosis involving mor e than one site, but not specified as generalized, unspecified site 715.80 Active 511593 02 Problem unspecified essential hypertension 401.9 Activ e 33200373 Problem History of high blood pressure Z86.79 Active 1 95311233 Problem Lymphedema I89.0 Active 094803674 Problem Non-pressure chronic ulcer o f other part of left lower leg with fat layer exposed L97.822 Active 554669256 Problem Non-pressure chronic ulcer o f other part of right lower leg with fat layer exposed L97.812 Active 609477956 ALLERGIES Allergen (clinical drug ingredient) Drug/Non Drug Allergy do cumented on EMR Reaction Allergy Type Onset Date Status ibuprofen Ibuprofen([facility] Code:[address]-88) kidney problems Drug All ergy Active Sulfa (for allergy use only) hives Drug Allergy Active ENCOUNTERS from 1962 to 2020-02-19 Encounter Location Date Provider Diagnosis [facility] [address] [place] [phone] Feb, Chris Glez Myalgia, other site M79.18 IMMUNIZATIONS Vaccine Route Administration Date Status Influenza (Pharmacy Given) Unknown Feb 11, 2018 Admin istered Influenza (6mo & up) Fluzone IM Intramuscular Jan 01, 2012 Ad ministered SOCIAL HISTORY Tobacco Use: Social History Observation Description Date Details (start date - stop date) Current Smoker Sex Assigned At : Social History Observation Description Sex Assigned At Unknown Mandaen: Question Answer Notes Mandaen 03 Faith Alcohol Screening: Question Answer Notes Did you [...] FOR REFERRAL No Information VITAL SIGNS Weight 354.6 lbs Feb, Height 65 in Feb, BMI 59.00 kg/m2 Feb, Heart Rate 83 /min Feb, Respiratory Rate 18 /min Feb, Temperature 97.4 degrees Fahrenheit Feb, Oximetry 94% Feb, Blood pressure systolic 195 mm Hg Feb, Blood pressure diastolic 91 mm Hg Feb, MEDICATIONS Medication SIG (Take, Route, Frequency, Duration) Start Date En d Date Status One Touch Ultra 2 Strips Dx 250.00 as directed as directed t id for 30 day(s) Dec, Active Omeprazole 40 MG [...] tablet in the morning Orally Once a d ay Active Toujeo SoloStar 300 UNIT/ML as directed Subcutaneous Not-Taking Vicodin 5-500 MG 1 tab(s) Orally tid MDD#3 for 30 days Not-Taking AmLODIPine Besylate 5 MG 1 tablet Orally Once a day Not-Taking Gabapentin 400 MG 1 capsule Orally TID Ac tive Lipitor 20 MG 1 tablet Orally Once a day Active Glimepiride 4 MG 1 tablet with breakfast or t he first main meal of the day Orally Once a day Not-Taking Protonix 40 MG 1 tablet Orally Once a day Active Basaglar KwikPen 100 UNIT/ML as directed Subcutaneous 50 UNITS ERIC Y Active Acetaminophen 500 MG 1 capsule as needed Orally every 6 hrs Active Cymbalta 30 MG 1 capsule Orally Once a day Active Advair Diskus 250-50 MCG/DOSE 1 puff Inhalation Twice a day Not-Taking Aspirin 325 MG 1 tablet Orally Once a day Active OneTouch FinePoint Lancets Dx 250.00 as directed as directed tid for 30 day(s) Dec, Active Vitamin D (Ergocalciferol) 43558 UNIT 1 capsule Orally Active Nicoderm CQ 21 MG/24HR 1 patch to skin Transdermal Once a day Not-Taking Januvia 50 MG as directed Orally Not-Taki ng Alcohol Prep Swabs Dx 250.00 as directed na qid for 30 day(s) 2011 Active Humalog KwikPen 100 UNIT/ML if over 150 give 5 units Subcutaneous t id Active Nicotine 21 MG/24HR 1 patch to skin Transdermal Once a day f or 30 day(s) Dec, Not-Taking Ventolin HFA 108 (90 Base) MCG/ACT 2 puffs as needed Inhalation jaylyn ry 6 hrs Active Metformin HCl 500 MG 1 tablet with a meal Orally bid Active PROCEDURES No Information RESULTS No Results REASON FOR VISIT [facility] MEDICAL (GENERAL) HISTORY Type Description Date Medical [...] STATUS No Information ASSESSMENTS Encounter Date Diagnosis Notes Feb, Myalgia, other site (ICD-10 - M79.18) PLAN OF TREATMENT Treatment Notes Assessment Notes Clinical Notes Myalgia, other site 59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 Given presenting symptoms and results of physical examination recommended trigger point injections of the low back bilaterally with postprocedural follow-up. Patient has expressed understanding of and was in agreement with treatment plan. Given time to ask questions and express concerns.TRIGGER POINT INJECTION PRINTED INFORMATION REVIEWED AND GIVEN TO PATIENT 02/18/2020 0957 OVIDIO MARSHALLATIMELONY VERBLAIZES UNDERSTANDING OF PRE PROCEDURE INSTRUCTIONS REVIEWED. 02/18/2020 1007 Mac AGUILERA RN Bilateral trigger point injections low b ack Next Appt Details postprocedure Reason:bilateral low back trigger point injections Provider Name:Jason Woo, 09:00:00 AM, [address] [place], [address], Follow Up:postprocedurebilateral low back trigger point injections Insurance Providers Payer Name Payer Address Payer Phone Insured Name Patient Relati onship to Insured Coverage Start Date Coverage End Date MEDICAID [employer] [facility] [address] [facility] [address] [place] [facility] Existence Before [employer] CLAIM[employer] DEPT [address] [facility] [phone] ARLYN RAGLAND self
--- OUTSIDE RECORDS SUMMARY | 2020-04-19 09:52 | CCD ---
Author Author [facility] Organization [facility] Address Unknown Phone Unavailable Care Team Providers Care Health Administration Teacher Name Role Phone Jason Woo Unavailable PROBLEMS Type Condition ICD9-CM Code TTI71-VX Code Onset Dates Condition S tatus SNOMED Code Notes Problem Nondependent tobacco use disorder 305.1 Active 421700674 Problem Chronic airway obstruction, not elsewhere classified 496 Active 65069790 Problem Other and unspecified hyperlipidemia 272.4 Act shana 45102348 Problem Morbid obesity 278.01 Active 555717658 Problem 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 I87.312 Active 304542263 Problem Diabetes mellitus without me ntion of complication, type II or unspecified type, not stated as uncontrolled 250.00 Ac tive 373503130 Problem Other chronic pain G89.29 Active 83524346 Problem Type 2 diabetes mellitus wit h foot ulcer, with long-term current use of insulin E11.621 Active 616684361 Problem Pain in right knee M25.561 Active 84673363 Problem Obesity, unspecified classif ication, unspecified obesity type, unspecified whether serious comorbidity present E66.9 Active 432023408 Problem History of diabetes mellitus, type II Z86.39 Ac tive 440869978 Problem Chronic venous hypertension (idiopathic) with ulcer of right lower extremity I87.311 Active 831637862 Problem Pain in left knee M25.562 Active 09788746606708 2 Problem Esophageal reflux 530.81 Active 638738449 Problem Myalgia, other site M79.18 Active 17473341 Problem Low back pain M54.5 Active 992365299 Problem Osteoarthrosis involving mor e than one site, but not specified as generalized, unspecified site 715.80 Active 380731 02 Problem unspecified essential hypertension 401.9 Activ e 40634591 Problem History of high blood pressure Z86.79 Active 1 44074025 Problem Lymphedema I89.0 Active 928177751 Problem Non-pressure chronic ulcer o f other part of left lower leg with fat layer exposed L97.822 Active 942959644 Problem Non-pressure chronic ulcer o f other part of right lower leg with fat layer exposed L97.812 Active 191837393 ALLERGIES Allergen (clinical drug ingredient) Drug/Non Drug Allergy do cumented on EMR Reaction Allergy Type Onset Date Status ibuprofen Ibuprofen([facility] Code:[address]-57) kidney problems Drug All ergy Active Sulfa (for allergy use only) hives Drug Allergy Active ENCOUNTERS from 1962 to 2020-01-22 Encounter Location Date Provider Diagnosis [facility] [address] [place] [address] Jan Jason Woo IMMUNIZATIONS Vaccine Route Administration Date Status Influenza (Pharmacy Given) Unknown Feb 11, 2018 Admin istered Influenza (6mo & up) Fluzone IM Intramuscular Jan 01, 2012 Ad ministered SOCIAL HISTORY Tobacco Use: Social History Observation Description Date Details (start date - stop date) Current Smoker Sex Assigned At : Social History Observation Description Sex Assigned At Unknown Faith: Question Answer Notes Faith 03 Hindu Alcohol Screening: Question Answer Notes Did you have a drink containing alcohol in the past year? No Points 0 Interpretation Negative Tobacco Use: Question Answer Notes Are you a: current smoker 1 PPD x 40 years Patient counseled on the dangers of tobacco use and urged to quit: 10/11/2017 How many cigarettes a day do you smoke? 11-20 Are you interested in quitting? Thinking about quitting Clie nt using Nicoderm patch and gum that is helping sometimes REASON FOR REFERRAL No Information VITAL SIGNS No information MEDICATIONS Medication SIG (Take, Route, Frequency, Duration) Start Date En d Date Status Vitamin D (Ergocalciferol) 41409 UNIT 1 capsule Orally Active Metformin HCl 500 MG 1 tablet with a meal Orally bid Active Gabapentin 400 MG 1 capsule Orally TID Ac tive Toujeo SoloStar 300 UNIT/ML as directed Subcutaneous Active Nicoderm CQ 21 MG/24HR 1 patch to skin Transdermal Once a day Active Aspirin 325 MG 1 tablet Orally Once a day Active Acetaminophen 500 MG 1 capsule as needed Orally every 6 hrs Active Ventolin HFA 108 (90 Base) MCG/ACT 2 puffs as needed Inhalation jaylyn ry 6 hrs Active ProAir HFA 108 (90 Base) MCG/ACT 2 puffs as needed Inhalation every 6 hrs Not-Taking Cymbalta 30 MG 1 capsule Orally Once a day Active Omeprazole 40 MG 1 capsule Orally Once a day Active Vitamin C 500 MG 1 tablet Orally Once a day Not-Taking One Touch Ultra 2 Strips Dx 250.00 as directed as directed t id for 30 day(s) Dec, Active Alcohol Prep Swabs Dx 250.00 as directed na qid for 30 day(s) 2011 Active Triamterene-HCTZ 37.5-25 MG 1 tablet in the morning Orally Once a d ay Active OneTouch FinePoint Lancets Dx 250.00 as directed as directed tid for 30 day(s) Dec, Active Lipitor 20 MG 1 tablet Orally Once a day Active Vicodin 5-500 MG 1 tab(s) Orally tid MDD#3 for 30 days Not-Taking Januvia 50 MG as directed Orally Not-Taki ng Protonix 40 MG 1 tablet Orally Once a day Active Advair Diskus 250-50 MCG/DOSE 1 puff Inhalation Twice a day Not-Taking Lyrica 50 MG 3 capsule Orally Three times a day Not-Taking Nicotine 21 MG/24HR 1 patch to skin Transdermal Once a day f or 30 day(s) Dec, Not-Taking Humalog KwikPen 100 UNIT/ML if over 150 give 5 units Subcutaneous t id Active Cerovite Advanced Formula as directed Orally Not-Taking Glimepiride 4 MG 1 tablet with breakfast or t he first main meal of the day Orally Once a day Not-Taking Furosemide 40 MG 1 tablet Orally Once a day Active Losartan Potassium 50 MG 1 tablet Orally Once a day Active AmLODIPine Besylate 5 MG 1 tablet Orally Once a day Not-Taking PROCEDURES No Information RESULTS No Results REASON FOR VISIT Referral to [facility] MEDICAL (GENERAL) HISTORY Type Description Date Medical [...] 2009 Hospitalization History rash left foot 2015 Goals Section No Information Health Concerns No Information MEDICAL EQUIPMENT No Information MENTAL STATUS No Information FUNCTIONAL STATUS No Information ASSESSMENTS No Information PLAN OF TREATMENT Next Appt Details Provider Name:Jason Woo, 09:00:00 AM, [address], [place], [address], Insurance Providers Payer Name Payer Address Payer Phone Insured Name Patient Relati onship to Insured Coverage Start Date Coverage End Date MEDICAID [employer] [address] [facility] [id number] [place] [facility]UN[employer] [facility] [address] [facility] [phone] ARLYN RAGLAND
--- OUTSIDE RECORDS SUMMARY | 2020-04-19 09:52 | CCD | Continuity of Care Document ---
Author Author Clinton Perez MD Organization Unknown Address [address] [place] [address] Phone [phone] Care Team Providers Care Wicker Molded Candles Name Role Phone Vanessa Conde MD AUTM [phone] Sandie Kang NP AUTM [phone] Problems Active Problems Provider Date Type 2 diabetes mellitus Oskar Perze MD Onset: 020 Essential hypertension Oskar Perez MD Onset: 0 Age-related cataract Oskar Perez MD Onset: 11/18/2019 Combined form of senile cataract Oskar Perez MD Onset: 03/08/2020 Keratoconus Oskar Perez MD Onset: 03/08/2020 Nuclear senile cataract Oskar Perez MD Onset: 01/20/20 20 Presence of intraocular lens Oskar Perez MD Onset: 04/2019 Corneal transplant Oskar Perez MD Onset: 12/08/2019 Social History Type Date Description Comments Sex Unknown ETOH Use Rarely consumes alcohol Tobacco Use Start: Unknown Heavy tobacco smoker (more than 10 cigarettes/day) Recreational Drug Use Current marijuana use Smoking Status Reviewed: 03/08/20 Heavy tobacco smoker (more than 10 cigarettes/day) Allergies, Adverse Reactions, Alerts Active Allergies Reaction Severity Comments Date Motrin 11/18/2019 Sulfa Antibiotics 11/18/2019 Medications Active Medications SIG Qnty Indications Ordering Provide r Date Ocuflox 0.3% Solution 1 drop in the left eye 1 time a day 5units Oskar Perez MD 12/02/2019 Pred Forte 1% Suspension 1 drop left eye 4 x day 15ml Oskar Perez MD 12/02/2019 Vitamin D3 1.25mg (36104 Ut) Capsules Unknown Triamcinolone Acetonide 0.05% Oint [...] Sandie Kang NP Vitamin D (Ergocalciferol) 1.25mg (75107 Ut) Capsules Take 1 Capsule By Mouth [...] Available Vital Signs Date Vital Result Comment 03/08/2020 9:49am Intraocular Pressure Right Eye 23 mmHg Tp Intraocular Pressure Left Eye 18 mmHg Tp 09:50 A m 02/03/2020 10:09am Intraocular Pressure Right Eye 21 mmHg Tp 10:10 Am Intraocular Pressure Left Eye 17 mmHg Tp 10:10 A m Results Description No Information Available Procedures Date Code Description Status 12/07/2019 10226 Extracapsular Cat RE M W/Insert IOL,Manual/Phacoemulsification OS Completed 12/07/2019 84614 Keratoplasty(Corneal Transplant) ,Lamellar;Autograft OS Completed 11/18/2019 10458 Corneal Topography Unil/Bilat Co mpleted 11/18/2019 14005 Exam Comprehensive, New PT Compl eted Medical Devices Description No Information Available Encounters Type Date Location Provider Dx Diagnosis Office Visit 03/08/2020 9:45a Main Office Oskar Perez MD 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 Z96.1 Presence of intraocular lens H18.601 Keratoconus, unspecified, ri ght eye H25.811 Combined forms of age-relate d cataract, right eye Office Visit 02/03/2020 9:40a Main Office Oskar Perez MD 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 Z96.1 Presence of intraocular lens H25.11 Age-related nuclear cataract , right eye Office Visit 01/20/2020 9:00a Main Office Oskar [...] cataract, bilateral Assessments Date Code Description Provider 03/08/2020 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 Fabrizio Perez MD 03/08/2020 Z96.1 Presence of intraocular lens Devon shreya Perez MD 03/08/2020 H18.601 Keratoconus, unspecified, right eye Oskar Perez MD 03/08/2020 H25.811 Combined forms of age-related ca taract, right eye Oskar Perez MD 02/03/2020 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 Fabrizio Perez MD 02/03/2020 Z96.1 Presence of intraocular lens Devon Perez MD 02/03/2020 H25.11 Age-related nuclear cataract, ri ght eye Oskar Perez MD 01/20/2020 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 Fabrizio Perez [...] Perez MD Plan of Treatment Future Appointment(s):* 04/20/2020 9:00 am - Oskar Perez MD at Main Office 03/08/2020 - Oskar Perez MD* 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* Comments:* decrease Pred forte to qid oscontinue Ocuflox qd os * Follow up:* 4-6 WEEKS MR OS/CORNEA CHK/NON-DIL * Z96.1 Presence of intraocular lens* Comments:* Follow. * H18.601 Keratoconus, unspecified, right eye* Comments:* follow * H25.811 Combined forms of age-related cataract, right eye* Comments:* follow Functional Status Description No Information Available Mental Status Description No Information Available Referrals Refer to Reason for Referral Status Appt Date Oskar Perez MD Created [address] [facility] [address] [place] [address] [phone]
--- OUTSIDE RECORDS SUMMARY | 2020-04-19 09:52 | CCD | Continuity of Care Document ---
Author Author Clinton Perez MD Organization Unknown Address [address] [place] [id number] Phone [phone] Care Team Providers Care [facility] Former Machine Name Role Phone Vanessa Conde MD AUTM [phone] Sandie Kang NP AUTM [phone] Problems Active Problems Provider Date Type 2 [...] Use Current marijuana use Smoking Status Reviewed: 02/03/20 Heavy tobacco smoker (more than 10 cigarettes/day) [...] Oskar Perez MD 12/02/2019 Vitamin D3 1.25mg (76382 Ut) Capsules Unknown Triamcinolone Acetonide 0.05% Oint [...] Sandie Kang NP Vitamin D (Ergocalciferol) 1.25mg (96683 Ut) Capsules Take 1 Capsule By Mouth [...] Available Vital Signs Date Vital Result Comment 02/03/2020 10:09am Intraocular Pressure Right Eye 21 mmHg Tp 10:10 Am Intraocular Pressure Left Eye 17 mmHg Tp 10:10 A m 01/20/2020 9:10am Intraocular Pressure Right Eye 16 mmHg Tp Intraocular Pressure Left Eye 18 mmHg Tp 09:10 A m Results Description No Information Available Procedures Date Code Description Status 12/07/2019 59899 Extracapsular Cat RE M W/Insert IOL,Manual/Phacoemulsification OS Completed 12/07/2019 06187 Keratoplasty(Corneal Transplant) ,Lamellar;Autograft OS Completed 11/18/2019 42916 Corneal Topography Unil/Bilat Co mpleted 11/18/2019 96969 Exam Comprehensive, New PT Compl eted Medical Devices Description No Information Available Encounters Type Date Location Provider Dx Diagnosis Office Visit 02/03/2020 9:40a Main Office Oskar [...] cataract, bilateral Assessments Date Code Description Provider 02/03/2020 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 Fabrizio Perez MD 02/03/2020 Z96.1 Presence of intraocular lens Devon Perez MD 02/03/2020 H25.11 Age-related nuclear cataract, ri ght eye Oskar Perez MD 01/20/2020 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 Fabrizio n Truman Perez MD 01/20/2020 Z96.1 Presence of intraocular lens Devon shreya Perez MD 01/20/2020 H25.11 Age-related nuclear cataract, ri ght eye Oskar Perez MD 01/04/2020 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 Fabrizio n Truman Perez MD 01/04/2020 Z96.1 Presence of intraocular lens Devon Perez MD 12/18/2019 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 Stephe n Truman Perez MD 12/08/2019 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 Fabrizio n Truman Perez MD 12/08/2019 Z96.1 Presence of intraocular [...] Perez MD Plan of Treatment Future Appointment(s):* 02/29/2020 10:00 am - Oskar Perez MD at Main Office 02/03/2020 - Oskar Perez MD* 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 * H25.11 Age-related nuclear cataract, right eye* Comments:* follow Functional Status Description No Information Available Mental Status Description No Information Available Referrals Refer to Dr Reason for Referral Status Appt Date Oskar Perez MD Created [address] [place] [id number] [phone] Oskar Perez MD You referred this patient to our practice. Please be advised the patient failed to keep their scheduled appointment. This referral is now closed and this patient is not eligible for future appointments with our office. We hope this is helpful. Please contact us if we can be of further service at . Cataract and PK eval OU Closed 09/29/[address] [place] [id number] [phone]
--- OUTSIDE RECORDS SUMMARY | 2020-04-19 09:52 | CCD ---
Author Author [facility] Organization [facility] Address Unknown Phone Unavailable Care Team Providers Care Celery Tier Name Role Phone Jason Woo Unavailable PROBLEMS Type Condition ICD9-CM Code KWQ32-NI Code Onset Dates Condition S tatus SNOMED Code Notes Problem Nondependent tobacco use disorder 305.1 Active 398350934 Problem Chronic airway obstruction, not elsewhere classified 496 Active 43986487 Problem Other and unspecified hyperlipidemia 272.4 Act shana 12481691 Problem Morbid obesity 278.01 Active 634933767 Problem 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 I87.312 Active 413668700 Problem Diabetes mellitus without me ntion of complication, type II or unspecified type, not stated as uncontrolled 250.00 Ac tive 132208776 Problem Other chronic pain G89.29 Active 70319973 Problem Type 2 diabetes mellitus wit h foot ulcer, with long-term current use of insulin E11.621 Active 352443573 Problem Pain in right knee M25.561 Active 52391019 Problem Obesity, unspecified classif ication, unspecified obesity type, unspecified whether serious comorbidity present E66.9 Active 629954084 Problem History of diabetes mellitus, type II Z86.39 Ac tive 530793242 Problem Chronic venous hypertension (idiopathic) with ulcer of right lower extremity I87.311 Active 251358382 Problem Pain in left knee M25.562 Active 36960011434268 2 Problem Esophageal reflux 530.81 Active 717156852 Problem Myalgia, other site M79.18 Active 78246933 Problem Low back pain M54.5 Active 860074980 Problem Osteoarthrosis involving mor e than one site, but not specified as generalized, unspecified site 715.80 Active 726632 02 Problem unspecified essential hypertension 401.9 Activ e 95351704 Problem History of high blood pressure Z86.79 Active 1 06726851 Problem Lymphedema I89.0 Active 020515713 Problem Non-pressure chronic ulcer o f other part of left lower leg with fat layer exposed L97.822 Active 464240908 Problem Non-pressure chronic ulcer o f other part of right lower leg with fat layer exposed L97.812 Active 733132893 ALLERGIES Allergen (clinical drug ingredient) Drug/Non Drug Allergy do cumented on EMR Reaction Allergy Type Onset Date Status ibuprofen Ibuprofen([facility] Code:[address]-22) kidney problems Drug All ergy Active Sulfa (for allergy use only) hives Drug Allergy Active ENCOUNTERS from 1960 to 2020-02-22 Encounter Location Date Provider Diagnosis [facility] [address] [place] [address] Feb Jason Woo IMMUNIZATIONS Vaccine Route Administration Date [...] Unknown Hindu: Question Answer Notes Hindu 03 Rastafari Alcohol Screening: Question Answer Notes Did you [...] 30 day(s) Dec, Active Vitamin D (Ergocalciferol) 50824 UNIT 1 capsule Orally Active Nicoderm CQ [...] RESULTS No Results REASON FOR VISIT No show [facility] MEDICAL (GENERAL) HISTORY Type Description Date Medical [...] Information ASSESSMENTS No Information PLAN OF TREATMENT No Information Insurance Providers Payer Name Payer Address Payer Phone Insured Name Patient Relati onship to Insured Coverage Start Date Coverage End Date MEDICAID [employer] [address] [facility] [id number] A[place]AG[place] JOSE [employer]ATE CLAIMS DEPT [address] [facility] [phone] ARLYN RAGLAND self
--- OUTSIDE RECORDS SUMMARY | 2020-04-19 09:53 | CCD ---
Author Author [facility] Organization [facility] Address Unknown Phone Unavailable Care Team Providers Care Business Education Teacher Name Role Phone Sonny Kang MAGNETIC TAPE WINDER Unavailable Unavailable Sonny KangP Unavailable Unavailable Sonny Kangra MAGNETIC TAPE WINDER Unavailable Unavailable Sonny Kangra MAGNETIC TAPE WINDER Unavailable Unavailable Jorge Luis, A Sandie MAGNETIC TAPE WINDER Unavailable Unavailable [place], A Sandie MAGNETIC TAPE WINDER Unavailable Unavailable [place], A Sandie MAGNETIC TAPE WINDER Unavailable Unavailable [place], A Sandie MAGNETIC TAPE WINDER Unavailable Unavailable [place], A Sandie MAGNETIC TAPE WINDER Unavailable Unavailable [place], A Sandie MAGNETIC TAPE WINDER Unavailable Unavailable [place], A Sandie MAGNETIC TAPE WINDER Unavailable Unavailable [place], A Sandie MAGNETIC TAPE WINDER Unavailable Unavailable [place], A Sandie MAGNETIC TAPE WINDER Unavailable Unavailable [place], A Sandie MAGNETIC TAPE WINDER Unavailable Unavailable [place], A Sadnie MAGNETIC TAPE WINDER Unavailable Unavailable [place], A Sandie MAGNETIC TAPE WINDER Unavailable Unavailable [place], A Sandie MAGNETIC TAPE WINDER Unavailable Unavailable [place], A Sandie MAGNETIC TAPE WINDER Unavailable Unavailable [place], A Sandie MAGNETIC TAPE WINDER Unavailable Unavailable [place], A Sandie MAGNETIC TAPE WINDER Unavailable Unavailable [place], A Sandie MAGNETIC TAPE WINDER Unavailable Unavailable [place], A Sandie MAGNETIC TAPE WINDER Unavailable Unavailable [place], A Sandie MAGNETIC TAPE WINDER Unavailable Unavailable [place], A Sandie MAGNETIC TAPE WINDER Unavailable Unavailable [place], A Sandie MAGNETIC TAPE WINDER Unavailable Unavailable [place], A Sandie MAGNETIC TAPE WINDER Unavailable Unavailable [place], A Sandie MAGNETIC TAPE WINDER Unavailable Unavailable [place], A Sandie MAGNETIC TAPE WINDER Unavailable Unavailable [place], A Sandie MAGNETIC TAPE WINDER Unavailable Unavailable [place], A Sandie MAGNETIC TAPE WINDER Unavailable Unavailable [place], A Sandie MAGNETIC TAPE WINDER Unavailable Unavailable [place], A Sandie MAGNETIC TAPE WINDER Unavailable Unavailable [place], A Sandie MAGNETIC TAPE WINDER Unavailable Unavailable [place], A Sandie MAGNETIC TAPE WINDER Unavailable Unavailable [place], A Sandie MAGNETIC TAPE WINDER Unavailable Unavailable [place], A Sandie MAGNETIC TAPE WINDER Unavailable Unavailable [place], A Sandie MAGNETIC TAPE WINDER Unavailable Unavailable [place], A Sandie MAGNETIC TAPE WINDER Unavailable Unavailable [place], A Sandie MAGNETIC TAPE WINDER Unavailable Unavailable [place], A Sandie MAGNETIC TAPE WINDER Unavailable Unavailable [place], A Sandie MAGNETIC TAPE WINDER Unavailable Unavailable [place], A Sandie MAGNETIC TAPE WINDER Unavailable Unavailable [place], A Sandie MAGNETIC TAPE WINDER Unavailable Unavailable [place], A Sandie MAGNETIC TAPE WINDER Unavailable Unavailable [place], A Sandie MAGNETIC TAPE WINDER Unavailable Unavailable [place], A Sandie MAGNETIC TAPE WINDER Unavailable Unavailable [place], A Sandie MAGNETIC TAPE WINDER Unavailable Unavailable [place], A Sandie MAGNETIC TAPE WINDER Unavailable Unavailable [place], A Sandie MAGNETIC TAPE WINDER Unavailable Unavailable [place], A Sandie MAGNETIC TAPE WINDER Unavailable Unavailable [place], A Sandie MAGNETIC TAPE WINDER Unavailable Unavailable [place], A Sandie MAGNETIC TAPE WINDER Unavailable Unavailable [place], A Sandie MAGNETIC TAPE WINDER Unavailable Unavailable [place], A Sandie MAGNETIC TAPE WINDER Unavailable Unavailable [id number] [place] Unavailable [phone] Truman STONE MD Unavailable Unavailable Truman STONE MD Unavailable Unavailable Truman STONE MD Unavailable Unavailable Truman STONE MD Unavailable Unavailable Truman STONE MD Unavailable Unavailable Truman STONE MD Unavailable Unavailable Truman STONE MD Unavailable Unavailable Truman STONE MD Unavailable Unavailable Truman STONE MD Unavailable Unavailable Truman STONE MD Unavailable Unavailable Truman STONE MD Unavailable Unavailable Truman STONE MD Unavailable Unavailable Truman STONE MD Unavailable Unavailable Truman STONE MD Unavailable Unavailable Truman STONE MD Unavailable Unavailable Truman STONE MD Unavailable Unavailable Truman STONE MD Unavailable Unavailable Truman STONE MD Unavailable Unavailable Truman STONE MD Unavailable Unavailable Truman STONE MD Unavailable Unavailable Truman STONE MD Unavailable Unavailable Truman STONE MD Unavailable Unavailable Truman STONE MD Unavailable Unavailable Truman STONE MD Unavailable Unavailable Truman STONE MD Unavailable Unavailable Truman STONE MD Unavailable Unavailable Truman STONE MD Unavailable Unavailable Truman STONE MD Unavailable Unavailable Truman STONE MD Unavailable Unavailable Truman STONE MD Unavailable Unavailable Truman STONE MD Unavailable Unavailable Truman STONE MD Unavailable Unavailable Truman STONE MD Unavailable Unavailable Truman STONE MD Unavailable Unavailable Truman STONE MD Unavailable Unavailable Truman STONE MD Unavailable Unavailable Truman STONE MD Unavailable Unavailable Truman STONE MD Unavailable Unavailable Truman STONE MD Unavailable Unavailable Truman STONE MD Unavailable Unavailable Truman STONE MD Unavailable Unavailable Truman STONE MD Unavailable Unavailable Truman STNOE MD Unavailable Unavailable Truman STONE MD Unavailable Unavailable Truman STONE MD Unavailable Unavailable Truman STONE MD Unavailable Unavailable Truman STONE MD Unavailable Unavailable Truman STONE MD Unavailable Unavailable BERTHA, G TASHI MD Unavailable Unavailable BERTHA, G TASHI MD Unavailable Unavailable BERTHA, G TASHI MD Unavailable Unavailable BERTHA, G TASHI MD Unavailable Unavailable BERTHA, G TASHI MD Unavailable Unavailable BERTHA, G TASHI MD Unavailable Unavailable BERTHA, G TASHI MD Unavailable Unavailable BERTHA, G TASHI MD Unavailable Unavailable BERTHA, G TASHI MD Unavailable Unavailable BERTHA, G TASHI MD Unavailable Unavailable BERTHA, G TASHI MD Unavailable Unavailable BERTHA, G TASHI MD Unavailable Unavailable BERTHA, G TASHI MD Unavailable Unavailable BERTHA, G TASHI MD Unavailable Unavailable BERTHA, G TASHI MD Unavailable Unavailable BERTHA, G TASHI MD Unavailable Unavailable BERTHA, G TASHI MD Unavailable Unavailable BERTHA, G TASHI MD Unavailable Unavailable BERTHA, G TASHI MD Unavailable Unavailable BERTHA, G TASHI MD Unavailable Unavailable Sandie Kang MAGNETIC TAPE WINDER MAGNETIC TAPE WINDER Unavailable Unavailable Re-disclosure Warning The records that you are about to access may contain information from federally-assisted alcohol or drug abuse programs. If such information is present, then the following federally mandated warning applies: This information has been disclosed to you from records protected by federal confidentiality rules (42 CFR part 2). The federal rules prohibit you from making any further disclosure of this information unless further disclosure is expressly permitted by the written consent of the person to whom it pertains or as otherwise permitted by 42 CFR part 2. A general authorization for the release of medical or other information is NOT sufficient for this purpose. The Federal rules restrict any use of the information to criminally investigate or prosecute any alcohol or drug abuse patient.The records that you are about to access may contain highly sensitive health information, the redisclosure of which is protected by Article 27-F of the [facility] Public Health law. If you continue you may have access to information: Regarding HIV / AIDS; Provided by facilities licensed or operated by the [facility] Office of Mental Health; or Provided by the [facility] Office for People With Developmental Disabilities. If such information is present, then the following [facility] mandated warning applies: This information has been disclosed to you from confidential records which are protected by state law. State law prohibits you from making any further disclosure of this information without the specific written consent of the person to whom it pertains, or as otherwise permitted by law. Any unauthorized further disclosure in violation of state law may result in a fine or alf sentence or both. A general authorization for the release of medical or other information is NOT sufficient authorization for further disc losure. Family History Family Member Name Family Member Gender Family Member Status Date o f Status Description Data Source(s) Unknown Unknown Problem MEDENT ([facility]) Unknown Unknown Problem MEDENT ([facility]) Unknown Male Problem MEDENT ([facility] ) Encounters Encounter Providers Location Date Indications Data Source(s ) Office Visit, Est Pt., Level 2 FC [address] [place] [address] 04/07/2020 12:00:00 AM EST eCW1 ([facility]) Unknown [address] [facility] [id number] 04/05/2020 12:00:00 AM EST eCW1 (Count includes the [facility]) Unknown [address] [facility] [address] 04/05/2020 12:00:00 AM EST eCW1 (Count includes the [facility]) Unknown [address] [facility] [address] 04/05/2020 12:00:00 AM EST eCW1 (Count includes the [facility]) (WND NP120) New Patient [address] [place] [id number] 03/30/2020 12:00:00 AM EST eCW1 ([facility]) Unknown [address] [facility] [address] 03/15/2020 12:00:00 AM EST eCW1 (Count includes the [facility]) SANTOSH Castellanos-BC: [address] [place] [address], Ph. Attender: Sandie FROST [facility] Medical 03/14/2020 12:00:00 AM EST FELICIANO ([facility]) Office Visit Attender: TASHI STONE MD [place] [facility] 04/2019 08:45:00 AM EST MEDENT ([facility]) [place] [address] [facility] [address] 02/24/2020 12:00:00 AM EST eCW1 (Count includes the [facility]) [place] [address] [facility] [address] 02/22/2020 12:00:00 AM EST eCW1 (Count includes the [facility]) [place] [address] [facility] [address] 02/18/2020 12:00:00 AM EST eCW1 (Count includes the [facility]) Outpatient Attender: SANTOSH FROST FP 02/16/2020 04:45:00 P M EST [facility] Office Visit Attender: TASIH STONE MD [place] Office 09:40:00 AM EDT MEDENT ([facility]) Outpatient Attender: Sandie BENJAMIN 01/23/2020 04:1 4:02 PM EDT [facility] Outpatient Attender: SANTOSH BENJAMIN 01/23/2020 04:14:00 P M EDT [facility] Outpatient Attender: Sandie FROST FP 01/22/2020 11:3 7:00 AM EDT [facility] Outpatient Attender: Sandie BENJAMIN 01/21/2020 11:0 2:04 AM EDT [facility] [place] [address] [facility] [address] 01/21/2020 12:00:00 AM EDT eCW1 (Count includes the [facility]) Office Visit Attender: TASHI STONE MD [place] [facility] 09:00:00 AM EDT MEDENT ([facility]) Outpatient Attender: Sandie BENJAMIN 01/19/2020 06:0 3:00 PM EDT [facility] Outpatient Attender: Sandie BENJAMIN 01/09/2020 08:3 8:00 PM EDT [facility] Outpatient Attender: SANTOSH BENJAMIN 01/09/2020 08:37:59 P M EDT [facility] Outpatient Attender: Sandie BENJAMIN 01/08/2020 12:1 9:01 PM EDT [facility] Outpatient Attender: SANTOSH DEMPSEYP FP 01/08/2020 12:18:04 P M EDT [facility] Outpatient Attender: Sandie DEMPSEYP FP 01/08/2020 12:1 7:01 PM EDT [facility] Outpatient Attender: SANTOSH DEMPSEYP FP 01/08/2020 12:02:11 A M EDT [facility] Outpatient Attender: SANTOSH DEMPSEYP FP 01/07/2020 10:57:01 A M EDT [facility] Outpatient Attender: SANTOSH Kang MAGNETIC TAPE WINDER FP 01/07/2020 09:10:00 A M EDT [facility] Office Visit Attender: TASHI STONE MD [place] [facility] 12:45:00 PM EDT MEDENT ([facility] ) Outpatient Attender: Sandie Kang MAGNETIC TAPE WINDER FP 12/30/2019 09:2 7:01 AM EDT [facility] Outpatient Attender: SANTOSH Kang MAGNETIC TAPE WINDER FP 12/30/2019 09:27:00 A M EDT [facility] Outpatient Attender: SANTOSH Kang MAGNETIC TAPE WINDER FP 12/30/2019 07:41:01 A M EDT [facility] Outpatient Attender: SANTOSH DEMPSEYP FP 12/30/2019 12:02:13 A M EDT [facility] Outpatient Attender: Sandie FROST FP 12/29/2019 08:3 7:59 PM EDT [facility] Outpatient Attender: SANTOSH DEMPSEYP FP 12/29/2019 11:13:01 A M EDT [facility] Outpatient Attender: SANTOSH Kang MAGNETIC TAPE WINDER FP 12/28/2019 03:54:00 P M EDT [facility] Outpatient Attender: SANTOSH DEMPSEYP FP 12/24/2019 07:47:01 A M EDT [facility] Outpatient Attender: SANTOSH FROST FP 12/24/2019 12:02:13 A M EDT [facility] Outpatient Attender: SANTOSH DEMPSEYP FP 12/23/2019 11:37:01 A M EDT [facility] Outpatient Attender: Sandie DEMPSEYP FP 12/23/2019 11:2 3:00 AM EDT [facility] Outpatient Attender: SANTOSH DEMPSEYP FP 12/23/2019 12:02:11 A M EDT [facility] Outpatient Attender: SANTOSH FROST FP 12/22/2019 11:05:02 A M EDT [facility] Outpatient Attender: Sandie Jorge Luis DEMPSEYP FP 12/18/2019 05:5 2:00 PM EDT [facility] Office Visit Attender: TASHI STONE MD [place] [facility] 02/2020 10:30:00 AM EDT MEDENT ([facility]) Office Visit Attender: TASHI STONE MD [place] [facility] 04/2019 01:00:00 PM EDT MEDENT ([facility]) Outpatient Attender: SANTOSH DEMPSEYP FP 12/04/2019 12:02:14 A M EDT [facility] Outpatient Attender: SANTOSH DEMPSEYP FP 12/03/2019 01:40:04 P M EDT [facility] Outpatient Attender: Sandie DEMPSEYP FP 12/03/2019 01:3 9:01 PM EDT [facility] Outpatient Attender: SANTOSH DEMPSEYP FP 12/03/2019 11:26:01 A M EDT [facility] Outpatient Attender: SANTOSH DEMPSEYP FP 12/03/2019 10:30:00 A M EDT [facility] 01:33:01 P M EDT [facility] Outpatient Attender: CRAIG [id number] [place] [facility] 12/02/2019 12:45:00 PM EDT MEDENT ([facility]) Office Visit Attender: TASHI STONE MD [place] [facility] 03/2020 12:45:00 PM EDT MED[facility] ([facility]) Outpatient Attender: SANTOSH DEMPSEYP FP 11/13/2019 03:50:00 P M EDT [facility] Outpatient Attender: SANTOSH FROST FP 11/05/2019 12:02:07 A M EDT [facility] Outpatient Attender: SANTOSH DEMPSEYP FP 11/04/2019 12:06:03 P M EDT [facility] Outpatient Attender: Sandie DEMPSEYP FP 11/04/2019 12:0 4:59 PM EDT [facility] Outpatient Attender: SANTOSH FROST FP 11/04/2019 09:58:00 A M EDT [facility] Outpatient Attender: Sandie DEMPSEYP FP 11/03/2019 01:5 4:00 PM EDT [facility] Outpatient Attender: SANTOSH DEMPSEYP FP 11/02/2019 03:00:01 P M EDT [facility] Outpatient Attender: Sandie DEMPSEYP FP 11/02/2019 08:5 6:01 AM EDT [facility] Outpatient Attender: Sandie DEMPSEYP FP 10/25/2019 02:5 3:01 PM EDT [facility] Outpatient Attender: Sandie FROST FP 10/20/2019 09:1 0:00 PM EDT [facility] Outpatient Attender: Sandie DEMPSEYP FP 10/15/2019 02:3 5:02 PM EDT [facility] Outpatient Attender: SANTOSH DEMPSEYP FP 10/12/2019 11:18:01 A M EDT [facility] Outpatient Attender: Sandie DEMPSEYP FP 10/07/2019 12:1 8:00 PM EDT [facility] Outpatient Attender: Sandie FROST FP 10/07/2019 12:1 7:00 PM EDT [facility] Outpatient Attender: SANTOSH DEMPSEYP FP 10/01/2019 03:20:01 P M EDT [facility] Outpatient Attender: SANTOSH DEMPSEYP FP 10/01/2019 03:19:01 P M EDT [facility] Outpatient Attender: Sandie FROST FP 09/28/2019 02:3 2:02 PM EDT [facility] Outpatient Attender: Sandie FROST FP 09/26/2019 09:0 6:01 PM EDT [facility] Outpatient Attender: SANTOSH FROST FP 09/26/2019 09:05:59 P M EDT [facility] Outpatient Attender: SANTOSH DEMPSEYP FP 09/23/2019 07:42:00 A M EDT [facility] Outpatient Attender: Sandie DEMPSEYP FP 09/20/2019 02:4 0:01 PM EDT [facility] Outpatient Attender: Sandie FROST FP 09/18/2019 09:0 3:00 AM EDT [facility] Outpatient Attender: SANTOSH FROST FP 09/16/2019 11:05:00 A M EDT [facility] Outpatient Attender: Sandie DEMPSEYP FP 09/16/2019 10:3 4:02 AM EDT [facility] Outpatient Attender: SANTOSH FROST FP 09/16/2019 09:19:00 A M EDT [facility] Outpatient Attender: SANTOSH FROST FP 09/15/2019 07:34:34 P M EDT [facility] Outpatient Attender: SANTOSH FROST FP 09/15/2019 01:49:01 P M EDT [facility] Outpatient Attender: SANTOSH FROST FP 09/15/2019 11:29:00 A M EDT [facility] Outpatient Attender: Sandie FROST FP 09/08/2019 09:5 4:59 PM EDT [facility] Outpatient Attender: SANTOSH FROST FP 09/08/2019 01:13:01 P M EDT [facility] Outpatient Attender: Sandie FROST FP 09/06/2019 02:1 3:00 AM EDT [facility] Outpatient Attender: SANTOSH FROST FP 09/05/2019 12:09:47 A M EDT [facility] Outpatient Attender: SANTOSH FROST FP 09/04/2019 10:15:01 A M EDT [facility] Outpatient Attender: Sandie FROST FP 09/01/2019 03:1 3:00 PM EDT [facility] Outpatient Attender: Sandie FROST FP 08/24/2019 08:2 8:00 AM EDT [facility] [address] [place] [id number] 07/31/2019 12:00:00 AM EDT eCW1 (Count includes the [facility]) Outpatient Attender: Sandie FROST FP 07/17/2019 08:3 1:00 PM EDT [facility] Outpatient Attender: Sandie FROST FP 07/10/2019 08:1 9:00 AM EDT [facility] Outpatient Attender: SANTOSH DEMPSEYP FP 07/07/2019 12:43:00 P M EDT [facility] Outpatient Attender: Sandie DEMPSEYP FP 07/05/2019 08:2 1:01 PM EDT [facility] Outpatient Attender: SANTOSH Kang MAGNETIC TAPE WINDER FP 07/02/2019 02:13:00 P M EDT [facility] Outpatient Attender: SANTOSH DEMPSEYP FP 07/01/2019 09:01:04 P M EDT [facility] Outpatient Attender: SANTOSH Kang MAGNETIC TAPE WINDER FP 07/01/2019 02:24:03 P M EDT [facility] Outpatient Attender: SANTOSH DEMPSEYP FP 07/01/2019 12:29:01 P M EDT [facility] Outpatient Attender: SANTOSH Kang MAGNETIC TAPE WINDER FP 06/26/2019 12:12:00 P M EDT [facility] Outpatient Attender: Sandie DEMPSEYP FP 06/25/2019 12:4 1:23 PM EDT [facility] Outpatient Attender: SANTOSH DEMPSEYP FP 06/25/2019 12:40:47 P M EDT [facility] Outpatient Attender: SANTOSH DEMPSEYP FP 06/24/2019 03:24:01 P M EDT [facility] Outpatient Attender: Sandie DEMPSEYP FP 06/22/2019 02:1 2:02 PM EDT [facility] Outpatient Attender: SANTOSH DEMPSEYP FP 06/22/2019 01:01:00 P M EDT [facility] Outpatient Attender: Sandie DEMPSEYP FP 06/17/2019 03:1 4:04 PM EDT [facility] Outpatient Attender: Sandie DEMPSEYP FP 06/04/2019 12:5 9:02 PM EST [facility] Outpatient Attender: SANTOSH DEMPSEYP FP 06/04/2019 12:59:02 P M EST [facility] Outpatient Attender: Sandie DEMPSEYP FP 06/04/2019 12:5 8:00 PM EST [facility] Outpatient Attender: SANTOSH DEMPSEYP FP 06/04/2019 12:58:00 P M EST [facility] Outpatient Attender: SANTOSH Kang MAGNETIC TAPE WINDER FP 06/03/2019 08:18:02 A M [facility] Outpatient Attender: SANTOSH DEMPSEYP FP 06/01/2019 09:01:04 P [facility] Outpatient Attender: SANTOSH Kang MAGNETIC TAPE WINDER FP 06/01/2019 04:08:04 P [facility] Outpatient Attender: Sandie Kang MAGNETIC TAPE WINDER FP 06/01/2019 11:5 5:01 AM [facility] Outpatient Attender: SANTOSH Kang MAGNETIC TAPE WINDER FP 06/01/2019 10:44:03 A M [facility] Outpatient Attender: SANTOSH Kang MAGNETIC TAPE WINDER FP 06/01/2019 09:09:00 A [facility] Outpatient Attender: SANTOSH DEMPSEYP FP 06/01/2019 09:08:00 A [facility] Outpatient Attender: SANTOSH Kang MAGNETIC TAPE WINDER FP 06/01/2019 08:56:00 A [facility] Outpatient Attender: SANTOSH Kang MAGNETIC TAPE WINDER FP 06/01/2019 08:54:01 A [facility] Outpatient Attender: SANTOSH Kang MAGNETIC TAPE WINDER FP 05/27/2019 10:44:00 A [facility] Outpatient Attender: SANTOSH DEMPSEYP FP 05/19/2019 09:09:02 A M [facility] Outpatient Attender: Sandie Kang MAGNETIC TAPE WINDER FP 05/10/2019 02:1 3:02 PM [facility] Outpatient Attender: SANTOSH DEMPSEYP FP 05/08/2019 11:02:00 A [facility] Outpatient Attender: Sandie DEMPSEYP FP 05/08/2019 08:3 1:02 AM [facility] Outpatient Attender: Sandie DEMPSEYP FP 05/01/2019 09:3 1:55 AM [facility] Outpatient Attender: SANTOSH DEMPSEYP FP 04/29/2019 11:37:00 A [facility] Outpatient Attender: SANTOSH Kang MAGNETIC TAPE WINDER FP 04/28/2019 10:12:02 A [facility] Outpatient Attender: SANTOSH DEMPSEYP FP 04/28/2019 10:12:02 A M [facility] Outpatient Attender: SANTOSH DEMPSEYP FP 04/22/2019 12:36:00 P M [facility] Outpatient Attender: SANTOSH Kang MAGNETIC TAPE WINDER FP 03/31/2019 10:43:00 A M [facility] Outpatient Attender: Sandie Kang MAGNETIC TAPE WINDER FP 03/30/2019 12:1 3:01 PM [facility] Outpatient Attender: Sandie Kang MAGNETIC TAPE WINDER FP 03/20/2019 12:3 9:01 PM [facility] Outpatient Attender: SANTOSH Kang MAGNETIC TAPE WINDER FP 03/20/2019 09:52:01 A M [facility] Outpatient Attender: SANTOSH Kang MAGNET[employer] TAPE WINDER FP 03/18/2019 09:17:01 A M [facility] Outpatient Attender: Sandie Kang MAGNET[employer] TAPE WINDER FP 03/16/2019 10:2 7:01 AM [facility] Outpatient Attender: SANTOSH Kang MAGNETIC TAPE WINDER FP 03/16/2019 09:04:02 A M [facility] Outpatient Attender: Sandie Kang MAGNETIC TAPE WINDER FP 03/13/2019 03:0 9:02 PM [facility] Outpatient Attender: Sandie Kang MAGNETIC TAPE WINDER 03/12/2019 10:1 1:01 AM [facility] Outpatient Attender: SANTOSH [facility] [employer] [facility] 03/10/2019 12:05:00 P [facility] Outpatient Attender: Sandie Kang [employer] [facility] 03/06/2019 07:4 1:00 AM [facility] Outpatient Attender: Sandie Kang [employer] 03/03/2019 07:1 2:59 PM [facility] Outpatient Attender: SANTOSH Kang [employer] [facility] 03/03/2019 03:50:04 P M [facility] Outpatient Attender: SANTOSH Kang [employer] [facility] 03/03/2019 02:54:01 P [facility] Outpatient Attender: SANTOSH Kang [employer] [facility] 03/03/2019 10:09:00 A [facility] Outpatient Attender: Sandie Kang [employer] [facility] 03/02/2019 12:4 0:03 PM [facility] Outpatient Attender: SANTOSH Kang [employer] [facility] 02/23/2019 09:07:01 A M [facility] Immunizations Vaccine Date Status Description Data Source(s) This CVX code allows reporting of a vacc ination when formulation is unknown (for example, when recording a Influenza vaccination when noted on a vaccination card) 03/03/2019 12:00:00 AM EST completed 03/03/2019 BLAYNE Dennis ([facility]) Medications Medication Brand Name Start Date Product Form Dose Route Admi nistrative Instructions Pharmacy Instructions Status Indications Reaction Description Data Source(s) 0.3 % 04/16/2020 12:00:00 AM EST drops 5 INSTILL ONE DROP IN THE LEFT EYE ONCE DAILY INSTILL ONE DROP IN THE LEFT EYE ONCE DAILY SOLD: 04/16/2020 [facility] 90 mcg/actuation 04/14/2020 12:00:00 AM EST HFA aerosol inha ler 18 INHALE 2 PUFFS BY MOUTH EVERY 6 HOURS INHALE 2 PUFFS BY MOUTH EVERY 6 HOURS SOLD: 04/16/2020 [facility] 5-325 mg 04/12/2020 12:00:00 AM EST tablet 12 TAKE ONE TABLET BY MOUTH EVERY 6 HOURS NEEDED FOR PAIN , MAXIMUM DAILY DOSE = 4 TABLETS TAKE ONE TABLET BY MOUTH EVERY 6 HOURS NEEDED FOR PAIN , MAXIMUM DAILY DOSE = 4 TABLETS SOLD: 04/12/2020 [facility] atorvastatin 40 MG Oral Tablet ATORVASTATIN CALCIUM 04/09/2020 1 2:00:00 AM EST tablet 30 TAKE ONE TABLET BY MOUTH AT BEDT DARRELL TAKE ONE TABLET BY MOUTH AT BEDTIME SOLD: 04/10/2020 [facility] Trazodone Hydrochloride 100 MG Oral Tablet TRAZODONE HCL 04/06/2020 12:00:00 AM EST tablet 30 TAKE ONE TABLET BY MOUTH AT BEDTIME TAKE ONE TABLET BY MOUTH AT BEDTIME SOLD: 04/06/2020 [facility] 400 mg 04/06/2020 12:00:00 AM EST capsule 90 TAKE ONE CAPSULE BY MOUTH THREE TIMES A DAY TAKE ONE CAPSULE BY MOUTH THREE TIMES A DAY SOLD: 04/06/2020 [facility] Nystatin [id number] UNT/ML Topical Cream 100,000 unit/gram NYSTA TIN 03/20/2020 12:00:00 AM EST cream 15 APPLY TOPICALLY THREE TIMES A DAY TO AFFECTED AREA(S) APPLY TOPICALLY THREE TIMES A DAY TO AFFECTED AREA(S) SOLD: [facility] 100 mg 03/14/2020 12:00:00 AM EST tablet extended release 24 hr 30 TAKE ONE TABLET BY MOUTH EVERY DAY DIRECTED TAKE ONE TABLET BY MOUTH EVERY DAY DIRECTED SOLD: 03/14/2020 [facility] 2 % 03/14/2020 12:00:00 AM EST ointment 22 APPLY A SMALL AMOUNT TO AFFECTED AREA(S) TWO TIMES A DAY NEEDED APPLY A SMALL AMOUNT TO AFFECTED AREA(S) TWO TIMES A DAY NEEDED SOLD: 03/14/2020 [facility] doxycycline hyclate 100 MG Oral Capsule DOXYCYCLINE HYCLATE 03/14/2020 12:00:00 AM EST capsule 14 TAKE ONE CAPSULE BY MOUTH TW ICE A DAY TAKE ONE CAPSULE BY MOUTH TWICE A DAY SOLD: 03/14/2020 [facility] 40 mg 03/02/2020 12:00:00 AM EST tablet 30 TAKE ONE TABLET BY MOUTH EVERY DAY TAKE ONE TABLET BY MOUTH EVERY DAY SOLD: 04/08/2020 [facility] 40 mg 03/02/2020 12:00:00 AM EST tablet 30 TAKE ONE TABLET BY MOUTH EVERY DAY TAKE ONE TABLET BY MOUTH EVERY DAY SOLD: 03/04/2020 [facility] 100 unit/mL (3 mL) 03/01/2020 12:00:00 AM EST insulin pen 15 INJECT 50 UNITS UNDER THE SKIN ONCE DAILY DIRECTED INJECT 50 UNITS UNDER THE SKIN ONCE ERIC Y DIRECTED SOLD: 03/26/2020 [facility] 100 unit/mL (3 mL) 03/01/2020 12:00:00 AM EST insulin pen 15 INJECT 50 UNITS UNDER THE SKIN ONCE DAILY DIRECTED INJECT 50 UNITS UNDER THE SKIN ONCE ERIC Y DIRECTED SOLD: 03/04/2020 [facility] 0.3 % 02/26/2020 12:00:00 AM EST drops 5 INSTILL ONE DROP INTO LEFT EYE ONCE DAILY INSTILL ONE DROP INTO LEFT EYE ONCE DAILY SOLD: 03/01/2020 [facility] 0.3 % 02/26/2020 12:00:00 AM EST drops 5 INSTILL ONE DROP INTO LEFT EYE ONCE DAILY INSTILL ONE DROP INTO LEFT EYE ONCE DAILY SOLD: 03/22/2020 [facility] 100 mcg/actuation 02/18/2020 12:00:00 AM EST blister with de vice 30 INHALE ONE PUFF BY MOUTH EVERY DAY INHALE ONE PUFF BY MOUTH EVERY DAY SOLD: 04/08/2020 [facility] 100 mcg/actuation 02/18/2020 12:00:00 AM EST blister with de vice 30 INHALE ONE PUFF BY MOUTH EVERY DAY INHALE ONE PUFF BY MOUTH EVERY DAY SOLD: 02/19/2020 [facility] 325 mg 02/15/2020 12:00:00 AM EST tablet,delayed release (DR/EC) 30 TAKE ONE TABLET BY MOUTH EVERY DAY TAKE ONE TABLET BY MOUTH EVERY DAY SOLD: 03/26/2020 [facility] 325 mg 02/15/2020 12:00:00 AM EST tablet,delayed release (DR/EC) 30 TAKE ONE TABLET BY MOUTH EVERY DAY TAKE ONE TABLET BY MOUTH EVERY DAY SOLD: 02/16/2020 [facility] 400 mg 02/08/2020 12:00:00 AM EST capsule 90 TAKE ONE CAPSULE BY MOUTH THREE TIMES A DAY TAKE ONE CAPSULE BY MOUTH THREE TIMES A DAY SOLD: 02/08/2020 [facility] 1 % 02/03/2020 12:00:00 AM EDT drops,suspension 10 INSTILL ONE DROP INTO LEFT EYE 6 TIMES A DAY INSTILL ONE DROP INTO LEFT EYE 6 TIMES A DAY SOLD: 04/17/2020 [facility] 1 % 02/03/2020 12:00:00 AM EDT drops,suspension 10 INSTILL ONE DROP INTO LEFT EYE 6 TIMES A DAY INSTILL ONE DROP INTO LEFT EYE 6 TIMES A DAY SOLD: 03/01/2020 [facility] 1 % 02/03/2020 12:00:00 AM EDT drops,suspension 10 INSTILL ONE DROP INTO LEFT EYE 6 TIMES A DAY INSTILL ONE DROP INTO LEFT EYE 6 TIMES A DAY SOLD: 02/03/2020 [facility] 1 % 02/03/2020 12:00:00 AM EDT drops,suspension 10 INSTILL ONE DROP INTO LEFT EYE 6 TIMES A DAY INSTILL ONE DROP INTO LEFT EYE 6 TIMES A DAY SOLD: 03/23/2020 [facility] 40 mg 02/01/2020 12:00:00 AM EDT tablet 30 TAKE ONE TABLET BY MOUTH EVERY DAY TAKE ONE TABLET BY MOUTH EVERY DAY SOLD: 02/03/2020 [facility] Metformin hydrochloride 500 MG Oral Tablet METFORMIN HCL 01/27/2020 12:00:00 AM EDT tablet 60 TAKE ONE TABLET BY MOUTH TWI CE A DAY TAKE ONE TABLET BY MOUTH TWICE A DAY SOLD: 01/27/2020 [facility] Metformin hydrochloride 500 MG Oral Tablet METFORMIN HCL 01/27/2020 12:00:00 AM EDT tablet 60 TAKE ONE TABLET BY MOUTH TWI CE A DAY TAKE ONE TABLET BY MOUTH TWICE A DAY SOLD: 03/01/2020 [facility] Metformin hydrochloride 500 MG Oral Tablet METFORMIN HCL 01/27/2020 12:00:00 AM EDT tablet 60 TAKE ONE TABLET BY MOUTH TWI CE A DAY TAKE ONE TABLET BY MOUTH TWICE A DAY SOLD: 03/29/2020 [facility] 37.5-25 mg 01/23/2020 12:00:00 AM EDT capsule 30 TAKE ONE CAPSULE BY MOUTH EVERY DAY TAKE ONE CAPSULE BY MOUTH EVERY DAY SOLD: 03/24/2020 [facility] 37.5-25 mg 01/23/2020 12:00:00 AM EDT capsule 30 TAKE ONE CAPSULE BY MOUTH EVERY DAY TAKE ONE CAPSULE BY MOUTH EVERY DAY SOLD: 01/25/2020 [facility] 37.5-25 mg 01/23/2020 12:00:00 AM EDT capsule 30 TAKE ONE CAPSULE BY MOUTH EVERY DAY TAKE ONE CAPSULE BY MOUTH EVERY DAY SOLD: 03/01/2020 [facility] 0.3 % 01/01/2020 12:00:00 AM EDT drops 5 INSTILL ONE DROP INTO LEFT EYE ONCE DAILY INSTILL ONE DROP INTO LEFT EYE ONCE DAILY SOLD: 01/20/2020 [facility] 0.3 % 01/01/2020 12:00:00 AM EDT drops 5 INSTILL ONE DROP INTO LEFT EYE ONCE DAILY INSTILL ONE DROP INTO LEFT EYE ONCE DAILY SOLD: 01/20/2020 [facility] Trazodone Hydrochloride 100 MG Oral Tablet TRAZODONE HCL 12/30/2019 12:00:00 AM EDT tablet 30 TAKE ONE TABLET BY MOUTH AT BEDTIME TAKE ONE TABLET BY MOUTH AT BEDTIME SOLD: 02/03/2020 [facility] pantoprazole 40 MG Delayed Release Oral Tablet PANTOPRAZOLE SODIUM 12/30/2019 12:00:00 AM EDT tablet,delayed release (DR/EC) 30 T ANNIA ONE TABLET BY MOUTH EVERY MORNING TAKE ONE TABLET BY MOUTH EVERY MORNING SOLD: 04/08/2020 [facility] pantoprazole 40 MG Delayed Release Oral Tablet PANTOPRAZOLE SODIUM 12/30/2019 12:00:00 AM EDT tablet,delayed release (DR/EC) 30 T ANNIA ONE TABLET BY MOUTH EVERY MORNING TAKE ONE TABLET BY MOUTH EVERY MORNING SOLD: 02/03/2020 [facility] 1,250 mcg (50,000 unit) 12/30/2019 12:00:00 AM EDT capsule 4 TAKE ONE CAPSULE BY MOUTH ONCE WEEKLY TAKE ONE CAPSULE BY MOUTH ONCE WEEKLY SOLD: 01/27/2020 [facility] pantoprazole 40 MG Delayed Release Oral Tablet PANTOPRAZOLE SODIUM 12/30/2019 12:00:00 AM EDT tablet,delayed release (DR/EC) 30 T ANNIA ONE TABLET BY MOUTH EVERY MORNING TAKE ONE TABLET BY MOUTH EVERY MORNING SOLD: 01/01/2020 [facility] Trazodone Hydrochloride 100 MG Oral Tablet TRAZODONE HCL 12/30/2019 12:00:00 AM EDT tablet 30 TAKE ONE TABLET BY MOUTH AT BEDTIME TAKE ONE TABLET BY MOUTH AT BEDTIME SOLD: 02/28/2020 [facility] 1,250 mcg (50,000 unit) 12/30/2019 12:00:00 AM EDT capsule 4 TAKE ONE CAPSULE BY MOUTH ONCE WEEKLY TAKE ONE CAPSULE BY MOUTH ONCE WEEKLY SOLD: 03/24/2020 [facility] 1,250 mcg (50,000 unit) 12/30/2019 12:00:00 AM EDT capsule 4 TAKE ONE CAPSULE BY MOUTH ONCE WEEKLY TAKE ONE CAPSULE BY MOUTH ONCE WEEKLY SOLD: 01/01/2020 [facility] Trazodone Hydrochloride 100 MG Oral Tablet TRAZODONE HCL 12/30/2019 12:00:00 AM EDT tablet 30 TAKE ONE TABLET BY MOUTH AT BEDTIME TAKE ONE TABLET BY MOUTH AT BEDTIME SOLD: 01/01/2020 [facility] pantoprazole 40 MG Delayed Release Oral Tablet PANTOPRAZOLE SODIUM 12/30/2019 12:00:00 AM EDT tablet,delayed release (DR/EC) 30 T ANNIA ONE TABLET BY MOUTH EVERY MORNING TAKE ONE TABLET BY MOUTH EVERY MORNING SOLD: 02/28/2020 [facility] 1,250 mcg (50,000 unit) 12/30/2019 12:00:00 AM EDT capsule 4 TAKE ONE CAPSULE BY MOUTH ONCE WEEKLY TAKE ONE CAPSULE BY MOUTH ONCE WEEKLY SOLD: 03/01/2020 [facility] 0.75 mg/0.5 mL 12/27/2019 12:00:00 AM EDT pen injector 2 INJECT 0.75ML UNDER THE SKIN WEEKLY, IF TOLERATED CONTACT MD TO INCREASE TO 1.5ML AFTER ONE MONTH INJECT 0.75ML UNDER THE SKIN WEEKLY, IF TOLERATED CONTACT MD TO INCREASE TO 1.5ML AFTER ONE MONTH SOLD: 04/16/2020 [facility] 0.75 mg/0.5 mL 12/27/2019 12:00:00 AM EDT pen injector 2 INJECT 0.75ML UNDER THE SKIN WEEKLY, IF TOLERATED CONTACT MD TO INCREASE TO 1.5ML AFTER ONE MONTH INJECT 0.75ML UNDER THE SKIN WEEKLY, IF TOLERATED CONTACT MD TO INCREASE TO 1.5ML AFTER ONE MONTH SOLD: 03/24/2020 [facility] 0.75 mg/0.5 mL 12/27/2019 12:00:00 AM EDT pen injector 2 INJECT 0.75ML UNDER THE SKIN WEEKLY, IF TOLERATED CONTACT MD TO INCREASE TO 1.5ML AFTER ONE MONTH INJECT 0.75ML UNDER THE SKIN WEEKLY, IF TOLERATED CONTACT MD TO INCREASE TO 1.5ML AFTER ONE MONTH SOLD: 02/20/2020 [facility] 0.75 mg/0.5 mL 12/27/2019 12:00:00 AM EDT pen injector 2 INJECT 0.75ML UNDER THE SKIN WEEKLY, IF TOLERATED CONTACT MD TO INCREASE TO 1.5ML AFTER ONE MONTH INJECT 0.75ML UNDER THE SKIN WEEKLY, IF TOLERATED CONTACT MD TO INCREASE TO 1.5ML AFTER ONE MONTH SOLD: 12/27/2019 [facility] 0.75 mg/0.5 mL 12/27/2019 12:00:00 AM EDT pen injector 2 INJECT 0.75ML UNDER THE SKIN WEEKLY, IF TOLERATED CONTACT MD TO INCREASE TO 1.5ML AFTER ONE MONTH INJECT 0.75ML UNDER THE SKIN WEEKLY, IF TOLERATED CONTACT MD TO INCREASE TO 1.5ML AFTER ONE MONTH SOLD: 01/27/2020 [facility] 60 mg 12/21/2019 12:00:00 AM EDT capsule,delayed release (DR/EC) 30 TAKE ONE CAPSULE BY MOUTH EVERY DAY TAKE ONE CAPSULE BY MOUTH EVERY DAY SOLD: 03/01/2020 [facility] 60 mg 12/21/2019 12:00:00 AM EDT capsule,delayed release (DR/EC) 30 TAKE ONE CAPSULE BY MOUTH EVERY DAY TAKE ONE CAPSULE BY MOUTH EVERY DAY SOLD: 12/21/2019 [facility] 60 mg 12/21/2019 12:00:00 AM EDT capsule,delayed release (DR/EC) 30 TAKE ONE CAPSULE BY MOUTH EVERY DAY TAKE ONE CAPSULE BY MOUTH EVERY DAY SOLD: 01/27/2020 [facility] 0.3 % 12/02/2019 12:00:00 AM EDT drops 5 INSTILL ONE DROP INTO THE LEFT EYE FOUR TIMES A DAY INSTILL ONE DROP INTO THE LEFT EYE FOUR TIMES A DAY SO LD: 12/03/2019 [facility] 1 % 12/02/2019 12:00:00 AM EDT drops,suspension 5 INSTILL ONE DROP INTO LEFT EYE FOUR TIMES A DAY INSTILL ONE DROP INTO LEFT EYE FOUR TIMES A DAY SOLD: 12/23/2019 [facility] prednisolone acetate 10 MG/ML Ophthalmic Suspension [Pred Fo rte] Pred Forte 12/02/2019 12:00:00 AM EDT OPHTHALMIC active [facility] ([facility]) Ofloxacin 3 MG/ML Ophthalmic Solution [Ocuflox] Ocuflox 12/02/2019 12:00:00 AM EDT OPHTHALMIC active [facility] ([facility]) 1 % 12/02/2019 12:00:00 AM EDT drops,suspension 5 INSTILL ONE DROP INTO LEFT EYE FOUR TIMES A DAY INSTILL ONE DROP INTO LEFT EYE FOUR TIMES A DAY SOLD: 01/18/2020 [facility] 1 % 12/02/2019 12:00:00 AM EDT drops,suspension 5 INSTILL ONE DROP INTO LEFT EYE FOUR TIMES A DAY INSTILL ONE DROP INTO LEFT EYE FOUR TIMES A DAY SOLD: 12/03/2019 [facility] ALCOHOL ANTISEPTIC PADS 11/05/2019 12:00:00 AM EDT pads, med icated 100 USE DIRECTED FOR BLOOD GLUCOSE TESTING MAXIMUM DAILY DOSE = 4 USE DIRECTED FOR BLOOD GLUCOSE TESTING MAXIMUM DAILY DOSE = 4 SOLD: 11/05/2019 [facility] ALCOHOL ANTISEPTIC PADS 11/05/2019 12:00:00 AM EDT pads, med icated 100 USE DIRECTED FOR BLOOD GLUCOSE TESTING MAXIMUM DAILY DOSE = 4 USE DIRECTED FOR BLOOD GLUCOSE TESTING MAXIMUM DAILY DOSE = 4 SOLD: 03/24/2020 [facility] 50 mg 11/04/2019 12:00:00 AM EDT tablet 30 TAKE ONE TABLET BY MOUTH DAILY TAKE ONE TABLET BY MOUTH DAILY SOLD: 11/05/2019 [facility] 50 mg 11/04/2019 12:00:00 AM EDT tablet 30 TAKE ONE TABLET BY MOUTH DAILY TAKE ONE TABLET BY MOUTH DAILY SOLD: 11/29/2019 [facility] 1,250 mcg (50,000 unit) 11/04/2019 12:00:00 AM EDT capsule 4 TAKE 1 CAPSULE BY MOUTH EVERY WEEK TAKE 1 CAPSULE BY MOUTH EVERY WEEK SOLD: 11/05/2019 [facility] 1,250 mcg (50,000 unit) 11/04/2019 12:00:00 AM EDT capsule 4 TAKE 1 CAPSULE BY MOUTH EVERY WEEK TAKE 1 CAPSULE BY MOUTH EVERY WEEK SOLD: 11/29/2019 [facility] 10 mg 11/03/2019 12:00:00 AM EDT tablet 30 TAKE ONE TABLET BY MOUTH EVERY DAY TAKE ONE TABLET BY MOUTH EVERY DAY SOLD: 03/24/2020 [facility] 10 mg 11/03/2019 12:00:00 AM EDT tablet 30 TAKE ONE TABLET BY MOUTH EVERY DAY TAKE ONE TABLET BY MOUTH EVERY DAY SOLD: 11/29/2019 [facility] 10 mg 11/03/2019 12:00:00 AM EDT tablet 30 TAKE ONE TABLET BY MOUTH EVERY DAY TAKE ONE TABLET BY MOUTH EVERY DAY SOLD: 11/03/2019 [facility] 37.5-25 mg 10/26/2019 12:00:00 AM EDT capsule 30 TAKE ONE CAPSULE BY MOUTH EVERY DAY TAKE ONE CAPSULE BY MOUTH EVERY DAY SOLD: 11/21/2019 [facility] 37.5-25 mg 10/26/2019 12:00:00 AM EDT capsule 30 TAKE ONE CAPSULE BY MOUTH EVERY DAY TAKE ONE CAPSULE BY MOUTH EVERY DAY SOLD: 10/26/2019 [facility] 37.5-25 mg 10/26/2019 12:00:00 AM EDT capsule 30 TAKE ONE CAPSULE BY MOUTH EVERY DAY TAKE ONE CAPSULE BY MOUTH EVERY DAY SOLD: 12/18/2019 [facility] 400 mg 10/21/2019 12:00:00 AM EDT capsule 90 TAKE ONE CAPSULE BY MOUTH THREE TIMES A DAY TAKE ONE CAPSULE BY MOUTH THREE TIMES A DAY SOLD: 11/17/2019 [facility] 400 mg 10/21/2019 12:00:00 AM EDT capsule 90 TAKE ONE CAPSULE BY MOUTH THREE TIMES A DAY TAKE ONE CAPSULE BY MOUTH THREE TIMES A DAY SOLD: 12/18/2019 [facility] 400 mg 10/21/2019 12:00:00 AM EDT capsule 90 TAKE ONE CAPSULE BY MOUTH THREE TIMES A DAY TAKE ONE CAPSULE BY MOUTH THREE TIMES A DAY SOLD: 10/21/2019 [facility] DIAPER,BRIEF,ADULT, DISPOSABLE 10/14/2019 12:00:00 AM EDT mi sc 112 USE DIRECTED FOUR TIMES A DAY NEEDED FOR INCONTINENCE USE DIRECTED FOUR TIMES A DAY NEEDED FOR INCONTINENCE SOLD: 01/10/2020 [facility] DIAPER,BRIEF,ADULT, DISPOSABLE 10/14/2019 12:00:00 AM EDT mi sc 112 USE DIRECTED FOUR TIMES A DAY NEEDED FOR INCONTINENCE USE DIRECTED FOUR TIMES A DAY NEEDED FOR INCONTINENCE SOLD: 02/20/2020 [facility] DIAPER,BRIEF,ADULT, DISPOSABLE 10/14/2019 12:00:00 AM EDT mi sc 112 USE DIRECTED FOUR TIMES A DAY NEEDED FOR INCONTINENCE USE DIRECTED FOUR TIMES A DAY NEEDED FOR INCONTINENCE SOLD: 10/14/2019 [facility] DIAPER,BRIEF,ADULT, DISPOSABLE 10/14/2019 12:00:00 AM EDT mi sc 112 USE DIRECTED FOUR TIMES A DAY NEEDED FOR INCONTINENCE USE DIRECTED FOUR TIMES A DAY NEEDED FOR INCONTINENCE SOLD: 11/15/2019 [facility] 50 mcg/actuation 10/07/2019 12:00:00 AM EDT spray,suspension 16 SPRAY ONE SPRAY IN EACH NOSTRIL TWICE A DAY NEEDED SPRAY ONE SPRAY IN EACH NOSTRIL TWICE A DAY NEEDED SOLD: 11/21/2019 [facility] 50 mcg/actuation 10/07/2019 12:00:00 AM EDT spray,suspension 16 SPRAY ONE SPRAY IN EACH NOSTRIL TWICE A DAY NEEDED SPRAY ONE SPRAY IN EACH NOSTRIL TWICE A DAY NEEDED SOLD: 10/12/2019 [facility] 0.05 % 09/24/2019 12:00:00 AM EDT ointment 430 APPLY TO AFFECTED AREA(S) TWO TIMES A DAY NEEDED APPLY TO AFFECTED AREA(S) TWO TIMES A DAY NEEDED SO LD: 09/24/2019 [facility] 100 unit/mL (3 mL) 09/23/2019 12:00:00 AM EDT insulin pen 15 INJECT 60 UNITS UNDER THE SKIN EVERY MORNING MAXIMUM DAILY DOSE = 80 UNITS INJECT 60 UNITS UNDER THE SKIN EVERY MORNING MAXIMUM DAILY DOSE = 80 UNITS SOLD: 12/27/2019 [facility] 32 gauge x 5/32" 09/23/2019 12:00:00 AM EDT needle 120 USE FOUR TIMES A DAY USE FOUR TIMES A DAY SOLD: 09/24/2019 [facility] 100 unit/mL (3 mL) 09/23/2019 12:00:00 AM EDT insulin pen 15 INJECT 60 UNITS UNDER THE SKIN EVERY MORNING MAXIMUM DAILY DOSE = 80 UNITS INJECT 60 UNITS UNDER THE SKIN EVERY MORNING MAXIMUM DAILY DOSE = 80 UNITS SOLD: 01/27/2020 [facility] 100 unit/mL (3 mL) 09/23/2019 12:00:00 AM EDT insulin pen 15 INJECT 60 UNITS UNDER THE SKIN EVERY MORNING MAXIMUM DAILY DOSE = 80 UNITS INJECT 60 UNITS UNDER THE SKIN EVERY MORNING MAXIMUM DAILY DOSE = 80 UNITS SOLD: 11/03/2019 [facility] 100 unit/mL (3 mL) 09/23/2019 12:00:00 AM EDT insulin pen 15 INJECT 60 UNITS UNDER THE SKIN EVERY MORNING MAXIMUM DAILY DOSE = 80 UNITS INJECT 60 UNITS UNDER THE SKIN EVERY MORNING MAXIMUM DAILY DOSE = 80 UNITS SOLD: 10/15/2019 [facility] 100 unit/mL (3 mL) 09/23/2019 12:00:00 AM EDT insulin pen 15 INJECT 60 UNITS UNDER THE SKIN EVERY MORNING MAXIMUM DAILY DOSE = 80 UNITS INJECT 60 UNITS UNDER THE SKIN EVERY MORNING MAXIMUM DAILY DOSE = 80 UNITS SOLD: 09/24/2019 [facility] 32 gauge x 5/32" 09/23/2019 12:00:00 AM EDT needle 120 USE FOUR TIMES A DAY USE FOUR TIMES A DAY SOLD: 02/05/2020 [facility] 100 unit/mL (3 mL) 09/23/2019 12:00:00 AM EDT insulin pen 15 INJECT 60 UNITS UNDER THE SKIN EVERY MORNING MAXIMUM DAILY DOSE = 80 UNITS INJECT 60 UNITS UNDER THE SKIN EVERY MORNING MAXIMUM DAILY DOSE = 80 UNITS SOLD: 11/29/2019 [facility] 32 gauge x 5/32" 09/23/2019 12:00:00 AM EDT needle 120 USE FOUR TIMES A DAY USE FOUR TIMES A DAY SOLD: 10/20/2019 [facility] 40 mg 09/14/2019 12:00:00 AM EDT tablet 30 TAKE 1 TABLET BY MOUTH ONCE DAILY TAKE 1 TABLET BY MOUTH ONCE DAILY SOLD: 10/16/2019 [facility] 40 mg 09/14/2019 12:00:00 AM EDT tablet 30 TAKE 1 TABLET BY MOUTH ONCE DAILY TAKE 1 TABLET BY MOUTH ONCE DAILY SOLD: 11/13/2019 [facility] 40 mg 09/14/2019 12:00:00 AM EDT tablet 30 TAKE 1 TABLET BY MOUTH ONCE DAILY TAKE 1 TABLET BY MOUTH ONCE DAILY SOLD: 09/14/2019 [facility] 40 mg 09/14/2019 12:00:00 AM EDT tablet 30 TAKE 1 TABLET BY MOUTH ONCE DAILY TAKE 1 TABLET BY MOUTH ONCE DAILY SOLD: 12/18/2019 [facility] 325 mg 09/11/2019 12:00:00 AM EDT tablet,delayed release (DR/EC) 30 TAKE ONE TABLET BY MOUTH EVERY DAY TAKE ONE TABLET BY MOUTH EVERY DAY SOLD: 11/10/2019 [facility] 325 mg 09/11/2019 12:00:00 AM EDT tablet,delayed release (DR/EC) 30 TAKE ONE TABLET BY MOUTH EVERY DAY TAKE ONE TABLET BY MOUTH EVERY DAY SOLD: 09/11/2019 [facility] 325 mg 09/11/2019 12:00:00 AM EDT tablet,delayed release (DR/EC) 30 TAKE ONE TABLET BY MOUTH EVERY DAY TAKE ONE TABLET BY MOUTH EVERY DAY SOLD: 10/12/2019 [facility] 325 mg 09/11/2019 12:00:00 AM EDT tablet,delayed release (DR/EC) 30 TAKE ONE TABLET BY MOUTH EVERY DAY TAKE ONE TABLET BY MOUTH EVERY DAY SOLD: 12/18/2019 [facility] atorvastatin 40 MG Oral Tablet ATORVASTATIN CALCIUM 09/06/2019 1 2:00:00 AM EDT tablet 30 TAKE ONE TABLET BY MOUTH AT BEDT DARRELL TAKE ONE TABLET BY MOUTH AT BEDTIME SOLD: 11/17/2019 [facility] atorvastatin 40 MG Oral Tablet ATORVASTATIN CALCIUM 09/06/2019 1 2:00:00 AM EDT tablet 30 TAKE ONE TABLET BY MOUTH AT BEDT DARRELL TAKE ONE TABLET BY MOUTH AT BEDTIME SOLD: 09/06/2019 [facility] atorvastatin 40 MG Oral Tablet ATORVASTATIN CALCIUM 09/06/2019 1 2:00:00 AM EDT tablet 30 TAKE ONE TABLET BY MOUTH AT BEDT DARRELL TAKE ONE TABLET BY MOUTH AT BEDTIME SOLD: 12/17/2019 [facility] atorvastatin 40 MG Oral Tablet ATORVASTATIN CALCIUM 09/06/2019 1 2:00:00 AM EDT tablet 30 TAKE ONE TABLET BY MOUTH AT BEDT DARRELL TAKE ONE TABLET BY MOUTH AT BEDTIME SOLD: 10/20/2019 [facility] atorvastatin 40 MG Oral Tablet ATORVASTATIN CALCIUM 09/06/2019 1 2:00:00 AM EDT tablet 30 TAKE ONE TABLET BY MOUTH AT BEDT DARRELL TAKE ONE TABLET BY MOUTH AT BEDTIME SOLD: 01/25/2020 [facility] atorvastatin 40 MG Oral Tablet ATORVASTATIN CALCIUM 09/06/2019 1 2:00:00 AM EDT tablet 30 TAKE ONE TABLET BY MOUTH AT BEDT DARRELL TAKE ONE TABLET BY MOUTH AT BEDTIME SOLD: 03/01/2020 [facility] 100 unit/mL 09/02/2019 12:00:00 AM EDT insulin pen 15 INJECT 15 UNITS WITH MEALS INJECT 15 UNITS WITH MEALS SOLD: 09/04/2019 [facility] 50 mcg/actuation 07/26/2019 12:00:00 AM EDT spray,suspension 16 SPRAY ONE SPRAY IN EACH NOSTRIL TWICE A DAY NEEDED SPRAY ONE SPRAY IN EACH NOSTRIL TWICE A DAY NEEDED SOLD: 07/30/2019 [facility] 10 mg 07/18/2019 12:00:00 AM EDT tablet 30 TAKE ONE TABLET BY MOUTH EVERY DAY TAKE ONE TABLET BY MOUTH EVERY DAY SOLD: 09/18/2019 [facility] 400 mg 07/18/2019 12:00:00 AM EDT capsule 90 TAKE ONE CAPSULE BY MOUTH THREE TIMES A DAY TAKE ONE CAPSULE BY MOUTH THREE TIMES A DAY SOLD: 07/20/2019 [facility] 37.5-25 mg 07/18/2019 12:00:00 AM EDT capsule 30 TAKE ONE CAPSULE BY MOUTH EVERY DAY TAKE ONE CAPSULE BY MOUTH EVERY DAY SOLD: 09/14/2019 [facility] 10 mg 07/18/2019 12:00:00 AM EDT tablet 30 TAKE ONE TABLET BY MOUTH EVERY DAY TAKE ONE TABLET BY MOUTH EVERY DAY SOLD: 08/24/2019 [facility] 100 mcg/actuation 07/18/2019 12:00:00 AM EDT blister with de vice 30 INHALE ONE PUFF BY MOUTH EVERY DAY INHALE ONE PUFF BY MOUTH EVERY DAY SOLD: 08/26/2019 [facility] 100 unit/mL (3 mL) 07/18/2019 12:00:00 AM EDT insulin pen 15 INJECT 75 UNITS EVERY MORNING THEN DIRECTED MAXIMUM DAILY DOSE = 80 UNITS INJECT 75 UNITS EVERY MORNING THEN DIRECTED MAXIMUM DAILY DOSE = 80 UNITS SOLD: 07/20/2019 [facility] 500 mg 07/18/2019 12:00:00 AM EDT tablet 60 TAKE ONE TABLET BY MOUTH TWICE A DAY TAKE ONE TABLET BY MOUTH TWICE A DAY SOLD: 07/20/2019 [facility] 500 mg 07/18/2019 12:00:00 AM EDT tablet 60 TAKE ONE TABLET BY MOUTH TWICE A DAY TAKE ONE TABLET BY MOUTH TWICE A DAY SOLD: 11/13/2019 [facility] 100 unit/mL (3 mL) 07/18/2019 12:00:00 AM EDT insulin pen 15 INJECT 75 UNITS EVERY MORNING THEN DIRECTED MAXIMUM DAILY DOSE = 80 UNITS INJECT 75 UNITS EVERY MORNING THEN DIRECTED MAXIMUM DAILY DOSE = 80 UNITS SOLD: 02/16/2020 [facility] 37.5-25 mg 07/18/2019 12:00:00 AM EDT capsule 30 TAKE ONE CAPSULE BY MOUTH EVERY DAY TAKE ONE CAPSULE BY MOUTH EVERY DAY SOLD: 08/16/2019 [facility] 100 unit/mL (3 mL) 07/18/2019 12:00:00 AM EDT insulin pen 15 INJECT 75 UNITS EVERY MORNING THEN DIRECTED MAXIMUM DAILY DOSE = 80 UNITS INJECT 75 UNITS EVERY MORNING THEN DIRECTED MAXIMUM DAILY DOSE = 80 UNITS SOLD: 08/16/2019 [facility] 100 mcg/actuation 07/18/2019 12:00:00 AM EDT blister with de vice 30 INHALE ONE PUFF BY MOUTH EVERY DAY INHALE ONE PUFF BY MOUTH EVERY DAY SOLD: 07/20/2019 [facility] 37.5-25 mg 07/18/2019 12:00:00 AM EDT capsule 30 TAKE ONE CAPSULE BY MOUTH EVERY DAY TAKE ONE CAPSULE BY MOUTH EVERY DAY SOLD: 07/20/2019 [facility] 10 mg 07/18/2019 12:00:00 AM EDT tablet 30 TAKE ONE TABLET BY MOUTH EVERY DAY TAKE ONE TABLET BY MOUTH EVERY DAY SOLD: 07/20/2019 [facility] 100 mcg/actuation 07/18/2019 12:00:00 AM EDT blister with de vice 30 INHALE ONE PUFF BY MOUTH EVERY DAY INHALE ONE PUFF BY MOUTH EVERY DAY SOLD: 10/12/2019 [facility] Metformin hydrochloride 500 MG Oral Tablet METFORMIN HCL 07/18/2019 12:00:00 AM EDT tablet 60 TAKE ONE TABLET BY MOUTH TWI CE A DAY TAKE ONE TABLET BY MOUTH TWICE A DAY SOLD: 12/18/2019 [facility] 400 mg 07/18/2019 12:00:00 AM EDT capsule 90 TAKE ONE CAPSULE BY MOUTH THREE TIMES A DAY TAKE ONE CAPSULE BY MOUTH THREE TIMES A DAY SOLD: 09/18/2019 [facility] 400 mg 07/18/2019 12:00:00 AM EDT capsule 90 TAKE ONE CAPSULE BY MOUTH THREE TIMES A DAY TAKE ONE CAPSULE BY MOUTH THREE TIMES A DAY SOLD: 08/24/2019 [facility] 0.05 % 07/16/2019 12:00:00 AM EDT ointment 860 APPLY TO AFFECTED AREA(S) TWO TIMES A DAY NEEDED APPLY TO AFFECTED AREA(S) TWO TIMES A DAY NEEDED SO LD: 07/16/2019 [facility] 60 mg 07/15/2019 12:00:00 AM EDT capsule,delayed release (DR/EC) 30 TAKE ONE CAPSULE BY MOUTH EVERY DAY TAKE ONE CAPSULE BY MOUTH EVERY DAY SOLD: 07/16/2019 [facility] 60 mg 07/15/2019 12:00:00 AM EDT capsule,delayed release (DR/EC) 30 TAKE ONE CAPSULE BY MOUTH EVERY DAY TAKE ONE CAPSULE BY MOUTH EVERY DAY SOLD: 09/14/2019 [facility] 60 mg 07/15/2019 12:00:00 AM EDT capsule,delayed release (DR/EC) 30 TAKE ONE CAPSULE BY MOUTH EVERY DAY TAKE ONE CAPSULE BY MOUTH EVERY DAY SOLD: 08/11/2019 [facility] 0.75 mg/0.5 mL 07/10/2019 12:00:00 AM EDT pen injector 2 INJECT 0.75MG ONCE WEEKLY. IF TOLERATED CALL MD TO INCREASE 1.5MG AFTER ONE MONTH INJECT 0.75MG ONCE WEEKLY. IF TOLERATED CALL MD TO INCREASE 1.5MG AFTER ONE MONTH SOLD: 11/02/2019 [facility] 0.75 mg/0.5 mL 07/10/2019 12:00:00 AM EDT pen injector 2 INJECT 0.75MG ONCE WEEKLY. IF TOLERATED CALL MD TO INCREASE 1.5MG AFTER ONE MONTH INJECT 0.75MG ONCE WEEKLY. IF TOLERATED CALL MD TO INCREASE 1.5MG AFTER ONE MONTH SOLD: 10/02/2019 [facility] 0.75 mg/0.5 mL 07/10/2019 12:00:00 AM EDT pen injector 2 INJECT 0.75MG ONCE WEEKLY. IF TOLERATED CALL MD TO INCREASE 1.5MG AFTER ONE MONTH INJECT 0.75MG ONCE WEEKLY. IF TOLERATED CALL MD TO INCREASE 1.5MG AFTER ONE MONTH SOLD: 07/10/2019 [facility] 0.75 mg/0.5 mL 07/10/2019 12:00:00 AM EDT pen injector 2 INJECT 0.75MG ONCE WEEKLY. IF TOLERATED CALL MD TO INCREASE 1.5MG AFTER ONE MONTH INJECT 0.75MG ONCE WEEKLY. IF TOLERATED CALL MD TO INCREASE 1.5MG AFTER ONE MONTH SOLD: 09/08/2019 [facility] 0.75 mg/0.5 mL 07/10/2019 12:00:00 AM EDT pen injector 2 INJECT 0.75MG ONCE WEEKLY. IF TOLERATED CALL MD TO INCREASE 1.5MG AFTER ONE MONTH INJECT 0.75MG ONCE WEEKLY. IF TOLERATED CALL MD TO INCREASE 1.5MG AFTER ONE MONTH SOLD: 11/29/2019 [facility] 0.75 mg/0.5 mL 07/10/2019 12:00:00 AM EDT pen injector 2 INJECT 0.75MG ONCE WEEKLY. IF TOLERATED CALL MD TO INCREASE 1.5MG AFTER ONE MONTH INJECT 0.75MG ONCE WEEKLY. IF TOLERATED CALL MD TO INCREASE 1.5MG AFTER ONE MONTH SOLD: 08/04/2019 [facility] 250 mg 07/01/2019 12:00:00 AM EDT tablet 6 TAKE TWO TABLETS BY MOUTH AT ONCE ON THE FIRST DAY THEN TAKE ONE DAILY THEREAFTER TAKE TWO TABLETS BY MOUTH AT ONCE ON THE FIRST DAY THEN TAKE ONE DAILY THEREAFTER SOLD: 07/03/2019 [facility] 50 mcg/actuation 07/01/2019 12:00:00 AM EDT spray,suspension 16 INSTILL 1 SPRAY IN EACH NOSTRIL TWICE DAILY FOR 10 DAYS INSTILL 1 SPRAY IN EACH NOSTRIL TWICE DAILY FOR 10 DAYS SOLD: 07/03/2019 [facility] 21 mg/24 hr 06/04/2019 12:00:00 AM EST patch 24 hour 28 APPLY 1 PATCH TOPICALLY ONCE DAILY - MAY ROTATE SITE DAILY APPLY 1 PATCH TOPICALLY ONCE DAILY - MAY ROTATE SITE DAILY SOLD: 06/04/2019 [facility] 0.5 % 06/02/2019 12:00:00 AM EST ointment 30 APPLY TO AFFECTED AREA(S) TWO TIMES A DAY NEEDED APPLY TO AFFECTED AREA(S) TWO TIMES A DAY NEEDED SO LD: 06/24/2019 [facility] 0.5 % 06/02/2019 12:00:00 AM EST ointment 30 APPLY TO AFFECTED AREA(S) TWO TIMES A DAY NEEDED APPLY TO AFFECTED AREA(S) TWO TIMES A DAY NEEDED SO LD: 06/02/2019 [facility] 4 mg 06/01/2019 12:00:00 AM EST gum 110 CHEW 1 PIECE OF GUM BY MOUTH EVERY 1-2 HOURS NEEDED CHEW 1 PIECE OF GUM BY MOUTH EVERY 1-2 HOURS NEEDED SOLD: 06/02/2019 [facility] 1,250 mcg (50,000 unit) 05/22/2019 12:00:00 AM EST capsule 4 TAKE ONE CAPSULE BY MOUTH WEEKLY TAKE ONE CAPSULE BY MOUTH WEEKLY SOLD: 08/13/2019 [facility] 1,250 mcg (50,000 unit) 05/22/2019 12:00:00 AM EST capsule 4 TAKE ONE CAPSULE BY MOUTH WEEKLY TAKE ONE CAPSULE BY MOUTH WEEKLY SOLD: 09/11/2019 [facility] 1,250 mcg (50,000 unit) 05/22/2019 12:00:00 AM EST capsule 4 TAKE ONE CAPSULE BY MOUTH WEEKLY TAKE ONE CAPSULE BY MOUTH WEEKLY SOLD: 10/04/2019 [facility] 1,250 mcg (50,000 unit) 05/22/2019 12:00:00 AM EST capsule 4 TAKE ONE CAPSULE BY MOUTH WEEKLY TAKE ONE CAPSULE BY MOUTH WEEKLY SOLD: 06/14/2019 [facility] 1,250 mcg (50,000 unit) 05/22/2019 12:00:00 AM EST capsule 4 TAKE ONE CAPSULE BY MOUTH WEEKLY TAKE ONE CAPSULE BY MOUTH WEEKLY SOLD: 05/22/2019 [facility] 1,250 mcg (50,000 unit) 05/22/2019 12:00:00 AM EST capsule 4 TAKE ONE CAPSULE BY MOUTH WEEKLY TAKE ONE CAPSULE BY MOUTH WEEKLY SOLD: 07/21/2019 [facility] 500 mg 05/14/2019 12:00:00 AM EST tablet 60 TAKE ONE TABLET BY MOUTH TWICE A DAY TAKE ONE TABLET BY MOUTH TWICE A DAY SOLD: 06/14/2019 [facility] 500 mg 05/14/2019 12:00:00 AM EST tablet 60 TAKE ONE TABLET BY MOUTH TWICE A DAY TAKE ONE TABLET BY MOUTH TWICE A DAY SOLD: 05/15/2019 [facility] 5 mg 05/10/2019 12:00:00 AM EST tablet 75 TAKE 1 & 1/2 TABLETS BY MOUTH TWO TIMES A DAY TAKE 1 & 1/2 TABLETS BY MOUTH TWO TIMES A DAY SOLD: 05/11/2019 [facility] 40 mg 05/08/2019 12:00:00 AM EST tablet 30 TAKE ONE TABLET BY MOUTH DAILY TAKE ONE TABLET BY MOUTH DAILY SOLD: 05/08/2019 [facility] 325 mg 05/08/2019 12:00:00 AM EST tablet,delayed release (DR/EC) 30 TAKE ONE TABLET BY MOUTH DAILY TAKE ONE TABLET BY MOUTH DAILY SOLD: 05/08/2019 [facility] 325 mg 05/08/2019 12:00:00 AM EST tablet,delayed release (DR/EC) 30 TAKE ONE TABLET BY MOUTH DAILY TAKE ONE TABLET BY MOUTH DAILY SOLD: 06/07/2019 [facility] 325 mg 05/08/2019 12:00:00 AM EST tablet,delayed release (DR/EC) 30 TAKE ONE TABLET BY MOUTH DAILY TAKE ONE TABLET BY MOUTH DAILY SOLD: 07/13/2019 [facility] 325 mg 05/08/2019 12:00:00 AM EST tablet,delayed release (DR/EC) 30 TAKE ONE TABLET BY MOUTH DAILY TAKE ONE TABLET BY MOUTH DAILY SOLD: 08/11/2019 [facility] 40 mg 05/08/2019 12:00:00 AM EST tablet 30 TAKE ONE TABLET BY MOUTH DAILY TAKE ONE TABLET BY MOUTH DAILY SOLD: 06/07/2019 [facility] 40 mg 05/08/2019 12:00:00 AM EST tablet 30 TAKE ONE TABLET BY MOUTH DAILY TAKE ONE TABLET BY MOUTH DAILY SOLD: 08/03/2019 [facility] 40 mg 05/08/2019 12:00:00 AM EST tablet 30 TAKE ONE TABLET BY MOUTH DAILY TAKE ONE TABLET BY MOUTH DAILY SOLD: 07/03/2019 [facility] 50 mg 04/07/2019 12:00:00 AM EST tablet 30 TAKE ONE TABLET BY MOUTH EVERY 6 HOURS NEEDED FOR PAIN , MAXIMUM DAILY DOSE = 4 TABLETS TAKE ONE TABLET BY MOUTH EVERY 6 HOURS NEEDED FOR PAIN , MAXIMUM DAILY DOSE = 4 TABLETS SOLD: 04/09/2019 [facility] 37.5-25 mg 03/31/2019 12:00:00 AM EST capsule 30 TAKE ONE CAPSULE BY MOUTH EVERY DAY TAKE ONE CAPSULE BY MOUTH EVERY DAY SOLD: 04/24/2019 [facility] 100 mcg/actuation 03/31/2019 12:00:00 AM EST blister with de vice 30 INHALE 1 PUFF BY MOUTH ONCE DAILY INHALE 1 PUFF BY MOUTH ONCE DAILY SOLD: 12/27/2019 [facility] 400 mg 03/31/2019 12:00:00 AM EST capsule 90 TAKE ONE CAPSULE BY MOUTH THREE TIMES A DAY TAKE ONE CAPSULE BY MOUTH THREE TIMES A DAY SOLD: 05/11/2019 [facility] 100 mcg/actuation 03/31/2019 12:00:00 AM EST blister with de vice 30 INHALE 1 PUFF BY MOUTH ONCE DAILY INHALE 1 PUFF BY MOUTH ONCE DAILY SOLD: 03/31/2019 [facility] 60 mg 03/31/2019 12:00:00 AM EST capsule,delayed release (DR/EC) 30 TAKE ONE CAPSULE BY MOUTH EVERY DAY TAKE ONE CAPSULE BY MOUTH EVERY DAY SOLD: 06/07/2019 [facility] 100 mcg/actuation 03/31/2019 12:00:00 AM EST blister with de vice 30 INHALE 1 PUFF BY MOUTH ONCE DAILY INHALE 1 PUFF BY MOUTH ONCE DAILY SOLD: 11/21/2019 [facility] 5 mg 03/31/2019 12:00:00 AM EST tablet 75 TAKE 1 & 1/2 TABLETS BY MOUTH TWO TIMES A DAY TAKE 1 & 1/2 TABLETS BY MOUTH TWO TIMES A DAY SOLD: 03/31/2019 [facility] 60 mg 03/31/2019 12:00:00 AM EST capsule,delayed release (DR/EC) 30 TAKE ONE CAPSULE BY MOUTH EVERY DAY TAKE ONE CAPSULE BY MOUTH EVERY DAY SOLD: 05/08/2019 [facility] 400 mg 03/31/2019 12:00:00 AM EST capsule 90 TAKE ONE CAPSULE BY MOUTH THREE TIMES A DAY TAKE ONE CAPSULE BY MOUTH THREE TIMES A DAY SOLD: 06/07/2019 [facility] 37.5-25 mg 03/31/2019 12:00:00 AM EST capsule 30 TAKE ONE CAPSULE BY MOUTH EVERY DAY TAKE ONE CAPSULE BY MOUTH EVERY DAY SOLD: 05/22/2019 [facility] 60 mg 03/31/2019 12:00:00 AM EST capsule,delayed release (DR/EC) 30 TAKE ONE CAPSULE BY MOUTH EVERY DAY TAKE ONE CAPSULE BY MOUTH EVERY DAY SOLD: 03/31/2019 [facility] 400 mg 03/31/2019 12:00:00 AM EST capsule 90 TAKE ONE CAPSULE BY MOUTH THREE TIMES A DAY TAKE ONE CAPSULE BY MOUTH THREE TIMES A DAY SOLD: 03/31/2019 [facility] 37.5-25 mg 03/31/2019 12:00:00 AM EST capsule 30 TAKE ONE CAPSULE BY MOUTH EVERY DAY TAKE ONE CAPSULE BY MOUTH EVERY DAY SOLD: 03/31/2019 [facility] 10 mg 03/30/2019 12:00:00 AM EST tablet 30 TAKE ONE TABLET BY MOUTH EVERY DAY TAKE ONE TABLET BY MOUTH EVERY DAY SOLD: 04/24/2019 [facility] 10 mg 03/30/2019 12:00:00 AM EST tablet 30 TAKE ONE TABLET BY MOUTH EVERY DAY TAKE ONE TABLET BY MOUTH EVERY DAY SOLD: 06/12/2019 [facility] 40 mg 03/30/2019 12:00:00 AM EST tablet 30 TAKE ONE TABLET BY MOUTH DAILY TAKE ONE TABLET BY MOUTH DAILY SOLD: 03/30/2019 [facility] 10 mg 03/30/2019 12:00:00 AM EST tablet 30 TAKE ONE TABLET BY MOUTH EVERY DAY TAKE ONE TABLET BY MOUTH EVERY DAY SOLD: 03/30/2019 [facility] 100 unit/mL (3 mL) 03/26/2019 12:00:00 AM EST insulin pen 12 INJECT 75 UNITS UNDER THE SKIN EVERY MORNING THEN PER MD INSTRUCTIONS MAXIMUM DAILY DOSE = 80 UNITS INJECT 75 UNITS UNDER THE SKIN EVERY MOR BRANDON THEN PER MD INSTRUCTIONS MAXIMUM DAILY DOSE = 80 UNITS SOLD: 05/24/2019 [facility] 100 unit/mL (3 mL) 03/26/2019 12:00:00 AM EST insulin pen 12 INJECT 75 UNITS UNDER THE SKIN EVERY MORNING THEN PER MD INSTRUCTIONS MAXIMUM DAILY DOSE = 80 UNITS INJECT 75 UNITS UNDER THE SKIN EVERY MOR BRANDON THEN PER MD INSTRUCTIONS MAXIMUM DAILY DOSE = 80 UNITS SOLD: 06/17/2019 [facility] 100 unit/mL (3 mL) 03/26/2019 12:00:00 AM EST insulin pen 12 INJECT 75 UNITS UNDER THE SKIN EVERY MORNING THEN PER MD INSTRUCTIONS MAXIMUM DAILY DOSE = 80 UNITS INJECT 75 UNITS UNDER THE SKIN EVERY MOR BRANDON THEN PER MD INSTRUCTIONS MAXIMUM DAILY DOSE = 80 UNITS SOLD: 07/05/2019 [facility] 100 unit/mL (3 mL) 03/26/2019 12:00:00 AM EST insulin pen 12 INJECT 75 UNITS UNDER THE SKIN EVERY MORNING THEN PER MD INSTRUCTIONS MAXIMUM DAILY DOSE = 80 UNITS INJECT 75 UNITS UNDER THE SKIN EVERY MOR BRANDON THEN PER MD INSTRUCTIONS MAXIMUM DAILY DOSE = 80 UNITS SOLD: 03/26/2019 [facility] BLOOD-GLUCOSE METER 03/20/2019 12:00:00 AM EST kit 1 USE TO TEST BLOOD GLUCOSE THREE TIMES A DAY USE TO TEST BLOOD GLUCOSE THREE TIMES A DAY SOLD: 03/20/2019 [facility] BLOOD SUGAR DIAGNOSTIC 03/18/2019 12:00:00 AM EST strip 100 USE DIRECTED TO MONITOR BLOOD GLUCOSE THREE TIMES A DAY USE DIRECTED TO MONITOR BLOOD GLUCOSE THREE TIMES A DAY SOLD: 03/20/2019 [facility] BLOOD SUGAR DIAGNOSTIC 03/18/2019 12:00:00 AM EST strip 100 USE DIRECTED TO MONITOR BLOOD GLUCOSE THREE TIMES A DAY USE DIRECTED TO MONITOR BLOOD GLUCOSE THREE TIMES A DAY SOLD: 07/30/2019 [facility] BLOOD SUGAR DIAGNOSTIC 03/18/2019 12:00:00 AM EST strip 100 USE DIRECTED TO MONITOR BLOOD GLUCOSE THREE TIMES A DAY USE DIRECTED TO MONITOR BLOOD GLUCOSE THREE TIMES A DAY SOLD: 09/14/2019 [facility] BLOOD SUGAR DIAGNOSTIC 03/18/2019 12:00:00 AM EST strip 100 USE DIRECTED TO MONITOR BLOOD GLUCOSE THREE TIMES A DAY USE DIRECTED TO MONITOR BLOOD GLUCOSE THREE TIMES A DAY SOLD: 02/05/2020 [facility] BLOOD SUGAR DIAGNOSTIC 03/18/2019 12:00:00 AM EST strip 100 USE DIRECTED TO MONITOR BLOOD GLUCOSE THREE TIMES A DAY USE DIRECTED TO MONITOR BLOOD GLUCOSE THREE TIMES A DAY SOLD: 04/29/2019 [facility] 32 gauge x 5/32" 03/13/2019 12:00:00 AM EST needle 120 USE TO TEST FOUR TIMES A DAY USE TO TEST FOUR TIMES A DAY SOLD: 03/13/2019 [facility] 28 gauge 03/13/2019 12:00:00 AM EST misc 120 TEST FOUR TIMES A DAY TEST FOUR TIMES A DAY SOLD: 10/20/2019 [facility] 28 gauge 03/13/2019 12:00:00 AM EST misc 120 TEST FOUR TIMES A DAY TEST FOUR TIMES A DAY SOLD: 02/05/2020 [facility] 28 gauge 03/13/2019 12:00:00 AM EST misc 120 TEST FOUR TIMES A DAY TEST FOUR TIMES A DAY SOLD: 03/13/2019 [facility] 28 gauge 03/13/2019 12:00:00 AM EST misc 120 TEST FOUR TIMES A DAY TEST FOUR TIMES A DAY SOLD: 04/28/2019 [facility] 90 mcg/actuation 03/12/2019 12:00:00 AM EST HFA aerosol inha ler 18 INHALE TWO PUFFS BY MOUTH FOUR TIMES A DAY NEEDED INHALE TWO PUFFS BY MOUTH FOUR TIMES A DAY NEEDED SOLD: 12/27/2019 [facility] 90 mcg/actuation 03/12/2019 12:00:00 AM EST HFA aerosol inha ler 18 INHALE TWO PUFFS BY MOUTH FOUR TIMES A DAY NEEDED INHALE TWO PUFFS BY MOUTH FOUR TIMES A DAY NEEDED SOLD: 10/12/2019 [facility] 90 mcg/actuation 03/12/2019 12:00:00 AM EST HFA aerosol inha ler 18 INHALE TWO PUFFS BY MOUTH FOUR TIMES A DAY NEEDED INHALE TWO PUFFS BY MOUTH FOUR TIMES A DAY NEEDED SOLD: 04/28/2019 [facility] 90 mcg/actuation 03/12/2019 12:00:00 AM EST HFA aerosol inha ler 18 INHALE TWO PUFFS BY MOUTH FOUR TIMES A DAY NEEDED INHALE TWO PUFFS BY MOUTH FOUR TIMES A DAY NEEDED SOLD: 03/13/2019 [facility] 90 mcg/actuation 03/12/2019 12:00:00 AM EST HFA aerosol inha ler 18 INHALE TWO PUFFS BY MOUTH FOUR TIMES A DAY NEEDED INHALE TWO PUFFS BY MOUTH FOUR TIMES A DAY NEEDED SOLD: 02/17/2020 [facility] 100 unit/mL (3 mL) 03/11/2019 12:00:00 AM EST insulin pen 15 INJECT SUBCUTANEOUSLY DIRECTED MAXIMUM DAILY DOSE = 80 UNITS INJECT SUBCUTANEOUSLY DIRECTED MAXIMUM DAILY DOSE = 80 UNITS SOLD: 03/13/2019 [facility] DIAPER,BRIEF,ADULT, DISPOSABLE 03/08/2019 12:00:00 AM EST mi sc 112 USE DIRECTED FOUR TIMES A DAY NEEDED FOR INCONTINENCE USE DIRECTED FOUR TIMES A DAY NEEDED FOR INCONTINENCE SOLD: 03/08/2019 [facility] DIAPER,BRIEF,ADULT, DISPOSABLE 03/08/2019 12:00:00 AM EST mi sc 112 USE DIRECTED FOUR TIMES A DAY NEEDED FOR INCONTINENCE USE DIRECTED FOUR TIMES A DAY NEEDED FOR INCONTINENCE SOLD: 07/31/2019 [facility] DIAPER,BRIEF,ADULT, DISPOSABLE 03/08/2019 12:00:00 AM EST mi sc 112 USE DIRECTED FOUR TIMES A DAY NEEDED FOR INCONTINENCE USE DIRECTED FOUR TIMES A DAY NEEDED FOR INCONTINENCE SOLD: 05/22/2019 [facility] 40 mg 02/23/2019 12:00:00 AM EST tablet,delayed release (DR/EC) 30 TAKE ONE TABLET BY MOUTH EVERY DAY TAKE ONE TABLET BY MOUTH EVERY DAY SOLD: 02/23/2019 [facility] 40 mg 02/23/2019 12:00:00 AM EST tablet 30 TAKE ONE TABLET BY MOUTH EVERY DAY TAKE ONE TABLET BY MOUTH EVERY DAY SOLD: 02/23/2019 [facility] Losartan Potassium 50 MG Oral Tablet [facility] 12:00:00 AM EST tablet 30 TAKE ONE TABLET BY MOUTH TIFFANY RY DAY TAKE ONE TABLET BY MOUTH EVERY DAY SOLD: 02/23/2019 [facility] 220 mcg/actuation 02/23/2019 12:00:00 AM EST HFA aerosol inh aler 12 INHALE 2 PUFFS BY MOUTH TWO TIMES A DAY INHALE 2 PUFFS BY MOUTH TWO TIMES A DAY SOLD: 02/23/2019 [facility] Losartan Potassium 50 MG Oral Tablet [facility]ART[facility] POTASSIUM 12:00:00 AM EST tablet 30 TAKE ONE TABLET BY MOUTH TIFFANY RY DAY TAKE ONE TABLET BY MOUTH EVERY DAY SOLD: 03/27/2019 [facility] 400 mg 02/23/2019 12:00:00 AM EST capsule 90 TAKE ONE CAPSULE BY MOUTH THREE TIMES A DAY TAKE ONE CAPSULE BY MOUTH THREE TIMES A DAY SOLD: 02/23/2019 [facility] 500 mg 02/23/2019 12:00:00 AM EST tablet 120 TAKE TWO TABLETS BY MOUTH TWICE A DAY AT 0800 AND 1800 TAKE TWO TABLETS BY MOUTH TWICE A DAY AT 0800 AND 1800 SOLD: 02/23/2019 [facility] 37.5-25 mg 02/23/2019 12:00:00 AM EST capsule 30 TAKE ONE CAPSULE BY MOUTH EVERY DAY TAKE ONE CAPSULE BY MOUTH EVERY DAY SOLD: 02/23/2019 [facility] 325 mg 02/23/2019 12:00:00 AM EST tablet 30 TAKE ONE TABLET BY MOUTH EVERY DAY TAKE ONE TABLET BY MOUTH EVERY DAY SOLD: 02/23/2019 [facility] 40 mg 02/23/2019 12:00:00 AM EST tablet 30 TAKE ONE TABLET BY MOUTH EVERY DAY TAKE ONE TABLET BY MOUTH EVERY DAY SOLD: 02/23/2019 [facility] 5 mg 02/23/2019 12:00:00 AM EST tablet 30 TAKE ONE TABLET BY MOUTH EVERY 4 HOURS NEEDED FOR PAIN MAXIMUM DAILY DOSE = 6 TAKE ONE TABLET BY MOUTH EVERY 4 HOURS NEEDED FOR PAIN MAXIMUM DAILY DOSE = 6 SOLD: 02/23/2019 [facility] 100 mg 02/23/2019 12:00:00 AM EST tablet extended release 24 hr 30 TAKE ONE TABLET BY MOUTH EVERY DAY TAKE ONE TABLET BY MOUTH EVERY DAY SOLD: 02/23/2019 [facility] 30 mg 02/23/2019 12:00:00 AM EST capsule,delayed release (DR/EC) 30 TAKE ONE CAPSULE BY MOUTH EVERY DAY TAKE ONE CAPSULE BY MOUTH EVERY DAY SOLD: 02/23/2019 [facility] 10 mg 02/23/2019 12:00:00 AM EST tablet 30 TAKE ONE TABLET BY MOUTH EVERY DAY TAKE ONE TABLET BY MOUTH EVERY DAY SOLD: 02/23/2019 [facility] 40 mg 12/29/2018 12:00:00 AM EDT tablet 30 TAKE ONE TABLET BY MOUTH EVERY DAY AT BEDTIME TAKE ONE TABLET BY MOUTH EVERY DAY AT BEDTIME SOLD: 03/26/2019 [facility] 40 mg 12/29/2018 12:00:00 AM EDT tablet 30 TAKE ONE TABLET BY MOUTH EVERY DAY AT BEDTIME TAKE ONE TABLET BY MOUTH EVERY DAY AT BEDTIME SOLD: 06/29/2019 [facility] 40 mg 12/29/2018 12:00:00 AM EDT tablet 30 TAKE ONE TABLET BY MOUTH EVERY DAY AT BEDTIME TAKE ONE TABLET BY MOUTH EVERY DAY AT BEDTIME SOLD: 08/03/2019 [facility] 40 mg 12/29/2018 12:00:00 AM EDT tablet 30 TAKE ONE TABLET BY MOUTH EVERY DAY AT BEDTIME TAKE ONE TABLET BY MOUTH EVERY DAY AT BEDTIME SOLD: 05/29/2019 [facility] 40 mg 12/29/2018 12:00:00 AM EDT tablet 30 TAKE ONE TABLET BY MOUTH EVERY DAY AT BEDTIME TAKE ONE TABLET BY MOUTH EVERY DAY AT BEDTIME SOLD: 04/23/2019 [facility] 0.75 mg/0.5 mL 12/26/2018 12:00:00 AM EDT pen injector 2 INJECT 0.75MG UNDER THE SKIN ONCE WEEKLY. IF TOLERATED, CONTACT MD REGARDING INCREASE TO 1.5MG AFTER ONE MONTH INJECT 0.75MG UNDER THE SKIN ONCE WEEKLY . IF TOLERATED, CONTACT MD REGARDING INCREASE TO 1.5MG AFTER ONE MONTH SOLD: 04/12/2019 [facility] 0.75 mg/0.5 mL 12/26/2018 12:00:00 AM EDT pen injector 2 INJECT 0.75MG UNDER THE SKIN ONCE WEEKLY. IF TOLERATED, CONTACT MD REGARDING INCREASE TO 1.5MG AFTER ONE MONTH INJECT 0.75MG UNDER THE SKIN ONCE WEEKLY . IF TOLERATED, CONTACT MD REGARDING INCREASE TO 1.5MG AFTER ONE MONTH SOLD: 05/06/2019 [facility] 0.75 mg/0.5 mL 12/26/2018 12:00:00 AM EDT pen injector 2 INJECT 0.75MG UNDER THE SKIN ONCE WEEKLY. IF TOLERATED, CONTACT MD REGARDING INCREASE TO 1.5MG AFTER ONE MONTH INJECT 0.75MG UNDER THE SKIN ONCE WEEKLY . IF TOLERATED, CONTACT MD REGARDING INCREASE TO 1.5MG AFTER ONE MONTH SOLD: 06/07/2019 [facility] 0.75 mg/0.5 mL 12/26/2018 12:00:00 AM EDT pen injector 2 INJECT 0.75MG UNDER THE SKIN ONCE WEEKLY. IF TOLERATED, CONTACT MD REGARDING INCREASE TO 1.5MG AFTER ONE MONTH INJECT 0.75MG UNDER THE SKIN ONCE WEEKLY . IF TOLERATED, CONTACT MD REGARDING INCREASE TO 1.5MG AFTER ONE MONTH SOLD: 03/01/2019 [facility] 100 mcg/actuation 12/22/2018 12:00:00 AM EDT blister with de vice 30 INHALE 1 PUFF BY MOUTH ONCE DAILY INHALE 1 PUFF BY MOUTH ONCE DAILY SOLD: 03/04/2019 [facility] 500 mg 12/07/2018 12:00:00 AM EDT tablet 60 TAKE ONE TABLET BY MOUTH TWICE A DAY TAKE ONE TABLET BY MOUTH TWICE A DAY SOLD: 03/26/2019 [facility] 500 mg 12/07/2018 12:00:00 AM EDT tablet 60 TAKE ONE TABLET BY MOUTH TWICE A DAY TAKE ONE TABLET BY MOUTH TWICE A DAY SOLD: 10/12/2019 [facility] 60 mg 11/25/2018 12:00:00 AM EDT capsule,delayed release (DR/EC) 30 TAKE ONE CAPSULE BY MOUTH EVERY DAY TAKE ONE CAPSULE BY MOUTH EVERY DAY SOLD: 10/12/2019 [facility] 60 mg 11/25/2018 12:00:00 AM EDT capsule,delayed release (DR/EC) 30 TAKE ONE CAPSULE BY MOUTH EVERY DAY TAKE ONE CAPSULE BY MOUTH EVERY DAY SOLD: 11/13/2019 [facility] 325 mg 10/27/2018 12:00:00 AM EDT tablet 30 TAKE ONE TABLET BY MOUTH EVERY DAY TAKE ONE TABLET BY MOUTH EVERY DAY SOLD: 04/02/2019 [facility] 50,000 unit 05/01/2018 12:00:00 AM EST capsule 4 TAKE ONE CAPSULE BY MOUTH EVERY WEEK TAKE ONE CAPSULE BY MOUTH EVERY WEEK SOLD: 03/01/2019 [facility] 1,250 mcg (50,000 unit) 05/01/2018 12:00:00 AM EST capsule 4 TAKE ONE CAPSULE BY MOUTH EVERY WEEK TAKE ONE CAPSULE BY MOUTH EVERY WEEK SOLD: 03/26/2019 [facility] duloxetine 30 MG Delayed Release Oral Ca psule duloxetine 30 mg capsule,delayed release duloxetine 30 mg capsule,delayed release completed duloxetine 30 MG Delayed Release Oral Capsule [facility] ([facility]) Nicotine 4 MG Chewing Gum nicotine (polacrilex) 4 mg g um nicotine (polacrilex) 4 mg gum completed nicotine 4 MG Chewing Gum [facility]) Oxycodone Hydrochloride 5 MG Oral Tablet oxycodone 5 m g tablet oxycodone 5 mg tablet completed oxycodone hydro chloride 5 MG Oral Tablet [facility] ([facility]) Aspirin 325 MG Delayed Release Oral Tabl et aspirin 325 mg tablet,delayed release aspirin 325 mg tablet,delayed release completed aspirin 325 MG Delayed Release Oral Tablet [facility]) Azithromycin 250 MG Oral Tablet azithromycin 250 mg ta blet azithromycin 250 mg tablet completed azithromycin 25 0 MG Oral Tablet [facility]) 24 HR Nicotine 0.875 MG/HR Transdermal P atch nicotine 21 mg/24 hr daily transdermal patch nicotine 21 mg/24 hr daily transdermal patch completed 24 HR nicotine 0.875 MG/HR Trans dermal System [facility] ([facility]) duloxetine 60 MG Delayed Release Oral Ca psule duloxetine 60 mg capsule,delayed release duloxetine 60 mg capsule,delayed release completed duloxetine 60 MG Delayed Release Oral Capsule [facility] ([facility]) Triamcinolone Acetonide 0.0005 MG/MG Top ical Ointment triamcinolone acetonide 0.05 % topical ointment triamcinolone acetonide 0.05 % topical ointment completed triamcinolone acetonide 0 .0005 MG/MG Topical Ointment [facility] ([facility]) Trazodone Hydrochloride 50 MG Oral Tablet trazodone 50 mg tablet trazodone 50 mg tablet completed trazodone hydr ochloride 50 MG Oral Tablet [facility] ([facility]) Insurance Providers Payer name Policy type / Coverage type Policy ID Covered constitution party ID Covered constitution party's relationship to crane Policy Crane Plan Information ELMO [id number] SP [id number] [id number] SP [id number] ELMO [facility] [id number] S [id number] ELMO [id number] SP [id number] Medicaid S [id number] Managed Care [place] P [id number] S [id number] ELMO [id number] SP [id number] Medicaid S [id number] S [id number] MEDICAID [id number] SP [id number] Managed Care [place] P [id number] S [id number] ELMO [id number] SP [id number] [employer] MCD[employer]MO [id number] SP [id number] Managed Care - [facility] Community Plan P [id number] S [id number] [facility]) O [id number] S [id number] Managed Care - [facility] Community Plan P [id number] S [id number] Medicaid S [id number] S [id number] Managed Care - [facility] P [id number] S [id number] [employer] MCD[employer]MO [id number] SP [id number] Medicaid S [id number] S [id number] Managed Care [facility] O [id number] S [id number] [employer] MCDHMO [id number] SP [id number] ANSI-Medicaid [id number] ANSI-Medicaid [id number] [employer]AN MCDO [id number] SP [id number] [facility] [employer] (HMO) [id number] Self [id number] ANSI-Medicaid [id number] ANSI-Medicaid [id number] ANSI-Medicaid [id number] ANSI-Medicaid [id number] ANSI-Medicaid [id number] ANSI-Medicaid [id number] ANSI-Medicaid [id number] ANSI-Medicaid [id number] MEDICAID [id number] SP [id number] ANSI-Medicaid [id number] ANSI-Medicaid [id number] ANSI-Medicaid [id number] ANSI-Medicaid [id number] ANSI-Medicaid [id number] [facility]-Medicaid [id number] [facility]-Medicaid [id number] MEDICAID M [id number] S [id number] Medicaid P [id number] S [id number] Medicaid P [id number] S [id number] [place] [id number] Self [id number] [place] [id number] Self [id number] MEDICAID [id number] SP [id number] [place] Self [place] [id number] SP [id number] Medicaid P [id number] S [id number] [place] Self Medicaid P [id number] S [id number] Medicaid P [id number] S [id number] Problems, Conditions, and Diagnoses Code Display Name Description Problem Type Effective Dates Data Source(s) I87.312 [id number] 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 Problem 03/30/2020 12:00:00 AM EST eCW1 ([facility]) [id number] Cellulitis of right lower limb Cellulitis of R ight Lower Limb Problem 03/14/2020 12:00:00 AM EST FELICIANO ([facility]) [id number] Keratoconus Keratoconus Problem 03/08/2020 12:00:00 AM EST MEDENT ([facility]) 36651846 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 o f senile cataract Problem 03/08/2020 12:00:00 AM EST MEDENT ([facility]) 504735356 Family history of Respiratory disease Fa angelica History of Respiratory Disease Problem 01/21/2020 04:30:59 PM EDT FELICIANO ([facility]) 553270968 Finding of esophagus Finding of Esophagus Problem 01/21/2020 04:30:59 PM EDT FELICIANO ([facility]) 39549144 Hypertensive disorder Hypertensive Disorder Problem 01/21/2020 04:30:59 PM EDT FELICIANO ([facility]) 315982406 Nuclear senile cataract Nuclear senile cataract Proble m 01/20/2020 12:00:00 AM EDT MEDENT ([facility]) V05.9 Vaccination Vaccination 01/08/2020 12:16:35 PM EDT [facility] 27424815 Corneal transplant Corneal transplant Problem 04/2019 12:00:00 AM EDT MEDENT ([facility]) Presence of intraocular lens Presence of intraocular l ens Problem 12/08/2019 12:00:00 AM EDT MEDENT ([facility]) E11.36 Type 2 diabetes mellitus with diabetic c ataract Cataract due to diabetes mellitus 12/03/2019 01:38:22 PM EDT [facility] V72.81 Preoperative cardiovascular examination Preoperative cardiovascular examination 12/03/2019 01:38:22 PM EDT [facility] [id number] Cataract due to diabetes mellitus type 2 Cataract Due to Diabetes Mellitus Type 2 Problem 12/03/2019 12:00:00 AM EDT HOOPLE ([facility]) 784101874 Pre-surgery testing Pre-surgery Testing Problem 0 12/03/2019 12:00:00 AM EDT HOOPLE ([facility]) 30412893 Age-related cataract Age-related cataract Problem 11/18/2019 12:00:00 AM EDT MEDENT ([facility] ) 24472931 Essential hypertension Essential hypertension Problem 11/18/2019 12:00:00 AM EDT MEDENT ([facility] ) 65040634 Type 2 diabetes mellitus Type 2 diabetes mellitus Prob shelia 11/18/2019 12:00:00 AM EDT MEDENT ([facility] ) 788.41 Increased frequency of urination Increased frequency o f urination 11/04/2019 12:04:23 PM EDT [facility] 407100312 Increased frequency of urination Increased Frequ ency of Urination Problem 11/04/2019 12:00:00 AM EDT HOOPLE ([facility]) V65.8 Person consulting for explanation of exa mination or test findings Person consulting for explanation of examination or test findings 07/01/2019 02:23:33 PM EDT [facility] 69949882 Acute upper respiratory infection, unspe cified Acute upper respiratory infection, unspecified 07/01/2019 02:23:33 PM EDT [facility] [id number] Patient asked to attend Patient Asked to Attend Proble m 07/01/2019 12:00:00 AM EDT HOOPLE ([facility]) 310777005 Disorder of upper respiratory system Dis order of Upper Respiratory System Problem 07/01/2019 12:00:00 AM EDT HOOPLE ([facility]) [id number] Type 2 diabetes mellitus with diabetic n europathy, unspecified Type 2 diabetes mellitus with diabetic neuropathy, unspecified 06/03/2019 08:16:44 AM [facility] 49258150 Atopic dermatitis, unspecified Atopic dermatitis, unsp ecified 06/01/2019 04:07:15 PM [facility] F17.200 Nicotine dependence, unspecified, uncomp licated Nicotine dependence, unspecified, uncomplicated 06/01/2019 10:42:25 AM EST [facility] 89944805 Atopic dermatitis Atopic Dermatitis Problem 06/01/2019 12:00:00 AM EST FELICIANO ([facility]) 05760025 Nicotine dependence Nicotine Dependence Problem 0 06/01/2019 12:00:00 AM EST FELICIANO ([facility]) 82653321 Essential hypertension Essential hypertension Problem 03/10/2019 12:00:00 AM EST MEDENT ([facility] ) S82.001A Unspecified fracture of righ t patella, initial encounter for closed fracture Unspecified fracture of right patella, i nitial encounter for closed fracture 03/03/2019 03:48:00 PM EST [facility] 47381190 Fracture of patella Fracture of Patella Problem 1 05/03/2018 12:00:00 AM EST FELICIANO ([facility]) Surgeries/Procedures Procedure Description Date Indications Data Source(s) FINE NEEDLE ASPIRATION W/O IMAGING GUIDANCE 03/30/2020 12:00:00 AM EST eCW1 ([facility]) Keratoplasty(Corneal Transplant),Lamellar;Autograft OS 12/07/2019 12:00:00 AM EDT MEDENT ([facility]) Extracapsular Cat REM W/Insert IOL,Manual/Phacoemulsificatio n OS 12/07/2019 12:00:00 AM EDT MEDENT ([facility])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 reviewed and/or updated during this visit, including review of any xelu-phu-wtstjdl medications, herbal therapies, and/or supplements.Allergy ReviewAllergy List was reviewed and/or updated during this visit.Adult Preventive CareProvider Calculated and Reviewed all Clinical Protocols for patient today. Screening Tobacco Screening: Smoking Status: current every day smoker (12/30/2019) Tobacco Use: Currently (12/30/2019) Advised to Quit: Yes (12/30/2019)Labs/Meds/Other Counseling-Nut rition and Physical Activity:BMI Interpretation: Morbidly Obese (12/30/2019) Counseling: Done (12/30/2019) Physical Activity: Done (12/30/2019)Review of Systems General: Denies loss of appetite, chills, dizziness, fatigue, fever, continued fever, headache, feeling ill, sweats, night sweats, sleep disturbances, weight loss. Eyes: Denies blurring of vision, double vision, irritation, discharge, vision loss, eye pain, eye swelling, droopy eyelid, sensitivity to light, redness, itching. Ears/Nose/Throat: Denies earache, ear discharge, ringing in ears, decreased hearing, nasal congestion, nosebleeds, runny nose, sore throat, hoarseness, difficulty swallowing, dry mouth, tooth pain, bleeding gums, swollen glands. Cardiovascular: Denies chest pain, palpitations, feeling faint, trouble breathing w/exertion, SOB upon lying down, SOB at night, peripheral edema, elevated blood pressure, decreased heart rate. Respiratory: Denies cough, difficulty breathing, shortness of breath, excessive sputum, coughing up blood, wheezing, chest pain. Gastrointestinal: Denies nausea, vomiting, bleeding, burning, itching, irritation, cramps, diarrhea, constipation. Genitourinary: Denies urinary incontinence, pain with urination, burning with urination, urinary frequency, urinary hesitancy, urinary urgency, urinary urgency at night, incomplete emptying, blood in urine. Musculoskeletal: Denies back pain, joint pain, leg pain, other pain-see comments, joint swelling, body aches, muscle aches, muscle cramps, muscle weakness, stiffness, recent injury. Skin: Denies rash, hives, redness, itching, dryness, nail changes, suspicious lesions, athlete's foot, rash on palms, rash on bottom of feet. Neurologic: Denies muscle impairment, weakness, numbness/tingling, seizures, slurred speech, feeling faint, tremors, vertigo, paralysis on one side, paralysis on both sides. Psychiatric: Denies depression, anxiety, memory loss, mental disturbance, suicidal ideation, homicidal ideation, hallucinations, paranoia, feeling stressed, hearing voices. Endocrine: Denies cold intolerance, heat intolerance, excessive thirst, excessive hunger, excessive urination, weight loss, weight gain. Physical ExamGeneral Appearance: well nourished, well hydrated, no acute distressEyes, External: conjunctivae and lids normal, EOMIRespiratory, Auscultation: clear to auscultation bilaterally; no rales, rhonchi, or wheezesRespiratory, Effort: no intercostal retractions or use of accessory musclesCardiovascular, Auscultation: S1, S2 audible; no murmur, rub, or gallop; RRRPeripheral Circulation: no clubbing, cyanosis, edema, or varicositiesAbdomen: obesed, soft, non-tender, no masses, bowel sounds normalGait & Station: Pt is In power wheelchairSkin, Inspection: no rashes, lesions, or ulcerationsOrientation: oriented to time, place, and personMood & Affect: no depression, anxiety, or agitationJudgment & Insight: intactCare Management Plan Transitions of CareInboundRate Your HealthIn general, would you say your health is? FairAssessment & Plan Problems:Added: Vaccination (ICD- V05.9) (EUS96-T14) Assessment: Instructions: Flu vaccine done today.Assessed:Type 2 diabetes mellitus with diabetic neuropathy, unspecified (I XU57-K48.40) Assessment: Instructions: Your HGA1c is 5.7.. This indicates well controlled type two diabetes. We have decreased your Basaglar insulin to 50 units daily. Please continue to monitor Blood glucose three times daily and as needed. If blood glucose less than 60 or greater than 400. 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 Please try to cut back on drinking sodas and start drinking adeqate water daily. Please continue healthy diet and physical activities.Nicotine dependence, unspecified, uncomplicated (WDV60-M00.200) Assessment: Instructions: Please continue to cut back on your smoking with a goal to quit. Please let us know if you need assistance in doing so.Hyperlipidemia, unspecified (ZAU38-U17.5) Assessment: Instructions: Please continue medication as prescribed. Please continue healthy diet and physical activities.HYPERTENSION (ICD-401.9) (TRW73-M81) Assessment: Instructions: Your Blood Pressure is at goal today.Tobacco use (ICD-305.1) (JJR83-M43.0) Assessment: Pt states smoking about 5-7 cigarettes daily Inst ructions: Please continue to cut back on your smoking with a goal to quit.Patient Instructions/Care Plan: Type 2 diabetes mellitus with diabetic neuropathy- unspecified: Your HGA1c is 5.7.. This indicates well controlled type two diabetes. We have decreased your Basaglar insulin to 50 units daily. Please continue to monitor Blood glucose three times daily and as needed. If blood glucose less than 60 or greater than 400. Please call the clinic.Cataract due to diabetes mellitus: Please continue to follow with your specialist as scheduled.Person consulting for explanation of examination or test findings: We have reviewed your lab results with you today.Please continue medications as prescribed. Please try to cut back on drinking sodas and start drinking adeqate water daily. Please continue healthy diet and physical activities.Nicotine dependence- unspecified- uncomplicated: Please continue to cut back on your smoking with a goal to quit. Please let us know if you need assistance in doing so.Hyperlipidemia- unspecified: Please continue medication as prescribed. Please continue healthy diet and physical activities.HYPERTENSION: Your Blood Pressure is at goal today.Vaccination: Flu vaccine done today.Tobacco use: Please continue to cut back on your smoking with a goal to quit. Plan developed in collaboration with patient and/or familyMedications:TRAZODONE HCL 100 MG ORAL TABLETREPAIR LOOSE ARMS ,TIRES AND BATTERY ON MOTORIZED W/CFLONASE ALLERGY RELIEF 50 MCG/ACT NASAL SUSPENSIONTRIAMCINOLONE ACETONIDE 0.05 % EXTERNAL OINTMENTWHEEL CHAIR ARMS REPAIRLANCET DEVICELANCETSBLOOD GLUCOSE TEST IN VITRO STRIPBLOOD GLUCOSE MONITOR SYSTEM W/DEVICE KITBD PEN NEEDLE MALVIN U/F 32G X 4 MMLANCETS ULTRA FINEBASAGLAR KWIKPEN 100 UNIT/ML SUBCUTANEOUS SOLUTION PEN-INJECTORTRULICITY 0.75 MG/0.5ML SUBCUTANEOUS SOLUTION PEN-INJECTORARNUITY ELLIPTA 100 MCG/ACT INHALATION AEROSOL POWDER BREATH ACTIVATEDSHOWER CHAIRPOWER WHEEL CHAIR BATTERYONETOUCH VERIO IN VITRO STRIPONETOUCH VERIO W/DEVICE KITPOWER CHAIR GRIFFIN TIRESCHRGER FOR POWER WHEECHAIRRIGHT ARM REST FOR POWER WHEELCHAIRCHARGER FOR POWER CHAIR.ASPIRIN EC 325 MG TBECMETFORMIN HCL 500 MG ORAL TABLETNICODERM CQ 21 MG/24HR TRANSDERMAL PATCH 24 HOURFUROSEMIDE 40 MG ORAL TABLETTRIAMTERENE-HCTZ 37.5-25 MG ORAL CAPSULEGABAPENTIN 400 MG ORAL CAPSULE4 WHEEL WALKER WITH SEAT, BARIATRICAMLODIPINE BESYLATE 10 MG ORAL TABLETCYMBALTA 60 MG ORAL CAPSULE DELAYED RELEASE PARTICLESPROTONIX 40 MG ORAL TABLET DELAYED RELEASEATORVASTATIN CALCIUM 40 MG ORAL TABLETWHEELCHAIR PARTS AND LABORINSULIN SYRINGE 31G X 5/16" 1 MLADMELOG SOLOSTAR 100 UNIT/ML SUBCUTANEOUS SOLUTION PEN- INJECTORPROTECTIVE UNDERWEAR SUPER XLALCOHOL WIPES PADDRISDOL 76233 UNIT ORAL CAPSULEMOTORIZED WHEELCHAIRJOYSTICK FOR WHEELCHAIRPARTS AND LABOR FOR WHEELCHAIRPEN NEEDLES 31G X 6 MMONETOUCH LANCETSONETOUCH ULTRA BLUE IN VITRO STRIPVENTOLIN HFA 108 (90 BASE) MCG/ACT INHALATION AEROSOL SOLUTIONMedication Changes:Refilled:TRAZODONE HCL 100 MG ORAL TABLET-take one tablet by mouth daily at bedtime. Qty: 30[Tablet] Refills: 2 Method: ElectronicPROTONIX 40 MG ORAL TABLET DELAYED RELEASE-take once tablet by mouth daily in AM Qty: 30[Tablet] Refills: 3 Method: ElectronicDRISDOL 37540 UNIT ORAL CAPSULE-1 pill po weekly Qty: 4[Capsule] Refills: 5 Method: ElectronicChanged:From: ORAL TRAZODONE HCL 50 MG ORAL TABLET Qty: [id number] Refills: 30[Tablet] To: TRAZODONE HCL 100 MG ORAL TABLET-take one tablet by mouth daily at bedtime. Qty: 30[Tablet] Refills: 2From: ORAL PROTONIX 40 MG ORAL TABLET DELAYED RELEASE Qty: [id number] Refills: 30[Tablet] To: PROTONIX 40 MG ORAL TABLET DELAYED RELEASE-take once tablet by mouth daily in AM Qty: 30[Tablet] Refills: 3From: SUBCUTANEOUS BASAGLAR KWIKPEN 100 UNIT/ML SUBCUTANEOUS SOLUTION PEN-INJECTOR Qty: [id number] Refills: 4[Prefilled Pen Syrnge] To: BASAGLAR KWIKPEN 100 UNIT/ML SUBCUTANEOUS SOLUTION XWT-BIMONBAW-apoo 50 units sub q daily in the mornings. MDD 50Allergies:IBUPROFEN (Moderate)SULFA (Moderate)Orders:FluLaval Quadrivalent, preservative free [CPT-35464] 15758 - Immo Admin (over 19 yrs), 1st Vaccine [CPT-03175] COMP METABOLIC PANEL [CPT-07124] CBC W/DIFF [CPT-65681] HgBA1c [CPT-67109] LIPID PANEL [CPT-59989] Vitamin D 250H Unspecified [CPT- 51551] URINALYSIS [CPT-27531] Urine Culture [CPT-33930] Adult - Ofc Vst, EST, Level IV [CPT-05084] Follow-Up Return to clinic: 3 months for follow up Clinical Visit Summary CompletedMedications:DRISDOL 56518 UNIT ORAL CAPSULE (ERGOCALCIFEROL) 1 pill po weekly #4[Capsule] x 5 Entered and Authorized by: Sandie FROST Method used: Electronically to [facility] (retail) [address] [place] [address] RxID: [id number] 40 MG ORAL TABLET DELAYED RELEASE (PANTOPRAZOLE SODIUM) take once tablet by mouth daily in AM #30[Tablet] x 3 Route:ORAL Entered and Authorized by: Sandie FROST Method used: Electronically to [facility] (retail) [address] [place] [address] Fax: Note to Pharmacy: Route: ORAL; RxID: [id number] HCL 100 MG ORAL TABLET (TRAZODONE HCL) take one tablet by mouth daily at bedtime. #30[Tablet] x 2 Route:ORAL Entered and Authorized by: Sandie FROST Method used: Electronically to [facility] (retail) [address] [place] [address] Ph: [phone] Note to Pharmacy: Route: ORAL; Indications: INSOMNIA RxID: [id number] Questionnaire1) Does the patient have a long-term health problem with heart disease, lung disease, asthma, kidney disease, metabolic disease (e.g., diabetes), anemia, or other blood disorder? No2) Does the patient have allergies to medications, food, a vaccine component, or latex? No3) Does the patient have cancer, leukemia, AIDS, or any other immune system problem? No4) Does the patient live with or expect to have close contact with a person whose immune system is severely compromised and who must be in protective isolation (e.g., an isolation room of a bone marrow transplant unit)? No5) Does the patient take cortisone, prednisone, other steroids, or anticancer drugs, or has the patient had radiation t reatments? No6) During the past year, has the patient received a transfusion of blood or blood products, or been given immune (gamma) globulin or an antiviral drug? No7) For women: Is the patient or is there a chance she could become during the next month? No8) Has the patient ever had a serious reaction to a vaccine in the past? No9) Has the patient had a seizure or a brain or other nervous system problem? No10) Has the patient received any vaccinations in the past 4 weeks? No11) Is the patient older than age 49 years? Yes12) Is the patient sick today? No13) Vaccine information given and explained to patient? YesVaccines Administered/Entered:Vaccination Group: InfluenzaSeries: 1Vaccination: Flulaval Quadrivalent Intramuscular Suspension Prefilled Syringe 0.5 MLMfr / Lot# / Exp.Date: WiOffer / [id number] / 1Amt. Given / Route / Site: 0.5 mL / IM / Left DeltoidNDC / CVX: [id number] / 150Administered Date: 12/30/2019 10:00VFC Eligibility: Not VFC EligibleVIS Date: 11/20/2018VIS Given / VIS Given On: Yes / 12/30/2019Comments: Administered by: Akilah Sumner LPN Name Value Range Interpretation Code Description Data Julia rce(s) Supporting Document(s) ID Date Data Source [id number] 12/24/2019 07:52:44 AM EDT [facility] Labs In-House Blood TestsDate/Time Colle cted: December 24, 2019 7:53 AMTest Result Reference Range Normal ValueComments: blood drawn in right AC PT tolerated Wero Sesay LPN, December 24, 2019 7:53 AMAssessment & Plan Orders:[id number] Vst-Est Level I [CPT-19005] 22800 - Venipuncture [CPT- 05370] Name Value Range Interpretation Code Description Data Julia rce(s) Supporting Document(s) ID Date Data Source [id number] 12/24/2019 07:45:00 AM EDT [facility] Name Value Range Interpretation Code Description Data Julia rce(s) Supporting Document(s) HCT 54.6 % 42.0-52.0 H [facility] HGB 17.1 g/dL 13.5-17.5 N [facility] MCH 31.3 G/DL pg 32.0-36.5 L [facility] MCHC 27.6 PG % 27.0-33.0 N [facility] PLATELETS 234 10 10*3/mm3 150-450 N [facility] RBC 6.19 10 10*6/mm3 4.30-6.10 H [facility] RDW 15.1 % 11.5-14.5 H [facility] WBC TOTAL 7.3 4.0-10.0 N [facility] ID Date Data Source [id number] 12/24/2019 07:45:00 AM EDT [facility] Name Value Range Interpretation Code Description Data Julia rce(s) Supporting Document(s) BG FASTING 120 mg/dL 70-100 H [facility] PSA 0.73 ng/mL < 4.00 N [facility] ID Date Data Source [id number] 12/24/2019 07:45:00 AM EDT [facility] Name Value Range Interpretation Code Description Data Julia rce(s) Supporting Document(s) HGBA1C 5.7 % N [facility] ID Date Data Source [id number] 12/12/2019 10:12:38 AM EDT [facility] - CORE SPECIMEN DESCRIPTION DONOR CORNEA SPECIAL REQUESTS RO ANAEROBESGRAM STAIN NO WHITE BLOOD CELLS NO BACTERIACULTURE RESULTS NO GROWTH 5 DAYSREPORT STATUS FINAL 12/12/2019 SPECIMEN DESCRIPTION SCLERAL BAND SPECIAL REQUESTS RO ANAEROBESCULTURE RESULTS NO GROWTH 5 DAYSREPORT STATUS FINAL 12/12/2019 SPECIMEN DESCRIPTION DONOR CORNEA SPECIAL REQUESTS RO ANAEROBESCULTURE RESULTS NO FUNGUS ISOLATED AFTER 5 WEEKSREPORT STATUS FINAL 01/11/2020 Name Value Range Interpretation Code Description Data Julia rce(s) Supporting Document(s) ID Date Data Source [id number] 12/12/2019 10:14:53 AM EDT [facility] - CORE SPECIMEN DESCRIPTION DONOR CORNEA SPECIAL REQUESTS RO ANAEROBESGRAM STAIN NO WHITE BLOOD CELLS NO BACTERIACULTURE RESULTS NO GROWTH 5 DAYSREPORT STATUS FINAL 12/12/2019 SPECIMEN DESCRIPTION SCLERAL BAND SPECIAL REQUESTS RO ANAEROBESCULTURE RESULTS NO GROWTH 5 DAYSREPORT STATUS FINAL 12/12/2019 SPECIMEN DESCRIPTION DONOR CORNEA SPECIAL REQUESTS RO ANAEROBESCULTURE RESULTS NO FUNGUS ISOLATED AFTER 5 WEEKSREPORT STATUS FINAL 01/11/2020 Name Value Range Interpretation Code Description Data Julia rce(s) Supporting Document(s) ID Date Data Source [id number] 01/11/2020 08:52:45 AM EDT [facility] - CORE SPECIMEN DESCRIPTION DONOR CORNEA SPECIAL REQUESTS RO ANAEROBESGRAM STAIN NO WHITE BLOOD CELLS NO BACTERIACULTURE RESULTS NO GROWTH 5 DAYSREPORT STATUS FINAL 12/12/2019 SPECIMEN DESCRIPTION SCLERAL BAND SPECIAL REQUESTS RO ANAEROBESCULTURE RESULTS NO GROWTH 5 DAYSREPORT STATUS FINAL 12/12/2019 SPECIMEN DESCRIPTION DONOR CORNEA SPECIAL REQUESTS RO ANAEROBESCULTURE RESULTS NO FUNGUS ISOLATED AFTER 5 WEEKSREPORT STATUS FINAL 01/11/2020 Name Value Range Interpretation Code Description Data Julia rce(s) Supporting Document(s) ID Date Data Source [id number] 12/03/2019 11:37:14 AM EDT [facility] Measurements & CalculationsHeight: 65.50 inches 166.37 cm 5 ft. 5.5 in.Weight: 351 pounds 159.55 kg Body Mass Index (BMI): 57.73BMI Interpretation: Morbidly ObeseBody Surface Area (BSA): 2.53Weight Management Education Done (Nutrition/Physical Activity)Vital SignsTemperature: 96.4FPulse Rate: 83 beats/minuteRespiratory Rate: 16 respirations/minuteBlood Pressure: 152/89 O2 Saturation: 95% Vital Signs performed by: Che Dee MA, December 03, 2019 11:38 AMInitial Intake Information From: patientRoom #: 14Infectious Disease / Travel ScreeningRecent travel for you or any close contacts? NoHave you had any close contact with anyone diagnosed with or under investigation for COVID-19 (coronavirus)? NoFever? NoRespiratory symptoms: cough, cold, congestion, shortness of breath, difficulty breathing? NoLoss of smell? NoLoss of taste? NoSmoking, Tobacco, Vaping or Smoke Exposure StatusSmoke Status: current every day smokerTobacco Use: YesAdv to Quit: YesDo you vape? NoHealthcare HistorySince your last office visit...Have you been admitted to the hospital? [facility] - [facility]- low blood sugars, knee rehabHospital admission date reported today: 02/04/2019Have you been to an emergency room (ER) or urgent care clinic? No - [facility] er for ulcers Have you seen another healthcare provider? Yes - eye dr in [place] Have you seen a dentist? Yes - [facility] exam date reported today: 08/2016Intake performed by: Che Dee MA, December 03, 2019 11:41 AMRate Your HealthIn general, would you say your health is? FairPain AssessmentAre you currently having any pain which... You would like your provider to address? No Affects your activity level? NoDepression Screening - PHQ-2Over the last two weeks, have you... Had little interest or pleasure in doing things? Not at all Been feeling down, depressed, or hopeless? Not at all PHQ-2 Score: 0Screening, Brief Intervention, & Referral to Treatment (SBIRT)Pre-Screening Questions How many times have you have 5 or more drinks in a day? 0How many times have you used an illegal drug or used a prescription medication for a non-medical reason? 36Performed by: Che Dee MA, December 03, 2019 11:42 AMPatient History Medical History:COPDDiabetes, Type 2Cellulitis Left leg-2yrs agoHerniated Disc in lower backArthritis in kneesStabbed 10 in head (total 16 times)-1985Hx of Hospitalization:Hx of prior fracture: Hx of prior Head Injury: Vision ProblemG E R DHeadachesHypertensionLeg woundJoint/muscle painSleep ProblemsDental Issues:Last Dental Exam:Dentist:Last eye examSurgical History:stiches from accidentFamily History:Asthma AllergiesCoronary Heart DiseaseCancerCystic FibrosisHeadachesDepressionCVA or Stroke HypertensionHyperlipidemiaObesity Renal DiseaseSeizure DisordersSocial/Personal History:Smoking History:Patient currently smokes every day.Patient has been counseled to quit. Advised to Quit/Tobacco Education: YesChief Complaintmed clearance left eyeHistory of Present Illness (HPI)No interval changes since last visit one month ago.Has never had probems with surgery or anesthesia.Feeeling well in general.A1C 2 months ago was 6.HPI perfo rmed by: Jimy Little MD, December 03, 2019 1:30 PMTransitions of Care InboundProblem ReviewProblem List was reviewed and/or updated during this visit.Medication Reconciliation & ReviewMedication List was reviewed and/or updated during this visit, including review of any hihn-gvk-tcvxdqm medications, herbal therapies, and/or supplements.Allergy ReviewAllergy List was reviewed and/or updated during this visit.Adult Preventive CareProvider Calculated and Reviewed all Clinical Protocols for patient today. Screening Tobacco Screening: Smoking Status: current every day smoker (12/03/2019) Tobacco Use: Currently (12/03/2019) Advised to Quit: Yes (12/03/2019)Labs/Meds/Other Counseling- Nutrition and Physical Activity:BMI Interpretation: Morbidly Obese (12/03/2019) Counseling: Done (12/03/2019) Physical Activity: Done (12/03/2019)Review of Systems General: Denies dizziness, fatigue. Cardiovascular: Denies chest pain. Respiratory: Denies difficulty breathing, shortness of breath, excessive sputum. Gastrointestinal: Denies diarrhea, constipation. Genitourinary: Denies pain with urination, urinary frequency, urinary urgency, incomplete emptying. Physical ExamGeneral Appearance: well nourished, well hydrated, no acute distressRespiratory, Auscultation: clear to auscultation bilaterally; no rales, rhonchi, or wheezesRespiratory, Effort: no intercostal retractions or use of accessory musclesCardiovascular, Auscultation: S1, S2 audible; no murmur, rub, or gallop; RRRGait & Station: In power wheelchair.Orientation: oriented to time, place, and personMood & Affect: no depression, anxiety, or agitationJudgment & Insight: intactCare Management Plan Transitions of CareInboundRate Your HealthIn general, would you say your health is? 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 Plan developed in collaboration with patient and/or familyMedications:TRAZODONE HCL 50 MG ORAL TABLETREPAIR LOOSE ARMS ,TIRES AND BATTERY ON MOTORIZED W/CFLONASE ALLERGY RELIEF 50 MCG/ACT NASAL SUSPENSIONTRIAMCINOLONE ACETONIDE 0.05 % EXTERNAL OINTMENTWHEEL CHAIR ARMS REPAIRLANCET DEVICELANCETSBLOOD GLUCOSE TEST IN VITRO STRIPBLOOD GLUCOSE MONITOR SYSTEM W/DEVICE KITBD PEN NEEDLE MALVIN U/F 32G X 4 MMLANCETS ULTRA FINEBASAGLAR KWIKPEN 100 UNIT/ML SUBCUTANEOUS SOLUTION PEN-INJECTORTRULICITY 0.75 MG/0.5ML SUBCUTANEOUS SOLUTION PEN-INJECTORARNUITY ELLIPTA 100 MCG/ACT INHALATION AEROSOL POWDER BREATH ACTIVATEDSHOWER CHAIRPOWER WHEEL CHAIR BATTERYONETOUCH VERIO IN VITRO STRIPONETOUCH VERIO W/DEVICE KITPOWER CHAIR GRIFFIN TIRESCHRGER FOR POWER WHEECHAIRRIGHT ARM REST FOR POWER WHEELCHAIRCHARGER FOR POWER CHAIR.ASPIRIN EC 325 MG TBECMETFORMIN HCL 500 MG ORAL TABLETNICODERM C Q 21 MG/24HR TRANSDERMAL PATCH 24 HOURFUROSEMIDE 40 MG ORAL TABLETTRIAMTERENE- HCTZ 37.5-25 MG ORAL CAPSULEGABAPENTIN 400 MG ORAL CAPSULE4 WHEEL WALKER WITH SEAT, BARIATRICAMLODIPINE BESYLATE 10 MG ORAL TABLETCYMBALTA 60 MG ORAL CAPSULE DELAYED RELEASE PARTICLESPROTONIX 40 MG ORAL TABLET DELAYED RELEASEATORVASTATIN CALCIUM 40 MG ORAL TABLETWHEELCHAIR PARTS AND LABORINSULIN SYRINGE 31G X 5/16" 1 MLADMELOG SOLOSTAR 100 UNIT/ML SUBCUTANEOUS SOLUTION PEN-INJECTORPROTECTIVE UNDERWEAR SUPER XLALCOHOL WIPES PADDRISDOL 19376 UNIT ORAL CAPSULEMOTORIZED WHEELCHAIRJOYSTICK FOR WHEELCHAIRPARTS AND LABOR FOR WHEELCHAIRPEN NEEDLES 31G X 6 MMONETOUCH LANCETSONETOUCH ULTRA BLUE IN VITRO STRIPVENTOLIN HFA 108 (90 BASE) MCG/ACT INHALATION AEROSOL SOLUTIONAllergies:IBUPROFEN (Moderate)SULFA (Moderate)Orders:Adult - Ofc Vst, EST, Level III [CPT-62085] Name Value Range Interpretation Code Description Data Julia rce(s) Supporting Document(s) ID Date Data Source [id number] 12/02/2019 12:47:00 PM EDT [facility] Name Value Range Interpretation Code Description Data Julia rce(s) Supporting Document(s) SARS-CoV-2 (COVID19) [facility] This lab was ordered by [facility] and reported by [employer]. ID Date Data Source [id number] 11/04/2019 10:46:51 AM EDT [facility] Measurements & CalculationsHeight: 65.50 inches 166.37 cm 5 ft. 5.5 in.Weight: 351 pounds 2 oz. 159.60 kg Body Mass Index (BMI): 57.75BMI Interpretation: Morbidly ObeseBody Surface Area (BSA): 2.53Weight Management Education Done (Nutrition/Physical Activity)Vital SignsTemperature: 98.0FPulse Rate: 77 beats/mi nuteRespiratory Rate: 15 respirations/minuteBlood Pressure: 115/80 O2 Saturation: 96% Vital Signs performed by: Akilah Sumner LPN, November 04, 2019 10:50 AMVital Signs performed by: Akilah Sumner LPN, November 04, 2019 10:50 AMInitial Intake Information From: patientRoom #: 13Infectious Disease / Travel ScreeningRecent travel for you or any close contacts? NoHave you had any close contact with anyone diagnosed with or under investigation for COVID-19 (coronavirus)? NoFever? NoRespiratory symptoms: cough, cold, congestion, shortness of breath, difficulty breathing? NoLoss of smell? NoLoss of taste? NoSmoking, Tobacco, Vaping or Smoke Exposure StatusSmoke Status: current every day smokerTobacco Use: YesAdv to Quit: YesDo you vape? NoPassive Smoke Exposure: YesPassive Smoke Exposure comments: friends Healthcare HistorySince your last office visit...Have you been admitted to the hospital? NoHave you been to an emergency room (ER) or urgent care clinic? NoHave you seen another healthcare p rovider? Yes - pain clinic Have you seen a dentist? Yes - [facility]HIntake performed by: Akilah Sumner LPN, November 04, 2019 10:54 AMRate Your HealthIn general, would you say your health is? FairPain AssessmentAre you currently having any pain which... You would like your provider to address? Yes Affects your activity level? YesDepression Screening - PHQ-2Over the last two weeks, have you... Had little interest or pleasure in doing things? Not at all Been feeling down, depressed, or hopeless? Not at all PHQ-2 Score: 0Anxiety Screening - IRASEMA-2Over the last two weeks, have you been... Feeling nervous, anxious, or on edge? Not at all Unable to stop or control worrying? Not at all IRASEMA-2 Score: 0Food InsecurityWithin the past year...Did you worry whether your food would run out before you got money to buy more? NoWas there a time when the food you bought didn't last and you didn't have money to get more? NoPain AssessmentPain ScaleNumeric Rating Scale: 8 / 10Location: knees and lower back D uration: chronicFrequency: DailyCharacter/Quality: sharp and throbbingIs the pain radiating? YesTo what body part(s) is the pain radiating? to lower legs Screening, Brief Intervention, & Referral to Treatment (SBIRT)Pre-Screening Questions How many times have you have 5 or more drinks in a day? 0How many times have you used an illegal drug or used a prescription medication for a non- medical reason? 36Performed by: Akilah Sumner LPN, November 04, 2019 10:56 AMPatient History Surgical History:stiches from accidentFamily History:Asthma AllergiesCoronary Heart DiseaseCancerCystic FibrosisHeadachesDepressionCVA or Stroke HypertensionHyperlipidemiaObesity Renal DiseaseSeizure DisordersSocial/Personal History:Smoking History:Patient currently smokes every day.Patient has been counseled to quit. Advised to Quit/Tobacco Education: YesChief Complaintfollow-up visit B/p management room 13History of Present Illness (HPI)59 YO male here for B/p management. Pt states taking medications as prescribed and tolerating well. Pt states healthy diet and physical activities. Pt states no added sodium in his diet. HPI performed by: Sandie FROST, November 04, 2019 11:37 AMTransitions of Care InboundMedication Reconciliation & ReviewMedication List was reviewed and/or updated during this visit, including review of any fpde-vws-peuhxtp medications, herbal therapies, and/or supplements.Allergy ReviewAllergy List was reviewed and/or updated during this visit.Adult Preventive CareProvider Calculated and Reviewed all Clinical Protocols for patient today. Screening Tobacco Screening: Smoking Status: current every day smoker (11/04/2019) Tobacco Use: Currently (11/04/2019) Advised to Quit: Yes (11/04/2019)Labs/Meds/Other Counseling-Nutrition and Physical Activity:BMI Interpretation: Morbidly Obese (11/04/2019) Counseling: Done (11/04/2019) Physical Activity: Done (11/04/2019)Review of Systems General: Complains of sleep disturbances. Denies loss of appetite, chills, dizziness, fatigue, fever, continued fever, headache, feeling ill, sweats, night sweats, weight loss. Eyes: Denies blurring of vision, double vision, irritation, discharge, vision loss, eye pain, eye swelling, droopy eyelid, sensitivity to light, redness, itching. Ears/Nose/Throat: Denies earache, ear discharge, ringing in ears, decreased hearing, nasal congestion, nosebleeds, runny nose, sore throat, hoarseness, difficulty swallowing, dry mouth, tooth pain, bleeding gums, swollen glands. Cardiovascular: Denies chest pain, palpitations, feeling faint, trouble breathing w/exertion, SOB upon lying down, SOB at night, peripheral edema, elevated blood pressure, decreased heart rate. Respiratory: Denies cough, difficulty breathing, shortness of breath, excessive sputum, coughing up blood, wheezing, chest pain. Gastrointestinal: Denies nausea, vomiting, bleeding, burning, itching, irritation, cramps, diarrhea. Genitourinary: Complains of urinary frequency. Denies urinary incontinence, pain with urination, burning with urination, urinary hesitancy, urinary urgency, urinary urgency at night, incomplete emptying, blood in urine. Musculoskeletal: Denies back pain, joint pain, leg pain, other pain-see comments, joint swelling, body aches, muscle aches, muscle cramps, muscle weakness, stiffness, recent injury. Skin: Denies rash, hives, redness, itching, dryness, nail changes, suspicious lesions, athlete's foot, rash on palms, rash on bottom of feet. Neurologic: Denies muscle impairment, weakness, numbness/tingling, seizures, slurred speech, feeling faint, tremors, vertigo, paralysis on one side, paralysis on both sides. Psychiatric: Denies depression, anxiety, memory loss, mental disturbance, suicidal ideation, homicidal ideation, hallucinations, paranoia, feeling stressed, hearing voices. Endocrine: Denies cold intolerance, heat intolerance, excessive thirst, excessive hunger, excessive urination, weight loss, weight gain. Heme/Lymphatic: Denies abnormal bruising, bleeding, enlarged lymph nodes. Physical ExamGeneral Appearance: well nourished, well hydrated, no acute distressEyes, External: conjunctivae and lids normal, EOMIRespiratory, Auscultation: clear to auscultation bilaterally; no rales, rhonchi, or wheezesRespiratory, Effort: no intercostal retractions or use of accessory musclesCardiovascular, Auscultation: S1, S2 audible; no murmur, rub, or gallop; RRRPeripheral Circulation: no clubbing, cyanosis, edema, or varicositiesAbdomen: obesed, soft, non-tender, no masses, bowel sounds normalGait & Station: motorized wheel chair. Skin, Inspection: no rashes, lesions, or ulcerationsOrientation: oriented to time, place, and personMood & Affect: no depression, anxiety, or agitationJudgment & Insight: intactCare Management Plan Transitions of CareInboundRate Your HealthIn general, would you say your health is? FairAssessment & Plan Problems:Added: Increased frequency of urination (ICD-788.41) (JZP71-Z39.0) Assessment: Pt states increased frequency of urine especially at nights. PSA level already ordered for next lab draw. will add UA and culture. Instructions: PSA level already ordered for next lab draw. will add UA and culture.Assessed:HYPERTENSION (ICD-401.9) (LOJ19-G80) Assessment: BP much improved. Instructions: Your Blood Pressure is at goal today. Please continue medications as prescribed. Please continue healthy diet and physical activities. Please try to avoid added sodium in your diet. Please try to avoid processed foods.Tobacco use (ICD-305.1) (RJH20-D39.0) Assessment: Instructions: Please continue to cut back on your smoking with a goal to quit.Insomnia (ICD-780.52) (BWE40-D26.00) Assessment: Instructions: We have sent a prescription to your pharmacytoday. Please take medication as prescribed. Please report any major side effects. Please try to avoid nighttime stimulants.DIABETES MELLITUS, TYPE II (ICD-250.00) (UCO78-N08.9) Assessment: Pt states taking medications as prescribed. Pt states healthy diet and physical activities. Referral faxed to Podiatry for foot care Instructions: Please continue medication as prescribed. Please continue to try to limit sugars and carbohydrates in your diet. Please try to maintain good foot care.Patient Instructions/Care Plan: HYPERTENSION: Your Blood Pressure is at goal today. Please continue medications as prescribed. Please continue healthy diet and physical activities. Please try to avoid added sodium in your diet. Please try to avoid processed foods.Tobacco use: Please continue to cut back on your smoking with a goal to quit.Insomnia: We have sent a prescription to your pharmacytoday. Please take medication as prescribed. Please report any major side effects. Please try to avoid nighttime stimulants.Increased frequency of urination: PSA level already ordered for next lab draw. will add UA and culture.DIABETES MELLITUS- TYPE II: Please continue medication as prescribed. Please continue to try to limit sugars and carbohydrates in your diet. Please try to maintain good foot care. Plan developed in collaboration with patient and/or familyMedications:TRAZODONE HCL 50 MG ORAL TABLETREPAIR LOOSE ARMS ,TIRES AND BATTERY ON MOTORIZED W/CFLONASE ALLERGY RELIEF 50 MCG/ACT NASAL SUSPENSIONTRIAMCINOLONE ACETONIDE 0.05 % EXTERNAL OINTMENTWHEEL CHAIR ARMS REPAIRLANCET DEVICELANCETSBLOOD GLUCOSE TEST IN VITRO STRIPBLOOD GLUCOSE MONITOR SYSTEM W/DEVICE KITBD PEN NEEDLE MALVIN U/F 32G X 4 MMLANCETS ULTRA FINEBASAGLAR KWIKPEN 100 UNIT/ML SUBCUTANEOUS SOLUTION PEN-INJECTORTRULICITY 0.75 MG/0.5ML SUBCUTANEOUS SOLUTION PEN-INJECTORARNUITY ELLIPTA 100 MCG/ACT INHALATION AEROSOL POWDER BREATH ACTIVATEDSHOWER CHAIRPOWER WHEEL CHAIR BATTERYONETOUCH VERIO IN VITRO STRIPONETOUCH VERIO W/DEVICE KITPOWER CHAIR GRIFFIN TIRESCHRGER FOR POWER WHEECHAIRRIGHT ARM REST FOR POWER WHEELCHAIRCHARGER FOR POWER CHAIR.ASPIRIN EC 325 MG TBECMETFORMIN HCL 500 MG ORAL TABLETNICODERM CQ 21 MG/24HR TRANSDERMAL PATCH 24 HOURFUROSEMIDE 40 MG ORAL TABLETTRIAMTERENE-HCTZ 37.5-25 MG ORAL CAPSULEGABAPENTIN 400 MG ORAL CAPSULE4 WHEEL WALKER WITH SEAT, BARIATRICAMLODIPINE BESYLATE 10 MG ORAL TABLETCYMBALTA 60 MG ORAL CAPSULE DELAYED RELEASE PARTICLESPROTONIX 40 MG ORAL TABLET DELAYED RELEASEATORVASTATIN CALCIUM 40 MG ORAL TABLETWHEELCHAIR PARTS AND LABORINSULIN SYRINGE 31G X 5/16" 1 MLADMELOG SOLOSTAR 100 UNIT/ML SUBCUTANEOUS SOLUTION PEN-INJECTORPROTECTIVE UNDERWEAR SUPER XLALCOHOL WIPES PADDRISDOL 55316 UNIT ORAL CAPSULEMOTORIZED WH EELCHAIRJOYSTICK FOR WHEELCHAIRPARTS AND LABOR FOR WHEELCHAIRPEN NEEDLES 31G X 6 MMONETOUCH LANCETSONETOUCH ULTRA BLUE IN VITRO STRIPVENTOLIN HFA 108 (90 BASE) MCG/ACT INHALATION AEROSOL SOLUTIONMedication Changes:New Prescription:TRAZODONE HCL 50 MG ORAL TABLET-take one tablet by mouth daily Qty: 30[Tablet] Refills: 1 Method: ElectronicAllergies:IBUPROFEN (Moderate)SULFA (Moderate)Orders:URINALYSIS [CPT-18983] Urine Culture [CPT-40790] Adult - Ofc Vst, EST, Level IV [CPT-99302] Follow-Up Return to clinic: as scheduled and as needed Clinical Visit Summary CompletedMedications:TRAZODONE HCL 50 MG ORAL TABLET (TRAZODONE HCL) take one tablet by mouth daily #30[Tablet] x 1 Route:ORAL Entered and Authorized by: Sandie FROST Method used: Electronically to [id number] (retail) [address] [place] [address] Note to Pharmacy: Route: ORAL; Indications: INSOMNIA RxID: [id number] signed by Sandie FROST on 11/04/2019 at 12:04 PM Name Value Range Interpretation Code Description Data Julia rce(s) Supporting Document(s) ID Date Data Source [id number] 09/23/2019 08:22:57 AM EDT [facility] Measurements & CalculationsHeight: 65.5 inches 166.37 cm Weight: 362.8 pounds 164.91 kg Body Mass Index (BMI): 59.67BMI Interpretation: Morbidly ObeseBody Surface Area (BSA): 2.56Weight Management Education Done (Nutrition/Physical Activity)Vital SignsTemperature: 96.3FPulse Rate: 84 beats/minuteRespiratory Rate: 20 respirations/minuteBlood Pressure: 154/97 right arm sitting automaticO2 Saturation: 97% room airVital Signs performed by: Dari Farias , September 23, 2019 8:31 AMInitial Intake Information From: patientRoom #: 15Infectious Disease / Travel ScreeningRecent travel for you or any close contacts? NoHave you had any close contact with anyone diagnosed with or under investigation for COVID-19 (coronavirus)? NoFever? NoRespiratory symptoms: cough, cold, congestion, shortness of breath, difficulty breathing? NoLoss of smell? NoLoss of taste? NoSmoking, Tobacco, Vaping or Smoke Exposure StatusSmoke Status: current every day smokerTobacco Use: YesAdv to Quit: YesDo you vape? NoPassive Smoke Exposure: YesHealthcare HistorySince your last office visit...Have you been admitted to the hospital? NoHave you been to an emergency room (ER) or urgent care clinic? NoHave you seen another healthcare provider? NoHave you seen a dentist? Yes - nccIntake performed by: Dari Farias , September 23, 2019 8:25 AMRate Your HealthIn general, would you say your health is? FairPain AssessmentAre you currently having any pain which... You would like your provider to address? Yes Affects your activ ity level? YesDepression Screening - PHQ-2Over the last two weeks, have you... Had little interest or pleasure in doing things? Not at all Been feeling down, depressed, or hopeless? Not at all PHQ-2 Score: 0Anxiety Screening - IRASEMA- 2Over the last two weeks, have you been... Feeling nervous, anxious, or on edge? Not at all Unable to stop or control worrying? Not at all IRASEMA-2 Score: 0Food InsecurityWithin the past year...Did you worry whether your food would run out before you got money to buy more? NoWas there a time when the food you bought didn't last and you didn't have money to get more? NoPain AssessmentPain ScaleNumeric Rating Scale: 8 / 10Location: knees,lbpDuration: chronicCharacter/Quality: sharpIs the pain radiating? YesScreening, Brief Intervention, & Referral to Treatment (SBIRT)Pre-Screening Questions How many times have you have 5 or more drinks in a day? 0How many times have you used an illegal drug or used a prescription medication for a non-medical reason? 110Per formed by: Dari Farias , September 23, 2019 8:26 AMDAST Have you used drugs other than those required for medical reasons? Yes Do you abuse more than one drug at a time? No Are you always able to stop using drugs when you want to? Yes Have you ever had blackouts or flashbacks as a result of drug use? No Do you ever feel bad or guilty about your drug use? No Does your spouse (or parents) ever complain about your involvement with your drugs? No Have you neglected your family because of your use of drugs? No Have you engaged in illegal activities in order to obtain drugs? Yes Have you ever experienced withdrawal symptoms (felt sick) when you stopped taking drugs? No Have you had medical problems as a result of your drug use (e.g. memory loss, hepatitis, convulsions, bleeding)? Matthew's Results: DAST Score: 2 DAST Interpretation: Brief Intervention Performed by: Dari Farias , September 23, 2019 8:27 AMPatient History Medical History:COPDDiabetes, Type 2Cellulitis Left leg-2yrs agoHerniated Disc in lower backArthritis in kneesStabbed 10 in head (total 16 times)-1985Hx of Hospitalization:Hx of prior fracture: Hx of prior Head Injury: Vision ProblemG E R DHeadachesHypertensionLeg woundJoint/muscle painSleep ProblemsDental Issues:Last Dental Exam:Dentist:Last eye examSurgical History:stiches from accidentFamily History:Asthma AllergiesCoronary Heart DiseaseCancerCystic FibrosisHeadachesDepressionCVA or Stroke HypertensionHyperlipidemiaObesity Renal DiseaseSeizure DisordersSocial/Personal History:Smoking History:Patient currently smokes every day.Patient has been counseled to quit. Advised to Quit/Tobacco Education: YesChief Complaintquestioning about 20/20 form/follow up labsHistory of Present Illness (HPI)59 yo male patient here today for follow up visit and review of lab results. Pt states taking medications as prescribed. Pt states healthy diet and physical activities. Pt states ambulates with walker at home. Pt uses electric wheel chair for mobility assistance. Pt states fasting blood sugars have been 60s- ast295u. Pt denies recent s/s of hypoglycemia. Pt states have been holding Admelog insulin for blood sugars less patel 200 as instructed. HPI performed by: Sandie FROST, September 23, 2019 8:59 AMTransitions of Care InboundProblem ReviewProblem List was reviewed and/or updated during this visit.Medication Reconciliation & ReviewMedication List was reviewed and/or updated during this visit, including review of any rrvp-vkf-umxpldl medications, herbal therapies, and/or supplements.Allergy ReviewAllergy List was reviewed and/or updated during this visit.Adult Preventive CareProvider Calculated and Reviewed all Clinical Protocols for patient today. Screening Tobacco Screening: Smoking Status: current every day smoker (09/23/2019) Tobacco Use: Currently (09/23/2019) Advised to Quit: Yes (09/23/2019)Labs/Meds/Other Counseling-Nutrition and Physical Activity:BMI Interpretation: Morbidly Obese (09/23/2019) Counseling: Done (09/23/2019) Physical Activity: Done (09/23/2019)Review of Systems General: Denies loss of appetite, chills, dizziness, fatigue, fever, continued fever, headache, feeling ill, sweats, night sweats, sleep disturbances, weight loss. Eyes: Complains of blurring of vision. Denies double vision, irritation, discharge, vision loss, eye pain, eye swelling, droopy eyelid, sensitivity to light, redness, itching. Ears/Nose/Throat: Denies earache, ear discharge, ringing in ears, decreased hearing, nasal congestion, nosebleeds, runny nose, sore throat, hoarseness, difficulty swallowing, dry mouth, tooth pain, bleeding gums, swollen glands. Cardiovascular: Denies chest pain, palpitations, feeling faint, trouble breathing w/exertion, SOB upon lying down, SOB at night, peripheral edema, elevated blood pressure, decreased heart rate. Respiratory: Denies cough, difficulty breathing, shortness of breath, excessive sputum, coughing up blood, wheezing, chest pain. Gastrointestinal: Denies nausea, vomiting, bleeding, burning, itching, irritation, cramps, diarrhea, constipation. Genitourinary: Denies urinary incontinence, pain with urination, burning with urination, urinary frequency, urinary hesitancy, urinary urgency, urinary urgency at night, incomplete emptying, blood in urine. Musculoskeletal: Complains of back pain, leg pain. Denies joint pain, other pain-see comments, joint swelling, body aches, muscle aches, muscle cramps, muscle weakness, stiffness, recent injury. chronic painSkin: Denies rash, hives, redness, itching, dryness, nail changes, suspicious lesions, athlete's foot, rash on palms, rash on bottom of feet. Neurologic: Denies muscle impairment, weakness, numbness/tingling, seizures, slurred speech, feeling faint, tremors, vertigo, paralysis on one side, paralysis on both sides. Psychiatric: Denies depression, anxiety, memory loss, mental disturbance, suicidal ideation, homicidal ideation, hallucinations, paranoia, feeling stressed, hearing voices. Endocrine: Denies cold intolerance, heat intolerance, excessive thirst, excessive hunger, excessive urination, weight loss, weight gain. Heme/Lymphatic: Denies abnormal bruising, bleeding, enlarged lymph nodes. Physical ExamGeneral Appearance: well nourished, well hydrated, no acute distressEyes, External: conjunctivae and lids normal, EOMIRespiratory, Auscultation: clear to auscultation bilaterally; no rales, rhonchi, or wheezesRespiratory, Effort: no intercostal retractions or use of accessory musclesCardiovascular, Auscultation: S1, S2 audible; no murmur, rub, or gallop; RRRPeripheral Circulation: no clubbing, cyanosis, edema, or varicositiesAbdomen: soft, non-tender, no masses, bowel sounds normalGait & Station: motorized wheel chair. Skin, Inspection: no rashes, lesions, or ulcerationsOrientation: oriented to time, place, and personMood & Affect: no depression, anxiety, or agitationJudgment & Insight: intactCare Management Plan Transitions of CareInboundRate Your HealthIn general, would you say your health is? F airAssessment & Plan Problems:Assessed:Type 2 diabetes mellitus with diabetic neuropathy, unspecified (BFB85-R21.40) Assessment: Instructions: Your HGA1c is 6.0. This indicates well controlled type two diabetes. We have decreased your Basaglar insulin to 60 units daily. Please continue to monitor Blood glucose three times daily and as needed. If blood glucose less than 60 or greater than 400. Please call the clinic.Hyperlipidemia, unspecified (ICD10- E78.5) Assessment: Instructions: Cholesterol levels within normal limits. Please continue medication as prescribed. Please continue healthy diet and physical activities.Impaired mobility (VNJ58-D41.09) Assessment: Patient uses wheel chair and walker for assistance.MORBID OBESITY (ICD-278.01) (TLY40-S20.01) Assessment: Instructions: Please continue lifestyle changes to include healthy diet and physical activities.Please try to limit sugars and carbohydrates in your diet.Person consulting for explanation of examination or test findings (ICD-V65.8) (UDA91-Y19.2) Assessment: Instructions: We have reviewed your lab results with you today.Atopic dermatitis, unspecified (ICD10- L20.9) Assessment: Instructions: Please continue Triamcinolone ointment as prescribed. refill sent for you today.HYPERTENSION (ICD-401.9) (VIA62-G00) Assessment: Instructions: Your BP is elevated today. Please continue medications as prescribed. Please try to avoid added sodium in your diet diet. Please try to avoid processed foods.Nicotine dependence, unspecified, uncomplicated (EKQ69-F64.200) Assessment: Instructions: Please try to cut back on your smoking with a goal to quit. Please let us know if you need assistance in doing so.Assessment not Saved HYPERTENSION (PIX34-L65): Patient Instructions/Care Plan: Type 2 diabetes mellitus with diabetic neuropathy- unspecified: Your HGA1c is 6.0. This indicates well controlled type two diabetes. We have decreased your Basaglar insulin to 60 units daily. Please continue to monitor Blood glucose three times daily and as needed. If blood glucose less than 60 or greater than 400. Please call the clinic.Hyperlipidemia- unspecified: Cholesterol levels within normal limits. Please continue me dication as prescribed. Please continue healthy diet and physical activities.MORBID OBESITY: Please continue lifestyle changes to include healthy diet and physical activities.Please try to limit sugars and carbohydrates in your diet.Person consulting for explanation of examination or test findings: We have reviewed your lab results with you today.Atopic dermatitis- unspecified: Please continue Triamcinolone ointment as prescribed. refill sent for you today.HYPERTENSION: Your BP is elevated today. Please continue medications as prescribed. Please try to avoid added sodium in your diet diet. Please try to avoid processed foods.Nicotine dependence- unspecified- uncomplicated: Please try to cut back on your smoking with a goal to quit. Please let us know if you need assistance in doing so. Plan developed in collaboration with patient and/or familyMedications:REPAIR LOOSE ARMS ,TIRES AND BATTERY ON MOTORIZED W/CFLONASE ALLERGY RELIEF 50 MCG/ACT NASAL SUSPENSIONTRIAMCINOLONE ACETONIDE 0.05 % EXTERNAL OINTMENTWHEEL CHAIR ARMS REPAIRLANCET DEVICELANCETSBLOOD GLUCOSE TEST IN VITRO STRIPBLOOD GLUCOSE MONITOR SYSTEM W/DEVICE KITBD PEN NEEDLE MALVIN U/F 32G X 4 MMLANCETS ULTRA FINEBASAGLAR KWIKPEN 100 UNIT/ML SUBCUTANEOUS SOLUTION PEN-INJECTORTRULICITY 0.75 MG/0.5ML SUBCUTANEOUS SOLUTION PEN-INJECTORARNUITY ELLIPTA 100 MCG/ACT INHALATION AEROSOL POWDER BREATH ACTIVATEDSHOWER CHAIRPOWER WHEEL CHAIR BATTERYONETOUCH VERIO IN VITRO STRIPONETOUCH VERIO W/DEVICE KITPOWER CHAIR GRIFFIN TIRESCHRGER FOR POWER WHEECHAIRRIGHT ARM REST FOR POWER WHEELCHAIRCHARGER FOR POWER CHAIR.ASPIRIN EC 325 MG TBECMETFORMIN HCL 500 MG ORAL TABLETNICODERM CQ 21 MG/24HR TRANSDERMAL PATCH 24 HOURFUROSEMIDE 40 MG ORAL TABLETTRIAMTERENE-HCTZ 37.5-25 MG ORAL CAPSULEGABAPENTIN 400 MG ORAL CAPSULE4 WHEEL WALKER WITH SEAT, BAR IATRICAMLODIPINE BESYLATE 10 MG ORAL TABLETCYMBALTA 60 MG ORAL CAPSULE DELAYED RELEASE PARTICLESPROTONIX 40 MG ORAL TABLET DELAYED RELEASEATORVASTATIN CALCIUM 40 MG ORAL TABLETWHEELCHAIR PARTS AND LABORINSULIN SYRINGE 31G X 5/16" 1 MLADMELOG SOLOSTAR 100 UNIT/ML SUBCUTANEOUS SOLUTION PEN-INJECTORPROTECTIVE UNDERWEAR SUPER XLALCOHOL WIPES PADDRISDOL 17913 UNIT ORAL CAPSULEMOTORIZED WHEELCHAIRJOYSTICK FOR WHEELCHAIRPARTS AND LABOR FOR WHEELCHAIRPEN NEEDLES 31G X 6 MMONETOUCH LANCETSONETOUCH ULTRA BLUE IN VITRO STRIPVENTOLIN HFA 108 (90 BASE) MCG/ACT INHALATION AEROSOL SOLUTIONMedication Changes:Refilled:TRULICITY 0.75 MG/0.5ML SUBCUTANEOUS SOLUTION MPF-JEMBABYV-3.75 mg SQ weekly- if tolerated, contact MD regarding inc to 1.5 after 1 month Qty: 4[Prefilled Pen Syrnge] Refills: 5 Method: ElectronicBD PEN NEEDLE MALVIN U/F 32G X 4 MM-test qid Qty: 120[Unspecified] Refills: 5 Method: ElectronicBASAGLAR KWIKPEN 100 UNIT/ML SUBCUTANEOUS SOLUTION KSB-GZIZNPLL-rcel 60 units sub q daily in the mornings. MDD 80 Qty: 4[Prefilled Pen Syrnge] Refills: 5 Method: ElectronicTRIAMCINOLONE ACETONIDE 0.05 % EXTERNAL OINTMENT-apply to affected area twice daily as needed Qty: 2[Tube] Refills: 1 Method: ElectronicRemoved:AZITHROMYCIN 250 MG ORAL TABLET-take two tablets by mouth on day one , then one tablet by mouth daily x 4 days Qty: 6[Tablet] Refills: 0, NICOTINE 21 MG/24HR TRANSDERMAL PATCH 24 HOUR-apply one patch daily, may rotate site daily Qty: 30[Patch] Refills: 2, NICORETTE 4 MG MOUTH/THROAT GUM-one gum by mouth every 1-2 hours as needed Qty: 180[Gum] Refills: 2, DIPHENHYDRAMINE HCL 2 5 MG ORAL TABLET-1-2 tabs by mouth every night at bedtime as needed for sleepChanged:From: SUBCUTANEOUS BASAGLAR KWIKPEN 100 UNIT/ML SUBCUTANEOUS SOLUTION PEN-INJECTOR Qty: [id number] Refills: 4[Prefilled Pen Syrnge] To: BASAGLAR KWIKPEN 100 UNIT/ML SUBCUTANEOUS SOLUTION YCD-JCQANANU-eqqs 60 units sub q daily in the mornings. MDD 80 Qty: 4[Prefilled Pen Syrnge] Refills: 5Allergies:IBUPROFEN (Moderate)SULFA (Moderate)Orders:COMP METABOLIC PANEL [CPT- 45830] CBC W/DIFF [CPT-88976] HgBA1c [CPT-39665] LIPID PANEL [CPT-83145] PROSTATE CANCER SCREENING; PSA TEST [CPT-G0103] Adult - Ofc Vst, EST, Level IV [CPT-08569] Follow-Up Return to clinic: 3 months for follow up Additional Follow-Up: 4-6 weeks for BP follow upClinical Visit Summary CompletedMedications:TRIAMCINOLONE ACETONIDE 0.05 % EXTERNAL OINTMENT (TRIAMCINOLONE ACETONIDE) apply to affected area twice daily as needed #2[Tube] x 1 Route:EXTERNAL Entered and Authorized by: Sandie FROST Method used: Electronically to [facility] (retail) [address] [place] [address] Note to Pharmacy: Route: EXT; Indications: ATOPIC DERMATITIS, UNSPECIFIED RxID: [id number] KWIKPEN 100 UNIT/ML SUBCUTANEOUS SOLUTION PEN-INJECTOR (INSULIN GLARGINE) take 60 units sub q daily in the mornings. MDD 80 #4[Prefilled Pen Syrnge] x 5 Route:SUBCUTANEOUS Entered and Authorized by: Sandie FROST Method used: Electronically to [facility] (retail) [address] [place] [address] Note to Pharmacy: Route: SUBCUTANEOUS;Route: SC; RxID: [id number] PEN NEEDLE MALVIN U/F 32G X 4 MM (INSULIN PEN NEEDLE) test qid #120[Unspecified] x 5 Entered by: Dari Farias Authorized by: Sandie FROST Method used: Electronically to [facility] (retail) [address] [place] [address] RxID: [id number] 0.75 MG/0.5ML SUBCUTANEOUS SOLUTION PEN-INJECTOR (DULAGLUTIDE) 0.75 mg SQ weekly- if tolerated, contact MD jamilah herrera to 1.5 after 1 month #4[Prefilled Pen Syrnge] x 5 Route:SUBCUTANEOUS Entered by: Dari Farias Authorized by: Sandie FROST Method used: Electronically to [facility] (retail) [address] [place] [address] Fax: Note to Pharmacy: Route: SC; RxID: [id number] NICORETTE 4 MG MOUTH/THROAT GUM (NICOTINE POLACRILEX) one gum by mouth every 1-2 hours as needed #180[Gum] x 2 Route:MOUTH/THROAT Entered by: Dari Farias Authorized by: Sandie FROST Method used: Electronically to [facility] (retail) [address] [place] [address] Fax: RxID: [id number] NICOTINE 21 MG/24HR TRANSDERMAL PATCH 24 HOUR (NICOTINE) apply one patch daily, may rotate site daily #30[Patch] x 2 Route:TRANSDERMAL Entered by: Dari Farias Authorized by: Sandie FROST Method used: Electronically to [facility] (retail) [address] [place] [address] RxID: [id number] AZITHROMYCIN 250 MG ORAL TABLET (AZITHROMYCIN) take two tablets by mouth on day one , then one tablet by mouth daily x 4 days #6[Tablet] x 0 Route:ORAL Entered by: Dari Farias Authorized by: Sandie FROST Method used: Electronically to [facility] (retail) [address] [place] [address] RxID: [id number] signed by Sandie FROST on 09/26/2019 at 9:05 PM Name Value Range Interpretation Code Description Data Julia rce(s) Supporting Document(s) ID Date Data Source [id number] 09/16/2019 09:00:00 AM EDT [facility] Name Value Range Interpretation Code Description Data Julia rce(s) Supporting Document(s) HCT 52.4 % 42.0-52.0 H [facility] HGB 16.3 g/dL 13.5-17.5 N [facility] MCH 31.1 G/DL pg 32.0-36.5 L [facility] MCHC 27.8 PG % 27.0-33.0 N [facility] PLATELETS 229 10 10*3/mm3 150-450 N [facility] RBC 5.86 10 10*6/mm3 4.30-6.10 N [facility] RDW 15.4 % 11.5-14.5 H [facility] WBC TOTAL 7.1 4.0-10.0 N [facility] ID Date Data Source [id number] 09/16/2019 09:00:00 AM EDT [facility] Name Value Range Interpretation Code Description Data Julia rce(s) Supporting Document(s) BG FASTING 92 mg/dL 70-100 N [facility] y Health ID Date Data Source [id number] 09/16/2019 09:00:00 AM EDT [facility] Name Value Range Interpretation Code Description Data Julia rce(s) Supporting Document(s) HGBA1C 6.0 % N [facility] ID Date Data Source [id number] 09/16/2019 08:49:28 AM EDT [facility] Labs In-House Blood TestsDate/Time Colle cted: September 16, 2019 8:50 AMTest Result Reference Range Normal ValueComments: blood draw done in offcie done in the right ac tolerated well Kal Myles MA, September 16, 2019 8:50 AMAssessment & Plan Orders:83379-[id number] Vst-Est Level I [CPT-94854] 51326 - Venipuncture [CPT-99437] Name Value Range Interpretation Code Description Data Julia rce(s) Supporting Document(s) ID Date Data Source [id number] 07/01/2019 01:19:43 PM EDT [facility] Measurements & CalculationsHeight: 65.50 inches 166.37 cm 5 ft. 5.5 in.Weight: 355 pounds 8 oz. 161.59 kg Body Mass Index (BMI): 58.47BMI Interpretation: Morbidly ObeseBody Surface Area (BSA): 2.54Weight Management Education Done (Nutrition/Physical Activity)Vital SignsTemperature: 98.5FPulse Rate: 90 beats/mi nuteRespiratory Rate: 16 respirations/minuteBlood Pressure: 136/83 O2 Saturation: 94% Vital Signs performed by: Akilah Sumner LPN, July 01, 2019 1:32 PMVital Signs performed by: Akilah Sumner LPN, July 01, 2019 1:32 PMInitial Intake Information from: patientRoom #: 9Smoking, Tobacco, Vaping or Smoke Exposure StatusSmoke Status: current every day smokerTobacco Use: YesAdv to Quit: YesDo you vape? NoPassive Smoke Exposure: YesPassive Smoke Exposure comments: freelainas also smokeHealthcare HistorySince your last office visit...Have you been admitted to the hospital? NoHave you been to an emergency room (ER) or urgent care clinic? NoHave you seen another healthcare provider? Yes - Pain clinic Have you seen a dentist? Yes - NCFHRate Your HealthIn general, would you say your health is? FairPain AssessmentAre you currently having any pain which... You would like your provider to address? No Affects your activity level? NoDepression Screening - PHQ-2Over the last two weeks, have you... Had little interest or pleasure in doing things? Not at all Been feeling down, depressed, or hopeless? Not at all PHQ-2 Score: 0Anxiety Screening - IRASEMA-2Over the last two weeks, have you been... Feeling nervous, anxious, or on edge? Not at all Unable to stop or control worrying? Not at all IRASEMA-2 Score: 0Food InsecurityWithin the past year...Did you worry whether your food would run out before you got money to buy more? NoWas there a time when the food you bought didn't last and you didn't have money to get more? NoInfectious Disease / Travel ScreeningRecent travel for you or any close contacts? NoHave you had any close contact with anyone diagnosed with or under investigation for COVID-19 (coronavirus)? NoHave you had any of the following symptoms recently? Fever? NoRespiratory symptoms: cough, cold, congestion, shortness of breath, difficulty breathing? YesScreening, Brief Intervention, & Referral to Treatment (SBIRT)Pre- Screening Questions How many times have you have 5 or more drinks in a day? 0How many times have you used an illegal drug or used a prescription medication for a non-medical reason? 0Performed by: Akilah Sumner LPN, July 01, 2019 1:29 PMPatient History Social/Personal History: Advised to Quit/Tobacco Education: YesChief Complaintc/o cold symptoms , no temp room 8History of Present Illness (HPI)59yo akhil here for c/o cold symptoms, body ache and nasal congession,Pt states symptoms ongoing for over one week. Pt states OTC nyquil and dayquil with little effect. Pt denies fevers. Pt would like refill on lasix HPI performed by: Sandie FROST, July 01, 2019 2:02 PMTransitions of Care InboundProblem ReviewProblem List was reviewed and/or updated during this visit.Medication Reconciliation & ReviewMedication List was reviewed and/or updated during this visit, including review of any gxwg-bzk-ymdyxkq medications, herbal therapies, and/or supplements.Allergy ReviewAllergy List was reviewed and/or updated during this visit.Adult Preventive CareProvider Calculated and Reviewed all Clinical Protocols for patient today. Screening Tobacco Screening: Smoking Status: current every day smoker (07/01/2019) Tobacco Use: Currently (07/01/2019) Advised to Quit: Yes (07/01/2019)Labs/Meds/Other Counseling- Nutrition and Physical Activity:BMI Interpretation: Morbidly Obese (07/01/2019) Counseling: Done (07/01/2019) Physical Activity: Done (07/01/2019)Review of Systems General: Complains of fatigue. Denies loss of appetite, chills, dizziness, fever, continued fever, headache, feeling ill, sweats, night sweats, sleep disturbances, weight loss. Eyes: Denies blurring of vision, double vision, irritation, discharge, vision loss, eye pain, eye swelling, droopy eyelid, sensitivity to light, redness, itching. Ears/Nose/Throat: Complains of nasal congestion, runny nose. Denies earache, ear discharge, ringing in ears, decreased hearing, nosebleeds, sore throat, hoarseness, difficulty swallowing, dry mouth, tooth pain, bleeding gums, swollen glands. Cardiovascular: Denies chest pain, palpitations, feeling faint, trouble breathing w/exertion, SOB upon lying down, SOB at night, peripheral edema, elevated blood pressure, decreased heart rate. Respiratory: Complains of cough. Gastrointestinal: Denies nausea, vomiting, diarrhea, constipation. Musculoskeletal: Denies back pain, joint pain, leg pain, joint swelling, body aches, muscle aches, muscle cramps, muscle weakness, stiffness, recent injury. Neurologic: Denies muscle impairment, weakness, numbness/tingling, seizures, slurred speech, feeling faint, tremors, vertigo, paralysis on one side, paralysis on both sides. Psychiatric: Denies depression, anxiety, memory loss, mental disturbance, suicidal ideation, homicidal ideation, hallucinations, paranoia, feeling stressed, hearing voices. Physical ExamGeneral Appearance: well nourished, well hydrated, no acute distressEyes, External: conjunctivae and lids normal, EOMINasal: nasal congessionRespiratory, Auscultation: cough, clear to auscultation bilaterally; no rales, rhonchi, or wheezesRespiratory, Effort: no intercostal retractions or use of accessory musclesCardiovascular, Auscultation: S1, S2 audible; no murmur, rub, or gallop; RRRPeripheral Circulation: no clubbing, cyanosis, edema, or varicositiesAbdomen: soft, non-tender, no masses, bowel sounds normalGait & Station: normalSkin, Inspection: no rashes, lesions, or ulcerationsOrientation: oriented to time, place, and personMood & Affect: no depression, anxiety, or agitationJudgment & Insight: intactCare Management Plan Transitions of CareInboundRate Your HealthIn general, would you say your health is? FairAssessment & Plan Problems:Added: Acute upper respiratory infection, unspecified (EPH62-Y91.9) Assessment: Instructions: We have sent a prescription to your pharmacy today. Please take medications as prescribed. Please report any major side effects. Please try to maintain adequate rest. Good nutrition and adequate hydration. please try to avoid cigarette smoke. Please try to avoid cigarette smoking. If symptoms worsen please return to clinic or the ER.Person consulting for explanation of examination or test findings (ICD- V65.8) (VCN94-U17.2) Assessment: Instructions: We have reviewed your lab results with you todays.Assessed:Type 2 diabetes mellitus with diabetic neuropathy, unspecified (XWV37-T87.40) Assessment: Instructions: Your HGA1c is 8.4. please continue medications as prescribed. Please continue lifestyle changes to include healthy diet and physical activities.Please try to limit shugars and carbohydrates in your diet. Please try to limit processed foods.Nicotine dependence, unspecified, uncomplicated (OZH12-X27.200) Assessment: Instructions: Please continue to try to quit smoking.Health Screening (ICD-V70.0) (EUN27-L39.9) Assessment: fasting labs ordered. Instructions: We have reviewed your lab results with you today.Patient Instructions/Care Plan: Type 2 diabetes mellitus with diabetic neuropathy- unspecified: Your HGA1c is 8.4. please continue medications as prescribed. Please continue lifestyle changes to include healthy diet and physical activities.Please try to limit shugars and carbohydrates in your diet. Please try to limit processed foods.Acute upper respiratory infection- unspecified: We have sent a prescription to your pharmacy today. Please take medications as prescribed. Please report any major side effects. Please try to maintain adequate rest. Good nutrition and adequate hydration. please try to avoid cigarette smoke. Please try to avoid cigarette smoking. If symptoms worsen please return to clinic or the ER.Person consulting for explanation of examination or test findings: We have reviewed your lab results with you todays.Nicotine dependence- unspecified- uncomplicated: Please continue to try t o quit smoking.Health Screening: We have reviewed your lab results with you today. Plan developed in collaboration with patient and/or familyMedications:FLONASE ALLERGY RELIEF 50 MCG/ACT NASAL SUSPENSIONAZITHROMYCIN 250 MG ORAL TABLETTRIAMCINOLONE ACETONIDE 0.05 % EXTERNAL OINTMENTNICOTINE 21 MG/24HR TRANSDERMAL PATCH 24 HOURNICORETTE 4 MG MOUTH/THROAT GUMWHEEL CHAIR ARMS REPAIRLANCET DEVICELANCETSBLOOD GLUCOSE TEST IN VITRO STRIPBLOOD GLUCOSE MONITOR SYSTEM W/DEVICE KITBD PEN NEEDLE MALVIN U/F 32G X 4 MMLANCETS ULTRA FINEBASAGLAR KWIKPEN 100 UNIT/ML SUBCUTANEOUS SOLUTION PEN-INJECTORTRULICITY 0.75 MG/0.5ML SUBCUTANEOUS SOLUTION PEN-INJECTORARNUITY ELLIPTA 100 MCG/ACT INHALATION AEROSOL POWDER BREATH ACTIVATEDSHOWER CHAIRPOWER WHEEL CHAIR BATTERYONETOUCH VERIO IN VITRO STRIPONETOUCH VERIO W/DEVICE KITPOWER CHAIR GRIFFIN TIRESCHRGER FOR POWER WHEECHAIRRIGHT ARM REST FOR POWER WHEELCHAIRCHARGER FOR POWER CHAIR.ASPIRIN EC 325 MG TBECMETFORMIN HCL 500 MG ORAL TABLETNICODERM CQ 21 MG/24HR TRANSDERMAL PATCH 24 HOURFUROSEMIDE 40 MG ORAL TABLETTRIAMTERENE- HCTZ 37.5-25 MG ORAL CAPSULEGABAPENTIN 400 MG ORAL CAPSULE4 WHEEL WALKER WITH SEAT, BARIATRICAMLODIPINE BESYLATE 10 MG ORAL TABLETDIPHENHYDRAMINE HCL 25 MG ORAL TABLETCYMBALTA 60 MG ORAL CAPSULE DELAYED RELEASE PARTICLESPROTONIX 40 MG ORAL TABLET DELAYED RELEASEATORVASTATIN CALCIUM 40 MG ORAL TABLETWHEELCHAIR PARTS AND LABORINSULIN SYRINGE 31G X 5/16" 1 MLADMELOG SOLOSTAR 100 UNIT/ML SUBCUTANEOUS SOLUTION PEN-INJECTORPROTECTIVE UNDERWEAR SUPER XLALCOHOL WIPES PADDRISDOL 76109 UNIT ORAL CAPSULEMOTORIZED WHEELCHAIRJOYSTICK FOR WHEELCHA IRPARTS AND LABOR FOR WHEELCHAIRPEN NEEDLES 31G X 6 MMONETOUCH LANCETSONETOUCH ULTRA BLUE IN VITRO STRIPVENTOLIN HFA 108 (90 BASE) MCG/ACT INHALATION AEROSOL SOLUTIONMedication Changes:Refilled:FUROSEMIDE 40 MG ORAL TABLET-1 tab by mouth daily Qty: 30[Tablet] Refills: 3 Method: ElectronicNew Prescription:AZITHROMYCIN 250 MG ORAL TABLET-take two tablets by mouth on day one , then one tablet by mouth daily x 4 days Qty: 6[Tablet] Refills: 0 Method: ElectronicFLONASE ALLERGY RELIEF 50 MCG/ACT NASAL SUSPENSION-one spray to each nostril twice daily x 10 days Qty: 1[Container] Refills: 0 Method: ElectronicAllergies:IBUPROFEN (Moderate)SULFA (Moderate)Orders:COMP METABOLIC PANEL [CPT-63015] CBC W/DIFF [CPT-96364] HgBA1c [CPT-73731] LIPID PANEL [CPT- 97574] Adult - Ofc Vst, EST, Level IV [CPT-49335] Follow-Up Return to clinic: as scheduled and as needed. Additional Follow-Up: 3 months f/u one week prior for fasting labsClinical Visit Summary CompletedMedications:FUROSEMIDE 40 MG ORAL TABLET (FUROSEMIDE) 1 tab by mouth daily #30[Tablet] x 3 Entered and Authorized by: Sandie FROST Method used: Electronically to [facility] (retail) [address] [place] [address] Fax: RxID: [id number] ALLERGY RELIEF 50 MCG/ACT NASAL SUSPENSION (FLUTICASONE PROPIONATE) one spray to each nostril twice daily x 10 days #1[Container] x 0 Route:NASAL Entered and Authorized by: Sandie FROST Method used: Electronically to [facility] (retail) [address] [place] [address] Note to Pharmacy: Route: NASAL; Indications: ACUTE UPPER RESPIRATORY INFECTION, UNSPECIFIED RxID: [id number] 250 MG ORAL TABLET (AZITHROMYCIN) take two tablets by mouth on day one , then one tablet by mouth daily x 4 days #6[Tablet] x 0 Route:ORAL Entered and Authorized by: Sandie FROST Method used: Electronically to [facility] (retail) [address] [place] [address] Note to Pharmacy: Route: ORAL; Indications: ACUTE UPPER RESPIRATORY INFECTION, UNSPECIFIED RxID: [id number] lectronically signed by Sandie FROST on 07/05/2019 at 8:20 PM Name Value Range Interpretation Code Description Data Julia rce(s) Supporting Document(s) ID Date Data Source [id number] 06/01/2019 11:00:00 AM EST [facility] Name Value Range Interpretation Code Description Data Julia rce(s) Supporting Document(s) HCT 54.6 % 42.0-52.0 H [facility] HGB 17.6 g/dL 13.5-17.5 H [facility] MCH 32.2 G/DL pg 32.0-36.5 N [facility] MCHC 28.4 PG % 27.0-33.0 N [facility] PLATELETS 251 10 10*3/mm3 150-450 N [facility] RBC 6.20 10 10*6/mm3 4.30-6.10 H [facility] RDW 13.5 % 11.5-14.5 N [facility] WBC TOTAL 9.8 4.0-10.0 N [facility] ID Date Data Source [id number] 06/01/2019 11:00:00 AM EST [facility] Name Value Range Interpretation Code Description Data Julia rce(s) Supporting Document(s) BG FASTING 135 mg/dL 70-100 H [facility] ID Date Data Source [id number] 06/01/2019 11:00:00 AM EST [facility] Name Value Range Interpretation Code Description Data Julia rce(s) Supporting Document(s) HGBA1C 8.4 % N [facility] ID Date Data Source [id number] 06/01/2019 09:34:37 AM EST [facility] Measurements & CalculationsHeight: 65.50 inches 166.37 cm 5 ft. 5.5 in.Weight: 359 pounds 163.18 kg Body Mass Index (BMI): 59.04BMI Interpretation: Morbidly ObeseBody Surface Area (BSA): 2.55Weight Management Education Done (Nutrition/Physical Activity)Vital SignsTemperature: 98.6F 37C tympanic Pulse Rate: 89 beats/minuteRespiratory Rate: 16 respirations/minuteBlood Pressure: 122/75 left arm sitting automaticO2 Saturation: 93% room air sittingVital Signs performed by: Akilah Sumner LPN, June 01, 2019 9:36 AMVital Signs performed by: Akilah Sumner LPN, June 01, 2019 9:36 AMInitial Intake Information from: patientRoom #: 15Smoking, Tobacco, Vaping or Smoke Exposure StatusSmoke Status: current every day smokerTobacco Use: YesAdv to Quit: YesDo you vape? NoHealthcare HistorySince your last office visit...Have you been admitted to the hospital? NoHave you been to an emergency room (ER) or urgent care clinic? NoHave you seen another healthcare provider? Yes - Pain clinic Have you seen a dentist? YesRate Your HealthIn general, would you say your health is? FairPain AssessmentAre you currently having any pain which... You would like your provider to address? Yes Affects your activity level? YesInfectious Disease / Travel ScreeningRecent travel for you, your family, and/or any sexual partners? NoPain AssessmentPain ScaleNumeric Rating Scale: 7 / 10Location: knees, lower back Duration: chronicFrequency: DailyCharacter/Quality: burning, stabbing, throbbing and stingingIs the pain radiating? YesTo what body part(s) is the pain radiating? lower backScreening, Brief Intervention, & Referral to Treatment (SBIRT)Pre-Screening Questions How many times have you have 5 or more drinks in a day? 0How many times have you used an illegal drug or used a prescription medication for a non-medical reason? 0Performed by: Akilah Sumner LPN, June 01, 2019 9:40 AMPatient History Social/Personal History: Advised to Quit/Tobacco Education: YesChief Complaintfollow-up visi,t DM room 15History of Present Illness (HPI)59 YO here for follow up on lab. Pt states still having bilateral knee pain, right greater than left. Pt states has upcoming pain management appointment 06/09 . Pt verbalizes medication compliance. Pt states checking blood sugars daily. pt states results 130s to 190s. Pt denies s/s of hypo or hyperglycemia. Pt also concerned with atopic dermatitis to bilat hands and forearm. Patient is requesting paperwork sent to [facility] for his wheel chair repair. HPI performed by: Sandie DEMPSEYP, June 01, 2019 10:52 AMTransitions of Care InboundProblem ReviewProblem List was reviewed and/or updated during this v isit.Medication Reconciliation & ReviewMedication List was reviewed and/or updated during this visit, including review of any sykp-wrv-ezzebsu medications, herbal therapies, and/or supplements.Allergy ReviewAllergy List was reviewed and/or updated during this visit.Adult Preventive CareProvider Calculated and Reviewed all Clinical Protocols for patient today. Screening Tobacco Screening: Smoking Status: current every day smoker (06/01/2019) Tobacco Use: Currently (06/01/2019) Advised to Quit: Yes (06/01/2019)Labs/Meds/Other Counseling- Nutrition and Physical Activity:BMI Interpretation: Morbidly Obese (06/01/2019) Counseling: Done (06/01/2019) Physical Activity: Done (06/01/2019)Review of Systems General: Denies loss of appetite, chills, dizziness, fatigue, fever, continued fever, headache, feeling ill, sweats, night sweats, sleep disturbances, weight loss. Eyes: Denies blurring of vision, double vision, irritation, discharge, vision loss, eye pain, eye swelling, droopy eyelid, sensitivity to light, redness, itching. Ears/Nose/Throat: Denies earache, ear discharge, ringing in ears, decreased hearing, nasal congestion, nosebleeds, runny nose, sore throat, hoarseness, difficulty swallowing, dry mouth, tooth pain, bleeding gums, swollen glands. Cardiovascular: Denies chest pain, palpitations, feeling faint, trouble breathing w/exertion, SOB upon lying down, SOB at night, peripheral edema, elevated blood pressure, decreased heart rate. Respiratory: Denies cough, difficulty breathing, shortness of breath, excessive sputum, coughing up blood, wheezing, chest pain. Gastrointestinal: Denies nausea, vomiting, bleeding, burning, itching, irritation, cramps, diarrhea, constipation. Genitourinary: Denies urinary incontinence, pain with urination, burning with urination, urinary frequency, urinary hesitancy, urinary urgency, urinary urgency at night, incomplete emptying, blood in urine. Musculoskeletal: Complains of back pain, joint pain, leg pain. Denies joint swelling, body aches, muscle aches, muscle cramps, muscle weakness, stiffness, recent injury. Skin: Complains of rash, dryness. Denies hives, redness, itching, nail changes, suspicious lesions, athlete's foot, rash on palms, rash on bottom of feet. arms / handsNeurologic: Denies muscle impairment, weakness, numbness/tingling, seizures, slurred speech, feeling faint, tremors, vertigo, paralysis on one side, paralysis on both sides. Psychiatric: Denies depression, anxiety, memory loss, mental disturbance, suicidal ideation, homicidal ideation, hallucinations, paranoia, feeling stressed, hearing voices. Endocrine: Denies cold intolerance, heat intolerance, excessive thirst, excessive hunger, excessive urination, weight loss, weight gain. Heme/Lymphatic: Denies abnormal bruising, bleeding, enlarged lymph nodes. Physical ExamGeneral Appearance: well nourished, well hydrated, no acute distressEyes, External: conjunctivae and lids normal, EOMIRespiratory, Auscultation: clear to auscultation bilaterally; no rales, rhonchi, or wheezesRespiratory, Effort: no intercostal retractions or use of accessory musclesCardiovascular, Auscultation: S1, S2 audible; no murmur, rub, or gallop; RRRPeripheral Circulation: no clubbing, cyanosis, edema, or varicositiesAbdomen: obese, soft, non-tender, no masses, bowel sounds normalGait & Station: pt is in wheel chairSkin, Inspection: no rashes, lesions, or ulcerationsOrientation: oriented to time, place, and personMood & Affect: no depression, anxiety, or agitationJudgment & Insight: intactCare Management Plan Care Team Assigned Risk Level: AcuteTransitions of CareInboundRate Your HealthIn general, would you say your health is? FairAssessment & Plan Problems:Added: Nicotine dependence, unspecified, uncomplicated (FAZ58-T25.200) Assessment: Pt states smokes about 1 pack cigarettes daily. would like to try nicotine patches and gums Instructions: Please continue to cut back on your smoking with a goal to quit.We have sent a prescription to your pharmacy to start nicotine patches and gums. Please do not smoke cigarettes while using nicotine patchesAtopic dermatitis, unspecified (MJM91-Q70.9) Assessment: Instructions: We have sent a prescription to your pharmacy today. Please use medication as prescribed. Please report any major side effects.Changed:From: Dx of Type 2 diabetes mellitus without complications (MVE37-Q15.9) To: Type 2 diabetes mellitus with diabetic neuropathy, unspecified (ICD10- E11.40)Assessed:HYPERTENSION (ICD-401.9) (OZL15-M54) Assessment: Instructions: Please contine medication as prescribed. Please continue lifestyle changes to include healthy diet and physical activities. Please try to avoid added sodium in your diet.DIABETES MELLITUS, TYPE II (ICD-250.00) (GNJ50-S53.9) Assessment: Instructions: Please continue medications as prescribed. Please continue lifestyle changes to include healthy diet and physical activities.Tobacco use (ICD-305.1) (LRD94-Q42.0) Assessment: Instructions: Please continue to cut back on your smoking with a goal to quit.We have sent a prescription to your pharmacy to start nicotine patches and gums. Please do not smoke cigarettes while using nicotine patchesImpaired mobility (DRQ80-V34.09) Assessment: Pt uses wheel chair for assistance. Wheel chair safety discussed.Type 2 diabetes mellitus with diabetic neuropathy, unspecified (ICD10- E11.40) Assessment: Discussused proper diet aand management of diabetes with patient to prevent hypo/ hyperglycemia Instructions: Please continue medications as prescribed. Please continue lifestyle changes to include healthy diet and physical activities.MORBID OBESITY (ICD-278.01) (WHQ56-X52.01) Assessment: Instructions: Please continue lifestyle changes to include healthy diet and physical activities.Health Screening (ICD-V70.0) (GFK28-M74.9) Assessment: Instructions: We have ordered labs for you today. We will contact you if we have critical results. all other results we will discuss at your next clinic visit.Assessment not SavedHyperlipidemia; unspecified (ICD10- E78.5): Patient Instructions/Care Plan: HYPERTENSION: Please contine medication as prescribed. Please continue lifestyle changes to include healthy diet and physical activities. Please try to avoid added sodium in your diet.DIABETES MELLITUS- TYPE II: Please continue medications as prescribed. Please continue lifestyle changes to include healthy diet and physical activities.Tobacco use: Please continue to cut back on your smoking with a goal to quit.We have sent a prescription to your pharmacy to start nicotine patches and gums. Please do not smoke cigarettes while using nicotine patchesNicotine dependence- unspecified- uncomplicated: Please continue to cut back on your smoking with a goal to quit.We have sent a prescription to your pharmacy to start nicotine patches and gums. Please do not smoke cigarettes while using nicotine patchesAtopic dermatitis- unspecified: We have sent a prescription to your pharmacy today. Please use medication as prescribed. Please report any major side effects.Type 2 diabetes mellitus with diabetic neuropathy- unspecified: Please continue medications as prescribed. Please continue lifestyle changes to include healthy diet and physical activities.MORBID OBESITY: Please continue lifestyle changes to include healthy diet and physical activities.Health Screening: We have ordered labs for you today. We will contact you if we have critical results. all other results we will discuss at your next clinic visit. Plan developed in collaboration with patient and/or familyMedications:TRIAMCINOLONE ACETONIDE 0.05 % EXTERNAL OINTMENTNICOTINE 21 MG/24HR TRANSDERMAL PATCH 24 HOURNICORETTE 4 MG MOUTH/THROAT GUMWHEEL CHAIR ARMS REPAIRLANCET DEVICELANCETSBLOOD GLUCOSE TEST IN VITRO STRIPBLOOD GLUCOSE MONITOR SYSTEM W/DEVICE KITBD PEN NEEDLE MALVIN U/F 32G X 4 MMLANCETS ULTRA FINEBASAGLAR KWIKPEN 100 UNIT/ML SUBCUTANEOUS SOLUTION PEN-INJECTORTRULICITY 0.75 MG/0.5ML SUBCUTANEOUS SOLUTION PEN-INJECTORARNUITY ELLIPTA 100 MCG/ACT INHALATION AEROSOL POWDER BREATH ACTIVATEDSHOWER CHAIRPOWER WHEEL CHAIR BATTERYONETOUCH VERIO IN VITRO STRIPONETOUCH VERIO W/DEVICE KITPOWER CHAIR GRIFFIN TIRESCHRDIGNITY HEALTH [facility] FOR POWER WHEECHAIRRIGHT ARM REST FOR POWER WHEELCHAIRCHARGER FOR POWER CHAIR.ASPIRIN EC 325 MG TBECMETFORMIN HCL 500 MG ORAL TABLETNICODERM CQ 21 MG/24HR TRANSDERMAL PATCH 24 HOURFUROSEMIDE 40 MG ORAL TABLETTRIAMTERENE-HCTZ 37.5-25 MG ORAL CA PSULEGABAPENTIN 400 MG ORAL CAPSULE4 WHEEL WALKER WITH SEAT, BARIATRICAMLODIPINE BESYLATE 10 MG ORAL TABLETDIPHENHYDRAMINE HCL 25 MG ORAL TABLETCYMBALTA 60 MG ORAL CAPSULE DELAYED RELEASE PARTICLESPROTONIX 40 MG ORAL TABLET DELAYED RELEASEATORVASTATIN CALCIUM 40 MG ORAL TABLETWHEELCHAIR PARTS AND LABORINSULIN SYRINGE 31G X 5/16" 1 MLADMELOG SOLOSTAR 100 UNIT/ML SUBCUTANEOUS SOLUTION PEN-INJECTORPROTECTIVE UNDERWEAR SUPER XLALCOHOL WIPES PADDRISDOL 52365 UNIT ORAL CAPSULEMOTORIZED WHEELCHAIRJOYSTICK FOR WHEELCHAIRPARTS AND LABOR FOR WHEELCHAIRPEN NEEDLES 31G X 6 MMONETOUCH LANCETSONETOUCH ULTRA BLUE IN VITRO STRIPVENTOLIN HFA 108 (90 BASE) MCG/ACT INHALATION AEROSOL SOLUTIONMedication Changes:New Prescription:NICORETTE 4 MG MOUTH/THROAT GUM-one gum by mouth every 1-2 hours as needed Qty: 180[Gum] Refills: 2 Method: ElectronicNICOTINE 21 MG/24HR TRANSDERMAL PATCH 24 HOUR-apply one patch daily, may rotate site daily Qty: 30[Patch] Refills: 2 Method: ElectronicTRIAMCINOLONE ACETONIDE 0.05 % EXTERNAL OINTMENT-apply to affected area twice daily as needed Qty: 2[Tube] Refills: 1 Method: ElectronicRemoved:OXYCODONE HCL 5 MG ORAL CAPSULE, CYCLOBENZAPRINE HCL 5 MG ORAL TABLET-take 1 1/2 tablet by mouth twice daily Qty: 75[Tablet] Refills: 0, TOUJEO MAX SOLOSTAR 300 UNIT/ML SUBCUTANEOUS SOLUTION ILT-OQLRNTTA-Ctzqkh 75 units in the AM and then await MD instructions Qty: 10[Prefilled Pen Syrnge] Refills: 5Allergies:IBUPROFEN (Moderate)SULFA (Moderate)Orders:COMP METABOLIC PANEL [CPT-08380] CBC W/DIFF [CPT-45514] HgBA1c [CPT-12545] LIPID PANEL [CPT-71033] 67479 - Venipuncture [CPT-07998] Adult - Ofc Vst, EST, Level IV [CPT-81798] Follow-Up Return to clinic: 3-4 weeks for follow up. Clinical Visit Summary CompletedMedications:TRIAMCINOLONE ACETONIDE 0.05 % EXTERNAL OINTMENT (TRIAMCINOLONE ACETONIDE) apply to affected area twice daily as needed #2[Tube] x 1 Route:EXTERNAL Entered and Authorized by: Sandie FROST Method used: Electronically to [facility] (retail) [address] [place] [address] Note to Pharmacy: Route: EXTERNAL; Indications: ATOPIC DERMATITIS, UNSPECIFIED RxID: [id number] 21 MG/24HR TRANSDERMAL PATCH 24 HOUR (NICOTINE) apply one patch daily, may rotate site daily #30[Patch] x 2 Route:TRANSDERMAL Entered and Authorized by: Sandie FROST Method used: Electronically to [facility] (retail) [address] [place] [address] Fax: Note to Pharmacy: Route: TRANSDERMAL; Indications: NICOTINE DEPENDENCE, UNSPECIFIED, UNCOMPLICATED RxID: [id number] 4 MG MOUTH/THROAT GUM (NICOTINE POLACRILEX) one gum by mouth every 1-2 hours as needed #180[Gum] x 2 Route:MOUTH/THROAT Entered and Authorized by: Sandie FROST Method used: Electronically to [facility] (retail) [address] [place] [address] Note to Pharmacy: Route: MOUTH/THROAT; RxID: [id number] TOUJEO MAX SOLOSTAR 300 UNIT/ML SUBCUTANEOUS SOLUTION PEN-INJECTOR (INSULIN GLARGINE) Inject 75 units in the AM and then await instructions #10[Prefilled Pen Syrnge] x 5 Entered by: Akilah Sumner LPN Authorized by: Haider Kiran MD Method used: Electronically to [facility] (retail) [address] [place] [address] RxID: [id number] CYCLOBENZAPRINE HCL 5 MG ORAL TABLET (CYCLOBENZAPRINE HCL) take 1 1/2 tablet by mouth twice daily #75[Tablet] x 0 Route:ORAL Entered by: Akilah Sumner LPN Authorized by: Sandie FROST Method used: Electronically to [facility] (retail) [address] [place] [address] Fax: RxID: [id number]]Labs In-House Blood TestsDate/Time Collected: June 01, 2019 11:05 AMTest Result Reference Range Normal ValueComments: blood draw done in offe done in the right ac tolerated well Kal Myles MA, June 01, 2019 11:05 AM Name Value Range Interpretation Code Description Data Julia rce(s) Supporting Document(s) ID Date Data Source [id number] 03/03/2019 03:00:23 PM [facility] Measurements & CalculationsHeight: 65.50 inches 166.37 cm 5 ft. 5.5 in.Vital SignsTemperature: 98.1FPulse Rate: 72 beats/minuteRespiratory Rate: 17 respirations/minuteBlood Pressure: 110/62 right arm sitting automaticO2 Saturation: 97% room airVital Signs performed by: Candice Benítez MA, March 03, 2019 3:08 PMInitial Intake Information from: patientRoom #: 8Infectious Disease- Travel Have you or your sexual partner travelled outside of the country recently? NoSmoking, Tobacco or Smoke Exposure StatusSmoke Status: current every day smokerTobacco Use: YesAdv to Quit: YesPassive Smoke Exposure: YesHealthcare HistorySince your last office visit...Have you been admitted to the hospital? Yes - [facility]- low blood sugars, knee rehabHospital admission date reported today: 02/04/2019Have you been to an emergency room (ER) or urgent care clinic? No - [facility] er for ulcers [facility] you [facility] Yes - in houseDental exam date reported today: 08/2016Intake performed by: Candice Benítez MA, March 03, 2019 3:03 PMRate Your HealthIn general, would you say your health is? FairPain AssessmentAre you currently having any pain which... You would like your provider to address? Yes Affects your activity level? YesDepression Screening - PHQ-2Over the last two weeks, have you... Had little interest or pleasure in doing things? Not at all Been feeling down, depressed, or hopeless? Not at all PHQ-2 Score: 0Anxiety Screening - IRASEMA-2Over the last two weeks, have you been... Feeling nervous, anxious, or on edge? Not at all Unable to stop or control worrying? Not at all IRASEMA-2 Score: 0Pain AssessmentPain ScaleNumeric Rating Scale: 8 / 10Location: kneeDuration: 2 weeksFrequency: DailyCharacter/Quality: stabbing and throbbingIs the pain radiating? YesTo what body part(s) is the pain radiating? knees and backScreening, Brief Intervention, & Referral to Treatment (SBIRT)Pre- Screening Questions How many times have you have 5 or more drinks in a day? 0How many times have you used an illegal drug or used a prescription medication for a non-medical reason? 0Performed by: Candice Benítez MA, March 03, 2019 3:04 PMPatient History Medical History:COPDDiabetes, Type 2Cellulitis Left leg-2yrs agoHerniated Disc in lower backArthritis in kneesStabbed 10 in head (total 16 times)-1985Hx of Hospitalization:Hx of prior fracture: Hx of prior Head Injury: Vision ProblemG E R DHeadachesHypertensionLeg woundJoint/muscle painSleep ProblemsDental Issues:Last Dental Exam:Dentist:Last eye examSurgical History:stiches from accidentFamily History:Asthma AllergiesCoronary Heart DiseaseCancerCystic FibrosisHeadachesDepressionCVA or Stroke HypertensionHyper lipidemiaObesity Renal DiseaseSeizure DisordersSocial/Personal History:Smoking History:Patient currently smokes every day.Patient has been counseled to quit. Smoking Status: current every day smokerAdvised to Quit/Tobacco Education: YesChief Complainthosp follow upHistory of Present Illness (HPI)58 year old male patient in today for a hosp disacharge.Pt states was admitted to the hospital due to low blood sugar and fractured right knee.Pt states has appointment to see Dr Aviles (ortho)03/09/2019Pt had a hypoglycemic event. Pt states fell ijuring right knee. Pt states had missed beakfast aand lunch that day prior to hypoglucemia. Pt requesting podiatry and ortho referral. Pt requasting referral sent over for home health aide services to be resumed. Pt need assistance with household cleaning aand ADLs due to DM neurapathy, and now fractured right knee. Pt denies any other concerns at this time. HPI performed by: Sandie Kang [facility], March 03, 2019 3:28 PMTransitions of Care InboundProblem ReviewProblem List was reviewed and/or updated during this visit.Medication Reconciliation & ReviewMedication List was reviewed and/or updated during this visit, including review of any allf-ipq-vwffpvv medications, herbal therapies, and/or supplements.Allergy ReviewAllergy List was reviewed and/or updated during this visit.Adult Preventive CareProvider Calculated and Reviewed all Clinical Protocols for patient today. Immunizations Influenza Vaccine: #1: Given (12/25/2013) #2: Given (03/03/2019)Screening Tobacco Screening: Smoking Status: current every day smoker (03/03/2019) Advised to Quit: Yes (03/03/2019)Review of Systems General: Denies loss of appetite, chills, dizziness, fatigue, fever, continued fever, headache, feeling ill, sweats, night sweats, sleep disturbances, weight loss. Eyes: Denies blurring of vision, double vision, irritation, discharge, vision loss, eye pain, eye swelling, droopy eyelid, sensitivity to light, redness, itching. Ears/Nose/Throat: Denies earache, ear discharge, ringing in ears, decreased hearing, nasal congestion, nosebleeds, runny nose, sore throat, hoarseness, difficulty swallowing, dry mouth, tooth pain, bleeding gums, swollen glands. Cardiovascular: Denies chest pain, palpitations, feeling faint, trouble breathing w/exertion, SOB upon lying down, SOB at night, peripheral edema, elevated blood pressure, decreased heart rate. Respiratory: Denies cough, difficulty breathing, shortness of breath, excessive sputum, coughing up blood, wheezing, chest pain. Gastrointestinal: Denies nausea, vomiting, bleeding, burning, itching, irritation, cramps, diarrhea, constipation. Genitourinary: Denies urinary incontinence, pain with urination, burning with urination, urinary frequency, urinary hesitancy, urinary urgency, urinary urgency at night, incomplete emptying. Musculoskeletal: Complains of back pain, joint pain, leg pain. Denies other pain-see comments, joint swelling, body aches, muscle aches, muscle cramps, muscle weakness, stiffness, recent injury. Skin: Denies rash, hives, redness, itching, dryness, nail changes, suspicious lesions, athlete's foot, rash on palms, rash on bottom of feet. Neurologic: Denies muscle impairment, weakness, numbness/tingling, seizures, slurred speech, feeling faint, tremors, vertigo, paralysis on one side, paralysis on both sides. Psychiatric: Denies depression, anxiety, memory loss, mental disturbance, suicidal ideation, homicidal ideation, hallucinations, paranoia, feeling stressed, hearing voices. Endocrine: Denies cold intolerance, heat intolerance, excessive thirst, excessive hunger, excessive urination, weight loss, weight gain. Heme/Lymphatic: Denies abnormal bruising, bleeding, enlarged lymph nodes. Physical ExamGeneral Appearance: well nourished, well hydrated, no acute distressEyes, External: conjunctivae and lids normal, EOMIRespiratory, Auscultation: clear to auscultation bilaterally; no rales, rhonchi, or wheezesRespiratory, Effort: no intercostal retractions or use of accessory musclesCardiovascular, Auscultation: S1, S2 audible; no murmur, rub, or gallop; RRRPeripheral Circulation: no clubbing, cyanosis, edema, or varicositiesAbdomen: obese, soft, non-tender, no masses, bowel sounds normalGait & Station: normalLower Extremity, Right: immobilizer to right legSkin, Inspection: no rashes, lesions, or ulcerationsOrientation: oriented to time, place, and personMood & Affect: no depression, anxiety, or agitationJudgment & Insight: intactCare Management Plan Transitions of CareInboundRate Your HealthIn general, would you say your health is? FairAssessment & Plan Problems:Added: Unspecified fracture of right patella, initial encounter for closed fracture ([id number]) Assessment: Instructions: Referral made for you to see Dr Aviles. Please keep your appointment as scheduled.Please continue treatment as ordered.Assessed:Type 2 diabetes mellitus without complications (FEI41-X48.9) Assessment: Instructions: Please continue medications as prescribed. Please continue lifestyle changes to include healthy diet and physical activities.HYPERTENSION (ICD-401.9) ([id number]) Assessment: Instructions: Your BP is at goal today. Please continue medication as prescribed. [place] continue lifestyle changes to include healthy diet and physical activities. Please try to avoid added sodium.Please try to avoid processed foods.Type 2 diabetes mellitus without complications (NYZ27-K38.9) Assessment: Pt was recently started onn Trulicity. Pt had hypoglycemic event. Spoke with Dr Kiran regarding adjusting patients insulin. discussused proper diet aand management of diabetes with patient to prevent hypo/ hyperglycemia. Pt verbalized understanding.Patient Instructions/Care Plan: Type 2 diabetes mellitus without complications: Please continue medications as prescribed. Please continue lifestyle changes to include healthy diet and physical activities.Unspecified fracture of right patella- initial encounter for closed fracture: Referral made for you to see Dr Aviles. Please keep your appointment as scheduled.Please continue treatment as ordered.HYPERTENSION: Your BP is at goal today. Please continue medication as prescribed. [place] continue lifestyle changes to include healthy diet and physical activities. Please try to avoid added sodium.Please try to avoid processed foods. Plan developed in collaboration with patient and/or familyMedications:OXYCODONE HCL 5 MG ORAL CAPSULETRULICITY 0.75 MG/0.5ML SUBCUTANEOUS SOLUTION PEN-INJECTORARNUITY ELLIPTA 100 MCG/ACT INHALATION AEROSOL POWDER BREATH ACTIVATEDSHOWER CHAIRPOWER WHEEL CHAIR BATTERYONETOUCH VERIO IN VITRO STRIPONETOUCH VERIO W/DEVICE KITPOWER CHAIR GRIFFIN TIRESCHRGER FOR POWER WHEECHAIRRIGHT ARM REST FOR POWER WHEELCHAIRCYCLOBENZAPRINE HCL 5 MG ORAL TABLETCHARGER FOR POWER CHAIR.ASPIRIN EC 325 MG TBECMETFORMIN HCL 500 MG ORAL TABLETNICODERM CQ 21 MG/24HR TRANSDERMAL PATCH 24 HOURFUROSEMIDE 40 MG ORAL TABLETTRIAMTERENE-HCTZ 37.5-25 MG ORAL CAPSULEGABAPENTIN 400 MG ORAL CAPSULE4 WHEEL WALKER WITH SEAT, BARIATRICAMLODIPINE BESYLATE 10 MG ORAL TABLETDIPHENHYDRAMINE HCL 25 MG ORAL TABLETCYMBALTA 60 MG ORAL CAPSULE DELAYED RELEASE PARTICLESTOUJEO MAX SOLOSTAR 300 UNIT/ML SUBCUTANEOUS SOLUTION PEN-INJECTORPROTONIX 40 MG ORAL TABLET DELAYED RELEASEATORVASTATIN CALCIUM 40 MG ORAL TABLETWHEELCHAIR PARTS AND LABORINSULIN SYRINGE 31G X 5/16" 1 MLADMELOG SOLOSTAR 100 UNIT/ML SUBCUTANEOUS SOLUTION PEN- INJECTORPROTECTIVE UNDERWEAR SUPER XLALCOHOL WIPES PADDRISDOL 10728 UNIT ORAL CAPSULEMOTORIZED WHEELCHAIRJOYSTICK FOR WHEELCHAIRPARTS AND LABOR FOR WHEELCHAIRPEN NEEDLES 31G X 6 MMONETOUCH LANCETSONETOUCH ULTRA BLUE IN VITRO STRIPVENTOLIN HFA 108 (90 BASE) MCG/ACT INHALATION AEROSOL SOLUTIONMedication Changes:Added: OXYCODONE HCL 5 MG ORAL CAPSULEAllergies:IBUPROFEN (Moderate)SULFA (Moderate)Orders:Podiatry Consult [[id number]] Orthopaedics Consult [CPT-[id number]] Adult - Ofc Vst, EST, Level IV [[id number]] Follow-Up Return to clinic: as scheduled and as needed Clinical Visit Summary CompletedVaccines Administered/Entered:Vaccination Group: InfluenzaHistorical Source: Historical information - from patientSeries: 2Vaccination: Unspecified FormulationMfr / Lot# / Exp.Date: Amt. Given / Route / Site: NDC / CVX: 88Administered Date: 03/03/2019VFC Eligibility: Not recordedVIS Date: Comments: given in hospital 1-2 weeks ago 03/03/2019Entered by: Candice Benítez MA Name Value Range Interpretation Code Description Data Julia rce(s) Supporting Document(s) Procedure Social History Code Duration Value Status Description Data Source(s ) Smoking 04/07/2020 12:00:00 AM EST Current Smoker completed Curre nt Smoker eCW1 ([facility]) Smoking 04/07/2020 12:00:00 AM EST Current Smoker completed Curre nt Smoker eCW1 ([facility]) Smoking 03/30/2020 12:00:00 AM EST Current Smoker completed Curre nt Smoker eCW1 ([facility]) Smoking 03/30/2020 12:00:00 AM EST Current Smoker completed Curre nt Smoker eCW1 ([facility]) Smoking 03/30/2020 12:00:00 AM EST Current Smoker completed Curre nt Smoker eCW1 ([facility]) Smoking 02/18/2020 12:00:00 AM EST Current Smoker completed Curre nt Smoker eCW1 ([facility]) Smoking 02/18/2020 12:00:00 AM EST Current Smoker completed Curre nt Smoker eCW1 ([facility]) Smoking 02/18/2020 12:00:00 AM EST Current Smoker completed Curre nt Smoker eCW1 ([facility]) Smoking 02/18/2020 12:00:00 AM EST Current Smoker completed Curre nt Smoker eCW1 ([facility]) Vital Signs ID Date Data Source UNK Name Value Range Interpretation Code Description Data Source(s) Diastolic blood pressure 91 mm[Hg] 91 mm[Hg] eCW1 ([facility]) Systolic blood pressure 160 mm[Hg] 160 mm[Hg] e CW1 ([facility]) Body temperature 97.0 [degF] 97.0 [degF] eCW1 ( [facility]) Respiratory rate 19 /min 19 /min eCW1 ([facility]) Heart rate 88 /min 88 /min eCW1 ([facility]) Body mass index (BMI) [Ratio] 58.24 kg/m2 58.24 kg/m2 eCW1 ([facility]) Body height 65 [in_i] 65 [in_i] eCW1 ([facility]) Body weight kg eCW1 ([facility]) Body weight 350 [lb_av] 350 [lb_av] eCW1 ([facility]) Diastolic blood pressure 101 mm[Hg] 101 mm[Hg] eCW1 ([facility]) Systolic blood pressure 160 mm[Hg] 160 mm[Hg] e CW1 ([facility]) Body temperature 96.6 [degF] 96.6 [degF] eCW1 ( [facility]) Respiratory rate 20 /min 20 /min eCW1 ([facility]) Heart rate 92 /min 92 /min eCW1 ([facility]) Body mass index (BMI) [Ratio] 58.24 kg/m2 58.24 kg/m2 eCW1 ([facility]) Body height 65 [in_i] 65 [in_i] eCW1 ([facility]) Body weight kg eCW1 ([facility]) Body weight 350 [lb_av] 350 [lb_av] eCW1 ([facility]) Body weight 5753.6 [oz_av] 5753.6 [oz_av] ATHEN A ([facility]) Systolic blood pressure 164 mm[Hg] 164 mm[Hg] A THENA ([facility]) Body mass index (BMI) [Ratio] 58.9 kg/m2 58.9 k g/m2 FELICIANO ([facility]) Body height 65.5 [in_i] 65.5 [in_i] FELICIANO ([facility]) Diastolic blood pressure 91 mm[Hg] 91 mm[Hg] FELICIANO ([facility]) Intraocular pressure Left eye 18 mm[Hg] 18 mm[ Hg] MEDENT ([facility]) Tp 09:50 Am Intraocular pressure Right eye 23 mm[Hg] 23 mm [Hg] MEDENT ([facility]) Tp Diastolic blood pressure 91 mm[Hg] 91 mm[Hg] eCW1 ([facility]) Systolic blood pressure 195 mm[Hg] 195 mm[Hg] e CW1 ([facility]) Body temperature 97.4 [degF] 97.4 [degF] eCW1 ( [facility]) Respiratory rate 18 /min 18 /min eCW1 ([facility]) Heart rate 83 /min 83 /min eCW1 ([facility]) Body mass index (BMI) [Ratio] 59.00 kg/m2 59.00 kg/m2 W1 ([facility]) Body height 65 [in_i] 65 [in_i] eCW1 ([facility]) Body weight 354.6 [lb_av] 354.6 [lb_av] eCW1 ([facility]) Intraocular pressure Left eye 17 mm[Hg] 17 mm[ Hg] MEDENT ([facility]) Tp 10:10 Am Intraocular pressure Right eye 21 mm[Hg] 21 mm [Hg] MEDENT ([facility]) Tp 10:10 Am Intraocular pressure Left eye 18 mm[Hg] 18 mm[ Hg] MEDENT ([facility]) Tp 09:10 Am Intraocular pressure Right eye 16 mm[Hg] 16 mm [Hg] MEDENT ([facility]) Tp Intraocular pressure Right eye 21 mm[Hg] 21 mm [Hg] MEDENT ([facility]) Tp 12:39 PM Intraocular pressure Right eye 21 mm[Hg] 21 mm [Hg] MEDENT ([facility]) Tp 10:31 Am Intraocular pressure Right eye 20 mm[Hg] 20 mm [Hg] MEDENT ([facility]) Tp 01:22 PM Body weight 5616 [oz_av] 5616 [oz_av] FELICIANO ([facility]) Systolic blood pressure 152 mm[Hg] 152 mm[Hg] [facility] Body height 65.5 [in_i] 65.5 [in_i] FELICIANO ([facility]) Diastolic blood pressure 89 mm[Hg] 89 mm[Hg] FELICIANO ([facility]) Intraocular pressure Left eye 13 mm[Hg] 13 mm[ Hg] MEDENT ([facility]) Tp Intraocular pressure Right eye 18 mm[Hg] 18 mm [Hg] MEDENT ([facility]) Tp 01:54 PM Body weight 5618.08 [oz_av] 5618.08 [oz_av] ATH BULMARO ([facility]) Systolic blood pressure 115 mm[Hg] 115 mm[Hg] A [facility] ([facility]) Body height 65.5 [in_i] 65.5 [in_i] FELICIANO ([facility]) Diastolic blood pressure 80 mm[Hg] 80 mm[Hg] FELICIANO ([facility]) Body weight 5804.8 [oz_av] 5804.8 [oz_av] ATHEN A ([facility]) Systolic blood pressure 154 mm[Hg] 154 mm[Hg] A [facility] ([facility]) Body height 65.5 [in_i] 65.5 [in_i] FELICIANO ([facility]) Diastolic blood pressure 97 mm[Hg] 97 mm[Hg] FELICIANO ([facility]) Body weight 5688 [oz_av] 5688 [oz_av] FELICIANO ([facility]) Systolic blood pressure 136 mm[Hg] 136 mm[Hg] A [facility] ([facility]) Body height 65.5 [in_i] 65.5 [in_i] FELICIANO ([facility]) Diastolic blood pressure 83 mm[Hg] 83 mm[Hg] FELICIANO ([facility]) Body weight 5744 [oz_av] 5744 [oz_av] FELICIANO ([facility]) Systolic blood pressure 122 mm[Hg] 122 mm[Hg] A [facility] ([facility]) Body height 65.5 [in_i] 65.5 [in_i] FELICIANO ([facility]) Diastolic blood pressure 75 mm[Hg] 75 mm[Hg] FELICIANO ([facility]) Systolic blood pressure 110 mm[Hg] 110 mm[Hg] A [facility] ([facility]) Body height 65.5 [in_i] 65.5 [in_i] FELICIANO ([facility]) Diastolic blood pressure 62 mm[Hg] 62 mm[Hg] FELICIANO ([facility]) Patient Treatment Plan of Care Planned Activity Planned Date Details Description Data Source (s) Triamcinolone Acetonide 0.0005 MG/MG Topical Ointment FELICIANO ([facility]) Trazodone Hydrochloride 50 MG Oral Tablet FELICIANO ([facility]) Oxycodone Hydrochloride 5 MG Oral Tablet FELICIANO ([facility]) 24 HR Nicotine 0.875 MG/HR Transdermal Patch FELICIANO ([facility]) Nicotine 4 MG Chewing Gum AT [facility]) duloxetine 60 MG Delayed Release Oral Capsule FELICIANO ([facility]) duloxetine 30 MG Delayed Release Oral Capsule FELICIANO ([facility]) Azithromycin 250 MG Oral Tablet FELICIANO ([facility]) Aspirin 325 MG Delayed Release Oral Tablet FELICIANO ([facility])
--- NOTE | 2020-04-19 10:19 | REP ---
INDICATION: swelling COMPARISON: 10/19/2016 TECHNIQUE: AP, lateral, bilateral oblique views left wrist. 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 The carpal bones, associated joint spaces and surrounding soft tissues are otherwise relatively normal/stable. No acute fracture or dislocation. 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 Remainder of the examination is relatively normal. No acute fracture identified. <Electronically signed by Yefri Zhao > 04/19/20 1017
[2020-04-19 11:07] VITALS: BP 160/80
--- OUTSIDE RECORDS SUMMARY | 2020-04-19 11:10 | CCD ---
Author Author [facility] Organization [facility] Address Unknown Phone Unavailable Care Team Providers Care Stagecraft Professor Name Role Phone Sonny Kang AGRONOMY INSTRUCTOR Unavailable Unavailable Sonny Kangra AGRONOMY INSTRUCTOR Unavailable Unavailable Sonny Kangra AGRONOMY INSTRUCTOR Unavailable Unavailable Jorge Luis A Sandie AGRONOMY INSTRUCTOR Unavailable Unavailable Jorge Luis, A Sandie AGRONOMY INSTRUCTOR Unavailable Unavailable Stamford, A Sandie AGRONOMY INSTRUCTOR Unavailable Unavailable Stamford, A Sandie AGRONOMY INSTRUCTOR Unavailable Unavailable Stamford, A Sandie AGRONOMY INSTRUCTOR Unavailable Unavailable Stamford, A Sandie AGRONOMY INSTRUCTOR Unavailable Unavailable Stamford, A Sandie AGRONOMY INSTRUCTOR Unavailable Unavailable Stamford, A Sandie AGRONOMY INSTRUCTOR Unavailable Unavailable Stamford, A Sandie AGRONOMY INSTRUCTOR Unavailable Unavailable Stamford, A Sandie AGRONOMY INSTRUCTOR Unavailable Unavailable Stamford, A Sandie AGRONOMY INSTRUCTOR Unavailable Unavailable Stamford, A Sandie AGRONOMY INSTRUCTOR Unavailable Unavailable Stamford, A Sandie AGRONOMY INSTRUCTOR Unavailable Unavailable [place]am[place], A Sandie AGRONOMY INSTRUCTOR Unavailable Unavailable Stamford, A Sandie AGRONOMY INSTRUCTOR Unavailable Unavailable Stamford, A Sandie AGRONOMY INSTRUCTOR Unavailable Unavailable Stamford, A Sandie AGRONOMY INSTRUCTOR Unavailable Unavailable Stamford, A Sandie AGRONOMY INSTRUCTOR Unavailable Unavailable [place]amford, A Sandie AGRONOMY INSTRUCTOR Unavailable Unavailable Stamford, A Sandie AGRONOMY INSTRUCTOR Unavailable Unavailable [place]amford, A Sandie AGRONOMY INSTRUCTOR Unavailable Unavailable Stamford, A Sandie AGRONOMY INSTRUCTOR Unavailable Unavailable [place]amford, A Sandie AGRONOMY INSTRUCTOR Unavailable Unavailable [place], A Sandie AGRONOMY INSTRUCTOR Unavailable Unavailable [place], A Sandie AGRONOMY INSTRUCTOR Unavailable Unavailable [place]amford, A Sandie AGRONOMY INSTRUCTOR Unavailable Unavailable [place]amford, A Sandie AGRONOMY INSTRUCTOR Unavailable Unavailable Stamford, A Sandie AGRONOMY INSTRUCTOR Unavailable Unavailable Stamford, A Sandie AGRONOMY INSTRUCTOR Unavailable Unavailable Stamford, A Sandie AGRONOMY INSTRUCTOR Unavailable Unavailable [place]amford, A Sandie AGRONOMY INSTRUCTOR Unavailable Unavailable [place]amford, A Sandie AGRONOMY INSTRUCTOR Unavailable Unavailable [place]am[place], A Sandie AGRONOMY INSTRUCTOR Unavailable Unavailable [place]amford, A Sandie AGRONOMY INSTRUCTOR Unavailable Unavailable [place]am[place], A Sandie AGRONOMY INSTRUCTOR Unavailable Unavailable [place]am[place], A Sandie AGRONOMY INSTRUCTOR Unavailable Unavailable [place]amford, A Sandie AGRONOMY INSTRUCTOR Unavailable Unavailable [place]amford, A Sandie AGRONOMY INSTRUCTOR Unavailable Unavailable [place]amford, A Sandie AGRONOMY INSTRUCTOR Unavailable Unavailable Stamford, A Sandie AGRONOMY INSTRUCTOR Unavailable Unavailable Stamford, A Sandie AGRONOMY INSTRUCTOR Unavailable Unavailable Stamford, A Sandie AGRONOMY INSTRUCTOR Unavailable Unavailable Stamford, A Sandie AGRONOMY INSTRUCTOR Unavailable Unavailable [place]amford, A Sandie AGRONOMY INSTRUCTOR Unavailable Unavailable [place]am[place], A Sandie AGRONOMY INSTRUCTOR Unavailable Unavailable [place]amford, A Sandie AGRONOMY INSTRUCTOR Unavailable Unavailable [place]amford, A Sandie AGRONOMY INSTRUCTOR Unavailable Unavailable [place], A Sandie AGRONOMY INSTRUCTOR Unavailable Unavailable [place]am[place], A Sandie AGRONOMY INSTRUCTOR Unavailable Unavailable [place], A Sandie AGRONOMY INSTRUCTOR Unavailable Unavailable [place], A Sandie AGRONOMY INSTRUCTOR Unavailable Unavailable [id number], NA Unavailable [phone] Truman STONE MD Unavailable Unavailable Truman STONE [...] G TASHI MD Unavailable Unavailable Sandie Kang AGRONOMY INSTRUCTOR AGRONOMY INSTRUCTOR Unavailable Unavailable Re-disclosure Warning The records that [...] is protected by Article 27-F of the [facility] Public Health law. If you continue you may have access to information: Regarding HIV / AIDS; Provided by facilities licensed or operated by the [facility] Office of Mental Health; or Provided by the [facility] Office for People With Developmental Disabilities. If such information is present, then the following [facility] mandated warning applies: This information [...] law may result in a fine or mcc sentence or both. A general authorization for the release of medical or other information is NOT sufficient authorization for further disc losure. Family History Family Member Name Family Member Gender Family Member Status Date o f Status Description Data Source(s) Unknown Unknown Problem MEDENT ([facility]) Unknown Unknown Problem [facility]ENT ([facility]) Unknown Male Problem MEDENT ([facility] ) Encounters Encounter Providers Location Date Indications Data Source(s ) Office Visit, Est Pt., Level 2 FC [address] [place] [address] 04/07/2020 12:00:00 AM EST eCW1 ([facility]) Unknown [address] [facility] [address] 04/05/2020 12:00:00 AM EST eCW1 ([facility]) Unknown [address] [facility] [address] 04/05/2020 12:00:00 AM EST eCW1 ([facility]) Unknown [address] [facility] [address] 04/05/2020 12:00:00 AM EST eCW1 ([facility]) (WND NP120) New Patient 120 Min [address] [place] [address] 03/30/2020 12:00:00 AM EST eCW1 ([facility]) Unknown [address] [facility] [address] 03/15/2020 12:00:00 AM EST eCW1 ([facility]) SANTOSH Castellanos-BC: [address] [place] [address], Ph. Attender: Sandie FROST [place] - [facility] Medical 03/14/2020 12:00:00 AM EST FELICIANO ([facility]) Office Visit Attender: TASHI STONE MD [place] [facility] 04/2019 08:45:00 AM EST MEDENT ([facility]) [place] [address] [facility] [address] 02/24/2020 12:00:00 AM EST eCW1 ([facility]) [place] [address] [facility] [address] 02/22/2020 12:00:00 AM EST eCW1 ([facility]) [place] [address] [facility] [address] 02/18/2020 12:00:00 AM EST eCW1 ([facility]) Outpatient Attender: SANTOSH FROST FP 02/16/2020 04:45:00 P M EST [facility] Office Visit Attender: TASHI STONE MD [place] [facility] 09:40:00 AM EDT MEDMELONY ([facility]) Outpatient Attender: Sandie FROST FP 01/23/2020 04:1 4:02 PM EDT [facility] Outpatient Attender: SANTOSH BENJAMIN 01/23/2020 04:14:00 P M EDT [facility] Outpatient Attender: Sandie FROST FP 01/22/2020 11:3 7:00 AM EDT [facility] Outpatient Attender: Sandie BENJAMIN 01/21/2020 11:0 2:04 AM EDT [facility] [place] [address] [facility] [address] 01/21/2020 12:00:00 AM EDT eCW1 ([facility]) Office Visit Attender: TASHI STONE MD [place] [facility] 09:00:00 AM EDT MEDMELONY ([facility]) Outpatient Attender: Sandie BENJAMIN 01/19/2020 06:0 3:00 PM EDT [facility] Outpatient Attender: Sandie FROST FP 01/09/2020 08:3 8:00 PM EDT [facility] Outpatient Attender: SANTOSH BENJAMIN 01/09/2020 08:37:59 P M EDT [facility] Outpatient Attender: Sandie BENJAMIN 01/08/2020 12:1 9:01 PM EDT [facility] Outpatient Attender: SANTOSH DEMPSEYP FP 01/08/2020 12:18:04 P M EDT [facility] Outpatient Attender: Sandie FROST FP 01/08/2020 12:1 7:01 PM EDT [facility] Outpatient Attender: SANTOSH DEMPSEYP FP 01/08/2020 12:02:11 A M EDT [facility] Outpatient Attender: SANTOSH DEMPSEYP FP 01/07/2020 10:57:01 A M EDT [facility] Outpatient Attender: SANTOSH DEMPSEYP FP 01/07/2020 09:10:00 A M EDT [facility] Office Visit Attender: TASHI STONE MD [place] [facility] 12:45:00 PM EDT MEDENT ([facility] ) Outpatient Attender: Sandie DEMPSEYP FP 12/30/2019 09:2 7:01 AM EDT [facility] Outpatient Attender: SANTOSH DEMPSEYP FP 12/30/2019 09:27:00 A M EDT [facility] Outpatient Attender: SANTOSH DEMPSYEP FP 12/30/2019 07:41:01 A M EDT [facility] Outpatient Attender: SANTOSH FROST FP 12/30/2019 12:02:13 A M EDT [facility] Outpatient Attender: Sandie DEMPSEYP FP 12/29/2019 08:3 7:59 PM EDT [facility] Outpatient Attender: SANTOSH FROST FP 12/29/2019 11:13:01 A M EDT [facility] Outpatient Attender: SANTOSH DEMPSEYP FP 12/28/2019 03:54:00 P M EDT [facility] Outpatient Attender: SANTOSH DEMPSEYP FP 12/24/2019 07:47:01 A M EDT [facility] Outpatient Attender: SANTOSH FROST FP 12/24/2019 12:02:13 A M EDT [facility] Outpatient Attender: SANTOSH FROST FP 12/23/2019 11:37:01 A M EDT [facility] Outpatient Attender: Sandie DEMPSEYP FP 12/23/2019 11:2 3:00 AM EDT [facility] Outpatient Attender: SANTOSH DEMPSEYP FP 12/23/2019 12:02:11 A M EDT [facility] Outpatient Attender: SANTOSH DEMPSEYP FP 12/22/2019 11:05:02 A M EDT [facility] Outpatient Attender: Sandie Jorge Luis DEMPSEYP FP 12/18/2019 05:5 2:00 PM EDT [facility] Office Visit Attender: TASHI STONE MD [place] [facility] 02/2020 10:30:00 AM EDT MEDENT ([facility]) Office Visit Attender: TASHI STONE MD [place] [facility] 04/2019 01:00:00 PM EDT MEDENT ([facility]) Outpatient Attender: SANTOSH DEMPSEYP FP 12/04/2019 12:02:14 A M EDT [facility] Outpatient Attender: SANTOSH DEMPSEYP FP 12/03/2019 01:40:04 P M EDT [facility] Outpatient Attender: Sandie DEMPSEYP FP 12/03/2019 01:3 9:01 PM EDT [facility] Outpatient Attender: SANTOSH DEMPSEYP FP 12/03/2019 11:26:01 A M EDT [facility] Outpatient Attender: SANTOSH DEMPSEYP FP 12/03/2019 10:30:00 A M EDT [facility] Outpatient Attender: SANTOSH DEMPSEYP FP 12/02/2019 01:33:01 P M EDT [facility] Outpatient Attender: CRAIG [id number] [place] [facility] 12/02/2019 12:45:00 PM EDT MEDENT ([facility]) Office Visit Attender: TASHI STONE MD [place] [facility] 03/2020 12:45:00 PM EDT MEDENT ([facility]) Outpatient Attender: SANTOSH DEMPSEYP FP 11/13/2019 03:50:00 P M EDT [facility] Outpatient Attender: SANTOSH DEMPSEYP FP 11/05/2019 12:02:07 A M EDT [facility] Outpatient Attender: SANTOSH DEMPSEYP FP 11/04/2019 12:06:03 P M EDT [facility] Outpatient Attender: Sandie DEMPSEYP FP 11/04/2019 12:0 4:59 PM EDT [facility] Outpatient Attender: SANTOSH DEMPSEYP FP 11/04/2019 09:58:00 A M EDT [facility] Outpatient Attender: Sandie DEMPSEYP FP 11/03/2019 01:5 4:00 PM EDT [facility] Outpatient Attender: SANTOSH DEMPSEYP FP 11/02/2019 03:00:01 P M EDT [facility] Outpatient Attender: Sandie DEMPSEYP FP 11/02/2019 08:5 6:01 AM EDT [facility] Outpatient Attender: Sandie DEMPSEYP FP 10/25/2019 02:5 3:01 PM EDT [facility] Outpatient Attender: Sandie FROST FP 10/20/2019 09:1 0:00 PM EDT [facility] Outpatient Attender: Sandie DEMPSEYP FP 10/15/2019 02:3 5:02 PM EDT [facility] Outpatient Attender: SANTOSH DEMPSEYP FP 10/12/2019 11:18:01 A M EDT [facility] Outpatient Attender: Sandie DEMPSEYP FP 10/07/2019 12:1 8:00 PM EDT [facility] Outpatient Attender: Sandie FROST FP 10/07/2019 12:1 7:00 PM EDT [facility] Outpatient Attender: SANTOSH DEMPSEYP FP 10/01/2019 03:20:01 P M EDT [facility] Outpatient Attender: SANTOSH DEMPSEYP FP 10/01/2019 03:19:01 P M EDT [facility] Outpatient Attender: Sandie DEMPSEYP FP 09/28/2019 02:3 2:02 PM EDT [facility]patient Attender: Sandie FROST FP 09/26/2019 09:0 6:01 PM EDT [facility] Outpatient Attender: SANTOSH FROST FP 09/26/2019 09:05:59 P M EDT [facility] Outpatient Attender: SANTOSH DEMPSEYP FP 09/23/2019 07:42:00 A M EDT [facility] Outpatient Attender: Sandie DEMPSEYP FP 09/20/2019 02:4 0:01 PM EDT [facility] Attender: Sandie FROST FP 09/18/2019 09:0 3:00 AM EDT [facility] Outpatient Attender: SANTOSH FROST FP 09/16/2019 11:05:00 A M EDT [facility]patient Attender: Sandie FROST FP 09/16/2019 10:3 4:02 AM EDT [facility] Outpatient Attender: SANTOSH FROST FP 09/16/2019 09:19:00 A M EDT [facility] Outpatient Attender: SANTOSH FROST FP 09/15/2019 07:34:34 P M EDT [facility] Outpatient Attender: SANTOSH FROST FP 09/15/2019 01:49:01 P M EDT [facility] Outpatient Attender: SANTOSH FROST FP 09/15/2019 11:29:00 A M EDT [facility] Outpatient Attender: Sandie FROST FP 09/08/2019 09:5 4:59 PM EDT [facility] Outpatient Attender: SANTOSH FROST FP 09/08/2019 01:13:01 P M EDT [facility]patient Attender: Sandie FROST FP 09/06/2019 02:1 3:00 AM EDT [facility] Outpatient Attender: SANTOSH FROST FP 09/05/2019 12:09:47 A M EDT [facility] Outpatient Attender: SANTOSH FROST FP 09/04/2019 10:15:01 A M EDT [facility] Outpatient Attender: Sandie FROST FP 09/01/2019 03:1 3:00 PM EDT [facility]patient Attender: Sandie FROST FP 08/24/2019 08:2 8:00 AM EDT [facility] [address] [place] [address] 07/31/2019 12:00:00 AM EDT eCW1 ([facility]) Outpatient Attender: Sandie FROST FP 07/17/2019 08:3 1:00 PM EDT [facility] Outpatient Attender: Sandie FROST FP 07/10/2019 08:1 9:00 AM EDT [facility] Outpatient Attender: SANTOSH DEMPSEYP FP 07/07/2019 12:43:00 P M EDT [facility] Outpatient Attender: Sandie DEMPSEYP FP 07/05/2019 08:2 1:01 PM EDT [facility] Outpatient Attender: SANTOSH DEMPSEYP FP 07/02/2019 02:13:00 P M EDT [facility] Outpatient Attender: SANTOSH DEMPSEYP FP 07/01/2019 09:01:04 P M EDT [facility] Outpatient Attender: SANTOSH DEMPSEYP FP 07/01/2019 02:24:03 P M EDT [facility] Outpatient Attender: SANTOSH DEMPSEYP FP 07/01/2019 12:29:01 P M EDT [facility] Outpatient Attender: SANTOSH DEMPSEYP FP 06/26/2019 12:12:00 P M EDT [facility] Outpatient Attender: Sandie DEMPSEYP FP 06/25/2019 12:4 1:23 PM EDT [facility] Outpatient Attender: SANTOSH DEMPSEYP FP 06/25/2019 12:40:47 P M EDT [facility] Outpatient Attender: SANTOSH DEMPSEYP FP 06/24/2019 03:24:01 P M EDT [facility] Outpatient Attender: Sandie DEMPSEYP FP 06/22/2019 02:1 2:02 PM EDT [facility] Outpatient Attender: SANTOSH DEMPSEYP FP 06/22/2019 01:01:00 P M EDT [facility] Outpatient Attender: Sandie DEMPSEYP FP 06/17/2019 03:1 4:04 PM EDT [facility]patient Attender: Sandie DEMPSEYP FP 06/04/2019 12:5 9:02 PM EST [facility] Outpatient Attender: SANTOSH DEMPSEYP FP 06/04/2019 12:59:02 P M EST [facility]patient Attender: Sandie DEMPSEYP FP 06/04/2019 12:5 8:00 PM EST [facility] Outpatient Attender: SANTOSH DEMPSEYP FP 06/04/2019 12:58:00 P M EST [facility] Outpatient Attender: SANTOSH DEMPSEYP FP 06/03/2019 08:18:02 A M [facility] Outpatient Attender: SANTOSH DEMPSEYP FP 06/01/2019 09:01:04 P [facility] Outpatient Attender: SANTOSH DEMPSEYP FP 06/01/2019 04:08:04 P [facility] Attender: Sandie Kang AGRONOMY INSTRUCTOR FP 06/01/2019 11:5 5:01 AM [facility] Outpatient Attender: SANTOSH DEMPSEYP FP 06/01/2019 10:44:03 A M [facility] Outpatient Attender: SANTOSH Kang AGRONOMY INSTRUCTOR FP 06/01/2019 09:09:00 A [facility] Outpatient Attender: SANTOSH Kang AGRONOMY INSTRUCTOR FP 06/01/2019 09:08:00 A [facility] Outpatient Attender: SANTOSH Kang AGRONOMY INSTRUCTOR FP 06/01/2019 08:56:00 A [facility] Outpatient Attender: SANTOSH Kang AGRONOMY INSTRUCTOR FP 06/01/2019 08:54:01 A [facility] Outpatient Attender: SANTOSH Kang AGRONOMY INSTRUCTOR FP 05/27/2019 10:44:00 A [facility] Outpatient Attender: SANTOSH Kang AGRONOMY INSTRUCTOR FP 05/19/2019 09:09:02 A M [facility] Outpatient Attender: Sandie DEMPSEYP FP 05/10/2019 02:1 3:02 PM [facility] Outpatient Attender: SANTOSH DEMPSEYP FP 05/08/2019 11:02:00 A [facility] Outpatient Attender: Sandie DEMPSEYP FP 05/08/2019 08:3 1:02 AM [facility] Outpatient Attender: Sandie DEMPSEYP FP 05/01/2019 09:3 1:55 AM [facility] Outpatient Attender: SANTOSH DEMPSEYP FP 04/29/2019 11:37:00 A [facility] Outpatient Attender: SANTOSH Kang AGRONOMY INSTRUCTOR FP 04/28/2019 10:12:02 A [facility] Outpatient Attender: SANTOSH Kang AGRONOMY INSTRUCTOR FP 04/28/2019 10:12:02 A M [facility] Outpatient Attender: SANTOSH DEMPSEYP FP 04/22/2019 12:36:00 P M [facility] Outpatient Attender: SANTOSH Kang AGRONOMY INSTRUCTOR FP 03/31/2019 10:43:00 A M [facility] Outpatient Attender: Sandie Kang AGRONOMY INSTRUCTOR FP 03/30/2019 12:1 3:01 PM [facility] Outpatient Attender: Sandie Kang AGRONOMY INSTRUCTOR FP 03/20/2019 12:3 9:01 PM [facility] Outpatient Attender: SANTOSH Kang AGRONOMY INSTRUCTOR FP 03/20/2019 09:52:01 A M [facility] Outpatient Attender: SANTOSH Kang AGRONOMY INSTRUCTOR FP 03/18/2019 09:17:01 A M [facility] Outpatient Attender: Sandie Kang AGRONOMY INSTRUCTOR FP 03/16/2019 10:2 7:01 AM [facility] Outpatient Attender: SANTOSH Kang AGRONOMY INSTRUCTOR FP 03/16/2019 09:04:02 A M [facility] Outpatient Attender: Sandie Kang AGRONOMY INSTRUCTOR FP 03/13/2019 03:0 9:02 PM [facility] Outpatient Attender: Sandie Kang AGRONOMY INSTRUCTOR FP 03/12/2019 10:1 1:01 AM [facility] Outpatient Attender: SANTOSH Kang AGRONOMY INSTRUCTOR FP 03/10/2019 12:05:00 P [facility] Outpatient Attender: Sandie Kang AGRONOMY INSTRUCTOR FP 03/06/2019 07:4 1:00 AM [facility] Outpatient Attender: Sandie Kang AGRONOMY INSTRUCTOR FP 03/03/2019 07:1 2:59 PM [facility] Outpatient Attender: SANTOSH Kang AGRONOMY INSTRUCTOR FP 03/03/2019 03:50:04 P M [facility] Outpatient Attender: SANTOSH Kang AGRONOMY INSTRUCTOR FP 03/03/2019 02:54:01 P M [facility] Outpatient Attender: SANTOSH Kang AGRONOMY INSTRUCTOR FP 03/03/2019 10:09:00 A [facility] Outpatient Attender: Sandie Kang AGRONOMY INSTRUCTOR FP 03/02/2019 12:4 0:03 PM [facility] Outpatient Attender: SANTOSH Kang AGRONOMY INSTRUCTOR FP 02/23/2019 09:07:01 A M [facility] Immunizations Vaccine Date Status Description Data Source(s) This CVX code allows reporting of a vacc ination when formulation is unknown (for example, when recording a Influenza vaccination when noted on a vaccination card) 03/03/2019 12:00:00 AM EST completed 03/03/2019 BLAYNE Dennis ([facility]) Medications Medication Brand Name Start Date [...] DAILY DOSE = 4 TABLETS SOLD: 04/12/2020 [facility] atorvastatin 40 MG Oral Tablet ATORVASTATIN CALCIUM [...] A DAY SOLD: 04/06/2020 [facility] Nystatin 532506 UNT/ML Topical Cream 100,000 unit/gram NYSTA TIN [...] TIMES A DAY NEEDED SOLD: 03/14/2020 [facility] doxycycline hyclate 100 MG Oral Capsule [...] TO 1.5ML AFTER ONE MONTH SOLD: 01/27/2020 [facility] 60 mg 12/21/2019 12:00:00 AM [...] EDT OPHTHALMIC active MEDENT ([facility]) Ofloxacin 3 MG/ML Ophthalmic Solution [Ocuflox] Ocuflox 12/02/2019 12:00:00 AM EDT OPHTHALMIC active MEDENT ([facility]) 1 % 12/02/2019 12:00:00 AM EDT drops,suspension [...] MAXIMUM DAILY DOSE = 4 SOLD: 11/05/2019 [facility] ALCOHOL ANTISEPTIC PADS 11/05/2019 12:00:00 [...] TABLET BY MOUTH AT BEDTIME SOLD: 03/01/2020 [facility] 100 unit/mL 09/02/2019 12:00:00 AM [...] TABLET BY MOUTH EVERY DAY SOLD: 09/18/2019 [facility] 400 mg [...] 30 TAKE ONE TABLET BY MOUTH TIFFANY DAY TAKE ONE TABLET BY MOUTH EVERY [...] duloxetine 30 MG Delayed Release Oral Capsule [facility] ([facility]) Nicotine 4 MG Chewing Gum nicotine (polacrilex) 4 mg g um nicotine (polacrilex) 4 mg gum completed nicotine 4 MG Chewing Gum [facility] ([facility]) Oxycodone Hydrochloride 5 MG Oral Tablet oxycodone 5 m g tablet oxycodone 5 mg tablet completed oxycodone hydro chloride 5 MG Oral Tablet [facility] ([facility]) Aspirin 325 MG Delayed Release Oral Tabl et aspirin 325 mg tablet,delayed release aspirin 325 mg tablet,delayed release completed aspirin 325 MG Delayed Release Oral Tablet [facility] er) Azithromycin 250 MG Oral Tablet azithromycin 250 mg ta blet azithromycin 250 mg tablet completed azithromycin 25 0 MG Oral Tablet [facility] ([facility]) 24 HR Nicotine 0.875 MG/HR Transdermal P atch nicotine 21 mg/24 hr daily transdermal patch nicotine 21 mg/24 hr daily transdermal patch completed 24 HR nicotine 0.875 MG/HR Trans dermal System [facility] ([facility]) duloxetine 60 MG Delayed Release Oral Ca psule duloxetine 60 mg capsule,delayed release duloxetine 60 mg capsule,delayed release completed duloxetine 60 MG Delayed Release Oral Capsule [facility] ([facility]) Triamcinolone Acetonide 0.0005 MG/MG Top ical Ointment triamcinolone acetonide 0.05 % topical ointment triamcinolone acetonide 0.05 % topical ointment completed triamcinolone acetonide 0 .0005 MG/MG Topical Ointment [facility] ([facility]) Trazodone Hydrochloride 50 MG Oral Tablet trazodone 50 mg tablet trazodone 50 mg tablet completed trazodone hydr ochloride 50 MG Oral Tablet [facility] ([facility]) Insurance Providers Payer name Policy type / Coverage type Policy ID Covered green party ID Covered green party's relationship to crane Policy Crane Plan Information ELMO [id number] SP [id number] EMEDNY [id number] SP [id number] ELMO [facility] [id number] S [id number] ELMO [id number] SP [id number] Medicaid S [id number] S [id number] Managed Care [place] P [id number] S [id number] ELMO [id number] SP [id number] Medicaid S [id number] S [id number] MEDICAID [id number] SP [id number] Managed Care [place] P [id number] S [id number] ELMO [id number] SP [id number] [employer] MCDHMO [id number] SP [id number] Managed Care - [facility] Community Plan P [id number] S [id number] [facility] [id number] S [id number] Managed Care - [facility] Community Plan P [id number] S [id number] Medicaid S [id number] S [id number] Managed Care - [facility] P [id number] S [id number] [employer] COMMUNITY PLAN MCDHMO [id number] SP [id number] Medicaid S [id number] S [id number] D Managed Care [facility] O [id number] S [id number] UNHC COMMUNITY PLAN MCDHMO [id number] SP [id number] ANSI-Medicaid [id number] ANSI-Medicaid [id number] ON LICENSE OF [facility] COMMUNITY PLAN MCDHMO [id number] SP [id number] [facility] Health Maintenance Organization (HMO) [id number] Self [id number] ANSI-Medicaid [id number] ANSI-Medicaid [id number] ANSI-Medicaid [id number] ANSI-Medicaid [id number] ANSI-Medicaid [id number] ANSI-Medicaid [id number] ANSI-Medicaid [id number] ANSI-Medicaid [id number] MEDICAID [id number] SP [id number] ANSI-Medicaid [id number] ANSI-Medicaid [id number] ANSI-Medicaid [id number] ANSI-Medicaid [id number] ANSI-Medicaid [id number] [facility]-Medicaid [id number] [facility]-Medicaid [id number] MEDICAID M [id number] S [id number] Medicaid P [id number] S [id number] Medicaid P [id number] S [id number] [place] [id number] Self [id number] [place] [id number] Self [id number] MEDICA[place] [id number] SP [id number] [place] [id number] SP [id number] Medicaid P [id number] S [id number] [place] Self Medicaid P [id number] S [id number] Medicaid P [id number] S [id number] Problems, Conditions, and Diagnoses Code Display Name Description Problem Type Effective Dates Data Source(s) I87.312 [id number] 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 Problem 03/30/2020 12:00:00 AM EST eCW1 ([facility]) [id number] Cellulitis of right lower limb Cellulitis of R ight Lower Limb Problem 03/14/2020 12:00:00 AM EST FELICIANO ([facility]) 29086435 Keratoconus Keratoconus Problem 03/08/2020 12:00:00 AM EST MEDENT ([facility]) 33290714 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 o f senile cataract Problem 03/08/2020 12:00:00 AM EST MEDENT ([facility]) 100147338 Family history of Respiratory disease Fa angelica History of Respiratory Disease Problem 01/21/2020 04:30:59 PM EDT FELICIANO ([facility]) 937201843 Finding of esophagus Finding of Esophagus Problem 01/21/2020 04:30:59 PM EDT FELICIANO ([facility]) 02268878 Hypertensive disorder Hypertensive Disorder Problem 01/21/2020 04:30:59 PM EDT HUDSON ([facility]) 220915239 Nuclear senile cataract Nuclear senile cataract Proble m 01/20/2020 12:00:00 AM EDT MEDENT ([facility]) V05.9 Vaccination Vaccination 01/08/2020 12:16:35 PM EDT [facility] 75107571 Corneal transplant Corneal transplant Problem 04/2019 12:00:00 AM EDT MEDENT ([facility]) Presence of intraocular lens Presence of intraocular l ens Problem 12/08/2019 12:00:00 AM EDT MEDENT ([facility]) E11.36 Type 2 diabetes mellitus with diabetic c ataract Cataract due to diabetes mellitus 12/03/2019 01:38:22 PM EDT [facility] V72.81 Preoperative cardiovascular examination Preoperative cardiovascular examination 12/03/2019 01:38:22 PM EDT [facility] 404078160 Cataract due to diabetes mellitus type 2 Cataract Due to Diabetes Mellitus Type 2 Problem 12/03/2019 12:00:00 AM EDT HUDSON ([facility]) 409252628 Pre-surgery testing Pre-surgery Testing Problem 0 12/03/2019 12:00:00 AM EDT [place] ([facility]) 24009118 Age-related cataract Age-related cataract Problem 11/18/2019 12:00:00 AM EDT MEDENT ([facility] ) 17623161 Essential hypertension Essential hypertension Problem 11/18/2019 12:00:00 AM EDT MEDENT ([facility] ) 65601005 Type 2 diabetes mellitus Type 2 diabetes mellitus Prob shelia 11/18/2019 12:00:00 AM EDT MEDENT ([facility] ) 788.41 Increased frequency of urination Increased frequency o f urination 11/04/2019 12:04:23 PM EDT [facility] 203035361 Increased frequency of urination Increased Frequ ency of Urination Problem 11/04/2019 12:00:00 AM EDT HUDSON ([facility]) V65.8 Person consulting for explanation of exa mination or test findings Person consulting for explanation of examination or test findings 07/01/2019 02:23:33 PM EDT [facility] 94780234 Acute upper respiratory infection, unspe cified Acute upper respiratory infection, unspecified 07/01/2019 02:23:33 PM EDT [facility] 753725776 Patient asked to attend Patient Asked to Attend Proble m 07/01/2019 12:00:00 AM EDT HU[place] ([facility]) 589155301 Disorder of upper respiratory system Dis order of Upper Respiratory System Problem 07/01/2019 12:00:00 AM EDT [place] ([facility]) [id number] Type 2 diabetes mellitus with diabetic n europathy, unspecified Type 2 diabetes mellitus with diabetic neuropathy, unspecified 06/03/2019 08:16:44 AM [facility] 68506237 Atopic dermatitis, unspecified Atopic dermatitis, unsp ecified 06/01/2019 04:07:15 PM [facility] F17.200 Nicotine dependence, unspecified, uncomp licated Nicotine dependence, unspecified, uncomplicated 06/01/2019 10:42:25 AM [facility] 49104882 Atopic dermatitis Atopic Dermatitis Problem 06/01/2019 12:00:00 AM EST FELICIANO ([facility]) 20769266 Nicotine dependence Nicotine Dependence Problem 0 06/01/2019 12:00:00 AM EST FELICIANO ([facility]) 53461718 Essential hypertension Essential hypertension Problem 03/10/2019 12:00:00 AM EST TASHA ([facility] ) S82.001A Unspecified fracture of righ t patella, initial encounter for closed fracture Unspecified fracture of right patella, i nitial encounter for closed fracture 03/03/2019 03:48:00 PM [facility] 84512375 Fracture of patella Fracture of Patella Problem 1 05/03/2018 12:00:00 AM EST FELICIANO ([facility]) Surgeries/Procedures Procedure Description Date Indications Data Source(s) FINE NEEDLE ASPIRATION W/O IMAGING GUIDANCE 03/30/2020 12:00:00 AM EST eCW1 ([facility]) Keratoplasty(Corneal Transplant),Lamellar;Autograft OS 12/07/2019 12:00:00 AM EDT MEDENT ([facility]) Extracapsular Cat REM W/Insert IOL,Manual/Phacoemulsificatio n OS 12/07/2019 12:00:00 AM EDT MEDENT ([facility]) Exam Comprehensive, New PT 11/18/2019 12:00:00 AM EDT MEDENT ([facility]) Corneal Topography Unil/Bilat 11/18/2019 12:00:00 AM E DT MEDENT ([facility]) Results ID Date Data Source [id number] 01/22/2020 11:30:08 AM EDT [facility] Current Problems: Vaccination (ICD-V05.9 ) (JPZ89-Z01)Cataract due to diabetes mellitus (ICD-366.41) (LHC82-S79.36)Preoperative cardiovascular examination (ICD-V72.81) (PAR31-Z53.810)Increased frequency of urination (ICD-788.41) (KQS14-C20.0)Person consulting for explanation of examination or test findings (ICD-V65.8) (WPN33-H96.2)Acute upper respiratory infection, unspecified (ICD10- J06.9)Atopic dermatitis, unspecified (IYO74-M01.9)Nicotine dependence, unspecified, uncomplicated (ONM33-R64.200)Unspecified fracture of right patella, initial encounter for closed fracture (EYI39-K11.001A)Hyperlipidemia, unspecified (XOI64-Y19.5)Type 2 diabetes mellitus with diabetic neuropathy, unspecified (OHY97-E94.40)COPD (ICD-496) (VNS45-D46.9)ASTHMA (ICD-V17.5) (ICD10- Z82.5)Impaired mobility (ETV95-T18.09)Encounter for screening for malignant neoplasm of colon (ICD-V76.51) (PHK57-Y41.11)Health Screening (ICD-V70.0) (RNH24-R43.9)Dyspnea (ICD-786.05) (EIA93-K92.02)Elevated LFT's (ICD-794.8) (SJI38-P18.89)Diabetic skin ulcer (ICD-250.80) (PRD36-K93.622)O/E - skin scales present (ICD-782.8) (FMB79-P06.4)Insomnia (ICD-780.52) (NRX60-U84.00)Chronic pain syndrome (ICD-338.4) (HCJ66-S38.4)BMI 60.0-69.9 (ICD-V85.44) (ICD10- Z68.44)Tobacco use (ICD-305.1) (TFO07-W34.0)ARTHRITIS (ICD-716.90) (ICD10- M19.90)MORBID OBESITY (ICD-278.01) (GXL48-A33.01)VITAMIN D DEFICIENCY (ICD- 268.9) (EAA98-C58.9)DEGENERATIVE DISC DISEASE, 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 E11.9 Medicaid number [id number] I [id number]* RIGHT ARM REST FOR POWER WHEELCHAIR Repair or replace as needed. Medicaid number [id number] I [id number] ICD10 E66.01 E11.42.Ell.9* MANAGER MACHINE FOR POWER CHAIR. use as directed to [...] to electric wheelchair ICD 10 E66.01/M19.90/M51.36 MEDICAID #[id number] BESYLATE 10 MG ORAL TABLET (AMLODIPINE BESYLATE) [...] as directed to test blood glucose MDD:4DRISDOL 08666 UNIT ORAL CAPSULE (ERGOCALCIFEROL) 1 pill po [...] use Listerine zero total care. Patient was cooperativeNV-Fillings Lili Dotson by ryan (01/22/2020 11:35 AM): To[employer] Notes [employer] Watches: Name Value Range Interpretation Code Description Data Julia rce(s) Supporting Document(s) ID Date Data Source [id number] 01/21/2020 08:36:59 AM EDT [facility] Patient History Medical History:COPDDiab etes, Type 2Cellulitis [...] current every day smokerCurrent Problems: Vaccination (ICD-V05.9) (UFC47-R53)Cataract due to diabetes mellitus (ICD-366.41) (KDG45-H68.36)Preoperative cardiovascular examination (ICD-V72.81) (OWF89-Y16.810)Increased frequency of urination (ICD- 788.41) (OFK33-D86.0)Person consulting for explanation of examination or test findings (ICD-V65.8) (RQQ49-K81.2)Acute upper respiratory infection, unspecified (PKO51-P05.9)Atopic dermatitis, unspecified (VZW18-J10.9)Nicotine dependence, unspecified, uncomplicated (BPH92-Z80.200)Unspecified fracture of right patella, initial encounter for closed fracture (JRK87-Y19.001A)Hyperlipidemia, unspecified (RVD02-O00.5)Type 2 diabetes mellitus with diabetic neuropathy, unspecified (DCZ57-L34.40)COPD (ICD-496) (FAV41-N67.9)ASTHMA (ICD-V17.5) (ICD10- Z82.5)Impaired mobility (RXV35-U58.09)Encounter for screening for malignant neoplasm of colon (ICD-V76.51) (ZMT98-E30.11)Health Screening (ICD-V70.0) (ZXH23-J18.9)Dyspnea (ICD-786.05) (KKU46-Y86.02)Elevated LFT's (ICD-794.8) (BCZ20-R97.89)Diabetic skin ulcer (ICD-250.80) (NBP64-J08.622)O/E - skin scales present (ICD-782.8) (QSB88-E89.4)Insomnia (ICD-780.52) (RLK16-V70.00)Chronic pain syndrome (ICD-338.4) (HLF62-F68.4)BMI 60.0-69.9 (ICD-V85.44) (ICD10- Z68.44)Tobacco use (ICD-305.1) (OZL23-S13.0)ARTHRITIS (ICD-716.90) (ICD10- M19.90)MORBID OBESITY (ICD-278.01) (IQQ19-L50.01)VITAMIN D DEFICIENCY (ICD- 268.9) (CUV03-Z54.9)DEGENERATIVE DISC DISEASE, 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 ICD 10 E66. E11.42. E11.9 Medicaid number [id number] I [id number]* RIGHT ARM REST FOR POWER WHEELCHAIR Repair or replace as needed. Medicaid number [id number] ICD10 E66. E11.42.Ell.9* MANAGER MACHINE FOR POWER CHAIR. use as directed to [...] to electric wheelchair ICD 10 E66.01/M19.90/M51.36 MEDICAID #[id number] BESYLATE 10 MG ORAL TABLET (AMLODIPINE BESYLATE) [...] as directed to test blood glucose MDD:4DRISDOL 72756 UNIT ORAL CAPSULE (ERGOCALCIFEROL) 1 pill po [...] patient (Performed by America Flores DDS) Chart Alert:lucerono historyProphy 1 per 6 month periodchild through [...] year Chart Notes:ryan (Jan 21 2020 10:13AM): [facility]-Diabetic Periodic exam, 4BWX, Adult prophy- ultrasonic Patient [...] AM): ; chico (Jan 21 2020 11:01AM): [facility](-). CC: none. Reviewed Xrays. Exam: caries detected. [...] SOLUTION PEN-INJECTORPROTECTIVE UNDERWEAR SUPER XLALCOHOL WIPES PADDRISDOL 00995 UNIT ORAL CAPSULEMOTORIZED WHEELCHAIRJOYSTICK FOR WHEELCHAIRPARTS AND LABOR FOR WHEELCHAIRPEN NEEDLES 31G X 6 MMONETOUCH LANCETSONETOUCH ULTRA BLUE IN VITRO STRIPVENTOLIN HFA 108 (90 BASE) MCG/ACT INHALATION AEROSOL SOLUTIONAllergies:IBUPROFEN (Moderate)SULFA (Moderate) Name Value Range Interpretation Code Description Data Julia rce(s) Supporting Document(s) ID Date Data Source [id number] 01/08/2020 10:11:04 AM EDT [facility] In-House Urine TestsDate/Time Colle cted: January 08, 2020 9:45 AMTest Result Reference Range Normal ValueComments: urine collected in office to send to Jose Arias, January 08, 2020 10:11 AMAssessment & Plan Orders:[id number]-Gkv Vst-Est Level I [CPT-75105] Name Value Range Interpretation Code Description Data Julia rce(s) Supporting Document(s) ID Date Data Source [id number] 01/08/2020 09:35:00 AM EDT [facility] Name Value Range Interpretation Code Description Data Julia rce(s) Supporting Document(s) URINECULTRTN SPECIMEN APPEARS CONTAMINATED N [facility] ID Date Data Source [id number] 01/08/2020 09:35:00 AM EDT [facility] Name Value Range Interpretation Code Description Data Julia rce(s) Supporting Document(s) APPEARANCE U CLEAR CLEAR N [facility] SPEC GR URIN 1.017 1.002-1.035 N [facility] UA COLOR YELLOW YELLOW N [facility] ID Date Data Source [id number] 12/30/2019 08:32:11 AM EDT [facility] Measurements & CalculationsHeight: 65.50 inches 166.37 [...] been admitted to the hospital? No - [facility]- low blood sugars, knee rehabHospital admission date reported today: 02/04/2019Have you been to an emergency room (ER) or urgent care clinic? No - [facility] er for ulcers Have you seen another healthcare provider? Yes - eye dr in [place] Have you seen a dentist? Yes - [...] during this visit, including review of any ujhq-atq-vmkrgiu medications, herbal therapies, and/or supplements.Allergy ReviewAllergy List [...] FairAssessment & Plan Problems:Added: Vaccination (ICD- V05.9) (BBZ55-H90) Assessment: Instructions: Flu vaccine done today.Assessed:Type 2 diabetes mellitus with diabetic neuropathy, unspecified (I LC92-H08.40) Assessment: Instructions: Your HGA1c is 5.7.. This indicates well controlled type two diabetes. We have decreased your Basaglar insulin to 50 units daily. Please continue to monitor Blood glucose three times daily and as needed. If blood glucose less than 60 or greater than 400. Please call the clinic.Cataract due to diabetes mellitus (ICD-366.41) (VQQ96-C09.36) Assessment: Instructions: Please continue to follow with your specialist as scheduled.Person consulting for explanation of examination or test findings (ICD-V65.8) (JPJ26-P01.2) Assessment: Instructions: We have reviewed your lab results with you today.Please continue medications as prescribed. Please try to cut back on drinking sodas and start drinking adeqate water daily. Please continue healthy diet and physical activities.Nicotine dependence, unspecified, uncomplicated (DZE50-Y65.200) Assessment: Instructions: Please continue to cut back on your smoking with a goal to quit. Please let us know if you need assistance in doing so.Hyperlipidemia, unspecified (LZD97-U79.5) Assessment: Instructions: Please continue medication as prescribed. Please continue healthy diet and physical activities.HYPERTENSION (ICD-401.9) (VJU65-B26) Assessment: Instructions: Your Blood Pressure is at goal today.Tobacco use (ICD-305.1) (NNQ15-D74.0) Assessment: Pt states smoking about 5-7 cigarettes [...] PEN- INJECTORPROTECTIVE UNDERWEAR SUPER XLALCOHOL WIPES PADDRISDOL 92643 UNIT ORAL CAPSULEMOTORIZED WHEELCHAIRJOYSTICK FOR WHEELCHAIRPARTS AND [...] AM Qty: 30[Tablet] Refills: 3 Method: ElectronicDRISDOL 66886 UNIT ORAL CAPSULE-1 pill po weekly Qty: 4[Capsule] Refills: 5 Method: ElectronicChanged:From: ORAL TRAZODONE HCL 50 MG ORAL TABLET Qty: [id number] Refills: 30[Tablet] To: TRAZODONE HCL 100 MG ORAL TABLET-take one tablet by mouth daily at bedtime. Qty: 30[Tablet] Refills: 2From: ORAL PROTONIX 40 MG ORAL TABLET DELAYED RELEASE Qty: [id number] Refills: 30[Tablet] To: PROTONIX 40 MG ORAL TABLET DELAYED RELEASE-take once tablet by mouth daily in AM Qty: 30[Tablet] Refills: 3From: SUBCUTANEOUS BASAGLAR KWIKPEN 100 UNIT/ML SUBCUTANEOUS SOLUTION PEN-INJECTOR Qty: [id number] Refills: 4[Prefilled Pen Syrnge] To: BASAGLAR KWIKPEN 100 UNIT/ML SUBCUTANEOUS SOLUTION QTE-VSOGZPCJ-eyag 50 units sub q daily in the mornings. MDD 50Allergies:IBUPROFEN (Moderate)SULFA (Moderate)Orders:FluLaval Quadrivalent, preservative free [CPT-48969] 66283 - Immo Admin (over 19 yrs), 1st Vaccine [CPT-41575] COMP METABOLIC PANEL [CPT-52681] CBC W/DIFF [CPT-69834] HgBA1c [CPT-10625] LIPID PANEL [CPT-08559] Vitamin D 250H Unspecified [CPT- 28137] URINALYSIS [CPT-12409] Urine Culture [CPT-31258] Adult - Ofc Vst, EST, Level IV [CPT-00870] Follow-Up Return to clinic: 3 months for follow up Clinical Visit Summary CompletedMedications:DRISDOL 84840 UNIT ORAL CAPSULE (ERGOCALCIFEROL) 1 pill po weekly #4[Capsule] x 5 Entered and Authorized by: Sandie FROST Method used: Electronically to [facility] (retail) [address] [place] [address] RxID: [id number] 40 MG ORAL TABLET DELAYED RELEASE (PANTOPRAZOLE SODIUM) take once tablet by mouth daily in AM #30[Tablet] x 3 Route:ORAL Entered and Authorized by: Sandie FROST Method used: Electronically to [facility] (retail) [address] [place] [address] Fax: Note to Pharmacy: Route: ORAL; RxID: [id number] HCL 100 MG ORAL TABLET (TRAZODONE HCL) take one tablet by mouth daily at bedtime. #30[Tablet] x 2 Route:ORAL Entered and Authorized by: Sandie FROST Method used: Electronically to [facility] (retail) [facility] [place] [address] Ph: Note to Pharmacy: Route: ORAL; Indications: INSOMNIA RxID: [id number] Questionnaire1) Does the patient have a long-term [...] Syringe 0.5 MLMfr / Lot# / Exp.Date: [employer] / 724K2 1Amt. Given / Route / Site: 0.5 mL / IM / Left DeltoidNDC / CVX: [id number] / 150Administered Date: 12/30/2019 10:00VFC Eligibility: Not VFC EligibleVIS Date: 11/20/2018VIS Given / VIS Given On: Yes 12/30/2019Comments: Administered by: Akilah Sumner LPN Name Value Range Interpretation Code Description Data Julia rce(s) Supporting Document(s) ID Date Data Source [id number] 12/24/2019 07:52:44 AM EDT [facility]-House Blood TestsDate/Time Colle cted: December 24, 2019 7:53 AMTest Result Reference Range Normal ValueComments: blood drawn in right AC PT tolerated Wero Sesay LPN, December 24, 2019 7:53 AMAssessment & Plan Orders:[id number] Vst-Est Level I [CPT-33837] 93361 - Venipuncture [CPT- 70902] Name Value Range Interpretation Code Description Data Julia rce(s) Supporting Document(s) ID Date Data Source [id number] 12/24/2019 07:45:00 AM EDT [facility] Name Value Range Interpretation Code Description Data Julia rce(s) Supporting Document(s) HCT 54.6 % 42.0-52.0 H [facility] HGB 17.1 g/dL 13.5-17.5 N [facility] MCH 31.3 G/DL pg 32.0-36.5 L [facility] MCHC 27.6 PG % 27.0-33.0 N [facility] PLATELETS 234 10 10*3/mm3 150-450 N [facility] RBC 6.19 10 10*6/mm3 4.30-6.10 H [facility] RDW 15.1 % 11.5-14.5 H [facility] WBC TOTAL 7.3 4.0-10.0 N [facility] ID Date Data Source [id number] 12/24/2019 07:45:00 AM EDT [facility] Name Value Range Interpretation Code Description Data Julia rce(s) Supporting Document(s) BG FASTING 120 mg/dL 70-100 H [facility] PSA 0.73 ng/mL < 4.00 N [facility] ID Date Data Source [id number] 12/24/2019 07:45:00 AM EDT [facility] Name Value Range Interpretation Code Description Data Julia rce(s) Supporting Document(s) HGBA1C 5.7 % N [facility] ID Date Data Source [id number] 12/12/2019 10:12:38 AM EDT Laboratory Al liance [...] rce(s) Supporting Document(s) ID Date Data Source [id number] 12/12/2019 10:14:53 AM EDT Laboratory Al liance [...] rce(s) Supporting Document(s) ID Date Data Source [id number] 01/11/2020 08:52:45 AM EDT Laboratory Al liance [...] rce(s) Supporting Document(s) ID Date Data Source [id number] 12/03/2019 11:37:14 AM EDT [facility] Measurements & CalculationsHeight: 65.50 inches 166.37 [...] been admitted to the hospital? [facility] - [facility]- low blood sugars, knee rehabHospital admission date reported today: 02/04/2019Have you been to an emergency room (ER) or urgent care clinic? No - [facility] er for ulcers Have you seen another healthcare provider? Yes - eye dr in [place] Have you seen a dentist? Yes - [...] during this visit, including review of any govh-fmi-jqudmcp medications, herbal therapies, and/or supplements.Allergy ReviewAllergy List [...] Problems:Added: Cataract due to diabetes mellitus (ICD-366.41) (WNZ67-Y25.36)Preoperative cardiovascular examination (ICD-V72.81) (AFT78-W94.810) Assessment: Instructions: For cataract surgery.Cleared/low risk for [...] SOLUTION PEN-INJECTORPROTECTIVE UNDERWEAR SUPER XLALCOHOL WIPES PADDRISDOL 95415 UNIT ORAL CAPSULEMOTORIZED WHEELCHAIRJOYSTICK FOR WHEELCHAIRPARTS AND LABOR FOR WHEELCHAIRPEN NEEDLES 31G X 6 MMONETOUCH LANCETSONETOUCH ULTRA BLUE IN VITRO STRIPVENTOLIN HFA 108 (90 BASE) MCG/ACT INHALATION AEROSOL SOLUTIONAllergies:IBUPROFEN (Moderate)SULFA (Moderate)Orders:Adult - Ofc Vst, EST, Level III [CPT-24694] Name Value Range Interpretation Code Description Data Julia rce(s) Supporting Document(s) ID Date Data Source [id number] 12/02/2019 12:47:00 PM EDT [facility] Name Value Range Interpretation Code Description Data Julia rce(s) Supporting Document(s) SARS-CoV-2 (COVID19) [facility] This lab was ordered by [facility] and reported by [facility]. ID Date Data Source [id number] 11/04/2019 10:46:51 AM EDT [facility] Measurements & CalculationsHeight: 65.50 inches 166.37 [...] during this visit, including review of any [id number] medications, herbal therapies, and/or supplements.Allergy ReviewAllergy List [...] Plan Problems:Added: Increased frequency of urination (ICD-788.41) (NBQ21-J34.0) Assessment: Pt states increased frequency of urine especially at nights. PSA level already ordered for next lab draw. will add UA and culture. Instructions: PSA level already ordered for next lab draw. will add UA and culture.Assessed:HYPERTENSION (ICD-401.9) (XOP28-X81) Assessment: BP much improved. Instructions: Your Blood Pressure is at goal today. Please continue medications as prescribed. Please continue healthy diet and physical activities. Please try to avoid added sodium in your diet. Please try to avoid processed foods.Tobacco use (ICD-305.1) (EZJ42-G87.0) Assessment: Instructions: Please continue to cut back on your smoking with a goal to quit.Insomnia (ICD-780.52) (NTE22-I06.00) Assessment: Instructions: We have sent a prescription to your pharmacytoday. Please take medication as prescribed. Please report any major side effects. Please try to avoid nighttime stimulants.DIABETES MELLITUS, TYPE II (ICD-250.00) (SBT64-T26.9) Assessment: Pt states taking medications as prescribed. [...] SOLUTION PEN-INJECTORPROTECTIVE UNDERWEAR SUPER XLALCOHOL WIPES PADDRISDOL 28464 UNIT ORAL CAPSULEMOTORIZED WH EELCHAIRJOYSTICK FOR WHEELCHAIRPARTS AND LABOR FOR WHEELCHAIRPEN NEEDLES 31G X 6 MMONETOUCH LANCETSONETOUCH ULTRA BLUE IN VITRO STRIPVENTOLIN HFA 108 (90 BASE) MCG/ACT INHALATION AEROSOL SOLUTIONMedication Changes:New Prescription:TRAZODONE HCL 50 MG ORAL TABLET-take one tablet by mouth daily Qty: 30[Tablet] Refills: 1 Method: ElectronicAllergies:IBUPROFEN (Moderate)SULFA (Moderate)Orders:URINALYSIS [CPT-43161] Urine Culture [CPT-28228] Adult - Ofc Vst, EST, Level IV [CPT-42999] Follow-Up Return to clinic: as scheduled and as needed Clinical Visit Summary CompletedMedications:TRAZODONE HCL 50 MG ORAL TABLET (TRAZODONE HCL) take one tablet by mouth daily #30[Tablet] x 1 Route:ORAL Entered and Authorized by: Sandie FROST Method used: Electronically to [facility] (retail) [facility] [place] [address] Note to Pharmacy: Route: ORAL; Indications: INSOMNIA RxID: [id number] signed by Sandie FROST on 11/04/2019 at 12:04 PM Name Value Range Interpretation Code Description Data Julia rce(s) Supporting Document(s) ID Date Data Source [id number] 09/23/2019 08:22:57 AM EDT [facility] Measurements & CalculationsHeight: 65.5 inches 166.37 cm [...] NoHave you [facility] a [facility]? [facility] performed by: Dari Farias , September 23, [...] states fasting blood sugars have been 60s- jxf223s. Pt denies recent s/s of hypoglycemia. Pt states have been holding Admelog insulin for blood sugars less patel 200 as instructed. HPI performed by: Sandie FROST, September 23, 2019 8:59 AMTransitions of Care InboundProblem ReviewProblem List was reviewed and/or updated during this visit.Medication Reconciliation & ReviewMedication List was reviewed and/or updated during this visit, including review of any vgjx-wja-ojrzoas medications, herbal therapies, and/or supplements.Allergy ReviewAllergy List [...] 2 diabetes mellitus with diabetic neuropathy, unspecified (EIZ27-X16.40) Assessment: Instructions: Your HGA1c is 6.0. This [...] continue healthy diet and physical activities.Impaired mobility (QDI33-L21.09) Assessment: Patient uses wheel chair and walker for assistance.MORBID OBESITY (ICD-278.01) (GYG32-Y02.01) Assessment: Instructions: Please continue lifestyle changes to include healthy diet and physical activities.Please try to limit sugars and carbohydrates in your diet.Person consulting for explanation of examination or test findings (ICD-V65.8) (SCL91-L38.2) Assessment: Instructions: We have reviewed your lab results with you today.Atopic dermatitis, unspecified (ICD10- L20.9) Assessment: Instructions: Please continue Triamcinolone ointment as prescribed. refill sent for you today.HYPERTENSION (ICD-401.9) (XOU47-C57) Assessment: Instructions: Your BP is elevated today. Please continue medications as prescribed. Please try to avoid added sodium in your diet diet. Please try to avoid processed foods.Nicotine dependence, unspecified, uncomplicated (FWA21-V05.200) Assessment: Instructions: Please try to cut back on your smoking with a goal to quit. Please let us know if you need assistance in doing so.Assessment not Saved HYPERTENSION (KOY70-E62): Patient Instructions/Care Plan: Type 2 diabetes mellitus [...] SOLUTION PEN-INJECTORPROTECTIVE UNDERWEAR SUPER XLALCOHOL WIPES PADDRISDOL 91515 UNIT ORAL CAPSULEMOTORIZED WHEELCHAIRJOYSTICK FOR WHEELCHAIRPARTS AND LABOR FOR WHEELCHAIRPEN NEEDLES 31G X 6 MMONETOUCH LANCETSONETOUCH ULTRA BLUE IN VITRO STRIPVENTOLIN HFA 108 (90 BASE) MCG/ACT INHALATION AEROSOL SOLUTIONMedication Changes:Refilled:TRULICITY 0.75 MG/0.5ML SUBCUTANEOUS SOLUTION LSV-KYMOYJVP-9.75 mg SQ weekly- if tolerated, contact MD regarding inc to 1.5 after 1 month Qty: 4[Prefilled Pen Syrnge] Refills: 5 Method: ElectronicBD PEN NEEDLE MALVIN U/F 32G X 4 MM-test qid Qty: 120[Unspecified] Refills: 5 Method: ElectronicBASAGLAR KWIKPEN 100 UNIT/ML SUBCUTANEOUS SOLUTION UGP-LHMAIBOZ-bcll 60 units sub q daily in the [...] KWIKPEN 100 UNIT/ML SUBCUTANEOUS SOLUTION PEN-INJECTOR Qty: [id number] Refills: 4[Prefilled Pen Syrnge] To: BASAGLAR KWIKPEN 100 UNIT/ML SUBCUTANEOUS SOLUTION CWX-BYQZZCPS-nhzt 60 units sub q daily in the mornings. MDD 80 Qty: 4[Prefilled Pen Syrnge] Refills: 5Allergies:IBUPROFEN (Moderate)SULFA (Moderate)Orders:COMP METABOLIC PANEL [CPT- 13048] CBC W/DIFF [CPT-58250] HgBA1c [CPT-32016] LIPID PANEL [CPT-46794] PROSTATE CANCER SCREENING; PSA TEST [CPT-G0103] Adult - Ofc Vst, EST, Level IV [CPT-65420] Follow-Up Return to clinic: 3 months for follow up Additional Follow-Up: 4-6 weeks for BP follow upClinical Visit Summary CompletedMedications:TRIAMCINOLONE ACETONIDE 0.05 % EXTERNAL OINTMENT (TRIAMCINOLONE ACETONIDE) apply to affected area twice daily as needed #2[Tube] x 1 Route:EXTERNAL Entered and Authorized by: Sandie FROST Method used: Electronically to [facility] (retail) [address] [place] [address] Note to Pharmacy: Route: EXT; Indications: ATOPIC DERMATITIS, UNSPECIFIED RxID: [id number] KWIKPEN 100 UNIT/ML SUBCUTANEOUS SOLUTION PEN-INJECTOR (INSULIN GLARGINE) take 60 units sub q daily in the mornings. MDD 80 #4[Prefilled Pen Syrnge] x 5 Route:SUBCUTANEOUS Entered and Authorized by: Sandie FROST Method used: Electronically to [facility] (retail) [address] [place] [address] Note to Pharmacy: Route: SUBCUTANEOUS;Route: SC; RxID: [id number] PEN NEEDLE MALVIN U/F 32G X 4 MM (INSULIN PEN NEEDLE) test qid #120[Unspecified] x 5 Entered by: Dari Farias Authorized by: Sandie FROST Method used: Electronically to [facility] (retail) [address] [place] [address] RxID: [id number] 0.75 MG/0.5ML SUBCUTANEOUS SOLUTION PEN-INJECTOR (DULAGLUTIDE) 0.75 mg SQ weekly- if tolerated, contact MD jamilah herrera to 1.5 after 1 month #4[Prefilled Pen Syrnge] x 5 Route:SUBCUTANEOUS Entered by: Dari Farias Authorized by: Sandie FROST Method used: Electronically to [facility] (retail) [address] [place] [address] Fax: Note to Pharmacy: Route: SC; RxID: [id number] NICORETTE 4 MG MOUTH/THROAT GUM (NICOTINE POLACRILEX) one gum by mouth every 1-2 hours as needed #180[Gum] x 2 Route:MOUTH/THROAT Entered by: Dari Farias Authorized by: Sandie FROST Method used: Electronically to [facility] (retail) [address] [place] [address] Fax: RxID: [id number] NICOTINE 21 MG/24HR TRANSDERMAL PATCH 24 HOUR (NICOTINE) apply one patch daily, may rotate site daily #30[Patch] x 2 Route:TRANSDERMAL Entered by: Dari Farias Authorized by: Sandie FROST Method used: Electronically to [facility] (retail) [address] [place] [address] RxID: [id number] AZITHROMYCIN 250 MG ORAL TABLET (AZITHROMYCIN) take two tablets by mouth on day one , then one tablet by mouth daily x 4 days #6[Tablet] x 0 Route:ORAL Entered by: Dari Farias Authorized by: Sandie FROST Method used: Electronically to [facility] (retail) [address] [place] [address] RxID: [id number] signed by Sandie FROST on 09/26/2019 at 9:05 PM Name Value Range Interpretation Code Description Data Julia rce(s) Supporting Document(s) ID Date Data Source [id number] 09/16/2019 09:00:00 AM EDT [facility] Name Value Range Interpretation Code Description Data Julia rce(s) Supporting Document(s) HCT 52.4 % 42.0-52.0 H [facility] HGB 16.3 g/dL 13.5-17.5 N [facility] MCH 31.1 G/DL pg 32.0-36.5 L [facility] MCHC 27.8 PG % 27.0-33.0 N [facility] PLATELETS 229 10 10*3/mm3 150-450 N [facility] RBC 5.86 10 10*6/mm3 4.30-6.10 N [facility] RDW 15.4 % 11.5-14.5 H [facility] WBC TOTAL 7.1 4.0-10.0 N [facility] Family [facility] ID Date Data Source [id number] 09/16/2019 09:00:00 AM EDT [facility] Name Value Range Interpretation Code Description Data Julia rce(s) Supporting Document(s) BG FASTING 92 mg/dL 70-100 N [facility] y Health ID Date Data Source [id number] 09/16/2019 09:00:00 AM EDT [facility] Name Value Range Interpretation Code Description Data Julia rce(s) Supporting Document(s) HGBA1C 6.0 % N [facility] ID Date Data Source [id number] 09/16/2019 08:49:28 AM EDT [facility] Labs In-House Blood TestsDate/Time Colle cted: September 16, 2019 8:50 AMTest Result Reference Range Normal ValueComments: blood draw done in offcie done in the right ac tolerated well Kal Myles MA, September 16, 2019 8:50 AMAssessment & Plan Orders:[id number] Vst-Est Level I [CPT-75516] 86363 - Venipuncture [CPT-66254] Name Value Range Interpretation Code Description Data Julia rce(s) Supporting Document(s) ID Date Data Source [id number] 07/01/2019 01:19:43 PM EDT [facility] Measurements & CalculationsHeight: 65.50 inches 166.37 [...] NoPassive Smoke Exposure: YesPassive Smoke Exposure comments: caries also smokeHealthcare HistorySince your last office visit...Have [...] refill on lasix HPI performed by: Sandie Kang AGRONOMY INSTRUCTOR, July 01, 2019 2:02 PMTransitions of Care InboundProblem ReviewProblem List was reviewed and/or updated during this visit.Medication Reconciliation & ReviewMedication List was reviewed and/or updated during this visit, including review of any xsde-jyo-clokavc medications, herbal therapies, and/or supplements.Allergy ReviewAllergy List [...] Plan Problems:Added: Acute upper respiratory infection, unspecified (TPV89-S34.9) Assessment: Instructions: We have sent a prescription [...] of examination or test findings (ICD- V65.8) (FSR30-X84.2) Assessment: Instructions: We have reviewed your lab results with you todays.Assessed:Type 2 diabetes mellitus with diabetic neuropathy, unspecified (WHP13-H25.40) Assessment: Instructions: Your HGA1c is 8.4. please continue medications as prescribed. Please continue lifestyle changes to include healthy diet and physical activities.Please try to limit shugars and carbohydrates in your diet. Please try to limit processed foods.Nicotine dependence, unspecified, uncomplicated (ODL42-O24.200) Assessment: Instructions: Please continue to try to quit smoking.Health Screening (ICD-V70.0) (GDC49-Y52.9) Assessment: fasting labs ordered. Instructions: We have [...] SOLUTION PEN-INJECTORPROTECTIVE UNDERWEAR SUPER XLALCOHOL WIPES PADDRISDOL 49749 UNIT ORAL CAPSULEMOTORIZED WHEELCHAIRJOYSTICK FOR WHEELCHA IRPARTS [...] 0 Method: ElectronicAllergies:IBUPROFEN (Moderate)SULFA (Moderate)Orders:COMP METABOLIC PANEL [CPT-76674] CBC W/DIFF [CPT-63879] HgBA1c [CPT-85238] LIPID PANEL [CPT- 51513] Adult - Ofc Vst, EST, Level IV [CPT-32128] Follow-Up Return to clinic: as scheduled and as needed. Additional Follow-Up: 3 months f/u one week prior for fasting labsClinical Visit Summary CompletedMedications:FUROSEMIDE 40 MG ORAL TABLET (FUROSEMIDE) 1 tab by mouth daily #30[Tablet] x 3 Entered and Authorized by: Sandie FROST Method used: Electronically to [facility] (retail) [address] [place] [address] Fax: RxID: [id number] ALLERGY RELIEF 50 MCG/ACT NASAL SUSPENSION (FLUTICASONE PROPIONATE) one spray to each nostril twice daily x 10 days #1[Container] x 0 Route:NASAL Entered and Authorized by: Sandie FROST Method used: Electronically to [facility] (retail) [address] [place] [address] Note to Pharmacy: Route: NASAL; Indications: ACUTE UPPER RESPIRATORY INFECTION, UNSPECIFIED RxID: [id number] 250 MG ORAL TABLET (AZITHROMYCIN) take two tablets by mouth on day one , then one tablet by mouth daily x 4 days #6[Tablet] x 0 Route:ORAL Entered and Authorized by: Sandie FROST Method used: Electronically to [facility] (retail) [address] [place] [address] Note to Pharmacy: Route: ORAL; Indications: ACUTE UPPER RESPIRATORY INFECTION, UNSPECIFIED RxID: [id number] lectronically signed by Sandie FROST on 07/05/2019 at 8:20 PM Name Value Range Interpretation Code Description Data Julia rce(s) Supporting Document(s) ID Date Data Source [id number] 06/01/2019 11:00:00 AM [facility] Name Value Range Interpretation Code Description Data Julia rce(s) Supporting Document(s) HCT 54.6 % 42.0-52.0 H [facility] HGB 17.6 g/dL 13.5-17.5 H [facility] MCH 32.2 G/DL pg 32.0-36.5 N [facility] MCHC 28.4 PG % 27.0-33.0 N [facility] PLATELETS 251 10 10*3/mm3 150-450 N [facility] RBC 6.20 10 10*6/mm3 4.30-6.10 H [facility] RDW 13.5 % 11.5-14.5 N [facility] WBC TOTAL 9.8 4.0-10.0 N [facility] ID Date Data Source [id number] 06/01/2019 11:00:00 AM [facility] Name Value Range Interpretation Code Description Data Julia rce(s) Supporting Document(s) BG FASTING 135 mg/dL 70-100 H [facility] y Health ID Date Data Source [id number] 06/01/2019 11:00:00 AM EST [facility] Name Value Range Interpretation Code Description Data Julia rce(s) Supporting Document(s) HGBA1C 8.4 % N [facility] ID Date Data Source [id number] 06/01/2019 09:34:37 AM EST [facility] Measurements & CalculationsHeight: 65.50 inches 166.37 [...] forearm. Patient is requesting paperwork sent to [facility] for his wheel chair repair. HPI performed by: Sandie DEMPSEYP, June 01, 2019 10:52 AMTransitions of Care InboundProblem ReviewProblem List was reviewed and/or updated during this v isit.Medication Reconciliation & ReviewMedication List was reviewed and/or updated during this visit, including review of any kvev-shr-mxtlith medications, herbal therapies, and/or supplements.Allergy ReviewAllergy List [...] & Plan Problems:Added: Nicotine dependence, unspecified, uncomplicated (HKZ00-Q54.200) Assessment: Pt states smokes about 1 pack cigarettes daily. would like to try nicotine patches and gums Instructions: Please continue to cut back on your smoking with a goal to quit.We have sent a prescription to your pharmacy to start nicotine patches and gums. Please do not smoke cigarettes while using nicotine patchesAtopic dermatitis, unspecified (LAN94-P05.9) Assessment: Instructions: We have sent a prescription to your pharmacy today. Please use medication as prescribed. Please report any major side effects.Changed:From: Dx of Type 2 diabetes mellitus without complications (MXR02-P89.9) To: Type 2 diabetes mellitus with diabetic neuropathy, unspecified (ICD10- E11.40)Assessed:HYPERTENSION (ICD-401.9) (AVM97-W94) Assessment: Instructions: Please contine medication as prescribed. Please continue lifestyle changes to include healthy diet and physical activities. Please try to avoid added sodium in your diet.DIABETES MELLITUS, TYPE II (ICD-250.00) (ZOM37-R69.9) Assessment: Instructions: Please continue medications as prescribed. Please continue lifestyle changes to include healthy diet and physical activities.Tobacco use (ICD-305.1) (ERN99-P38.0) Assessment: Instructions: Please continue to cut back on your smoking with a goal to quit.We have sent a prescription to your pharmacy to start nicotine patches and gums. Please do not smoke cigarettes while using nicotine patchesImpaired mobility (KRE50-H46.09) Assessment: Pt uses wheel chair for assistance. Wheel chair safety discussed.Type 2 diabetes mellitus with diabetic neuropathy, unspecified (ICD10- E11.40) Assessment: Discussused proper diet aand management of diabetes with patient to prevent hypo/ hyperglycemia Instructions: Please continue medications as prescribed. Please continue lifestyle changes to include healthy diet and physical activities.MORBID OBESITY (ICD-278.01) (NKU12-Z43.01) Assessment: Instructions: Please continue lifestyle changes to include healthy diet and physical activities.Health Screening (ICD-V70.0) (ONP39-H21.9) Assessment: Instructions: We have ordered labs for [...] SOLUTION PEN-INJECTORPROTECTIVE UNDERWEAR SUPER XLALCOHOL WIPES PADDRISDOL 14207 UNIT ORAL CAPSULEMOTORIZED WHEELCHAIRJOYSTICK FOR WHEELCHAIRPARTS AND [...] TOUJEO MAX SOLOSTAR 300 UNIT/ML SUBCUTANEOUS SOLUTION ZVJ-NXTMNJCS-Jhqeir 75 units in the AM and then await MD instructions Qty: 10[Prefilled Pen Syrnge] Refills: 5Allergies:IBUPROFEN (Moderate)SULFA (Moderate)Orders:COMP METABOLIC PANEL [CPT-25776] CBC W/DIFF [CPT-07606] HgBA1c [CPT-93266] LIPID PANEL [CPT-36157] 55979 - Venipuncture [CPT-76153] Adult - Ofc Vst, EST, Level IV [CPT-71242] Follow-Up Return to clinic: 3-4 weeks for follow up. Clinical Visit Summary CompletedMedications:TRIAMCINOLONE ACETONIDE 0.05 % EXTERNAL OINTMENT (TRIAMCINOLONE ACETONIDE) apply to affected area twice daily as needed #2[Tube] x 1 Route:EXTERNAL Entered and Authorized by: Sandie FROST Method used: Electronically to [facility] (retail) [address] [place] [address] Note to Pharmacy: Route: EXTERNAL; Indications: ATOPIC DERMATITIS, UNSPECIFIED RxID: [id number] 21 MG/24HR TRANSDERMAL PATCH 24 HOUR (NICOTINE) apply one patch daily, may rotate site daily #30[Patch] x 2 Route:TRANSDERMAL Entered and Authorized by: Sandie FROST Method used: Electronically to [facility] (retail) [address] [place] [address] Fax: Note to Pharmacy: Route: TRANSDERMAL; Indications: NICOTINE DEPENDENCE, UNSPECIFIED, UNCOMPLICATED RxID: [id number] 4 MG MOUTH/THROAT GUM (NICOTINE POLACRILEX) one gum by mouth every 1-2 hours as needed #180[Gum] x 2 Route:MOUTH/THROAT Entered and Authorized by: Sandie FROST Method used: Electronically to [facility] (retail) [address] [place] [address] Note to Pharmacy: Route: MOUTH/THROAT; RxID: [id number] TOKELBY MAX SOLOSTAR 300 UNIT/ML SUBCUTANEOUS SOLUTION PEN-INJECTOR (INSULIN GLARGINE) Inject 75 units in the AM and then await MD instructions #10[Prefilled Pen Syrnge] x 5 Entered by: Akilah Sumner LPN Authorized by: Haider Kiran MD Method used: Electronically to [facility] (retail) [address] [place] [address] RxID: [id number] CYCLOBENZAPRINE HCL 5 MG ORAL TABLET (CYCLOBENZAPRINE HCL) take 1 1/2 tablet by mouth twice daily #75[Tablet] x 0 Route:ORAL Entered by: Akilah Sumner LPN Authorized by: Sandie FROST Method used: Electronically to [facility] (retail) [address] [place] [address] Fax: RxID: [id number]]Labs In-House Blood TestsDate/Time Collected: June 01, 2019 11:05 AMTest Result Reference Range Normal ValueComments: blood draw done in offcie done in the right ac tolerated well Kal Myles MA, June 01, 2019 11:05 AM Name Value Range Interpretation Code Description Data Julia rce(s) Supporting Document(s) ID Date Data Source [id number] 03/03/2019 03:00:23 PM [facility] Measurements & CalculationsHeight: 65.50 inches [...] been admitted to the hospital? Yes - [facility]- low blood sugars, knee rehabHospital admission date reported today: 02/04/2019Have you been to an emergency room (ER) or urgent care clinic? No - [facility] er for ulcers [facility] you [facility] Yes [...] this time. HPI performed by: Sandie Kang [facility], March 03, 2019 3:28 PMTransitions of Care InboundProblem ReviewProblem List was reviewed and/or updated during this visit.Medication Reconciliation & ReviewMedication List was reviewed and/or updated during this visit, including review of any oqmx-yrp-oemfahf medications, herbal therapies, and/or supplements.Allergy ReviewAllergy List [...] right patella, initial encounter for closed fracture (BDU73-Y01.001A) Assessment: Instructions: Referral made for you to see Dr Aviles. Please keep your appointment as scheduled.Please continue treatment as ordered.Assessed:Type 2 diabetes mellitus without complications (JOZ04-E16.9) Assessment: Instructions: Please continue medications as prescribed. Please continue lifestyle changes to include healthy diet and physical activities.HYPERTENSION (ICD-401.9) (QRC73-O81) Assessment: Instructions: Your BP is at goal today. Please continue medication as prescribed. [place] continue lifestyle changes to include healthy diet and physical activities. Please try to avoid added sodium.Please try to avoid processed foods.Type 2 diabetes mellitus without complications (VUN33-J16.9) Assessment: Pt was recently started onn Trulicity. [...] goal today. Please continue medication as prescribed. [place] continue lifestyle changes to include healthy diet [...] PEN- INJECTORPROTECTIVE UNDERWEAR SUPER XLALCOHOL WIPES PADDRISDOL 89824 UNIT ORAL CAPSULEMOTORIZED WHEELCHAIRJOYSTICK FOR WHEELCHAIRPARTS AND LABOR FOR WHEELCHAIRPEN NEEDLES 31G X 6 MMONETOUCH LANCETSONETOUCH ULTRA BLUE IN VITRO STRIPVENTOLIN HFA 108 (90 BASE) MCG/ACT INHALATION AEROSOL SOLUTIONMedication Changes:Added: OXYCODONE HCL 5 MG ORAL CAPSULEAllergies:IBUPROFEN (Moderate)SULFA (Moderate)Orders:Podiatry Consult [CPT-62613] Orthopaedics Consult [CPT-29999] Adult - Ofc Vst, EST, Level IV [CPT-09340] Follow-Up Return to clinic: as scheduled and as needed Clinical Visit Summary CompletedVaccines Administered/Entered:Vaccination Group: InfluenzaHistorical Source: Historical information - from patientSeries: 2Vaccination: Unspecified FormulationMfr / Lot# / Exp.Date: Amt. Given / Route / Site: ND / CVX: 88Administered Date: 03/03/2019VFC Eligibility: Not recordedVIS Date: Comments: given in hospital 1-2 weeks ago 03/03/2019Entered by: Candice Benítez MA Name Value Range Interpretation Code Description Data Julia rce(s) Supporting Document(s) Procedure Social History Code Duration Value Status Description Data Source(s ) Smoking 04/07/2020 12:00:00 AM EST Current Smoker completed Curre nt Smoker eCW1 ([facility]) Smoking 04/07/2020 12:00:00 AM EST Current Smoker completed Curre nt Smoker eCW1 ([facility]) Smoking 03/30/2020 12:00:00 AM EST Current Smoker completed Curre nt Smoker eCW1 ([facility]) Smoking 03/30/2020 12:00:00 AM EST Current Smoker completed Curre nt Smoker eCW1 ([facility]) Smoking 03/30/2020 12:00:00 AM EST Current Smoker completed Curre nt Smoker eCW1 ([facility]) Smoking 02/18/2020 12:00:00 AM EST Current Smoker completed Curre nt Smoker eCW1 ([facility]) Smoking 02/18/2020 12:00:00 AM EST Current Smoker completed Curre nt Smoker eCW1 ([facility]) Smoking 02/18/2020 12:00:00 AM EST Current Smoker completed Curre nt Smoker eCW1 ([facility]) Smoking 02/18/2020 12:00:00 AM EST Current Smoker completed Curre nt Smoker eCW1 ([facility]) Vital Signs ID Date Data Source UNK Name Value Range Interpretation Code Description Data Source(s) Diastolic blood pressure 91 mm[Hg] 91 mm[Hg] eCW1 ([facility]) Systolic blood pressure 160 mm[Hg] 160 mm[Hg] e CW1 ([facility]) Body temperature 97.0 [degF] 97.0 [degF] eCW1 ( [facility]) Respiratory rate 19 /min 19 /min eCW1 ([facility]) Heart rate 88 /min 88 /min eCW1 ([facility]) Body mass index (BMI) [Ratio] 58.24 kg/m2 58.24 kg/m2 eCW1 ([facility]) Body height 65 [in_i] 65 [in_i] eCW1 ([facility]) Body weight kg eCW1 ([facility]) Body weight 350 [lb_av] 350 [lb_av] eCW1 ([facility] Diastolic blood pressure 101 mm[Hg] 101 mm[Hg] eCW1 ([facility]) Systolic blood pressure 160 mm[Hg] 160 mm[Hg] e CW1 ([facility]) Body temperature 96.6 [degF] 96.6 [degF] eCW1 ( [facility]) Respiratory rate 20 /min 20 /min eCW1 ([facility]) Heart rate 92 /min 92 /min eCW1 ([facility]) Body mass index (BMI) [Ratio] 58.24 kg/m2 58.24 kg/m2 eCW1 ([facility]) Body height 65 [in_i] 65 [in_i] eCW1 ([facility]) Body weight kg eCW1 ([facility]) Body weight 350 [lb_av] 350 [lb_av] eCW1 ([facility]) Body weight 5753.6 [oz_av] 5753.6 [oz_av] ATHEN A ([facility]) Systolic blood pressure 164 mm[Hg] 164 mm[Hg] A THENA ([facility]) Body mass index (BMI) [Ratio] 58.9 kg/m2 58.9 k g/m2 FELICIANO ([facility]) Body height 65.5 [in_i] 65.5 [in_i] FELICIANO ([facility]) Diastolic blood pressure 91 mm[Hg] 91 mm[Hg] FELICIANO ([facility]) Intraocular pressure Left eye 18 mm[Hg] 18 mm[ Hg] MEDENT ([facility]) Tp 09:50 Am Intraocular pressure Right eye 23 mm[Hg] 23 mm [Hg] MEDENT ([facility]) Tp Diastolic blood pressure 91 mm[Hg] 91 mm[Hg] eCW1 ([facility]) Systolic blood pressure 195 mm[Hg] 195 mm[Hg] e CW1 ([facility]) Body temperature 97.4 [degF] 97.4 [degF] eCW1 ( [facility]) Respiratory rate 18 /min 18 /min eCW1 ([facility]) Heart rate 83 /min 83 /min eCW1 ([facility]) Body mass index (BMI) [Ratio] 59.00 kg/m2 59.00 kg/m2 eCW1 ([facility]) Body height 65 [in_i] 65 [in_i] eCW1 ([facility]) Body weight 354.6 [lb_av] 354.6 [lb_av] eCW1 ([facility]) Intraocular pressure Left eye 17 mm[Hg] 17 mm[ Hg] MEDENT ([facility]) Tp 10:10 Am Intraocular pressure Right eye 21 mm[Hg] 21 mm [Hg] MEDENT ([facility]) Tp 10:10 Am Intraocular pressure Left eye 18 mm[Hg] 18 mm[ Hg] MEDENT ([facility]) Tp 09:10 Am Intraocular pressure Right eye 16 mm[Hg] 16 mm [Hg] MEDENT ([facility]) Tp Intraocular pressure Right eye 21 mm[Hg] 21 mm [Hg] MEDENT ([facility]) Tp 12:39 PM Intraocular pressure Right eye 21 mm[Hg] 21 mm [Hg] MEDENT ([facility]) Tp 10:31 Am Intraocular pressure Right eye 20 mm[Hg] 20 mm [Hg] MEDENT ([facility]) Tp 01:22 PM Body weight 5616 [oz_av] 5616 [oz_av] FELICIANO ([facility]) Systolic blood pressure 152 mm[Hg] 152 mm[Hg] A [facility] ([facility]) Body height 65.5 [in_i] 65.5 [in_i] FELICIANO ([facility]) Diastolic blood pressure 89 mm[Hg] 89 mm[Hg] FELICIANO ([facility]) Intraocular pressure Left eye 13 mm[Hg] 13 mm[ Hg] MEDENT ([facility]) Tp Intraocular pressure Right eye 18 mm[Hg] 18 mm [Hg] MEDENT ([facility]) Tp 01:54 PM Body weight 5618.08 [oz_av] 5618.08 [oz_av] ATH BULMARO ([facility]) Systolic blood pressure 115 mm[Hg] 115 mm[Hg] A [facility] ([facility]) Body height 65.5 [in_i] 65.5 [in_i] FELICIANO ([facility]) Diastolic blood pressure 80 mm[Hg] 80 mm[Hg] FELICIANO ([facility]) Body weight 5804.8 [oz_av] 5804.8 [oz_av] ATHEN A ([facility]) Systolic blood pressure 154 mm[Hg] 154 mm[Hg] A [facility] ([facility]) Body height 65.5 [in_i] 65.5 [in_i] FELICIANO ([facility]) Diastolic blood pressure 97 mm[Hg] 97 mm[Hg] FELICIANO ([facility]) Body weight 5688 [oz_av] 5688 [oz_av] FELICIANO ([facility]) Systolic blood pressure 136 mm[Hg] 136 mm[Hg] A [facility] ([facility]) Body height 65.5 [in_i] 65.5 [in_i] FELICIANO ([facility]) Diastolic blood pressure 83 mm[Hg] 83 mm[Hg] FELICIANO ([facility]) Body weight 5744 [oz_av] 5744 [oz_av] FELICIANO ([facility]) Systolic blood pressure 122 mm[Hg] 122 mm[Hg] A [facility] ([facility]) Body height 65.5 [in_i] 65.5 [in_i] FELICIANO ([facility]) Diastolic blood pressure 75 mm[Hg] 75 mm[Hg] FELICIANO ([facility]) Systolic blood pressure 110 mm[Hg] 110 mm[Hg] A [facility] ([facility]) Body height 65.5 [in_i] 65.5 [in_i] FELICIANO ([facility]) Diastolic blood pressure 62 mm[Hg] 62 mm[Hg] FELICIANO ([facility]) Patient Treatment Plan of Care Planned Activity Planned Date Details Description Data Source (s) Triamcinolone Acetonide 0.0005 MG/MG Topical Ointment FELICIANO ([facility]) Trazodone Hydrochloride 50 MG Oral Tablet FELICIANO ([facility]) Oxycodone Hydrochloride 5 MG Oral Tablet FELICIANO ([facility]) 24 HR Nicotine 0.875 MG/HR Transdermal Patch FELICIANO ([facility]) Nicotine 4 MG Chewing Gum AT [facility]) duloxetine 60 MG Delayed Release Oral Capsule [facility]IC[facility] ([facility]) [facility] Azithromycin 250 MG Oral Tablet FELICIANO ([facility]) Aspirin 325 MG Delayed Release Oral Tablet FELICIANO ([facility])
== END 2020-04-19 11:22 | disposition home or self-care (01) ==
LOC: M ED 09:41
DX: S63.592A Other specified sprain of left wrist, initial encounter (principal); X58.XXXA Exposure to other specified factors, initial encounter; Y92.9 Unspecified place or not applicable; Y93.9 Activity, unspecified; Y99.9 Unspecified external cause status; I10 Essential (primary) hypertension; E11.9 Type 2 diabetes mellitus without complications; F17.200 Nicotine dependence, unspecified, uncomplicated; Z79.82 Long term (current) use of aspirin; Z79.4 Long term (current) use of insulin; Z79.899 Other long term (current) drug therapy; Z88.6 Allergy status to analgesic agent; Z88.2 Allergy status to sulfonamides

== ENCOUNTER → 2020-04-27 | Outpatient (REF) | payer OTHER ==
[2020-04-27 12:30] LABS: BASO % 0.5 % (0.0-1.0); EOS # 0.1 10^3/uL (0.0-0.5); EOS % 1.3 % (0.0-3.0); HEMATOCRIT 49.7 % (42.0-52.0); HEMOGLOBIN 15.6 g/dl (13.5-17.5); LYMPH # 2.3 10^3/uL (1.5-5.0); LYMPH % 26.8 % (24.0-44.0); MEAN CORPUSCULAR HEMOGLOBIN 27.6 pg (27.0-33.0); MEAN CORPUSCULAR HGB CONC 31.4 g/dl (32.0-36.5); MEAN CORPUSCULAR VOLUME 87.8 fl (80.0-96.0); MONO # 1.3 10^3/uL (0.0-0.8); MONO % 15.2 % (0.0-5.0); NEUTROPHILS # 4.7 10^3/uL (1.5-8.5); PLATELET COUNT, AUTOMATED 209 10^3/uL (150-450); RED BLOOD COUNT 5.66 10^6/uL (4.30-6.10); WHITE BLOOD COUNT 8.4 10^3/uL (4.0-10.0)
[2020-04-27 13:07] LABS: HEMOGLOBIN A1c 5.6 %
[2020-04-27 13:08] LABS: ALBUMIN 2.6 GM/DL (3.2-5.2); ALT/SGPT 33 U/L (12-78); BILIRUBIN,TOTAL 0.3 MG/DL (0.2-1.0); BLOOD UREA NITROGEN 23 MG/DL (7-18); CALCIUM LEVEL 9.4 MG/DL (8.5-10.1); CARBON DIOXIDE LEVEL 35 MEQ/L (21-32); CHLORIDE LEVEL 101 MEQ/L (98-107); CHOLESTEROL LEVEL 156 MG/DL (<200); CREATININE FOR GFR 1.14 MG/DL (0.70-1.30); FREE T4 1.13 NG/DL (0.76-1.46); GLOMERULAR FILTRATION RATE > 60.0 (>56); GLUCOSE, FASTING 89 MG/DL (70-100); HDL CHOLESTEROL 60 MG/DL (>40); LDL CHOLESTEROL 83 MG/DL (<100); NON-HDL-C 96 MG/DL; SODIUM LEVEL 141 MEQ/L (136-145); TOTAL 25(OH) VITAMIN D 64.5 NG/ML (30.0-100.0); TRIGLYCERIDES LEVEL 66 MG/DL (<150)
== END ==
LOC: M LAB REF 12:06
PROVIDERS: ATTEND Nurse Practitioner Family
DX: I10 Essential (primary) hypertension (principal); E78.5 Hyperlipidemia, unspecified; E55.9 Vitamin D deficiency, unspecified

== ENCOUNTER → 2020-07-25 | Outpatient (CLI) | payer OTHER ==
[~2020-07-25] MED LIST changes: -PEG1POW PO; +POLY17PO18 PO
== END ==
LOC: M PT 11:59
PROVIDERS: ATTEND Nurse Practitioner Family
DX: E66.01 Morbid (severe) obesity due to excess calories (principal); M79.606 Pain in leg, unspecified; Z74.09 Other reduced mobility; E11.8 Type 2 diabetes mellitus with unspecified complications

== ENCOUNTER 2020-09-27 04:22 | Emergency (ER) | payer OTHER, MEDICAID ==
[~2020-09-27] VITALS: Ht 165.1 cm; Wt 159.1 kg
[~2020-09-27 04:22] MED LIST changes: +GABA-283 PO; -GABA-845 PO
[2020-09-27] MEDS ORDERED: ACETAMINOPHEN 500 MG TAB PO ONE (06:20)
--- NOTE | 2020-09-27 06:56 | REPVR ---
PROCEDURE INFORMATION: Exam: XR Left Ankle Exam date and time: 09/27/2020 4:49 AM Age: 60 years old Clinical indication: Pain; Ankle; Left; Additional info: Injury TECHNIQUE: Imaging protocol: XR Left ankle. Views: 3 or more views. COMPARISON: CR Ankle, complete 01/20/2014 9:41 AM FINDINGS: Bones/joints: Normal. Soft tissues: Normal. IMPRESSION: No acute findings. Electronically signed by: Mio Acuna On 09/27/2020 06:56:20 AM
--- NOTE | 2020-09-27 07:08 | REPVR ---
PROCEDURE INFORMATION: Exam: XR Left Foot Exam date and time: 09/27/2020 6:56 AM Age: 60 years old Clinical indication: Pain; Foot; Left; Additional info: Fall, ttp 5th metatarsal TECHNIQUE: Imaging protocol: XR Left foot. Views: 3 or more views. COMPARISON: CR Foot, complete 01/25/2019 10:33 AM FINDINGS: Bones/joints: Normal. Soft tissues: Normal. IMPRESSION: No acute findings. Electronically signed by: Mio Acuna On 09/27/2020 07:08:28 AM
[2020-09-27 08:11] VITALS: BP 135/77
== END 2020-09-27 08:52 | disposition home or self-care (01) ==
LOC: M ED 04:22
DX: S93.402A Sprain of unspecified ligament of left ankle, initial encounter (principal); W01.0XXA Fall on same level from slipping, tripping and stumbling without subsequent striking against object, initial encounter; I87.2 Venous insufficiency (chronic) (peripheral); E66.9 Obesity, unspecified; Y92.009 Unspecified place in unspecified non-institutional (private) residence as the place of occurrence of the external cause; Y93.9 Activity, unspecified; Y99.9 Unspecified external cause status; E11.9 Type 2 diabetes mellitus without complications; G47.33 Obstructive sleep apnea (adult) (pediatric); F12.10 Cannabis abuse, uncomplicated; F17.200 Nicotine dependence, unspecified, uncomplicated; J44.9 Chronic obstructive pulmonary disease, unspecified; Z79.4 Long term (current) use of insulin; Z79.899 Other long term (current) drug therapy; Z88.1 Allergy status to other antibiotic agents; Z88.2 Allergy status to sulfonamides; Z88.8 Allergy status to other drugs, medicaments and biological substances; Z88.6 Allergy status to analgesic agent

== ENCOUNTER 2020-12-25 12:33 | Emergency (ER) | payer MEDICAID, OTHER ==
[2020-12-25 12:47] VITALS: BP 167/74
[2020-12-25] MEDS ORDERED: MORPHINE 4 MG/ML 1ML VIAL/SYRINGE (J2270) IV ONE (13:20)
--- NOTE | 2020-12-25 14:40 | REP ---
INDICATION: ? osteomyelitis. COMPARISON: Right tibia and fibula 03/19/2020. TECHNIQUE: Frontal and lateral views of the right tibia and fibula and 4 images were performed. FINDINGS: There is mild tricompartment arthritis of the right knee. There is no knee joint effusion. The right ankle appears unremarkable. There are multiple phleboliths in the soft tissues of the calf. The tibia and fibula are intact. IMPRESSION: 1. Normal tibia and fibula. 2. Mild tricompartment arthritis of the right knee. 3. Multiple phleboliths in the calf. <Electronically signed by Manuel Odom > 12/25/20 [id number]
--- NOTE | 2020-12-25 14:41 | REP ---
INDICATION: R/O DVT. COMPARISON: None. TECHNIQUE: 2D and color Doppler images of the right lower extremity deep venous system were performed. FINDINGS: Examination of the deep venous system of the right lower extremity reveals no evidence of deep venous thrombosis. IMPRESSION: No evidence of deep venous thrombosis of the right lower extremity. <Electronically signed by Manuel Odom > 12/25/20 [id number]
[2020-12-25 15:30] LABS: BASO % 0.2 % (0.0-1.0); EOS # 0.1 10^3/uL (0.0-0.5); EOS % 1.4 % (0.0-3.0); HEMATOCRIT 48.4 % (42.0-52.0); HEMOGLOBIN 15.4 g/dl (13.5-17.5); LYMPH # 1.4 10^3/uL (1.5-5.0); LYMPH % 27.9 % (24.0-44.0); MEAN CORPUSCULAR HEMOGLOBIN 28.3 pg (27.0-33.0); MEAN CORPUSCULAR HGB CONC 31.8 g/dl (32.0-36.5); MONO # 0.6 10^3/uL (0.0-0.8); MONO % 12.5 % (2.0-8.0); NEUTROPHILS # 2.8 10^3/uL (1.5-8.5); NEUTROPHILS % 57.8 % (36.0-66.0); PLATELET COUNT, AUTOMATED 188 10^3/uL (150-450); RED BLOOD COUNT 5.44 10^6/uL (4.30-6.10); WHITE BLOOD COUNT 4.9 10^3/uL (4.0-10.0)
[2020-12-25 15:55] LABS: ERYTHROCYTE SEDIMENTATION RATE 14 mm/hr (0-20)
[2020-12-25 15:58] LABS: ALBUMIN 1.6 GM/DL (3.2-5.2); ALT/SGPT 30 U/L (12-78); BILIRUBIN,DIRECT 0.1 MG/DL (0.0-0.2); BILIRUBIN,TOTAL 0.3 MG/DL (0.2-1.0); BLOOD UREA NITROGEN 9 MG/DL (7-18); CARBON DIOXIDE LEVEL 31 MEQ/L (21-32); CHLORIDE LEVEL 106 MEQ/L (98-107); CREATININE FOR GFR 1.05 MG/DL (0.70-1.30); GLOMERULAR FILTRATION RATE > 60.0 (>56); GLUCOSE, FASTING 376 MG/DL (70-100); POTASSIUM SERUM 3.2 MEQ/L (3.5-5.1); SODIUM LEVEL 142 MEQ/L (136-145); TOTAL PROTEIN 5.8 GM/DL (6.4-8.2)
== END 2020-12-25 16:58 | disposition home or self-care (01) ==
LOC: M ED 12:33
DX: E11.622 Type 2 diabetes mellitus with other skin ulcer (principal); L97.911 Non-pressure chronic ulcer of unspecified part of right lower leg limited to breakdown of skin; F12.10 Cannabis abuse, uncomplicated; F17.200 Nicotine dependence, unspecified, uncomplicated; I10 Essential (primary) hypertension; J44.9 Chronic obstructive pulmonary disease, unspecified; G47.33 Obstructive sleep apnea (adult) (pediatric); N18.30 Chronic kidney disease, stage 3 unspecified; Z88.6 Allergy status to analgesic agent; Z88.1 Allergy status to other antibiotic agents; Z88.2 Allergy status to sulfonamides
CPT/HCPCS: 36415; 73590; 80048; 80076; 81001; 83605; 85025; 85652; 86140; 87040; 93971; 96374; 99284; J2270

== ENCOUNTER → 2021-01-12 | Outpatient (REF) | payer OTHER, MEDICAID ==
[2021-01-12 17:09] LABS: HEMOGLOBIN A1c 12.2 %
== END ==
LOC: M LAB REF 15:53
PROVIDERS: ATTEND Surgery
DX: L97.812 Non-pressure chronic ulcer of other part of right lower leg with fat layer exposed (principal)

== ENCOUNTER 2021-01-27 08:19 | Inpatient (IN) | payer MEDICAID, OTHER ==
[~2021-01-27] VITALS: Ht 165.1 cm; Wt 167.6 kg
[~2021-01-27 08:19] MED LIST changes: +ARNU1INH INH; -ARNU1INH PO
[2021-01-27] MEDS ORDERED: FUROSEMIDE 40MG/4ML VIAL (J1940) As Ordered ONE (08:30)
[2021-01-27] MEDS ORDERED: NITROGLYCERIN 2% OINT 1 GM *U/D* PKT TOP ONE (08:35)
[2021-01-27] MEDS ORDERED: FUROSEMIDE 100MG/10ML VIAL (J1940) IV ONE (08:35)
[2021-01-27 08:49] LABS: ABG BASE EXCESS 0.5 (-2.0-2.0); ABG HCO3 28.7 MEQ/L (22.0-26.0); ABG O2 SATURATION 94.7 % (95.0-99.0); ABG STANDARD HCO3 24.8 MEQ/L (22.0-26.0); ABG TOTAL CO2 30.7 MEQ/L (22.0-29.0); ABG pH (ARTERIAL) 7.282 UNITS (7.350-7.450)
[2021-01-27 08:53] LABS: ABG PARTIAL PRESSURE CO2 62.3 mmHg (35.0-45.0)
--- NOTE | 2021-01-27 09:03 | REP ---
INDICATION: DYSPNEA/COUGH COMPARISON: None. TECHNIQUE: Portable AP view of the chest FINDINGS: Evaluation is limited by portable technique and underpenetration which accentuate the pulmonary vasculature and interstitium. CHF along with perihilar and predominately left lower lobe airspace disease cannot be excluded and requires correlation. No obvious effusion. No pneumothorax. Skeletal structures intact. IMPRESSION: Limited examination. Cannot exclude CHF or perihilar/left lower lobe airspace disease. <Electronically signed by Yefri Zhao > 01/27/21 [id number]
[2021-01-27 09:06] LABS: BASO % 0.4 % (0.0-1.0); EOS % 0.9 % (0.0-3.0); HEMATOCRIT 46.5 % (42.0-52.0); HEMOGLOBIN 13.8 g/dl (13.5-17.5); LYMPH % 19.4 % (24.0-44.0); MEAN CORPUSCULAR HEMOGLOBIN 27.5 pg (27.0-33.0); MEAN CORPUSCULAR HGB CONC 29.7 g/dl (32.0-36.5); MEAN CORPUSCULAR VOLUME 92.8 fl (80.0-96.0); MONO % 13.1 % (2.0-8.0); NEUTROPHILS % 65.8 % (36.0-66.0); PLATELET COUNT, AUTOMATED 254 10^3/uL (150-450); RED BLOOD COUNT 5.01 10^6/uL (4.30-6.10); WHITE BLOOD COUNT 5.7 10^3/uL (4.0-10.0)
[2021-01-27 09:07] LABS: EOS # 0.1 10^3/uL (0.0-0.5); LYMPH # 1.1 10^3/uL (1.5-5.0); MONO # 0.8 10^3/uL (0.0-0.8); NEUTROPHILS # 3.8 10^3/uL (1.5-8.5)
[2021-01-27] MEDS ORDERED: cefTRIAXone SOD 2 GM in D5W MINI-BAG PLUS 50 ML IV ONE (09:30)
[2021-01-27 09:47] LABS: ALBUMIN 1.9 GM/DL (3.2-5.2); ALT/SGPT 20 U/L (12-78); BILIRUBIN,DIRECT 0.1 MG/DL (0.0-0.2); BILIRUBIN,TOTAL 0.3 MG/DL (0.2-1.0); BLOOD UREA NITROGEN 24 MG/DL (7-18); CALCIUM LEVEL 8.4 MG/DL (8.5-10.1); CARBON DIOXIDE LEVEL 29 MEQ/L (21-32); CHLORIDE LEVEL 110 MEQ/L (98-107); CPK CREATINE PHOSPHOKINASE 189 U/L (39-308); CREATININE FOR GFR 1.36 MG/DL (0.70-1.30); GLOMERULAR FILTRATION RATE > 60.0 (>56); GLUCOSE, FASTING 191 MG/DL (70-100); MB/CK RELATIVE INDEX 1.59 (< OR =4); NT-PRO BNP 999 PG/ML (<125); POTASSIUM SERUM 4.4 MEQ/L (3.5-5.1); SODIUM LEVEL 143 MEQ/L (136-145); TROPONIN I < 0.02 NG/ML (< 0.10)
[2021-01-27 10:36] LABS: ABG BASE EXCESS 0.8 (-2.0-2.0); ABG HCO3 28.7 MEQ/L (22.0-26.0); ABG O2 SATURATION 95.1 % (95.0-99.0); ABG PARTIAL PRESSURE O2 82.3 mmHg (75.0-100.0); ABG STANDARD HCO3 25.1 MEQ/L (22.0-26.0); ABG TOTAL CO2 30.5 MEQ/L (22.0-29.0); ABG pH (ARTERIAL) 7.293 UNITS (7.350-7.450)
[2021-01-27 10:39] LABS: ABG PARTIAL PRESSURE CO2 60.6 mmHg (35.0-45.0)
[2021-01-27] MEDS ORDERED: TOPR100T PO (11:36)
[2021-01-27] MEDS ORDERED: ERGO500029 PO (11:36)
[2021-01-27] MEDS ORDERED: METF500T13 PO (11:36)
[2021-01-27] MEDS ORDERED: PANT40TA29 PO (11:36)
[2021-01-27] MEDS ORDERED: LOSA50TA88 PO (11:36)
[2021-01-27] MEDS ORDERED: TRAZ-189 PO (11:38)
[2021-01-27] MEDS ORDERED: INSU100I28 SC (11:38)
[2021-01-27] MEDS ORDERED: ACET-683 PO (11:38)
[2021-01-27] MEDS ORDERED: MED REC COMMENT (11:39)
[2021-01-27] MEDS ORDERED: HOME MED LIST COMPLETE! XX SCH (11:40)
[2021-01-27] MEDS ORDERED: GLUCOSE 4GM CHEW TABLET PO PRN (11:40)
[2021-01-27] MEDS ORDERED: GLUCAGON INJ 1MG VIAL SC PRN (11:40)
[2021-01-27] MEDS ORDERED: DEXTROSE 50% 50 ML SYRINGE IV PRN (11:40)
[2021-01-27] MEDS: IPRATROPIUM 0.5MG/ALBUTEROL 2.5MG INH SOL UD 3ML (DUONEB) NEB SCH ×4 (12:00→23:41)
[2021-01-27] MEDS: BUDESONIDE 0.5 MG/2 ML INHALATION SUSPENSION INH SCH ×2 (12:41→20:23)
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
[2021-01-27] MEDS: ASPIRIN 325 MG TAB PO SCH (13:42)
[2021-01-27] MEDS: PANTOPRAZOLE 40MG TAB (PROTONIX) PO SCH (13:43)
[2021-01-27] MEDS: LOSARTAN 50MG TABLET PO SCH (13:43)
[2021-01-27] MEDS: METOPROLOL SUCC (TopROL XL) 100MG *XL* TAB PO SCH (13:43)
[2021-01-27] MEDS ORDERED: methylPREDNISolone 125MG 2ML VIAL IV SCH (14:00)
[2021-01-27] MEDS: LEVEMIR (INSULIN DETEMIR) 1 UNITS/0.01ML SC SCH (14:26)
[2021-01-27] MEDS: HumaLOG INSULIN (NovoLOG) PER UNIT SC SCH ×3 (14:27→21:00)
--- NOTE | 2021-01-27 15:34 | CCN ---
CRITICAL CARE NOTE DATE: 01/27/2021 START TIME: 1355 STOP TIME: 1430 SUBJECTIVE: I attended Mr. Jackson here in the Emergency Department. He is in an interim bed. The patient has been examined and chart reviewed. I spoke at length with the ER staff regarding him as well as with Dr. Villaseñor. In essence, this is a 60-year-old gentleman with known severe obstructive sleep apnea syndrome with an AHI of about 80 and saturations in the 70s who has been completely noncompliant with pressure therapy for the last eleven years. He continues to smoke. He has known cardiac dysfunction and is completely noncompliant with diet and fluid restrictions. He has underlying diabetes and nonhealing ulcers. He presents to the ER today short of breath with decreased mental status. Chest x-ray shows pulmonary edema. He is quite somnolent on admission. First blood gas done showed a pH of 7.282, pCO2 62.3, and a PaO2 of 82. He was placed on noninvasive support. A pH of 7.293, pCO2 60.6 and PaO2 82. That was at 0839 and 10:16 respectively. Currently although somnolent, he is easily arousable and answers questions and wants something to eat. OBJECTIVE: Heart rate in the 90s, blood pressure 140/100, respiratory rate 14-16 and unlabored and he is currently afebrile. HEENT is otherwise normocephalic and atraumatic. Pupils do react. Neck has reasonable mobility. Jugular venous system difficult to assess in view of his body habitus and the noninvasive mask. Chest shows diminished but symmetric expansion. It is clear anteriorly. There are dependent crackles posteriorly at both bases. No egophony or wheeze. Cardiac exam is distant, generally regular. Peripheral pulses are markedly diminished. There is edema and chronic venous stasis changes. Abdomen is morbidly obese, soft. There are active bowel sounds, no convincing organomegaly or masses. Extremities show no cyanosis or clubbing. Neurologically as outlined above although it is grossly nonfocal other than somnolent but easily arousable. Other laboratories show a white blood cell count of 5.7, hemoglobin 13.8, platelet count 254,000, 65% segs, no bands. Sodium 143, K 4.4, chloride 110, CO2 29, BUN 24, creatinine 1.36, glucose 191. Pro-BNP 999. Albumin 1.9. Chest x-ray shows engorged pulmonary vasculature with cardiomegaly. THE MOST PRESSING PROBLEMS REQUIRING MY PRESENCE AT THE BEDSIDE: 1. Hypoxemic and hypercapnic respiratory failure, [id number]. 2. MICHELLE with noncompliance. 3. Tobacco abuse. 4. Diabetes mellitus. 5. Vascular disease. 6. Congestive heart failure/pulmonary edema. ASSESSMENT: At this point adjustments have been made in his noninvasive support. According to a sleep study from 2009 it required pressures of 22/18 to palliate his MICHELLE. Those manipulations were made here in the ER but he was not able to tolerate that pressure. Currently on 29/03, he is moving tidal volumes between 500 and 600 mL and says he is comfortable. We were able to wean his FiO2 down to 405. Repeat blood gas on that is pending. PLAN: We discussed the need not only for compliance with pressure therapy and he said, "I'll think about it" but the fact that he needs to strongly consider smoking cessation, he is undecided on that. At this point I do not see a role for antimicrobials. He is being diuresed by the primary service and cardiac workup is in place for that. At this point he does remain critically ill. I discussed with him the fact that continued noncompliance currently with some therapy with result in endotracheal intubation and mechanical ventilation. He assures me he will do his best to comply. At this point he is critically ill. I left the bedside at 1430 hours. Thirty five minutes of critical care time were at the bedside not including procedures.
[2021-01-27] MEDS ORDERED: IPRATROPIUM 0.5MG/ALBUTEROL 2.5MG INH SOL UD 3ML (DUONEB) NEB SCH (16:00)
[2021-01-27] MEDS: GABAPENTIN 400MG CAP PO SCH ×2 (16:59→22:48)
[2021-01-27] MEDS: DYAZIDE 37.5/25 CAP (TRIAM/HCTZ) PO SCH (16:59)
[2021-01-27] MEDS: DOXYCYCLINE HYCLATE 100 MG in D5W MINI-BAG PLUS 100 ML IV SCH (16:59)
[2021-01-27] MEDS: FUROSEMIDE 100MG/10ML VIAL (J1940) IV SCH (16:59)
[2021-01-27 18:16] LABS: ABG BASE EXCESS 0.3 (-2.0-2.0); ABG HCO3 28.2 MEQ/L (22.0-26.0); ABG O2 SATURATION 92.8 % (95.0-99.0); ABG PARTIAL PRESSURE O2 70.4 mmHg (75.0-100.0); ABG STANDARD HCO3 24.6 MEQ/L (22.0-26.0); ABG TOTAL CO2 30.1 MEQ/L (22.0-29.0); ABG pH (ARTERIAL) 7.289 UNITS (7.350-7.450)
[2021-01-27 18:17] LABS: ABG PARTIAL PRESSURE CO2 60.2 mmHg (35.0-45.0)
[2021-01-27] MEDS: ATORVASTATIN 20 MG TAB PO SCH (22:48)
[2021-01-27] MEDS: methylPREDNISolone 40MG 1ML VIAL IV SCH (22:48)
[2021-01-27] MEDS: traZODone 100 MG TAB PO SCH (22:48)
[2021-01-27] MEDS: HEPARIN SOD (PORCINE) 5000UNITS/ML 1ML VIAL/SYRINGE SQ SCH (22:50)
[2021-01-28] VITALS (10 sets, daily range): BP systolic 98–135; BP diastolic 56–95
[2021-01-28] MEDS: IPRATROPIUM 0.5MG/ALBUTEROL 2.5MG INH SOL UD 3ML (DUONEB) NEB SCH ×6 (04:16→23:22)
[2021-01-28] MEDS: DOXYCYCLINE HYCLATE 100 MG in D5W MINI-BAG PLUS 100 ML IV SCH (04:40)
[2021-01-28] MEDS: HEPARIN SOD (PORCINE) 5000UNITS/ML 1ML VIAL/SYRINGE SQ SCH ×3 (06:05→21:19)
[2021-01-28] MEDS: methylPREDNISolone 40MG 1ML VIAL IV SCH ×3 (06:05→21:18)
--- NOTE | 2021-01-28 06:33 | ECGEPIP ---
[facility] - ED Test Date: 2021-01-27 Pat Name: ARLYN RAGLAND Department: Room: - Gender: Male Obiee Consultant: MARYBETH : 1960 Requested By: HAIDER Humphrey Order Number: [id number] Reading MD: Haider Dee Measurements Intervals [place] Rate: 112 P: ME: QRS: 228 QRSD: 74 T: 212 QT: 316 QTc: 431 Interpretive Statements uncertain rhythm- rhythm strip uninterpretable Low QRS complex voltage throughout repeat as clinically necessary Electronically Signed on 01-28-2021 6:33:09 EDT by Haider Dee
[2021-01-28] MEDS: HumaLOG INSULIN (NovoLOG) PER UNIT SC SCH ×4 (07:30→21:00)
[2021-01-28] MEDS: BUDESONIDE 0.5 MG/2 ML INHALATION SUSPENSION INH SCH ×2 (08:26→19:06)
[2021-01-28 08:27] LABS: HEMATOCRIT 46.8 % (42.0-52.0); HEMOGLOBIN 13.6 g/dl (13.5-17.5); MEAN CORPUSCULAR HEMOGLOBIN 27.2 pg (27.0-33.0); MEAN CORPUSCULAR HGB CONC 29.1 g/dl (32.0-36.5); MEAN CORPUSCULAR VOLUME 93.6 fl (80.0-96.0); PLATELET COUNT, AUTOMATED 215 10^3/uL (150-450)
[2021-01-28] MEDS: PANTOPRAZOLE 40MG TAB (PROTONIX) PO SCH (08:30)
[2021-01-28] MEDS: LEVEMIR (INSULIN DETEMIR) 1 UNITS/0.01ML SC SCH (08:30)
[2021-01-28] MEDS: GABAPENTIN 400MG CAP PO SCH ×3 (08:30→21:19)
[2021-01-28] MEDS: FUROSEMIDE 100MG/10ML VIAL (J1940) IV SCH ×2 (08:30→23:00)
[2021-01-28] MEDS: METOPROLOL SUCC (TopROL XL) 100MG *XL* TAB PO SCH (08:31)
[2021-01-28] MEDS: ASPIRIN 325 MG TAB PO SCH (08:31)
[2021-01-28] MEDS: LOSARTAN 50MG TABLET PO SCH (08:31)
[2021-01-28] MEDS: DYAZIDE 37.5/25 CAP (TRIAM/HCTZ) PO SCH (08:31)
[2021-01-28 08:55] LABS: C REACTIVE PROTEIN QUANTITATIV 2.81 MG/DL (0.00-0.30); CALCIUM LEVEL 8.1 MG/DL (8.5-10.1); CREATININE FOR GFR 1.59 MG/DL (0.70-1.30); POTASSIUM SERUM 4.9 MEQ/L (3.5-5.1)
[2021-01-28 08:57] LABS: ABG BASE EXCESS 0.4 (-2.0-2.0); ABG HCO3 30.2 MEQ/L (22.0-26.0); ABG O2 SATURATION 91.1 % (95.0-99.0); ABG PARTIAL PRESSURE O2 66.1 mmHg (75.0-100.0); ABG STANDARD HCO3 24.7 MEQ/L (22.0-26.0); ABG TOTAL CO2 32.5 MEQ/L (22.0-29.0)
[2021-01-28 09:01] LABS: ABG PARTIAL PRESSURE CO2 75.2 mmHg (35.0-45.0); ABG pH (ARTERIAL) 7.222 UNITS (7.350-7.450)
[2021-01-28] MEDS ORDERED: cefTRIAXone SOD 1 GM in D5W MINI-BAG PLUS 50 ML IV SCH (11:00)
--- NOTE | 2021-01-28 11:26 | CCN ---
CRITICAL CARE NOTE DATE: 01/28/2021 SUBJECTIVE: I again attended Clinton Jackson here in the Intensive Care Unit. The patient has been examined, chart reviewed. I spoke at length with the nurse at the bedside. He was off BiPAP for about an hour this morning and repeat blood gas showed a pH of 7.222, pCO2 75.2 and a PaO2 of 66. He was placed back on noninvasive support. Manipulations were again made by myself and he is now on an inspiratory pressure of 22, expiratory pressure of 14 and tidal volumes now on the BiPAP in the left lateral decubitus position are between 500 and 550. OBJECTIVE: Vital signs: T-max overnight 97.9, blood pressure 100 to 135, heart rate 60 to the 140s, respiratory rate 18 to 22 and unlabored. Input and output midnight to midnight: 150 in with 725 mL out. No accurate input and output recorded yet today. Laboratories have all been reviewed. On exam he is comfortable, lying in bed. Pupils react. Sclerae clear. Trachea is in the midline. Chest again shows marked inspiratory crackles dependently. No wheeze or rhonchi. Cardiac exam is tachycardic but regular. Peripheral pulses are markedly diminished. Diffuse edema unchanged. Abdomen is morbidly obese with bowel sounds in the distance. No organomegaly or masses, difficult to ascertain. Extremities show chronic venous stasis changes and woody edema. Neurologically he is nonfocal. ASSESSMENT: 1. Hstyy-yw-zyoboky respiratory failure with hypoxemia and hypercapnia. 2. MICHELLE with complete noncompliance with therapy. 3. Continued tobacco abuse. 4. Congestive heart failure. 5. Diabetes mellitus. PLAN/RECOMMENDATIONS: At this point I do not see that he has reached a significant net negative with his diuresis and that is being managed with the primary service. Manipulations were made on the BiPAP to help with his hypercapnia as well as with his sleep apnea. On the sleep study from 2009, his set pressures were to be 22/18. He never followed through with any of the recommendations and never even got a device. At this point we will proceed as outlined above. Further recommendations will be made in the progress records as new information becomes available. His continued noncompliance however will likely lead to his demise.
[2021-01-28] MEDS ORDERED: FUROSEMIDE 100MG/10ML VIAL (J1940) IV SCH (15:00)
[2021-01-28 15:41] LABS: ABG BASE EXCESS 1.9 (-2.0-2.0); ABG HCO3 30.5 MEQ/L (22.0-26.0); ABG O2 SATURATION 95.5 % (95.0-99.0); ABG PARTIAL PRESSURE O2 83.8 mmHg (75.0-100.0); ABG STANDARD HCO3 26.1 MEQ/L (22.0-26.0); ABG TOTAL CO2 32.6 MEQ/L (22.0-29.0); ABG pH (ARTERIAL) 7.279 UNITS (7.350-7.450)
[2021-01-28 15:43] LABS: ABG PARTIAL PRESSURE CO2 66.6 mmHg (35.0-45.0)
--- NOTE | 2021-01-28 17:03 | IPNPDOC ---
Subjective Date Seen The patient was seen on 01/28/21. Subjective Chief Complaint/HPI Mr. Jackson is a 60-year-old male who is a current smoker with COPD and CHF who presents with acute dyspnea and found to have acute hypoxic hypercapnic respiratory failure. This morning, pulmonary team try patient off BiPAP. Patient still acidotic and hypercapnic. Patient was put back on adjusted BiPAP settings. When I saw patient later that morning, he was sleeping with BiPAP on. He was arousable but did not open eyes when I tried to speak with him. He denied any chest pain when asked. Increase IV Lasix from 60 mg twice daily to 60 mg every 6 hours. If no significant diuresis over 24 hours, will add on chlorthalidone. Objective Physical Examination General Exam: Negative: Alert Chest Exam: Positive: Diminished Heart Exam: Positive: Tachycardic, Regular Rhythm Abdomen Exam: Positive: Normal bowel sounds, Soft; Negative: Tenderness Extremity Exam: Positive: Edema Skin Exam: Positive: Other skin issue (Right lateral leg ulcer) Psych Exam: Positive: Other (Difficult to assess as he was sleeping on BiPAP) Assessment /Plan Assessment Mr. Jackson is a 60-year-old male who is a current smoker with COPD and CHF who presents with acute dyspnea and found to have acute hypoxic hypercapnic respiratory failure. This is most likely secondary to patient's continued smoking and exacerbation of patient's CHF. We will start patient on IV Solu- Medrol, breathing treatments, and antibiotics. Procalcitonin negative, will discontinue antibiotics. Otherwise, we will diurese patient. Patient is currently on BiPAP for hypercapnic respiratory failure. Pulmonary was consulted for BiPAP management. Recommendations appreciated. Plan/VTE VTE Prophylaxis Ordered?: Yes Plan 1. Acute hypercapnic hypoxic respiratory failure Secondary to acute COPD exacerbation and decompensated CHF Treat underlying cause Pulmonary was consulted for BiPAP management. Recommendations appreciated 2. Acute COPD exacerbation Patient is a current smoker IV Solu-Medrol and scheduled breathing treatments Procalcitonin negative, will discontinue antibiotics Continue Pulmicort 3. Decompensated CHF Possibly diastolic. Last echocardiogram was 2008 which demonstrated an EF of 55 to 65% Repeat echocardiogram ordered IV Lasix every 6 hours Patient is already on triamterene/HCTZ 2 g sodium diet Monitor I's and O's and daily weight 3. Hypertension Continue metoprolol succinate and triamterene/hydrochlorothiazide We will hold amlodipine and losartan since we are diuresing patient 4. Dyslipidemia Continue atorvastatin 5. Insulin-dependent diabetes mellitus complicated with neuropathy Continue Levemir Start sliding scale insulin 6. GERD Continue pantoprazole 7. Right lateral leg wound Patient follows with Dr. Villareal outpatient 8. MICHELLE Noncompliant with CPAP Currently on BiPAP for acute hypercapnic respiratory failure 9. Morbid obesity BMI 61.7 Complicates care 10. DVT prophylaxis Heparin subcu Disposition: Pending clinical improvement VS, I&O, 24H, [facility] Vital Signs/I&O Vital Signs Date Time Temp Pulse Resp B/P (MAP) Pulse Ox O2 Delivery O2 Flow Rate FiO2 01/28/21 15:20 40 01/28/21 08:39 97.2 75 19 100/56 (71) 96 NIPPV (BIPAP/CPAP) 01/28/21 00:01 4.0 I&O- Last 24 Hours up to 6 AM 01/28/21 06:00 Intake Total 150 ml Output Total 725 ml Balance -575 ml Laboratory Data 24H LABS Laboratory Tests 2 01/27/21 17:51: Blood Gas Bicarbonate Standard 24.6, Arterial Blood pH 7.289L, Arterial Blood Partial Pressure CO2 60.2*H, Arterial Blood Partial Pressure O2 70.4L, Arterial Blood Total CO2 30.1H, Arterial Blood HCO3 28.2H, Arterial Blood Base Excess 0.3, Arterial Blood Oxygen Saturation 92.8L 01/27/21 18:50: Bedside Glucose (Misc Panel) 251H 01/27/21 22:37: Bedside Glucose (Misc Panel) 202H 01/28/21 08:21: Nucleated Red Blood Cells % (auto) 0.0, Anion Gap 2L, Glomerular Filtration Rate 58.0, Calcium Level 8.1L, C-Reactive Protein, Quantitative 2.81H 01/28/21 08:45: Blood Gas Bicarbonate Standard 24.7, Arterial Blood pH 7.222*L, Arterial Blood P artial Pressure CO2 75.2*H, Arterial Blood Partial Pressure O2 66.1L, Arterial Blood Total CO2 32.5H, Arterial Blood HCO3 30.2H, Arterial Blood Base Excess 0.4, Arterial Blood Oxygen Saturation 91.1L 01/28/21 12:11: Bedside Glucose (Misc Panel) 223H 01/28/21 15:32: Blood Gas Bicarbonate Standard 26.1H, Arterial Blood pH 7.279L, Arterial Blood Partial Pressure CO2 66.6*H, Arterial Blood Partial Pressure O2 83.8, Arterial Blood Total CO2 32.6H, Arterial Blood HCO3 30.5H, Arterial Blood Base Excess 1.9, Arterial Blood Oxygen Saturation 95.5 CBC/BMP Laboratory Tests 01/28/21 08:21 Microbiology Microbiology 01/27/21 Blood Culture - Preliminary, Resulted No growth after 24 hours . All specim... 01/27/21 Respiratory Virus Panel (PCR) ([facility]) - Final, Complete 01/27/21 Blood Culture - Preliminary, Resulted No growth after 24 hours . All specim... DANIEL OMER DO Jan 28, 2021 17:03
[2021-01-28 17:46] LABS: CALCIUM LEVEL 7.5 MG/DL (8.5-10.1); CREATININE FOR GFR 1.6 MG/DL (0.70-1.30); GLOMERULAR FILTRATION RATE 57.6 (>56); POTASSIUM SERUM 4.3 MEQ/L (3.5-5.1)
--- NOTE | 2021-01-28 17:52 | ECHO ---
ECHOCARDIOGRAM DATE OF PROCEDURE: 01/27/2021 Age: 60 Gender: Male Height: 65 inches Weight: 365 pounds Body Surface Area: 2.56 m2 PATIENT LOCATION: Inpatient, Progressive care unit (PCU), Room 3217. REFERRING PHYSICIAN: Gualberto Villaseñor D.O. INDICATION: Congestive heart failure (CHF). MEASUREMENTS: 2D Measurements: RV - 4.4 cm LV - 5.5 cm Septum 1.3 cm Posterior wall 1.3 cm Aortic root 3.5 cm LA - 4.6 cm LVEF 55-60% Doppler Measurements: AV - 1.0 m/sec MV-E 89, A 114, EA ratio 0.8 Early mitral deceleration time 200 msec E prime medial 6.1 A prime medial 10 E prime lateral 9.5 Average E/E ratio 11.4/PCWP 16 mmHg PV - 0.8 m/sec Pulmonary artery acceleration time 99 msec PASP 37 mmHg IVC - could not be visualized. COMMENTS: Normal sinus rhythm without intraventricular conduction disturbance. Technically challenging study in light of the patient's body habitus, but some diagnostically useful information was obtained. M-mode and 2-dimensional cardiography was performed with pulse, continuous wave, color flow and tissue Doppler studies. Left ventricle upper limits of normal in size with mild symmetrical increased wall thickness. There appeared to be a localized proximal inferior akinetic segment suggestive of prior infarction, but other wall motion seemed to be normal. Moderately dilated left atrium with grade 1 left ventricular (LV) diastolic dysfunction with current mean left atrial pressure upper limits of normal. Mildly dilated right heart chambers with normal wall motion and Doppler sign of at least mild pulmonary hypertension. Normal aortic root size. The aortic valve was barely visible and appeared to have three cusps with marginal cusp edge thickening, but adequate cusp separation. No apparent functional valvular abnormality. The mitral valvular apparatus appeared to be normal with normal leaflet excursion and no posterior systolic buckling. No significant functional abnormality. The tricuspid valve was poorly visualized and using continuous wave Doppler, we were unable to define a clear spectral envelope, though there was some tricuspid insufficiency. We did not visualize any intracardiac mass. However, image quality was quite limited. No pericardial effusion.
[2021-01-28] MEDS ORDERED: FUROSEMIDE 20MG/2ML VIAL (J1940) IV ONE (19:15)
--- NOTE | 2021-01-28 20:07 | REP ---
INDICATION: ELAINE. COMPARISON: None. TECHNIQUE: Real-time sonographic evaluation of the kidneys FINDINGS: The examination is markedly limited to extremely poor sonographic beam penetration secondary to the patient's body habitus. Multiple ultrasonographic images of the right kidney show the right kidney to measure 11.9 x 6.2 x 6 cm. The renal cortical echotexture is unremarkable as seen. There are no gross masses. There is good corticomedullary differentiation as seen in a limited fashion. There is no gross hydronephrosis. There are no gross perinephric fluid collections. Multiple ultrasonographic images of the left kidney show the left kidney to measure 11.3 x 5.7 x 5.9 cm . The renal cortical echotexture is unremarkable as seen. There are no gross masses. There is good corticomedullary differentiation as seen in limited fashion. There is no gross hydronephrosis. There are no perinephric fluid collections. IMPRESSION: Markedly limited exam showing no gross abnormalities <Electronically signed by Sunil Graves > 01/28/212002
--- NOTE | 2021-01-28 20:09 | REP ---
INDICATION: Poor urine output, urinary retention?. COMPARISON: None. TECHNIQUE: Real-time sonographic evaluation of the urinary bladder transvesically with Doppler FINDINGS: The pre void urinary bladder volume calculation is 166.53 cc and the postvoid urinary bladder volume calculation is 184.5 cc. This renders a 110% postvoid residual. Layering echogenic debris was seen in the urinary bladder. No gross masses were identified. No definite uro jet phenomena was seen on either side IMPRESSION: As above <Electronically signed by Sunil Graves > 01/28/212004
[2021-01-28] MEDS: ATORVASTATIN 20 MG TAB PO SCH (21:19)
[2021-01-28] MEDS: traZODone 100 MG TAB PO SCH (21:19)
[2021-01-29] VITALS (14 sets, daily range): BP systolic 88–124; BP diastolic 53–81
[2021-01-29] MEDS ORDERED: FUROSEMIDE 100MG/10ML VIAL (J1940) IV ONE (00:05)
[2021-01-29] MEDS: IPRATROPIUM 0.5MG/ALBUTEROL 2.5MG INH SOL UD 3ML (DUONEB) NEB SCH ×6 (03:19→23:35)
[2021-01-29] MEDS: FUROSEMIDE 100MG/10ML VIAL (J1940) IV SCH (05:00)
[2021-01-29 05:39] LABS: HEMATOCRIT 45.2 % (42.0-52.0); HEMOGLOBIN 13.5 g/dl (13.5-17.5); MEAN CORPUSCULAR HEMOGLOBIN 27.7 pg (27.0-33.0); MEAN CORPUSCULAR HGB CONC 29.9 g/dl (32.0-36.5); MEAN CORPUSCULAR VOLUME 92.6 fl (80.0-96.0); PLATELET COUNT, AUTOMATED 210 10^3/uL (150-450); RED BLOOD COUNT 4.88 10^6/uL (4.30-6.10); WHITE BLOOD COUNT 13.9 10^3/uL (4.0-10.0)
[2021-01-29 06:02] LABS: CALCIUM LEVEL 7.8 MG/DL (8.5-10.1); CREATININE FOR GFR 1.74 MG/DL (0.70-1.30); GLOMERULAR FILTRATION RATE 52.3 (>56); POTASSIUM SERUM 5.1 MEQ/L (3.5-5.1)
[2021-01-29] MEDS: HEPARIN SOD (PORCINE) 5000UNITS/ML 1ML VIAL/SYRINGE SQ SCH ×3 (06:15→21:26)
[2021-01-29] MEDS: methylPREDNISolone 40MG 1ML VIAL IV SCH ×3 (06:15→21:26)
[2021-01-29] MEDS: BUDESONIDE 0.5 MG/2 ML INHALATION SUSPENSION INH SCH ×2 (07:54→20:00)
[2021-01-29] MEDS: ASPIRIN 325 MG TAB PO SCH (08:02)
[2021-01-29] MEDS: HumaLOG INSULIN (NovoLOG) PER UNIT SC SCH ×4 (08:02→21:00)
[2021-01-29] MEDS: GABAPENTIN 400MG CAP PO SCH ×3 (08:02→21:26)
[2021-01-29] MEDS: LEVEMIR (INSULIN DETEMIR) 1 UNITS/0.01ML SC SCH (08:02)
[2021-01-29] MEDS: PANTOPRAZOLE 40MG TAB (PROTONIX) PO SCH (08:02)
[2021-01-29 08:37] LABS: ABG BASE EXCESS 1.7 (-2.0-2.0); ABG HCO3 30.8 MEQ/L (22.0-26.0); ABG O2 SATURATION 92.5 % (95.0-99.0); ABG PARTIAL PRESSURE O2 68.5 mmHg (75.0-100.0); ABG STANDARD HCO3 25.8 MEQ/L (22.0-26.0); ABG TOTAL CO2 32.9 MEQ/L (22.0-29.0); ABG pH (ARTERIAL) 7.258 UNITS (7.350-7.450)
[2021-01-29 08:40] LABS: ABG PARTIAL PRESSURE CO2 70.5 mmHg (35.0-45.0)
--- NOTE | 2021-01-29 11:51 | CCN ---
PULMONARY CRITICAL CARE NOTE DATE: 01/29/2021 SUBJECTIVE: I again attended Clinton Jackson here in the intensive care unit. Patient has been examined and chart reviewed and I spoke as well with the nurse at the bedside. He remains fairly noncompliant. Takes the bilevel positive airway pressure (BiPAP) off and on at his leisure. Is not following the diet and fluid restrictions. Maximum temperature (T-max) overnight 98.6, blood pressure 88-120s, heart rate generally in the 50s to 70s, respiratory rate 16-18 and unlabored. Ins and outs midnight to midnight 810 mL in with 400 mL out. He is only net negative 250 mL so far this morning. LABORATORY DATA: Most recent blood gas done on bilevel positive airway pressure (BiPAP) with 50% FiO2 has a pH of 7.258, pCO2 70.5 and a pO2 of 68.5. Sodium 140, potassium 4.1, chloride 107, CO2 31, BUN 36, creatinine 1.74. White blood cell count 13.9, hemoglobin 13.5, platelets 210,000. PHYSICAL EXAMINATION: GENERAL: He is comfortable, lying in the right lateral decubitus position. HEENT: Trach is in the midline. BiPAP mask is currently in place. Tidal volume on the BiPAP is between 850 and 800 mL. CHEST: Showed dependent crackles. No wheeze or rhonchus. Expansion is symmetric. CARDIAC EXAM: Distant but regular. Peripheral pulses markedly diminished. Edema is unchanged. ABDOMEN: Morbidly obese with active bowel sounds. EXTREMITIES: No cyanosis or clubbing. NEUROLOGIC: He is nonfocal and easily arousable. IMPRESSON: 1. Acute on chronic respiratory failure, hypoxemic and hypercapnic. 2. Obstructive sleep apnea (MICHELLE) with noncompliance in the outpatient setting. 3. Tobacco abuse. 4. Diabetes mellitus. 5. Underlying obstructive lung disease. 6. Congestive heart failure. 7. Morbid obesity. PLAN: At this point, he remains marginally compliant at best with [id number] therapy. I had discussed with him on previous occasions the fact that his noncompliance is why we are here. They have been unable to achieve a net negative regarding his diuresis and I do not believe we will make any significant progress with keeping him off the noninvasive support unless we are able to do that. This is being engineered by Dr. Villaseñor. At this point, we will proceed as outlined above. His prognosis is guarded at best in view of the above. Further recommendations will be made in the progress record as new information becomes available.
[2021-01-29] MEDS: FUROSEMIDE injection 250 MG in D5W 225 ML IV SCH (12:56)
--- NOTE | 2021-01-29 14:32 | IPNPDOC ---
Subjective Date Seen The patient was seen on 01/29/21. Subjective Chief Complaint/HPI Mr. Jackosn is a 60-year-old male who is a current smoker with COPD and CHF who presents with acute dyspnea and found to have acute hypoxic hypercapnic respiratory failure. Patient was seen on BiPAP this morning. Still has some dyspnea. Denies any chest pain. Has not tolerated the boluses of Lasix. He only received 2 of the 4 IV Lasix boluses yesterday. Will discontinue all antihypertensives and start a Lasix drip. Objective Physical Examination General Exam: Negative: Alert, Cooperative Chest Exam: Positive: Diminished Heart Exam: Positive: Rate Normal, Regular Rhythm Abdomen Exam: Positive: Normal bowel sounds, Soft; Negative: Tenderness Extremity Exam: Positive: Edema Skin Exam: Positive: Other skin issue (Right lateral leg ulcer) Psych Exam: Positive: Mood NL Assessment /Plan Assessment Mr. Jackson is a 60-year-old male who is a current smoker with COPD and CHF who presents with acute dyspnea and found to have acute hypoxic hypercapnic respiratory failure. This is most likely secondary to patient's continued smoking and exacerbation of patient's CHF. We will start patient on IV Solu- Medrol, breathing treatments, and antibiotics. Procalcitonin negative, will discontinue antibiotics. Otherwise, we will diurese patient. Patient has not tolerated the Lasix boluses. We will try Lasix drip instead. Patient is currently on BiPAP for hypercapnic respiratory failure. Pulmonary was consulted for BiPAP management. Recommendations appreciated. Plan/VTE VTE Prophylaxis Ordered?: Yes Plan 1. Acute hypercapnic hypoxic respiratory failure Secondary to acute COPD exacerbation and decompensated CHF Treat underlying cause Pulmonary was consulted for BiPAP management. Recommendations appreciated 2. Acute COPD exacerbation Patient is a current smoker IV Solu-Medrol and scheduled breathing treatments Procalcitonin negative, will discontinue antibiotics Continue Pulmicort 3. Decompensated CHF Possibly diastolic. Last echocardiogram was 2008 which demonstrated an EF of 55 to 65% Repeat echo demonstrated EF 55 to 60%. Grade 1 diastolic dysfunction Patient did not tolerate Lasix boluses. We will do Lasix drip 2 g sodium diet Monitor I's and O's and daily weight 3. Hypertension Hold metoprolol succinate, triamterene/hydrochlorothiazide, amlodipine, and losartan to allow for greater diuresis 4. Dyslipidemia Continue atorvastatin 5. Insulin-dependent diabetes mellitus complicated with neuropathy Continue Levemir Start sliding scale insulin 6. GERD Continue pantoprazole 7. Right lateral leg wound Patient follows with Dr. Villareal outpatient 8. MICHELLE Noncompliant with CPAP Currently on BiPAP for acute hypercapnic respiratory failure 9. Morbid obesity BMI 61.7 Complicates care 10. DVT prophylaxis Heparin subcu Disposition: Pending clinical improvement VS, I&O, 24H, [facility] Vital Signs/I&O Vital Signs Date Time Temp Pulse Resp B/P (MAP) Pulse Ox O2 Delivery O2 Flow Rate FiO2 01/29/21 12:00 98.4 67 18 119/76 (90) 97 NIPPV (BIPAP/CPAP) 40 01/28/21 00:01 4.0 I&O- Last 24 Hours up to 6 AM 01/29/21 06:00 Intake Total 810 ml Output Total 650 ml Balance 160 ml Laboratory Data 24H LABS Laboratory Tests 2 01/28/21 15:32: Blood Gas Bicarbonate Standard 26.1H, Arterial Blood pH 7.279L, Arterial Blood Partial Pressure CO2 66.6*H, Arterial Blood Partial Pressure O2 83.8, Arterial Blood Total CO2 32.6H, Arterial Blood HCO3 30.5H, Arterial Blood Base Excess 1.9, Arterial Blood Oxygen Saturation 95.5 01/28/21 16:56: Bedside Glucose (Misc Panel) 231H 01/28/21 17:13: Anion Gap 1L, Glomerular Filtration Rate 57.6, Calcium Level 7.5L 01/28/21 21:05: Bedside Glucose (Misc Panel) 134H 01/29/21 05:27: Nucleated Red Blood Cells % (auto) 0.0, Anion Gap 1L, Glomerular Filtration Rate 52.3L, Calcium Level 7.8L 01/29/21 08:27: Blood Gas Bicarbonate Standard 25.8, Arterial Blood pH 7.258L, Arterial Blood Partial Pressure CO2 70.5*H, Arterial Blood Partial Pressure O2 68.5L, Arterial Blood Total CO2 32.9H, Arterial Blood HCO3 30.8H, Arterial Blood Base Excess 1.7, Arterial Blood Oxygen Saturation 92.5L 01/29/21 12:05: Bedside Glucose (Misc Panel) 186H CBC/BMP Laboratory Tests 01/28/21 17:13 01/29/21 05:27 Microbiology Microbiology 01/27/21 Blood Culture - Preliminary, Resulted No Growth after 48 hours. All Specime... 01/27/21 Respiratory Virus Panel (PCR) ([facility]) - Final, Complete 01/27/21 Blood Culture - Preliminary, Resulted No Growth after 48 hours. All Specime... DANIEL OMER DO Jan 29, 2021 14:32
[2021-01-29] MEDS: ACETAMINOPHEN 500 MG TAB PO PRN (17:44)
[2021-01-29 18:59] LABS: BILIRUBIN,TOTAL 0.2 MG/DL (0.2-1.0); CALCIUM LEVEL 8.1 MG/DL (8.5-10.1); CREATININE FOR GFR 1.87 MG/DL (0.70-1.30); GLOMERULAR FILTRATION RATE 48.1 (>56); POTASSIUM SERUM 4.8 MEQ/L (3.5-5.1); TOTAL PROTEIN 7.1 GM/DL (6.4-8.2)
[2021-01-29] MEDS: ATORVASTATIN 20 MG TAB PO SCH (21:26)
[2021-01-29] MEDS: traZODone 100 MG TAB PO SCH (21:26)
[2021-01-30] VITALS (14 sets, daily range): BP systolic 122–170; BP diastolic 60–106
[2021-01-30] MEDS: ACETAMINOPHEN 500 MG TAB PO PRN ×2 (00:50→16:43)
[2021-01-30] MEDS: IPRATROPIUM 0.5MG/ALBUTEROL 2.5MG INH SOL UD 3ML (DUONEB) NEB SCH ×5 (04:00→20:00)
[2021-01-30] MEDS: FUROSEMIDE injection 250 MG in D5W 225 ML IV SCH ×3 (05:36→22:10)
[2021-01-30 05:57] LABS: HEMATOCRIT 43.4 % (42.0-52.0); HEMOGLOBIN 12.7 g/dl (13.5-17.5); MEAN CORPUSCULAR HEMOGLOBIN 27.3 pg (27.0-33.0); MEAN CORPUSCULAR HGB CONC 29.3 g/dl (32.0-36.5); MEAN CORPUSCULAR VOLUME 93.1 fl (80.0-96.0); PLATELET COUNT, AUTOMATED 216 10^3/uL (150-450); RED BLOOD COUNT 4.66 10^6/uL (4.30-6.10); WHITE BLOOD COUNT 11.6 10^3/uL (4.0-10.0)
[2021-01-30 06:18] LABS: CALCIUM LEVEL 8.1 MG/DL (8.5-10.1); CREATININE FOR GFR 1.8 MG/DL (0.70-1.30); GLOMERULAR FILTRATION RATE 50.3 (>56); POTASSIUM SERUM 5.1 MEQ/L (3.5-5.1)
[2021-01-30] MEDS: HEPARIN SOD (PORCINE) 5000UNITS/ML 1ML VIAL/SYRINGE SQ SCH ×3 (06:30→22:08)
[2021-01-30] MEDS: methylPREDNISolone 40MG 1ML VIAL IV SCH ×2 (06:52→14:21)
[2021-01-30] MEDS: BUDESONIDE 0.5 MG/2 ML INHALATION SUSPENSION INH SCH ×2 (07:42→20:00)
[2021-01-30] MEDS: LEVEMIR (INSULIN DETEMIR) 1 UNITS/0.01ML SC SCH (08:13)
[2021-01-30] MEDS: PANTOPRAZOLE 40MG TAB (PROTONIX) PO SCH (08:14)
[2021-01-30] MEDS: ASPIRIN 325 MG TAB PO SCH (08:14)
[2021-01-30] MEDS: HumaLOG INSULIN (NovoLOG) PER UNIT SC SCH ×4 (08:14→22:09)
[2021-01-30] MEDS: GABAPENTIN 400MG CAP PO SCH ×3 (08:14→22:08)
[2021-01-30 10:11] LABS: ABG BASE EXCESS 3.5 (-2.0-2.0); ABG HCO3 31.3 MEQ/L (22.0-26.0); ABG O2 SATURATION 91.5 % (95.0-99.0); ABG PARTIAL PRESSURE O2 61.8 mmHg (75.0-100.0); ABG STANDARD HCO3 27.4 MEQ/L (22.0-26.0); ABG TOTAL CO2 33.3 MEQ/L (22.0-29.0); ABG pH (ARTERIAL) 7.316 UNITS (7.350-7.450)
[2021-01-30 10:15] LABS: ABG PARTIAL PRESSURE CO2 62.8 mmHg (35.0-45.0)
--- NOTE | 2021-01-30 20:10 | CR ---
CONSULTATION DATE: 01/30/2021 Advanced wound care consult via telemedicine. CONSULT REQUESTED BY: Gualberto Villaseñor DO REASON FOR CONSULTATION: Treatment suggestions for right lower extremity venous stasis ulcer. Wound care telemedicine provides a visual assessment of a wound without the benefit of physical examination. It can assist with establishing a diagnosis and etiology. This allows for an initial treatment plan. As wounds often change, it may be necessary to modify the original care. Our recommendation is periodic wound reassessment to monitor treatment. Failure to comply may result in nonhealing of the wound, possible complications and/or a poor outcome. The recommendations given will serve as treatment options. As I will not be following this patient, this care plan will require the attending physician to give and sign the orders. Upon discharge, outpatient followup can be scheduled at our wound care center. HISTORY OF PRESENT ILLNESS: A 60-year-old morbidly obese diabetic male recently seen in our wound care center for a right lower extremity lateral supramalleolar venous stasis ulcer. The patient is nonambulatory due to his obesity and uses a motorized wheelchair. He was admitted for congestive heart failure. This is a result of overwhelming fluid overload involving the lower extremities to a point where no additional accommodation could be utilized. This has led to congestive heart failure. I suspect underlying cardiomyopathy as well. The patient is on a Lasix drip and in general has partially stabilized. As a result of this diuresis, bed rest, the patient's lower extremity wound has shown improvement.. This is due to improved oxygenation of the tissues, removal of metabolic waste products from cell metabolism, improved cell mobility and utilization of cytokines and growth factor. . PHYSICAL EXAMINATION: There is less lower extremity edema. On the right lateral supramalleolar area, there is a wound measuring 3.8 cm x 3.4 cm with a wound depth of 0.7 cm. This wound base shows areas of granulation tissue with minimal fibrin slough. Drain is serous, minimal to moderate without odor. The ebony-wound shows no erythema, maceration or ischemic change. Wound edges are attached without epibole, undermining or ischemic change. TREATMENT RECOMMENDATIONS: Hydrofera Blue classic applied to the wound covered with an extra absorb outer dressing and a Tubigrip stocking to be changed on a daily basis. Dietary consult is needed along with a hemoglobin A1c. No indication for antibiotic therapy in regards to the patient's wound. MTDD
--- NOTE | 2021-01-30 21:05 | IPNPDOC ---
Subjective Date Seen The patient was seen on 01/30/21. Subjective Chief Complaint/HPI Mr. Jackson is a 60-year-old male who is a current smoker with COPD and CHF who presents with acute dyspnea and found to have acute hypoxic hypercapnic respiratory failure. Last night, started patient on albumin. Patient's urine output has greatly improved and is fluid negative today. This morning he denies any chest pain or dyspnea. He tell me that he wanted to be full code but no Collins catheter. Objective Physical Examination General Exam: Positive: Alert Eye Exam: Positive: Other Eye Symptoms (Left eye movement not symmetrical with right eye) Neck Exam: Positive: Supple Chest Exam: Positive: Diminished Heart Exam: Positive: Rate Normal, Regular Rhythm Abdomen Exam: Positive: Normal bowel sounds, Soft; Negative: Tenderness Extremity Exam: Positive: Edema Skin Exam: Positive: Other skin issue (Right lateral leg ulcer) Psych Exam: Positive: Mood NL Assessment /Plan Assessment Mr. Jackson is a 60-year-old male who is a current smoker with COPD and CHF who presents with acute dyspnea and found to have acute hypoxic hypercapnic respiratory failure. This is most likely secondary to patient's continued smoking and exacerbation of patient's CHF. We will start patient on IV Solu- Medrol, breathing treatments, and antibiotics. Procalcitonin negative, will discontinue antibiotics. Otherwise, we will diurese patient. Patient has not tolerated the Lasix boluses. Patient is doing better with Lasix drip. Urine output has greatly improved with albumin infusion. Patient's acute hypercapnic respiratory failure has improved. Pulmonary had adjusted BiPAP settings. We will have patient on BiPAP nocturnally and as needed Plan/VTE VTE Prophylaxis Ordered?: Yes Plan 1. Acute hypercapnic hypoxic respiratory failure Secondary to acute COPD exacerbation and decompensated CHF Treat underlying cause Pulmonary was consulted for BiPAP management. Recommendations appreciated 2. Acute COPD exacerbation Patient is a current smoker IV Solu-Medrol and scheduled breathing treatments. We will start weaning off of Solu-Medrol Procalcitonin negative, will discontinue antibiotics Continue Pulmicort 3. Decompensated CHF Possibly diastolic. Last echocardiogram was 2008 which demonstrated an EF of 55 to 65% Repeat echo demonstrated EF 55 to 60%. Grade 1 diastolic dysfunction Patient did not tolerate Lasix boluses. We will do Lasix drip plus albumin infusion 2 g sodium diet Monitor I's and O's and daily weight 3. Hypertension Hold metoprolol succinate, triamterene/hydrochlorothiazide, amlodipine, and losartan to allow for greater diuresis 4. Dyslipidemia Continue atorvastatin 5. Insulin-dependent diabetes mellitus complicated with neuropathy Continue Levemir Start sliding scale insulin 6. GERD Continue pantoprazole 7. Right lateral leg wound Dr. Woo has been consulted, recommendations appreciated 8. MICHELLE Noncompliant with CPAP Currently on BiPAP for acute hypercapnic respiratory failure 9. Morbid obesity BMI 61.7 Complicates care 10. DVT prophylaxis Heparin subcu Disposition: Pending clinical improvement [facility]&O Vital Signs Date Time Temp Pulse Resp B/P (MAP) Pulse Ox O2 Delivery O2 Flow Rate FiO2 01/30/21 20:00 97.7 74 17 143/94 (110) 90 Room Air 01/30/21 12:18 2.0 01/30/21 06:28 50 I&O- Last 24 Hours up to 6 AM 01/30/21 06:00 Intake Total 1240.0 ml Output Total 1500 ml Balance -260.0 ml Laboratory Data 24H LABS Laboratory Tests 2 01/29/21 21:12: Bedside Glucose (Misc Panel) 175H 01/30/21 05:45: Nucleated Red Blood Cells % (auto) 0.0, Anion Gap 3L, Glomerular Filtration Rate 50.3L, Calcium Level 8.1L 01/30/21 10:03: Blood Gas Bicarbonate Standard 27.4H, Arterial Blood pH 7.316L, Arterial Blood Partial Pressure CO2 62.8*H, Arterial Blood Partial Pressure O2 61.8L, Arterial Blood Total CO2 33.3H, Arterial Blood HCO3 31.3H, Arterial Blood Base Excess 3.5H, Arterial Blood Oxygen Saturation 91.5L 01/30/21 11:31: Bedside Glucose (Misc Panel) 211H 01/30/21 16:33: Bedside Glucose (Misc Panel) 230H 01/30/21 20:54: Bedside Glucose (Misc Panel) 259H CBC/BMP Laboratory Tests 01/30/21 05:45 Microbiology Microbiology 01/27/21 Blood Culture - Preliminary, Resulted No Growth after 72 hours. All specime... 01/27/21 Respiratory Virus Panel (PCR) (GIULIA) - Final, Complete 01/27/21 Blood Culture - Preliminary, Resulted No Growth after 72 hours. All specime... DANIEL OMER DO Jan 30, 2021 21:05
[2021-01-30] MEDS: ATORVASTATIN 20 MG TAB PO SCH (22:08)
[2021-01-30] MEDS: traZODone 100 MG TAB PO SCH (22:08)
[2021-01-30 22:53] LABS: CALCIUM LEVEL 8.7 MG/DL (8.5-10.1); CREATININE FOR GFR 1.74 MG/DL (0.70-1.30); GLOMERULAR FILTRATION RATE 52.3 (>56); POTASSIUM SERUM 6.6 MEQ/L (3.5-5.1)
[2021-01-31] VITALS (19 sets, daily range): BP systolic 130–184; BP diastolic 72–106
[2021-01-31] MEDS: methylPREDNISolone 40MG 1ML VIAL IV SCH ×2 (03:35→15:06)
[2021-01-31] MEDS: IPRATROPIUM 0.5MG/ALBUTEROL 2.5MG INH SOL UD 3ML (DUONEB) NEB SCH ×6 (04:00→20:00)
[2021-01-31] MEDS ORDERED: hydrALAZINE 20MG/ML 1ML VIAL (J0360 PER 20MG) IV ONE (04:45)
[2021-01-31] MEDS: HEPARIN SOD (PORCINE) 5000UNITS/ML 1ML VIAL/SYRINGE SQ SCH ×3 (05:48→22:40)
[2021-01-31] MEDS: ACETAMINOPHEN 500 MG TAB PO PRN ×2 (06:26→15:38)
[2021-01-31] MEDS: BUDESONIDE 0.5 MG/2 ML INHALATION SUSPENSION INH SCH ×2 (07:39→20:00)
[2021-01-31] MEDS: HumaLOG INSULIN (NovoLOG) PER UNIT SC SCH ×4 (07:58→19:52)
[2021-01-31 08:45] LABS: HEMATOCRIT 43.9 % (42.0-52.0); HEMOGLOBIN 13.4 g/dl (13.5-17.5); MEAN CORPUSCULAR HEMOGLOBIN 27.3 pg (27.0-33.0); MEAN CORPUSCULAR HGB CONC 30.5 g/dl (32.0-36.5); MEAN CORPUSCULAR VOLUME 89.6 fl (80.0-96.0); PLATELET COUNT, AUTOMATED 226 10^3/uL (150-450); WHITE BLOOD COUNT 9.4 10^3/uL (4.0-10.0)
[2021-01-31 09:18] LABS: BLOOD UREA NITROGEN 49 MG/DL (7-18); CALCIUM LEVEL 9.2 MG/DL (8.5-10.1); CARBON DIOXIDE LEVEL 35 MEQ/L (21-32); CHLORIDE LEVEL 102 MEQ/L (98-107); CREATININE FOR GFR 1.51 MG/DL (0.70-1.30); GLOMERULAR FILTRATION RATE > 60.0 (>56); GLUCOSE, FASTING 290 MG/DL (70-100); POTASSIUM SERUM 4.5 MEQ/L (3.5-5.1); SODIUM LEVEL 140 MEQ/L (136-145)
[2021-01-31 09:35] LABS: HEMOGLOBIN A1c 11.6 %
[2021-01-31] MEDS: FUROSEMIDE injection 250 MG in D5W 225 ML IV SCH (09:49)
[2021-01-31] MEDS: ASPIRIN 325 MG TAB PO SCH (09:49)
[2021-01-31] MEDS: PANTOPRAZOLE 40MG TAB (PROTONIX) PO SCH (09:49)
[2021-01-31] MEDS: LEVEMIR (INSULIN DETEMIR) 1 UNITS/0.01ML SC SCH (09:49)
[2021-01-31] MEDS: GABAPENTIN 400MG CAP PO SCH ×3 (09:49→19:50)
[2021-01-31] MEDS ORDERED: LIDOCAINE 1% MDV 20ML VIAL As Ordered ONE (14:31)
[2021-01-31] MEDS: traZODone 100 MG TAB PO SCH (19:50)
[2021-01-31] MEDS: ATORVASTATIN 20 MG TAB PO SCH (19:51)
--- NOTE | 2021-01-31 20:59 | IPNPDOC ---
Date Seen The patient was seen on 01/31/21. Progress Note SUBJECTIVE: Patient is a -year-old [RACE] [GENDER] with OBJECTIVE PHYSICAL EXAMINATION: VITAL SIGNS: Please see below. GENERAL: HEENT: CARDIOVASCULAR: . RESPIRATORY: . ABDOMINAL: EXTREMITIES: NEUROLOGICAL: PSYCHOLOGICAL: LABORATORY DATA, IMAGING STUDIES, MICROBIOLOGY: Please see below. Echocardiogram: . DVT prophylaxis ordered?: ASSESSMENT AND PLAN: This is a -year-old [RACE] [GENDER] with . PROBLEMS: 1. : . 2. : . 3. : . DISPOSITION: . VS, [facility]&O[facility] Vital Signs/I&O Vital Signs Date Time Temp Pulse Resp B/P (MAP) Pulse Ox O2 Delivery O2 Flow Rate FiO2 01/31/21 20:37 97.7 93 20 160/84 Room Air 01/31/21 20:00 92 01/30/21 12:18 2.0 01/30/21 06:28 50 I&O- Last 24 Hours up to 6 AM 01/31/21 06:00 Intake Total 1911.0 ml Output Total 4150 ml Balance -2239.0 ml Laboratory Data 24H LABS Laboratory Tests 2 01/30/21 22:17: Anion Gap 6L, Glomerular Filtration Rate 52.3L, Calcium Level 8.7 01/31/21 07:50: Bedside Glucose (Misc Panel) 265H 01/31/21 08:14: Anion Gap 3L, Glomerular Filtration Rate > 60.0, Calcium Level 9.2, Nucleated R ed Blood Cells % (auto) 0.2H, Estimated Mean Plasma Glucose 286H, Hemoglobin A1c 11.6 01/31/21 11:33: Urine Color STRAW, Urine Appearance CLEAR, Urine pH 5.0, Urine Specific [place] 1.005, Urine Protein 2+H, Urine Glucose (UA) 3+H, Urine Ketones NEGATIVE, Urine Blood 3+H, Urine Nitrite NEGATIVE, Urine Bilirubin NEGATIVE, Urine Urobilinogen 0.2, Urine Leukocyte Esterase NEGATIVE, Urine WBC (Auto) 1, Urine RBC (Auto) 1, Urine Hyaline Casts (Auto) 0, Urine Bacteria (Auto) NEGATIVE, Urine Squamous Epithelial Cells 1, Urine Sperm (Auto) 01/31/21 11:59: Bedside Glucose (Misc Panel) 285H 01/31/21 16:54: Bedside Glucose (Misc Panel) 336H 01/31/21 19:46: Bedside Glucose (Misc Panel) 350H CBC/BMP Laboratory Tests 01/30/21 22:17 01/31/21 00:20 01/31/21 08:14 Microbiology Microbiology 01/27/21 Blood Culture - Preliminary, Resulted No Growth after 72 hours. All specime... 01/27/21 Respiratory Virus Panel (PCR) (GIULIA) - Final, Complete 01/27/21 Blood Culture - Preliminary, Resulted No Growth after 72 hours. All specime... KENDALL ALVAREZ MD Jan 31, 2021 20:59
[2021-02-01] VITALS: BP 162/84
[2021-02-01] MEDS: FUROSEMIDE injection 250 MG in D5W 225 ML IV SCH (00:36)
[2021-02-01] MEDS: methylPREDNISolone 40MG 1ML VIAL IV SCH ×2 (01:13→14:07)
[2021-02-01] MEDS: ACETAMINOPHEN 500 MG TAB PO PRN ×2 (02:57→21:11)
[2021-02-01] MEDS: IPRATROPIUM 0.5MG/ALBUTEROL 2.5MG INH SOL UD 3ML (DUONEB) NEB SCH ×6 (04:00→20:09)
[2021-02-01 04:53] LABS: HEMATOCRIT 42.2 % (42.0-52.0); MEAN CORPUSCULAR HEMOGLOBIN 27.2 pg (27.0-33.0); MEAN CORPUSCULAR HGB CONC 30.8 g/dl (32.0-36.5); MEAN CORPUSCULAR VOLUME 88.3 fl (80.0-96.0); PLATELET COUNT, AUTOMATED 190 10^3/uL (150-450); RED BLOOD COUNT 4.78 10^6/uL (4.30-6.10); WHITE BLOOD COUNT 7.3 10^3/uL (4.0-10.0)
[2021-02-01 05:07] VITALS: BP 158/84
[2021-02-01] MEDS: HEPARIN SOD (PORCINE) 5000UNITS/ML 1ML VIAL/SYRINGE SQ SCH ×3 (05:11→21:09)
[2021-02-01 05:23] LABS: BLOOD UREA NITROGEN 48 MG/DL (7-18); CALCIUM LEVEL 8.4 MG/DL (8.5-10.1); CARBON DIOXIDE LEVEL 37 MEQ/L (21-32); CHLORIDE LEVEL 99 MEQ/L (98-107); CREATININE FOR GFR 1.32 MG/DL (0.70-1.30); GLOMERULAR FILTRATION RATE > 60.0 (>56); GLUCOSE, FASTING 320 MG/DL (70-100); SODIUM LEVEL 140 MEQ/L (136-145)
[2021-02-01] MEDS: HumaLOG INSULIN (NovoLOG) PER UNIT SC SCH ×4 (08:11→21:10)
[2021-02-01] MEDS: PANTOPRAZOLE 40MG TAB (PROTONIX) PO SCH (08:11)
[2021-02-01] MEDS: ASPIRIN 325 MG TAB PO SCH (08:11)
[2021-02-01] MEDS: GABAPENTIN 400MG CAP PO SCH ×3 (08:11→21:09)
[2021-02-01] MEDS: LEVEMIR (INSULIN DETEMIR) 1 UNITS/0.01ML SC SCH (08:12)
[2021-02-01 08:20] VITALS: BP 178/92
[2021-02-01] MEDS: BUDESONIDE 0.5 MG/2 ML INHALATION SUSPENSION INH SCH ×2 (08:39→20:09)
[2021-02-01] MEDS ORDERED: amLODIPine 5 MG TAB PO SCH (09:00)
[2021-02-01] MEDS: FUROSEMIDE 40MG/4ML VIAL (J1940) IV SCH ×2 (09:00→17:16)
[2021-02-01 12:00] VITALS: BP 130/78
--- NOTE | 2021-02-01 13:24 | ECGEPIP ---
[facility] Test Date: 2021-01-31 Pat Name: ARLYN RAGLAND Department: Room: [place] [address] Gender: Male [employer] Attendant: Sonny Carvajal RN : 1960 Requested By: BARAK Dennis Order Number: [id number] Reading MD: Mickey Muñoz Measurements Intervals [place] Rate: 84 P: 64 AR: 126 QRS: 140 QRSD: 80 T: 51 QT: 356 QTc: 420 Interpretive Statements Poor data quality, interpretation may be adversely affected Normal sinus rhythm Indeterminate axis Pulmonary disease pattern Possible Inferior infarct , age undetermined Borderline low voltage QRS complexes Last tracing on 01/27/21, 8:37 No remarkable changes but slower heart rate Electronically Signed on 02-01-2021 13:24:03 EDT by Mickey Muñoz
[2021-02-01] MEDS ORDERED: LIDOCAINE 1% MDV 20ML VIAL As Ordered ONE (14:54)
[2021-02-01 16:00] VITALS: BP 150/100
[2021-02-01] MEDS: SODIUM CHLORIDE 0.9% INJ 10 ML SYR IV SCH (17:18)
--- NOTE | 2021-02-01 18:49 | REP ---
PROCEDURE NAME: PICC LINE INSERTION W/SITERITE CLINICAL INFORMATION: Poor access. COMPARISON: None. PROCEDURE DESCRIPTION: The procedure was performed by VANDANA Melendez, under the direct supervision of Dr. Chaparro. The risks and benefits of the procedure were explained to the patient and an informed consent was obtained both verbally and written. Directly prior to the start of the procedure a formal time-out was completed in the procedure room. The right brachial vein was localized using ultrasound guidance. The skin was prepped and draped in sterile fashion. Three mL of 1% lidocaine 10 mg/mL was used as a local anesthetic. Using ultrasound guidance the right brachial vein was cannulated, and a 0.018 guidewire was inserted and advanced to the level of SVC using fluoroscopic guidance. The needle was removed and a 6 Surinamese dilator and peel-away sheath was inserted over the guidewire. A 6 [place]amese dual lumen catheter was cut to a length of 42 cm. The dilator was removed and the catheter was inserted over the guidewire with the tip ending at the level of the SVC. The peel-away sheath was removed and the catheter was flushed with heparinized saline as per hospital protocol. The catheter was affixed to the skin and a sterile dressing was applied. The patient tolerated the procedure well and there were no immediate complications. CONCLUSION: PICC line insertion into the right brachial vein. 0.3 minutes of fluoroscopy time was utilized for this procedure. Some fluoroscopic images are performed with last image hold technology. These images require no additional radiation. <Electronically signed by Nilsa Coronado > 02/01/21 1639 <Electronically signed by Hans Chaparro > 02/01/21 [id number]
[2021-02-01 20:00] VITALS: BP 172/96
--- NOTE | 2021-02-01 20:44 | IPNPDOC ---
Date Seen The patient was seen on 02/01/21. Progress Note SUBJECTIVE: seen bedside. doing well. Output 5L over past 24 hours. Thirsty, asking to increase fluid restriction. Denies SOB, palpitations, n/v/d. OBJECTIVE PHYSICAL EXAMINATION: VITAL SIGNS: please see below General: NAD, comfortable HEENT: PERRLA, EOMI, sclerae clear Neck: supple, normal ROM, no JVD Respiratory: lungs CTAB, no wheeze, no rales, no crackles CVS: RRR, normal S1, S2, no murmurs Abdo: soft, no masses, no hepatosplenomegaly, BS+, no rebound tenderness Extremities: venous stasis dermatitis. Ulcer on R lateral leg. MSK: no joint deformities, normal ROM Neuro: no focal neuro deficits, moving all 4 extremities, CN2-12 intact. Strength 5/5 in all 4 extremities. No nystagmus. Psych: calm, cooperative, AAO x 3 LABORATORY DATA, IMAGING STUDIES, MICROBIOLOGY: Please see below. ASSESSMENT AND PLAN: Mr. Jackson is a 60-year-old male who is a current smoker with COPD and CHF who presents with acute dyspnea and found to have acute hypoxic hypercapnic respiratory failure. This is most likely secondary to patient's continued smoking and exacerbation of patient's CHF. We will start patient on IV Solu-Medrol, breathing treatments, and antibiotics. Procalcitonin negative, will discontinue antibiotics. Otherwise, we will diurese patient. Patient has not tolerated the Lasix boluses. Patient is doing better with Lasix drip. Urine output has greatly improved with albumin infusion. Patient's acute hypercapnic respiratory failure has improved. Pulmonary had adjusted BiPAP settings. We will have patient on BiPAP nocturnally and as needed PROBLEMS: 1. Acute hypercapnic hypoxic respiratory failure Secondary to acute COPD exacerbation and decompensated CHF Treat underlying cause Pulmonary was consulted for BiPAP management. Recommendations appreciated - compliant with Bipap. 2. Acute COPD exacerbation Patient is a current smoker Procalcitonin negative, will discontinue antibiotics Continue Pulmicort - stop IV solumedrol, transition to prednisone 40 mg daily. 3. Decompensated CHF Possibly diastolic. Last echocardiogram was 2008 which demonstrated an EF of 55 to 65% Repeat echo demonstrated EF 55 to 60%. Grade 1 diastolic dysfunction stopped Lasix drip. BP appropriate. 2 g sodium diet Monitor I's and O's and daily weight - net negative balance - c/w lasix 40 mg IV q8h 3. Hypertension Hold metoprolol succinate, triamterene/hydrochlorothiazide, amlodipine, and losartan to allow for greater diuresis 4. Dyslipidemia Continue atorvastatin 5. Insulin-dependent diabetes mellitus complicated with neuropathy Continue Levemir ISS 6. GERD Continue pantoprazole 7. Right lateral leg wound Dr. Woo has been consulted, recommendations appreciated 8. MICHELLE Noncompliant with CPAP Currently on BiPAP for acute hypercapnic respiratory failure 9. Morbid obesity BMI 61.7 Complicates care 10. DVT prophylaxis Heparin subcu Disposition: Pending clinical improvement VS, I&O, 24H, [facility] Vital Signs/I&O Vital Signs Date Time Temp Pulse Resp B/P (MAP) Pulse Ox O2 Delivery O2 Flow Rate FiO2 02/01/21 16:00 98.3 98 20 150/100 (117) 94 Room Air 01/30/21 12:18 2.0 01/30/21 06:28 50 I&O- Last 24 Hours up to 6 AM 02/01/21 06:00 Intake Total 1775.0 ml Output Total 6025 ml Balance -4250.0 ml Laboratory Data 24H LABS Laboratory Tests 2 02/01/21 04:36: Nucleated Red Blood Cells % (auto) 0.3H, Anion Gap 4L, Glomerular Filtration Rate > 60.0, Calcium Level 8.4L 02/01/21 05:16: Bedside Glucose (Misc Panel) 296H 02/01/21 11:45: Bedside Glucose (Misc Panel) 303H 02/01/21 17:04: Bedside Glucose (Misc Panel) 299H 02/01/21 19:51: Bedside Glucose (Misc Panel) 330H CBC/BMP Laboratory Tests 02/01/21 04:36 Microbiology Microbiology 01/27/21 Blood Culture - Final, Complete NO GROWTH AFTER 5 DAYS 01/27/21 Respiratory Virus Panel (PCR) (GIULIA) - Final, Complete 01/27/21 Blood Culture - Final, Complete NO GROWTH AFTER 5 DAYS KENDALL ALVAREZ MD Feb 01, 2021 20:44
[2021-02-01] MEDS: traZODone 100 MG TAB PO SCH (21:09)
[2021-02-01] MEDS: ATORVASTATIN 20 MG TAB PO SCH (21:09)
[2021-02-01] MEDS ORDERED: hydrALAZINE 20MG/ML 1ML VIAL (J0360 PER 20MG) IV ONE (23:55)
[2021-02-02] VITALS: BP 188/118
[2021-02-02] MEDS: FUROSEMIDE 40MG/4ML VIAL (J1940) IV SCH ×2 (00:14→08:54)
[2021-02-02] MEDS: IPRATROPIUM 0.5MG/ALBUTEROL 2.5MG INH SOL UD 3ML (DUONEB) NEB SCH ×7 (00:15→23:25)
[2021-02-02 01:09] VITALS: BP 152/80
[2021-02-02] MEDS: ACETAMINOPHEN 500 MG TAB PO PRN ×2 (03:21→12:36)
[2021-02-02 04:00] VITALS: BP 148/80
[2021-02-02] MEDS: SODIUM CHLORIDE 0.9% INJ 10 ML SYR IV SCH ×2 (05:25→17:10)
[2021-02-02] MEDS: HEPARIN SOD (PORCINE) 5000UNITS/ML 1ML VIAL/SYRINGE SQ SCH ×3 (05:26→20:56)
[2021-02-02 06:18] LABS: BASO % 0.1 % (0.0-1.0); HEMATOCRIT 42.2 % (42.0-52.0); HEMOGLOBIN 13.1 g/dl (13.5-17.5); LYMPH # 1.1 10^3/uL (1.5-5.0); LYMPH % 12.5 % (24.0-44.0); MEAN CORPUSCULAR HEMOGLOBIN 27.1 pg (27.0-33.0); MEAN CORPUSCULAR VOLUME 87.2 fl (80.0-96.0); MONO # 0.9 10^3/uL (0.0-0.8); MONO % 10.5 % (2.0-8.0); NEUTROPHILS # 6.6 10^3/uL (1.5-8.5); NEUTROPHILS % 76.7 % (36.0-66.0); PLATELET COUNT, AUTOMATED 178 10^3/uL (150-450); RED BLOOD COUNT 4.84 10^6/uL (4.30-6.10); WHITE BLOOD COUNT 8.6 10^3/uL (4.0-10.0)
[2021-02-02 06:28] LABS: BLOOD UREA NITROGEN 43 MG/DL (7-18); CALCIUM LEVEL 8.7 MG/DL (8.5-10.1); CARBON DIOXIDE LEVEL 40 MEQ/L (21-32); CHLORIDE LEVEL 97 MEQ/L (98-107); GLOMERULAR FILTRATION RATE > 60.0 (>56); GLUCOSE, FASTING 329 MG/DL (70-100); POTASSIUM SERUM 3.6 MEQ/L (3.5-5.1); SODIUM LEVEL 140 MEQ/L (136-145)
[2021-02-02 08:00] VITALS: BP 170/102
[2021-02-02] MEDS: BUDESONIDE 0.5 MG/2 ML INHALATION SUSPENSION INH SCH ×2 (08:17→20:13)
[2021-02-02] MEDS: HumaLOG INSULIN (NovoLOG) PER UNIT SC SCH ×4 (08:53→20:54)
[2021-02-02] MEDS: ASPIRIN 325 MG TAB PO SCH (08:53)
[2021-02-02] MEDS: LEVEMIR (INSULIN DETEMIR) 1 UNITS/0.01ML SC SCH ×2 (08:53→20:53)
[2021-02-02] MEDS: predniSONE 20 MG TAB PO SCH (08:54)
[2021-02-02] MEDS: GABAPENTIN 400MG CAP PO SCH ×3 (08:54→20:53)
[2021-02-02] MEDS: PANTOPRAZOLE 40MG TAB (PROTONIX) PO SCH (08:54)
[2021-02-02 10:00] VITALS: BP 160/98
--- NOTE | 2021-02-02 15:06 | IPNPDOC ---
Date Seen The patient was seen on 02/02/21. Progress Note SUBJECTIVE: seen bedside. doing well. Not acutely SOB. States breathing improved. No acute events overnight. OBJECTIVE PHYSICAL EXAMINATION: VITAL SIGNS: please see below General: NAD, comfortable HEENT: PERRLA, EOMI, sclerae clear Neck: supple, normal ROM, no JVD Respiratory: lungs CTAB, no wheeze, no rales, crackle improved. CVS: RRR, normal S1, S2, no murmurs Abdo: soft, no masses, no hepatosplenomegaly, BS+, no rebound tenderness Extremities: venous stasis dermatitis. Ulcer on R lateral leg. MSK: no joint deformities, normal ROM Neuro: no focal neuro deficits, moving all 4 extremities, CN2-12 intact. Strength 5/5 in all 4 extremities. No nystagmus. Psych: calm, cooperative, AAO x 3 LABORATORY DATA, IMAGING STUDIES, MICROBIOLOGY: Please see below. ASSESSMENT AND PLAN: Mr. Jackson is a 60-year-old male who is a current smoker with COPD and CHF who presents with acute dyspnea and found to have acute hypoxic hypercapnic respiratory failure. This is most likely secondary to p atient's continued smoking and exacerbation of patient's CHF. S/p IV Solu- Medrol, breathing treatments, and antibiotics. Procalcitonin negative, antibiotics were DC. Otherwise, we will diurese patient. Patient has not tolerated the Lasix boluses. Patient is doing better with Lasix drip. Urine output has greatly improved with albumin infusion. Patient's acute hypercapnic respiratory failure has improved. Pulmonary had adjusted BiPAP settings. We will have patient on BiPAP nocturnally and as needed. PROBLEMS: 1. Acute hypercapnic hypoxic respiratory failure Secondary to acute COPD exacerbation and decompensated CHF Treat underlying cause Pulmonary was consulted for BiPAP management. Recommendations appreciated - compliant with Bipap. 2. Acute COPD exacerbation Patient is a current smoker Procalcitonin negative, will discontinue antibiotics Continue Pulmicort - stop IV solumedrol, transition to prednisone 40 mg daily. 3. Decompensated CHF Possibly diastolic. Last echocardiogram was 2008 which demonstrated an EF of 55 to 65% Repeat echo demonstrated EF 55 to 60%. Grade 1 diastolic dysfunction stopped Lasix drip. BP appropriate. 2 g sodium diet Monitor I's and O's and daily weight - net negative balance - transition IV lasix to lasix 80 mg PO BID. 3. Hypertension - resumed amlodipine 10 mg, losartan 50 mg daily, metoprolol 100 mg XL. Holding trimaterene/HCTZ. 4. Dyslipidemia Continue atorvastatin 5. Insulin-dependent diabetes mellitus complicated with neuropathy BG elevated. Presently levermi 50 units qam. Added 20 units qhs. ISS 6. GERD Continue pantoprazole 7. Right lateral leg wound Dr. Woo has been consulted, recommendations appreciated 8. MICHELLE Noncompliant with CPAP Currently on BiPAP for acute hypercapnic respiratory failure 9. Morbid obesity BMI 61.7 Complicates care 10. DVT prophylaxis Heparin subcu Disposition: PT cleared for DC home, but patient requests placement. ALC status as of 02/02/21 VS, I&O, 24H, [facility] Vital Signs/I&O Vital Signs Date Time Temp Pulse Resp B/P (MAP) Pulse Ox O2 Delivery O2 Flow Rate FiO2 02/02/21 10:00 160/98 (118) 02/02/21 08:54 80 02/02/21 08:00 97.9 19 93 Room Air 01/30/21 12:18 2.0 01/30/21 06:28 50 I&O- Last 24 Hours up to 6 AM 02/02/21 06:00 Intake Total 2170 ml Output Total 3925 ml Balance -1755 ml Laboratory Data 24H LABS Laboratory Tests 2 02/01/21 17:04: Bedside Glucose (Misc Panel) 299H 02/01/21 19:51: Bedside Glucose (Misc Panel) 330H 02/02/21 05:33: Immature Granulocyte % (Auto) 0.2, Neutrophils (%) (Auto) 76.7H, Lymphocytes (%) (Auto) 12.5L, Monocytes (%) (Auto) 10.5H, Eosinophils (%) (Auto) 0.0, Basophils (%) (Auto) 0.1, Neutrophils # (Auto) 6.6, Lymphocytes # (Auto) 1.1L, Monocytes # (Auto) 0.9H, Eosinophils # (Auto) 0.0, Basophils # (Auto) 0.0, Nucleated Red Blood Cells % (auto) 0.0, Anion Gap 3L, Glomerular Filtration Rate > 60.0, Calcium Level 8.7 02/02/21 12:22: Bedside Glucose (Misc Panel) 358H CBC/BMP Laboratory Tests 02/02/21 05:33 Microbiology Microbiology 01/27/21 Blood Culture - Final, Complete NO GROWTH AFTER 5 DAYS 01/27/21 Respiratory Virus Panel (PCR) (GIULIA) - Final, Complete 01/27/21 Blood Culture - Final, Complete NO GROWTH AFTER 5 DAYS KENDALL ALVAREZ MD Feb 02, 2021 15:06
[2021-02-02 15:15] VITALS: BP 138/78
[2021-02-02] MEDS: FUROSEMIDE 80 MG TAB PO SCH (16:01)
[2021-02-02] MEDS: METOPROLOL SUCC (TopROL XL) 100MG *XL* TAB PO SCH (16:01)
[2021-02-02] MEDS: LOSARTAN 50MG TABLET PO SCH (16:02)
[2021-02-02] MEDS: ATORVASTATIN 20 MG TAB PO SCH (20:53)
[2021-02-02] MEDS: traZODone 100 MG TAB PO SCH (20:53)
[2021-02-03] MEDS: IPRATROPIUM 0.5MG/ALBUTEROL 2.5MG INH SOL UD 3ML (DUONEB) NEB SCH ×6 (03:04→23:35)
[2021-02-03] MEDS: ACETAMINOPHEN 500 MG TAB PO PRN ×2 (04:05→16:52)
[2021-02-03 06:00] VITALS: BP 135/91
[2021-02-03] MEDS: HEPARIN SOD (PORCINE) 5000UNITS/ML 1ML VIAL/SYRINGE SQ SCH ×3 (06:05→20:05)
[2021-02-03] MEDS: SODIUM CHLORIDE 0.9% INJ 10 ML SYR IV SCH ×2 (06:06→16:52)
[2021-02-03] MEDS: BUDESONIDE 0.5 MG/2 ML INHALATION SUSPENSION INH SCH ×2 (07:10→19:16)
[2021-02-03] MEDS: PANTOPRAZOLE 40MG TAB (PROTONIX) PO SCH (08:21)
[2021-02-03] MEDS: FUROSEMIDE 80 MG TAB PO SCH ×2 (08:21→16:51)
[2021-02-03] MEDS: ASPIRIN 325 MG TAB PO SCH (08:21)
[2021-02-03] MEDS: predniSONE 20 MG TAB PO SCH (08:21)
[2021-02-03] MEDS: GABAPENTIN 400MG CAP PO SCH ×3 (08:21→20:05)
[2021-02-03] MEDS: LEVEMIR (INSULIN DETEMIR) 1 UNITS/0.01ML SC SCH ×2 (08:22→20:06)
[2021-02-03] MEDS: HumaLOG INSULIN (NovoLOG) PER UNIT SC SCH ×4 (08:22→20:06)
[2021-02-03] MEDS: LOSARTAN 50MG TABLET PO SCH (08:31)
[2021-02-03] MEDS: METOPROLOL SUCC (TopROL XL) 100MG *XL* TAB PO SCH (08:31)
[2021-02-03] MEDS: ATORVASTATIN 20 MG TAB PO SCH (20:05)
[2021-02-03] MEDS: traZODone 100 MG TAB PO SCH (20:05)
[2021-02-04] MEDS: IPRATROPIUM 0.5MG/ALBUTEROL 2.5MG INH SOL UD 3ML (DUONEB) NEB SCH ×6 (03:24→23:39)
[2021-02-04] MEDS: HEPARIN SOD (PORCINE) 5000UNITS/ML 1ML VIAL/SYRINGE SQ SCH ×3 (05:19→20:01)
[2021-02-04] MEDS: SODIUM CHLORIDE 0.9% INJ 10 ML SYR IV SCH ×2 (05:19→17:03)
[2021-02-04] MEDS: ACETAMINOPHEN 500 MG TAB PO PRN ×3 (05:19→22:32)
[2021-02-04 06:00] VITALS: BP 153/89
[2021-02-04] MEDS: BUDESONIDE 0.5 MG/2 ML INHALATION SUSPENSION INH SCH ×2 (07:25→19:48)
[2021-02-04] MEDS: GABAPENTIN 400MG CAP PO SCH ×3 (08:09→20:06)
[2021-02-04] MEDS: PANTOPRAZOLE 40MG TAB (PROTONIX) PO SCH (08:09)
[2021-02-04] MEDS: FUROSEMIDE 80 MG TAB PO SCH ×2 (08:09→17:02)
[2021-02-04] MEDS: ASPIRIN 325 MG TAB PO SCH (08:09)
[2021-02-04] MEDS: LEVEMIR (INSULIN DETEMIR) 1 UNITS/0.01ML SC SCH ×2 (08:10→20:07)
[2021-02-04] MEDS: HumaLOG INSULIN (NovoLOG) PER UNIT SC SCH ×4 (08:10→20:07)
[2021-02-04] MEDS: predniSONE 20 MG TAB PO SCH (08:10)
[2021-02-04] MEDS: METOPROLOL SUCC (TopROL XL) 100MG *XL* TAB PO SCH (08:11)
[2021-02-04] MEDS: LOSARTAN 50MG TABLET PO SCH (08:11)
[2021-02-04 14:10] VITALS: BP 135/72
[2021-02-04] MEDS: ATORVASTATIN 20 MG TAB PO SCH (20:06)
[2021-02-04] MEDS: traZODone 100 MG TAB PO SCH (20:07)
[2021-02-04 21:32] LABS: EOS % 0.1 % (0.0-3.0); HEMATOCRIT 43.8 % (42.0-52.0); HEMOGLOBIN 13.6 g/dl (13.5-17.5); LYMPH # 0.9 10^3/uL (1.5-5.0); LYMPH % 10.4 % (24.0-44.0); MEAN CORPUSCULAR HEMOGLOBIN 27.2 pg (27.0-33.0); MEAN CORPUSCULAR HGB CONC 31.1 g/dl (32.0-36.5); MEAN CORPUSCULAR VOLUME 87.6 fl (80.0-96.0); MONO # 0.8 10^3/uL (0.0-0.8); MONO % 8.9 % (2.0-8.0); NEUTROPHILS # 7.1 10^3/uL (1.5-8.5); NEUTROPHILS % 80.3 % (36.0-66.0); PLATELET COUNT, AUTOMATED 172 10^3/uL (150-450); WHITE BLOOD COUNT 8.9 10^3/uL (4.0-10.0)
[2021-02-05] MEDS: IPRATROPIUM 0.5MG/ALBUTEROL 2.5MG INH SOL UD 3ML (DUONEB) NEB SCH ×4 (03:33→15:13)
[2021-02-05] MEDS: HEPARIN SOD (PORCINE) 5000UNITS/ML 1ML VIAL/SYRINGE SQ SCH ×3 (04:36→22:05)
[2021-02-05] MEDS: SODIUM CHLORIDE 0.9% INJ 10 ML SYR IV SCH ×2 (05:38→17:09)
[2021-02-05 06:15] VITALS: BP 135/73
[2021-02-05] MEDS: HumaLOG INSULIN (NovoLOG) PER UNIT SC SCH ×4 (06:58→20:13)
[2021-02-05] MEDS: BUDESONIDE 0.5 MG/2 ML INHALATION SUSPENSION INH SCH (07:27)
[2021-02-05] MEDS: LOSARTAN 50MG TABLET PO SCH (09:00)
[2021-02-05] MEDS: METOPROLOL SUCC (TopROL XL) 100MG *XL* TAB PO SCH (09:00)
[2021-02-05] MEDS: FUROSEMIDE 80 MG TAB PO SCH ×2 (09:27→17:08)
[2021-02-05] MEDS: PANTOPRAZOLE 40MG TAB (PROTONIX) PO SCH (09:27)
[2021-02-05] MEDS: ASPIRIN 325 MG TAB PO SCH (09:27)
[2021-02-05] MEDS: predniSONE 20 MG TAB PO SCH (09:27)
[2021-02-05] MEDS: GABAPENTIN 400MG CAP PO SCH ×3 (09:27→20:11)
[2021-02-05] MEDS: LEVEMIR (INSULIN DETEMIR) 1 UNITS/0.01ML SC SCH ×2 (09:27→20:12)
[2021-02-05 09:37] VITALS: BP 109/66
[2021-02-05] MEDS: ACETAMINOPHEN 500 MG TAB PO PRN ×2 (13:56→23:03)
[2021-02-05] MEDS: traZODone 100 MG TAB PO SCH (20:11)
[2021-02-05] MEDS: ATORVASTATIN 20 MG TAB PO SCH (20:12)
[2021-02-05] MEDS ORDERED: amLODIPine 5 MG TAB PO ONE (20:20)
[2021-02-05 22:00] VITALS: BP 168/87
[2021-02-06] MEDS: SODIUM CHLORIDE 0.9% INJ 10 ML SYR IV SCH ×2 (06:15→17:17)
[2021-02-06] MEDS: HEPARIN SOD (PORCINE) 5000UNITS/ML 1ML VIAL/SYRINGE SQ SCH ×3 (06:15→21:28)
[2021-02-06 06:41] VITALS: BP 155/86
[2021-02-06] MEDS: HumaLOG INSULIN (NovoLOG) PER UNIT SC SCH ×4 (07:04→21:25)
[2021-02-06] MEDS: BUDESONIDE 0.5 MG/2 ML INHALATION SUSPENSION INH SCH ×2 (07:33→20:00)
[2021-02-06] MEDS: IPRATROPIUM 0.5MG/ALBUTEROL 2.5MG INH SOL UD 3ML (DUONEB) NEB SCH ×5 (07:34→20:00)
[2021-02-06] MEDS: GABAPENTIN 400MG CAP PO SCH ×3 (09:21→21:25)
[2021-02-06] MEDS: PANTOPRAZOLE 40MG TAB (PROTONIX) PO SCH (09:21)
[2021-02-06] MEDS: LEVEMIR (INSULIN DETEMIR) 1 UNITS/0.01ML SC SCH ×2 (09:21→21:26)
[2021-02-06] MEDS: ASPIRIN 325 MG TAB PO SCH (09:21)
[2021-02-06] MEDS: predniSONE 20 MG TAB PO SCH (09:21)
[2021-02-06] MEDS: FUROSEMIDE 80 MG TAB PO SCH ×2 (09:22→17:16)
[2021-02-06] MEDS: LOSARTAN 25 MG TAB PO SCH (09:22)
[2021-02-06] MEDS: METOPROLOL SUCC (TopROL XL) 100MG *XL* TAB PO SCH (09:22)
[2021-02-06] MEDS: SODIUM CHLORIDE 0.9% INJ 10 ML SYR IV PRN (11:08)
[2021-02-06 11:41] LABS: HEMATOCRIT 43.5 % (42.0-52.0); HEMOGLOBIN 13.3 g/dl (13.5-17.5); MEAN CORPUSCULAR HEMOGLOBIN 27.2 pg (27.0-33.0); MEAN CORPUSCULAR HGB CONC 30.6 g/dl (32.0-36.5); PLATELET COUNT, AUTOMATED 174 10^3/uL (150-450); RED BLOOD COUNT 4.89 10^6/uL (4.30-6.10); WHITE BLOOD COUNT 8.9 10^3/uL (4.0-10.0)
[2021-02-06] MEDS ORDERED: VITAMIN D 50,000 UNITS CAPSULE (ERGOCALCIFEROL 1.25MG) PO ONE (12:00)
[2021-02-06 14:00] VITALS: BP 143/77
[2021-02-06] MEDS: ATORVASTATIN 20 MG TAB PO SCH (21:25)
[2021-02-06] MEDS: traZODone 100 MG TAB PO SCH (21:25)
[2021-02-06] MEDS: ACETAMINOPHEN 500 MG TAB PO PRN (21:26)
[2021-02-07] MEDS: IPRATROPIUM 0.5MG/ALBUTEROL 2.5MG INH SOL UD 3ML (DUONEB) NEB SCH ×7 (00:14→23:46)
[2021-02-07] MEDS: HEPARIN SOD (PORCINE) 5000UNITS/ML 1ML VIAL/SYRINGE SQ SCH ×3 (05:13→21:14)
[2021-02-07] MEDS: SODIUM CHLORIDE 0.9% INJ 10 ML SYR IV SCH ×2 (05:14→17:54)
[2021-02-07] MEDS: SODIUM CHLORIDE 0.9% INJ 10 ML SYR IV PRN (05:14)
[2021-02-07 06:00] VITALS: BP 132/67
[2021-02-07] MEDS: BUDESONIDE 0.5 MG/2 ML INHALATION SUSPENSION INH SCH ×2 (07:29→19:58)
[2021-02-07] MEDS: METOPROLOL SUCC (TopROL XL) 100MG *XL* TAB PO SCH (07:53)
[2021-02-07] MEDS: PANTOPRAZOLE 40MG TAB (PROTONIX) PO SCH (07:53)
[2021-02-07] MEDS: predniSONE 20 MG TAB PO SCH (07:54)
[2021-02-07] MEDS: ASPIRIN 325 MG TAB PO SCH (07:54)
[2021-02-07] MEDS: FUROSEMIDE 80 MG TAB PO SCH ×2 (07:54→16:07)
[2021-02-07] MEDS: ACETAMINOPHEN 500 MG TAB PO PRN ×3 (07:54→21:15)
[2021-02-07] MEDS: GABAPENTIN 400MG CAP PO SCH ×3 (07:54→21:13)
[2021-02-07] MEDS: HumaLOG INSULIN (NovoLOG) PER UNIT SC SCH ×4 (07:55→21:14)
[2021-02-07] MEDS: LOSARTAN 25 MG TAB PO SCH (07:55)
[2021-02-07] MEDS: LEVEMIR (INSULIN DETEMIR) 1 UNITS/0.01ML SC SCH ×2 (07:56→21:14)
[2021-02-07] MEDS: NYSTATIN 100,000 UNITS/GM TOPICAL PWD 15 GM TOP PRN ×2 (10:03→21:43)
[2021-02-07] MEDS ORDERED: PRED10TA2 PO (14:17)
[2021-02-07] MEDS ORDERED: COZA1TAB PO (14:17)
[2021-02-07] MEDS ORDERED: FURO80TA2 PO (14:17)
[2021-02-07] MEDS: ATORVASTATIN 20 MG TAB PO SCH (21:13)
[2021-02-07] MEDS: traZODone 100 MG TAB PO SCH (21:13)
[2021-02-08] MEDS: IPRATROPIUM 0.5MG/ALBUTEROL 2.5MG INH SOL UD 3ML (DUONEB) NEB SCH ×2 (03:04→07:35)
[2021-02-08] MEDS: SODIUM CHLORIDE 0.9% INJ 10 ML SYR IV SCH (05:38)
[2021-02-08] MEDS: ACETAMINOPHEN 500 MG TAB PO PRN (05:39)
[2021-02-08] MEDS: SODIUM CHLORIDE 0.9% INJ 10 ML SYR IV PRN (05:39)
[2021-02-08] MEDS: HEPARIN SOD (PORCINE) 5000UNITS/ML 1ML VIAL/SYRINGE SQ SCH (05:39)
[2021-02-08 06:00] VITALS: BP 143/80
[2021-02-08] MEDS: BUDESONIDE 0.5 MG/2 ML INHALATION SUSPENSION INH SCH (07:35)
--- NOTE | 2021-02-08 07:50 | DS.PDOC ---
Discharge Summary General Date of Admission Jan 27, 2021 at 11:35 Date of Discharge Feb 08, 2021 Discharge Summary PROCEDURES PERFORMED DURING STAY: None ADMITTING DIAGNOSES: 1. Acute hypercapnic hypoxic respiratory failure 2. Acute COPD exacerbation 3. Decompensated CHF 4. Hypertension 5. Dyslipidemia 6. Insulin-dependent diabetes mellitus complicated with neuropathy 7. GERD 8. Right lateral leg wound 9. MICHELLE 10. Morbid obesity DISCHARGE DIAGNOSES: 1. Acute hypercapnic hypoxic respiratory failure 2. Acute COPD exacerbation 3. Decompensated CHF 4. Hypertension 5. Dyslipidemia 6. Insulin-dependent diabetes mellitus complicated with neuropathy 7. GERD 8. Right lateral leg wound 9. MICHELLE 10. Morbid obesity COMPLICATIONS/CHIEF COMPLAINT: Chf, Copd, Acute Hypercapnic Respiratory Failure. HISTORY OF PRESENT ILLNESS: Mr. Jackson is a 60-year-old male who is a current smoker with COPD and CHF who presents with acute dyspnea and found to have acute hypoxic hypercapnic respiratory failure. 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 He does drink alcohol and eat salty foods. He has been eating a lot of sandwiches as of late. Last night he started to feel short of breath and when he woke up this morning, he was not able to breathe. He had a dry cough. Denies any fever or chills. While in the ED, he was hypoxic. He saturated 70% on room air. Initial ABG with pH 7.28 and PCO2 of 62.3. Patient was put on BiPAP 18/8 with FiO2 50%. Repeat ABG demonstrates pH 7.29 and PCO2 of 60.6. He was given ceftriaxone, breathing treatments, and furosemide in the ED. Patient had appeared fluid overloaded with bilateral leg swelling. Patient also has a diabetic ulcer on the right lateral leg which he is seeing Dr. Woo. I consulted pulmonary, Dr. Felipa tee, for management of BiPAP. Patient will be admitted for acute hypoxic hypercapnic respiratory failure. HOSPITAL COURSE: During hospitalization, patient's acute COPD exacerbation was treated with IV steroids and breathing treatments. Antibiotics were not needed as procalcitonin was negative. Patient was initially put on IV Lasix every 6 hours. He is not able to tolerate the IV Lasix and doses were missed due to low blood pressure. Patient had remained on the BiPAP. The brazing machine operator helper had him on BiPAP / with 50% of FiO2. We were able to switch patient to a Lasix drip and he had good urine output. We were able to get him off of the BiPAP and he has not needed the BiPAP since 01/31/2021. Patient does have sleep apnea and would benefit from a pulmonology referral for sleep study. Otherwise, events wound care saw patient for right lateral leg wound secondary to stasis dermatitis and diabetes. Recommending Hydrofera Blue covered with extra absorbent outer dressing and Tubigrip stockings. This should be changed on a daily basis. Patient has done well without oxygen this week. Patient requested [facility] as he cannot take care of himself at home anymore. Patient will be discharged to [place]. Patient was seen this morning, he denied any chest pain or dyspnea. He felt ready to go and was subsequently discharged today. DISCHARGE MEDICATIONS: Please see below. ALLERGIES: Please see below. PHYSICAL EXAMINATION ON DISCHARGE: VITAL SIGNS: Please see below. GENERAL: Comfortable, in no apparent distress. HEENT: Left eye movement not symmetrical with right eye NECK: Supple. RESPIRATORY: Lungs clear to auscultation bilaterally, no rales, wheeze or rhonchi. CARDIOVASCULAR: Regular rate and rhythm. ABDOMEN: Soft, nontender, no guarding or rebound tenderness. Normal bowel sounds. MUSCLE SKELETAL: Venous stasis dermatitis of the lower extremities. Ulcer on right lateral leg PSYCHOLOGICAL: Normal mood and affect LABORATORY DATA: Please see below. IMAGING: Radiologist interpretation Chest x-ray on admission FINDINGS: Evaluation is limited by portable technique and underpenetration which accentuate the pulmonary vasculature and interstitium. CHF along with perihilar and predominately left lower lobe airspace disease cannot be excluded and requires correlation. No obvious effusion. No pneumothorax. Skeletal structures intact. IMPRESSION: Limited examination. Cannot exclude CHF or perihilar/left lower lobe airspace disease. PROGNOSIS: Good ACTIVITY: As tolerated. DIET: 2 g sodium diet and consistent carb diet. 1800 mL fluid restriction per day DISCHARGE PLAN: [facility] DISPOSITION: [facility]. DISCHARGE INSTRUCTIONS: 1. Follow-up with PCP within 1 week. 2. Recommend pulmonology referral for sleep apnea ITEMS TO FOLLOWUP ON ON OUTPATIENT: 1. Monitor weight DISCHARGE CONDITION: Stable Total time spent on discharge planning, discharge summary, medication reconciliation: 45 minutes Vital Signs/I&Os Vital Signs Date Time Temp Pulse Resp B/P (MAP) Pulse Ox O2 Delivery O2 Flow Rate FiO2 02/08/21 06:00 97.8 73 19 143/80 (101) 96 Room Air I&O- Last 24 Hours up to 6 AM 02/08/21 06:00 Intake Total 1875 ml Output Total 2225 ml Balance -350 ml Laboratory Data Labs 24H Laboratory Tests 2 02/07/21 11:25: Bedside Glucose (Misc Panel) 192H 02/07/21 13:39: Coronavirus (COVID-19)(PCR) NEGATIVE 02/07/21 16:31: Bedside Glucose (Misc Panel) 279H 02/07/21 20:12: Bedside Glucose (Misc Panel) 321H 02/08/21 06:05: Bedside Glucose (Misc Panel) 231H FSBS Laboratory Tests Test 02/07/21 11:25 02/07/21 16:31 02/07/21 20:12 02/08/21 06:05 Range/Units Bedside Glucose (Misc Panel) 192 279 321 231 70-105 MG/DL Microbiology Microbiology 02/04/21 Urine Culture - Final, Resulted Discharge Medications Scheduled Aspirin (Aspirin) 325 Mg Tab, 325 MG PO DAILY, (Reported) Atorvastatin Calcium (Atorvastatin Calcium) 40 Mg Tablet, 40 MG PO QHS, (Reported) Dulaglutide (Trulicity) 0.75 Mg/0.5 Ml Pen.injctr, 0.75 MG SC QWEEK, (Reported) SATURDAYS Ergocalciferol (Vitamin D2) (Vitamin D2) 50,000 Units Cap, 50,000 UNITS PO QWEEK, (Reported) SATURDAYS Fluticasone Furoate (Arnuity Ellipta) 100 Mcg Blst.w.dev, 1 PUFF INH DAILY, (Reported) Furosemide (Furosemide) 80 Mg Tablet, 80 MG PO BID@ Gabapentin (Gabapentin) 400 Mg Cap, 400 MG PO TID, (Reported) Insulin Glargine,Hum.rec.anlog (Semglee Pen) 100 Unit/Ml (3 Ml) Insuln.pen, 50 UNITS SC DAILY, (Reported) Insulin Lispro (Admelog Solostar) 100 Unit/Ml Inj, 15 UNITS SC AC, (Reported) Losartan Potassium (Cozaar) 25 Mg Tablet, 25 MG PO DAILY Metformin HCl (Metformin HCl) 500 Mg Tablet, 500 MG PO BID, (Reported) Metoprolol Succinate (Toprol Xl) 100 Mg Tab.er.24h, 100 MG PO DAILY, (Reported) Pantoprazole Sodium (Pantoprazole Sodium) 40 Mg Tablet.dr, 40 MG PO DAILY, (Reported) Prednisone (Prednisone) 10 Mg Tablet, 10 MG PO TAPER Take 4 tabs daily x 3 days, then 3 tabs daily x 3 days, then 2 tabs daily x 3 days, then 1 tab daily x 3 days and stop Trazodone HCl (Trazodone HCl) 100 Mg Tablet, 100 MG PO QHS, (Reported) Scheduled PRN Acetaminophen (Acetaminophen) 500 Mg Tablet, 500 MG PO Q6H PRN for PAIN LEVEL 1- 4, (Reported) Albuterol Sulfate (Ventolin Hfa) 108 Mcg/Act Aer, 2 PUFF INH Q6H PRN for SHORTNESS OF BREATH, (Reported) Miscellaneous Medications [Med Rec Comment] , (Reported) MED REC OBTAINED FROM EXTERNAL Allergies Coded Allergies: Sulfa (Sulfonamide Antibiotics) (Verified Allergy, Mild, RASH, 07/02/18) NSAIDS (Non-Steroidal Anti-Inflamma (Verified Adverse Reaction, Unknown, KIDNEY DISFUNCTION, 07/02/18) acetaminophen (Verified Adverse Reaction, Unknown, AVOIDS KIDNEY DYSFUNCTION, 07/02/18) DANIEL OMER DO Feb 08, 2021 07:50
[2021-02-08] MEDS: ASPIRIN 325 MG TAB PO SCH (08:01)
[2021-02-08] MEDS: HumaLOG INSULIN (NovoLOG) PER UNIT SC SCH (08:01)
[2021-02-08] MEDS: PANTOPRAZOLE 40MG TAB (PROTONIX) PO SCH (08:01)
[2021-02-08] MEDS: FUROSEMIDE 80 MG TAB PO SCH (08:01)
[2021-02-08] MEDS: LEVEMIR (INSULIN DETEMIR) 1 UNITS/0.01ML SC SCH (08:01)
[2021-02-08 08:02] VITALS: BP 142/82
[2021-02-08] MEDS: LOSARTAN 25 MG TAB PO SCH (08:02)
[2021-02-08] MEDS: GABAPENTIN 400MG CAP PO SCH (08:02)
[2021-02-08] MEDS: METOPROLOL SUCC (TopROL XL) 100MG *XL* TAB PO SCH (08:02)
[2021-02-08] MEDS: predniSONE 20 MG TAB PO SCH (08:02)
== END 2021-02-08 11:16 | DRG 194 ==
LOC: M ED 08:19 → EDBD 08:19 → M ED INP 11:35 → ENRESERV 01-28 02:29 → M PCU 01-28 04:08 → M MSPAV 02-02 15:12
PROVIDERS: ADMIT Internal Medicine; ATTEND Internal Medicine
PROC: 02HV33Z Insertion of Infusion Device into Superior Vena Cava, Percutaneous Approach (ICD-10-PCS; principal; 2021-02-01 16:00)
DX: I11.0 Hypertensive heart disease with heart failure (principal); J96.01 Acute respiratory failure with hypoxia; J96.02 Acute respiratory failure with hypercapnia; E11.40 Type 2 diabetes mellitus with diabetic neuropathy, unspecified; J44.1 Chronic obstructive pulmonary disease with (acute) exacerbation; E66.01 Morbid (severe) obesity due to excess calories; Z68.44 Body mass index [BMI] 60.0-69.9, adult; G47.33 Obstructive sleep apnea (adult) (pediatric); E78.5 Hyperlipidemia, unspecified; Z79.4 Long term (current) use of insulin; K21.9 Gastro-esophageal reflux disease without esophagitis; Z79.82 Long term (current) use of aspirin; Z79.899 Other long term (current) drug therapy; Z88.2 Allergy status to sulfonamides; Z88.6 Allergy status to analgesic agent; F17.200 Nicotine dependence, unspecified, uncomplicated; M17.0 Bilateral primary osteoarthritis of knee; Z91.19 Patient's noncompliance with other medical treatment and regimen; I50.31 Acute diastolic (congestive) heart failure